=== PATIENT | female | born 1930 | race Caucasian/White ===

== ENCOUNTER 2016-08-24 11:29 | Inpatient (IN) | payer MEDICARE, MEDICAID ==
[~2016-08-24] VITALS: Ht 144.8 cm; Wt 81.4 kg
[~2016-08-24 11:29] MED LIST: /ADVA50050 INH; /AMLO25TA PO; /LEVE75TA PO; /NITR4TASL SL; /SYST15OP OD; /WARF25TA PO; ACET500C PO; ADV500INH INH; ALBU83IN INH; ALLO100T OR; APAP325T PO; ASPI81TA83 OR; AUGM875T27 PO; BACITAB3 PO; BACL10TA2 OR; BACL10TA2 PO; BONI150T PO; CALCIUM/VITAMIN D PO; CENTRUM SILVER PO; CENTTAB PO; COLA100C2 OR; COLA50CA3 PO; COUM1TAB OR; COUM1TAB17 PO; COUM2.5T11 PO; COUM2TAB10 PO; COUM7.5T PO; DILT240C3 OR; DOCU10CA PO; ENOX40SY SC; FINA15GE2 EX; FLAG500T PO; FURO40TA2 OR; FURO40TA2 PO; GABA-279 PO; GLIP-162 PO; GLIP5TAB2 OR; GLIP5TAB2 PO; GLUC5TAB3 OR; IBAN150T5 PO; KEPP1TAB2 PO; KEPPRA OR; KLOR1TAB73 PO; LIDO1DIS2 TD; LISI-538 PO; LISI5TAB PO; MACR100C3 PO; MECL25TA2 OR; MOME50SP; MUCI600T34 PO; MULTTAB4 PO; NASONEX; NEUR300C PO; NITR0.4D6 SL; NITR0.4S SL; NITROQUICK; NYAM10003 TOP; NYST100024 TOP; OMEP20CA3 PO; OMEP20TA PO; OMEP20TA7 OR; OXYB5SYP PO; OXYBPOW PO; PERC5TAB8 OR; POTA10CA PO; POTA20TA OR; PREG25CA OR; REGL10TA6 PO; SIMV40TA2 PO; SIMV80TA OR; SYSTSOL8 OU; TYLE500T78 PO; VASO20TA OR; VENTAER INH; VESI10TA PO; VITA200038 PO; VITA400C OR; VITA500019 PO; VITA500T OR; VITAMIN D 3 PO; VOLT1GEL24 TD; ZARO2.5T OR; ZESTRIL PO; ZOSTRIX TOP; [UNRECOGNIZED DRUG - CODE] PO; [UNRECOGNIZED DRUG - OTHER] PO; [UNRECOGNIZED DRUG - OTHER] SUBQ; diltiazem PO; potassium chloride PO
[2016-08-24 13:17] LABS: BASO # 0.1 K/mm3 (0.0-0.2); BASO % 1.7 % (0.0-1.0); EOS # 0.6 K/mm3 (0.0-0.50); EOS % 7.1 % (0.0-3.0); LARGE UNSTAINED CELL # 0.3 K/mm3 (0.0-0.4); LARGE UNSTAINED CELL % 3.6 % (0.0-4.0); LYMPH # 1.6 K/mm3 (1.5-4.5); LYMPH % 17.1 % (24.0-44.0); MEAN CORPUSCULAR HEMOGLOBIN 28.6 pg (27.0-33.0); MEAN CORPUSCULAR HGB CONC 33.1 g/dl (32.0-36.5); MEAN CORPUSCULAR VOLUME 86.3 fl (80.0-96.0); MONO # 0.9 K/mm3 (0.0-0.8); MONO % 11.3 % (0.0-5.0); NEUTROPHILS # 4.6 K/mm3 (1.8-7.7); NEUTROPHILS % 59.2 % (36.0-66.0); PLATELET COUNT, AUTOMATED 308 k/mm3 (150-450); RED CELL DISTRIBUTION WIDTH 13.3 % (11.5-14.5); WHITE BLOOD COUNT 7.7 K/mm3 (4.0-10.0)
[2016-08-24 13:41] LABS: ALBUMIN 2.9 GM/DL (3.2-5.2); ALBUMIN/GLOBULIN RATIO 1.07 (1.00-1.93); ALKALINE PHOSPHATASE 89 U/L (45-117); ALT/SGPT 18 U/L (12-78); ANION GAP 8 MEQ/L (8-16); AST/SGOT 17 U/L (15-37); BILIRUBIN,DIRECT < 0.1 MG/DL (0.0-0.2); BILIRUBIN,TOTAL 0.3 MG/DL (0.2-1.0); BLOOD UREA NITROGEN 21 MG/DL (7-18); CALCIUM LEVEL 9.1 MG/DL (8.8-10.2); CARBON DIOXIDE LEVEL 26 MEQ/L (21-32); CHLORIDE LEVEL 109 MEQ/L (98-107); CREATININE FOR GFR 0.76 MG/DL (0.55-1.02); GLOMERULAR FILTRATION RATE > 60.0 (>32); GLUCOSE, FASTING 121 MG/DL (83-110); POTASSIUM SERUM 4.3 MEQ/L (3.5-5.1); SODIUM LEVEL 143 MEQ/L (136-145); TOTAL PROTEIN 5.6 GM/DL (6.4-8.2)
[2016-08-24] MEDS ORDERED: AMOX500C PO ×2 (14:09→14:10)
[2016-08-24] MEDS ORDERED: EUCELOT2 TOP (14:12)
[2016-08-24] MEDS ORDERED: FAMOTIDINE/NS 20 MG/50 ML BAG (S0028) As Ordered ONE (14:13)
[2016-08-24] MEDS ORDERED: WARF-20 PO (14:13)
[2016-08-24] MEDS ORDERED: KEPP500T6 PO (14:13)
[2016-08-24] MEDS ORDERED: methylPREDNISolone INJ 125 MG/2 ML VIAL (J2930) As Ordered ONE (14:13)
[2016-08-24] MEDS ORDERED: WARF-58 PO (14:14)
[2016-08-24] MEDS ORDERED: FLUTISP (14:16)
[2016-08-24] MEDS ORDERED: SPIR25TA2 PO (14:16)
[2016-08-24] MEDS ORDERED: LISI-542 PO (14:16)
[2016-08-24] MEDS ORDERED: BACL10TA2 PO (14:19)
[2016-08-24] MEDS ORDERED: NYST100024 TOP (14:19)
[2016-08-24 14:24] LABS: INR 2.4
[2016-08-24] MEDS ORDERED: SYSTSOL8 OU (14:27)
[2016-08-24] MEDS ORDERED: DOCU100C PO (14:27)
[2016-08-24] MEDS ORDERED: VITMTA PO (14:27)
[2016-08-24] MEDS ORDERED: MUCI600T34 PO (14:27)
[2016-08-24] MEDS ORDERED: CETI10TA PO (14:27)
[2016-08-24] MEDS ORDERED: GLIP-162 PO (14:27)
--- NOTE | 2016-08-24 15:00 | REP ---
Left lower extremity Duplex Doppler venous ultrasound: Real time compression and duplex Doppler interrogation of the left lower extremity deep venous system is performed. The left common femoral, superficial femoral and popliteal veins are fully compressible with transducer pressure and demonstrate normal spontaneous and phasic flow, without evidence of deep venous thrombosis. Impression: No evidence of deep venous thrombosis of the left lower extremity femoral popliteal venous system. Signed by Trace Tripathi MD 08/24/2016 02:53 P
[2016-08-24] MEDS ORDERED: CEFTAROLINE FOSAMIL 600 MG VIAL (TEFLARO) As Ordered ONE (15:25)
[2016-08-24 15:50] LABS: ERYTHROCYTE SEDIMENTATION RATE 56 mm/hr (0-42)
[2016-08-24] MEDS ORDERED: ALBUTEROL SULFATE 2.5 MG/0.5 ML INH NEB SOLN INH PRN (16:30)
[2016-08-24] MEDS ORDERED: THERAPEUTIC BATH LOTION 240 ML BTL TOP PRN (16:30)
[2016-08-24] MEDS ORDERED: NYSTATIN 100,000 UNITS/GM TOPICAL PWD 15 GM TOP PRN ×2 (16:30→16:45)
[2016-08-24] MEDS ORDERED: DEXTROSE 50% 50 ML SYRINGE IV PRN (16:30)
[2016-08-24] MEDS ORDERED: ACETAMINOPHEN 500 MG TAB PO PRN (16:30)
[2016-08-24] MEDS ORDERED: CETIRIZINE (ZyrTEC) 10 MG TAB PO PRN (16:30)
[2016-08-24] MEDS ORDERED: ACETAMINOPHEN TAB 650MG DOSE (2X325MG) PO PRN (16:30)
[2016-08-24] MEDS ORDERED: ONDANSETRON 4MG/2ML VIAL (J2405) IV PRN (16:30)
[2016-08-24] MEDS ORDERED: GLUCOSE 4 GM CHEW TABLET PO PRN (16:30)
[2016-08-24] MEDS ORDERED: GLUCAGON FOR INJ 1 MG VIAL (J1610) SC PRN (16:30)
[2016-08-24] MEDS ORDERED: guaiFENesin ER 600 MG TAB PO PRN (16:30)
--- NOTE | 2016-08-24 16:31 | EDDOCDS ---
Nurse's Notes [facility] Name: Anjelica Gallego Age: 86 yrs Sex: Female : 1930 Arrival Date: 08/24/2016 Time: 11:29 Bed 12 Private MD: Fernandez Lozano D Diagnosis: Cellulitis of other sites-left legalong with drug reaction allergic reaection Presentation: 08/24 11:40 Presenting complaint: Patient states: Saw Dr Forte on 08-02 for urinary incontinence [facility] and placed on Uroxatral and Myrbetriq. After taking a few days broke out in rash on arms, legs, face and back. Started on Zyrtec for rash with no improvement. Rash remains despite not taking meds anymore and increasing per pt. On Amoxicillin now for preparation for teeth surgery. Onset: The symptoms/episode began/occurred 2 week(s) ago. This patient has not experienced a previous allergic reaction. Anaphylaxis evaluation, the patient reports or I have noted the following symptoms which indicate a significant risk of anaphylaxis: no signs or symptoms of anaphylaxis were noted. Adult Sepsis Screening: The patient does not have new or worsening altered mentation. Patient's respiratory rate is less than 22. Systolic blood pressure is greater than 100. Patient has a qSOFA score of 0- Negative Sepsis Screen. Suicide/Homicide risk assessment- the patient denies having any suicidal and/or homicidal ideations and does not present with any other emotional, behavioral or mental health complaints. Status: Patient is not a social services manager or dependent. Transition of care: patient was received from [facility]. 11:40 Acuity: KIRK Level 4 [facility] 11:40 Method Of Arrival: Ambulance [facility] Triage Assessment: 11:49 General: Appears in no apparent distress, Behavior is cooperative. Pain: Denies pain. [facility] The patient is triaged at the bedside. See Assessment in Nurses Notes section of ED record. Respiratory: Airway is patent Respiratory effort is even, unlabored, Breath sounds are clear bilaterally. Reports no respiratory complaints. Historical: - Allergies: codeine (Unknown); IODINEIODINE CONTAINING (Unknown); Latex (Unknown); SULFA (SULFONAMIDES) (Unknown); myretiq; Uroxatral; - Home Meds: 1. amoxicillin 500 mg Oral cap 1 cap every 8 hours 2. furosemide 40 mg Oral tab 1 tab once daily 3. Eucerin Topical crea as needed 4. Keppra 500 mg Oral tab 1 tab 2 times per day 5. Coumadin 4 mg Oral tab 1 tab Sun, Tue, Wed, Fri, Sat 6. Coumadin 3 mg Oral tab 1 tab Mon, Thur 7. spironolactone 25 mg Oral tab 1 tab once daily 8. lisinopril 5 mg Oral tab 1 tab nightly 9. Flonase 50 mcg/actuation Nasal spsn 2 sprays once daily 10. gabapentin 100 mg Oral cap 3 times per day 11. baclofen 10 mg Oral tab 0.5 tab twice a day 12. nitroglycerin 0.4 mg SL subl 1 tab every 5 minutes for prn chest pain 13. Nystop 100,000 unit/gram Topical powd 2 times per day 14. Colace 100 mg oral cap 2 caps nightly 15. glipizide 5 mg Oral tab 1 tab once daily 16. omeprazole 20 mg Oral cpDR 1 cap once daily for Gastroesophageal Reflux 17. Vitamin D Oral 2000 unit daily 18. Advair Diskus 500-50 mcg/dose Inhl dsdv 1 puff 2 times per day 19. Systane 0.4-0.3 % ophthalmic drop 1 drop four times a day 20. guaifenesin 600 mg Oral Ta12 twice a day prn congestion 21. acetaminophen 500 mg Oral tab 2 tabs every 6 hours prn pain for Pain 22. simvastatin 40 mg Oral tab 1 tab once daily 23. albuterol sulfate 2.5 mg /3 mL (0.083 %) Inhl nebu 3 mL every 6 hours prn sob/wheezing 24. Centrum Silver Women 8 mg iron-400 mcg-300 mcg oral tab daily - PMHx: Atrial Fibrillation; COPD; diastolic heart failure; essential primary hypertension; GERD; Heart failure; history of falls; hyperlipidemia; Low back pain; muscle weakness; MARCO; Sleep Apnea w/o CPAP; type 2 diabetic with polyneuropathy; Vitamin D deficiency; - PSHx: Cholecystectomy; Cataract Surgery- Bilateral; Hysterectomy; Carpal Tunnel Repair- Bilateral; Laminectomy. lumbar; Back Surgery; Knee Arthroplasty, Left; Knee Arthroplasty, Right; Cardiac catherization; - Social history: Smoking status: Patient states was never smoker of tobacco. No barriers to communication noted, The patient speaks fluent Latvian. - Family history: Not pertinent. - : The pt / caregiver states he / she is on anticoagulants: coumadin. Home medication list is obtained from the patient, the facility MAR. - Exposure Risk Screening:: None identified. Screenin:50 Screening information is obtained from the patient. Fall risk: At risk due to prior [facility] history of falls, The following interventions are performed due to a positive Fall Risk Screen: Fall Risk is added to Special Handling on the patient Summary Screen. A Fall Risk Bracelet was applied to the patient. Side Rails are placed in the up position. A Call Hines is given with instruction to call for help when getting out of bed. Fall Alert bracelet is placed on the patient. Assistance ADL's: Requires assistance with meal preparation, this assistance is provided by residence staff, housework, assistance is provided by residence staff, medication administration, assistance is provided by residence staff. Abuse/DV Screen: The patient / caregiver reports he/she is: not in a situation that causes fear, pain or injury. Nutritional screening: No deficits noted. Advance Directives: There is an active DNR order and the pt has a copy here at this time. home support is adequate. Assessment: 11:50 General: Appears in no apparent distress, Behavior is cooperative. Pain: Denies pain. mcp Neurological: No deficits noted. Respiratory: Airway is patent Respiratory effort is even, unlabored, Breath sounds are clear bilaterally. Derm: Skin is pink, warm & dry. Rash noted that is itchy, red, raised, on face, back, chest, right arm, left arm, right leg and left leg. 12:45 General: Appears Behavior is cooperative. Pain: Location: right leg and left leg Pain mcp currently is 5 out of 10 on a pain scale. Neurological: No deficits noted. Respiratory: Airway is patent Respiratory effort is even, unlabored. Derm: Skin is pink, warm & dry. Rash noted that is itchy, red, raised, on face, back, chest, right arm, left arm, right leg and left leg Swollen area noted on right leg, right foot, left leg and left foot. 13:45 General: Appears in no apparent distress, Behavior is cooperative. Pain: Denies pain. mcp Neurological: No deficits noted. Respiratory: Airway is patent Respiratory effort is even, unlabored. Derm: Skin is pink, warm & dry. 14:45 General: Appears in no apparent distress, Behavior is cooperative. Pain: Denies pain. mcp Neurological: No deficits noted. Respiratory: Airway is patent Respiratory effort is even, unlabored. Derm: Skin is pink, warm & dry. 15:59 General: SBAR faxed and tubed to [facility]. ead 16:22 General: pt assisted to bedside commode. partially incontinent, urine is clear. pt ead returned to bed, ceftaroline continues to infuse. . General: Appears in no apparent distress, comfortable. Neurological: No deficits noted. Respiratory: Airway is patent Respiratory effort is even, unlabored. Derm: Skin is pink, warm & dry. Vital Signs: 11:37 BP 133 / 63; Pulse 90; Resp 18; Temp 98.3(O); Pulse Ox 91% on R/A; Weight 81.65 kg (R); ct3 Height 4 ft. 6 in. (137.16 cm) (R); Pain 8/10; 15:01 Resp 18; Pulse Ox 95% ; ead 15:04 BP 134 / 63; Pulse 86; Resp 20; Temp 96.9(O); Pulse Ox 96% on R/A; Pain 0/10; mcp 15:35 BP 143 / 67 (auto/); Pulse 90; Resp 18; Temp 98.3(T); Pulse Ox 95% on R/A; Pain 0/10; ead 16:18 BP 158 / 70 (auto/); ead 16:22 Pulse 88; Resp 18; Temp 98.3; Pulse Ox 94% ; ead 11:37 Body Mass Index 43.40 (81.65 kg, 137.16 cm) ct3 Vitals: 11:37 Log In Time: August 24, 2016 at 11:35. ct3 ED Course: 11:30 Patient visited by Fiona Sam, Mechanical Process Engineer. lbd 11:30 Fernandez Lozano is Private Physician. lbd 11:30 Patient moved to Waiting lbd 11:31 Patient moved to 12 lbd 11:38 Patient visited by Coretta Perales PCA. ct3 11:43 Triage Initiated mcp 11:51 Patient visited by Berenice Nathan RN. mcp 11:51 The patient / caregiver is instructed regarding the plan of care and ED course. Patient mcp has correct armband on for positive identification. Placed in gown. Bed in low position. Call light in reach. Side rails up X2. 13:17 Renate Mcclelland MD is Attending Physician. ml 13:17 Patient visited by Renate Mcclelland MD. ml 14:02 Patient moved to Ultrasound hgl 14:06 Patient moved to 12 hgl 14:07 PTT Sent. hs1 14:07 PT/INR Sent. hs1 14:11 WOUND CULTURE AND GRAM ST Sent. mcp 14:11 BLOOD CULTURES Sent. mcp 14:30 Patient moved to Ultrasound br3 14:52 Patient moved to 12 br3 14:57 Patient visited by Berenice Nathan, RN. mcp 15:01 Jailene Roa,RN is Primary Nurse. ead 15:06 Patient visited by Berenice Nathan RN. mcp 15:08 US Lower Extremity R/O DVT Returned. EDMS 15:15 Omid Aguilera DO is Hospitalizing Provider. ml 15:37 No procedures done that require assistance. ead 15:38 [place] [place] was scanned into [employer] and attached to record. lg 16:25 Inserted saline lock: 22 gauge in right hand IV initiated prior to this nurse assuming ead care. Administered Medications: 14:20 Drug: Solu-MEDROL 125 mg [Solu-Medrol 500 mg intravenous solution (125 mg)] Route: IVP; mcp Site: right hand; 14:20 Drug: Famotidine 20 mg [famotidine 10 mg/mL intravenous solution] Route: IVPB; Infused mcp Over: 30 mins; Site: right hand; 15:36 Drug: Ceftaroline Fosamil 600 mg [ceftaroline fosamil 600 mg intravenous solution] ead Route: IV; Rate: bolus; Infused Over: 30 mins; Site: right hand; Order Results: Lab Order: CBC with Diff; SPEC'M 08/24/16 12:57 Test: WHITE BLOOD COUNT; Value: 7.7; Range: 4.0-10.0; Units: K/mm3; Status: F Test: RED BLOOD COUNT; Value: 4.00; Range: 4.00-5.40; Units: M/mm3; Status: F Test: HEMOGLOBIN; Value: 11.4; Range: 12.0-16.0; Abnormal: Below low normal; Units: g/dl; Status: F Test: HEMATOCRIT; Value: 34.5; Range: 36.0-47.0; Abnormal: Below low normal; Units: %; Status: F Test: MEAN CORPUSCULAR VOLUME; Value: 86.3; Range: 80.0-96.0; Units: fl; Status: F Test: MEAN CORPUSCULAR HEMOGLOBIN; Value: 28.6; Range: 27.0-33.0; Units: pg; Status: F Test: MEAN CORPUSCULAR HGB CONC; Value: 33.1; Range: 32.0-36.5; Units: g/dl; Status: F Test: RED CELL DISTRIBUTION WIDTH; Value: 13.3; Range: 11.5-14.5; Units: %; Status: F Test: PLATELET COUNT, AUTOMATED; Value: 308; Range: 150-450; Units: k/mm3; Status: F Test: NEUTROPHILS %; Value: 59.2; Range: 36.0-66.0; Units: %; Status: F Test: LYMPH %; Value: 17.1; Range: 24.0-44.0; Abnormal: Below low normal; Units: %; Status: F Test: MONO %; Value: 11.3; Range: 0.0-5.0; Abnormal: Above high normal; Units: %; Status: F Test: EOS %; Value: 7.1; Range: 0.0-3.0; Abnormal: Above high normal; Units: %; Status: F Test: BASO %; Value: 1.7; Range: 0.0-1.0; Abnormal: Above high normal; Units: %; Status: F Test: LARGE UNSTAINED CELL %; Value: 3.6; Range: 0.0-4.0; Units: %; Status: F Test: NEUTROPHILS #; Value: 4.6; Range: 1.8-7.7; Units: K/mm3; Status: F Test: LYMPH #; Value: 1.6; Range: 1.5-4.5; Units: K/mm3; Status: F Test: MONO #; Value: 0.9; Range: 0.0-0.8; Abnormal: Above high normal; Units: K/mm3; Status: F Test: EOS #; Value: 0.6; Range: 0.0-0.50; Abnormal: Above high normal; Units: K/mm3; Status: F Test: BASO #; Value: 0.1; Range: 0.0-0.2; Units: K/mm3; Status: F Test: LARGE UNSTAINED CELL #; Value: 0.3; Range: 0.0-0.4; Units: K/mm3; Status: F Lab Order: MED Profile; SPEC'M 08/24/16 12:57 Test: GLUCOSE, FASTING; Value: 121; Range: 83-110; Abnormal: Above high normal; Units: MG/DL; Status: F Test: BLOOD UREA NITROGEN; Value: 21; Range: 7-18; Abnormal: Above high normal; Units: MG/DL; Status: F Test: CREATININE FOR GFR; Value: 0.76; Range: 0.55-1.02; Units: MG/DL; Status: F Test: GLOMERULAR FILTRATION RATE; Value: > 60.0; Range: >32; Status: F Test: SODIUM LEVEL; Value: 143; Range: 136-145; Units: MEQ/L; Status: F Test: POTASSIUM SERUM; Value: 4.3; Range: 3.5-5.1; Units: MEQ/L; Status: F Test: CHLORIDE LEVEL; Value: 109; Range: 98-107; Abnormal: Above high normal; Units: MEQ/L; Status: F Test: CARBON DIOXIDE LEVEL; Value: 26; Range: 21-32; Units: MEQ/L; Status: F Test: ANION GAP; Value: 8; Range: 8-16; Units: MEQ/L; Status: F Test: CALCIUM LEVEL; Value: 9.1; Range: 8.8-10.2; Units: MG/DL; Status: F Test Note: ; Units are mL/min/1.73 m2 Chronic Kidney Disease Staging per NKF: Stage I & II GFR >=60 Normal to Mildly Decreased Stage III GFR 30-59 Moderately Decreased Stage IV GFR 15-29 Severely Decreased Stage V GFR <15 Very Little GFR Left ESRD GFR <15 on ADZING AND BORING MACHINE HELPER Lab Order: Liver Profile; SPEC'M 08/24/16 12:57 Test: AST/SGOT; Value: 17; Range: 15-37; Units: U/L; Status: F Test: ALT/SGPT; Value: 18; Range: 12-78; Units: U/L; Status: F Test: ALKALINE PHOSPHATASE; Value: 89; Range: 45-117; Units: U/L; Status: F Test: BILIRUBIN,TOTAL; Value: 0.3; Range: 0.2-1.0; Units: MG/DL; Status: F Test: BILIRUBIN,DIRECT; Value: < 0.1; Range: 0.0-0.2; Units: MG/DL; Status: F Test: TOTAL PROTEIN; Value: 5.6; Range: 6.4-8.2; Abnormal: Below low normal; Units: GM/DL; Status: F Test: ALBUMIN; Value: 2.9; Range: 3.2-5.2; Abnormal: Below low normal; Units: GM/DL; Status: F Test: ALBUMIN/GLOBULIN RATIO; Value: 1.07; Range: 1.00-1.93; Status: F Lab Order: PT/INR; [facility] 08/24/16 14:03 Test: PROTHROMBIN TIME; Value: 26.2; Range: 12.3-14.5; Abnormal: Above high normal; Units: SECONDS; Status: F Test: INR; Value: 2.40; Status: F Test Note: ; THERAPUTIC HUMAN INR VALUES INDICATIONS NORMAL RANGES PROPHYLAXIS/TREATMENT OF: VENOUS THROMBOSIS 2.0-3.0 PULMONARY EMBOLISM 2.0-3.0 PREVENTION OF SYSTEMIC EMBOLISM FROM: TISSUE HEART VALVES 2.0-3.0 ACUTE MYOCARDIAL INFARCTION 2.0-3.0 VALVULAR HEART DISEASE 2.0-3.0 ATRIAL FIBRILLATION 2.0-3.0 MECHANICAL VALVES(HIGH RISK) 2.5-3.5 RECURRENT MYOCARDIAL INFARCTION 2.5-3.5 Lab Order: PTT; [facility] 08/24/16 14:03 Test: PARTIAL THROMBOPLASTIN TIME; Value: 47.8; Range: 26.6-37.1; Abnormal: Above high normal; Units: SECONDS; Status: F Lab Order: ERYTHROCYTE SEDIMENTATION RATE; [facility] 12:57 Test: ERYTHROCYTE SEDIMENTATION RATE; Value: 56; Range: 0-42; Abnormal: Above high normal; Units: mm/hr; Status: F Lab Order: C REACTIVE PROTEIN QUANTITATIV; [facility] 08/24/16 12:57 Test: C REACTIVE PROTEIN QUANTITATIV; Value: 1.01; Range: 0.00-0.30; Abnormal: Above high normal; Units: MG/DL; Status: F Radiology Order: US Lower Extremity R/O DVT Test: US Lower Extremity R/O DVT REASON FOR EXAMINATION: swelling; Left lower extremity Duplex Doppler venous ultrasound:; ; Real time compression and duplex Doppler interrogation of the left lower; extremity deep venous system is performed. The left common femoral, superficial; femoral and popliteal veins are fully compressible with transducer pressure and; demonstrate normal spontaneous and phasic flow, without evidence of deep venous; thrombosis.; ; Impression:; ; No evidence of deep venous thrombosis of the left lower extremity femoral; popliteal venous system.; ; ; Signed by; Trace Tripathi MD 08/24/2016 02:53 P; Outcome: 15:16 Decision to Hospitalize by Provider. 16:24 Discharge Assessment: Patient awake and alert. obeys commands, Oriented to person, ead place and time. patient administered narcotics - no. The following High Risk Discharge criteria are identified: None. Admitted to Med/Surg accompanied by tech, via stretcher, with chart. Condition: stable. No special radiology studies were completed. Property :Personal belongings accompany Pt. 16:30 Patient left the ED. [facility] Signatures: Dispatcher [employer] EDWI Renate Mcclelland MD MD ml Daly, Linda, Mechanical Process Engineer Unit [facility] Mary Rosas RN RN Berenice Rico RN RN mcp Ganter, LoriLee, Saurabh Reg lg Claudia Sales br3 Isabel Velasco RN RN hs1 Coretta Perales, PREPARER SAMPLES AND REPAIRS PREPARER SAMPLES AND REPAIRS ct3 Ly, Freddy l Jailene Roa,JOSEPH RN lupillo Corrections: (The following items were deleted from the chart) 14:14 14:06 C REACTIVE PROTEIN QUANTITATIV+LAB sent. hs1 EDMS 14:14 14:07 ERYTHROCYTE SEDIMENTATION RATE+LAB sent. 1 EDMS 15:57 15:35 BP 143 / 67 Auto; ead ead MTDD
--- NOTE | 2016-08-24 16:31 | EDDOCDS ---
Physician Documentation [facility] Name: Anjelica Gallego Age: 86 yrs Sex: Female : 1930 Arrival Date: 08/24/2016 Time: 11:29 Bed 12 Private MD: Fernandez Lozano D Disposition: 08/24/16 15:16 Hospitalization ordered by Omid Aguilera for Inpatient Admission. Preliminary diagnosis is Cellulitis of other sites - left legalong with drug reaction allergic reaection . - Bed requested for 4 [place]. - Status is Inpatient Admission. [facility] - Condition is Stable. - Problem is new. - Symptoms are unchanged. Historical: - Allergies: codeine (Unknown); IODINEIODINE CONTAINING (Unknown); Latex (Unknown); SULFA (SULFONAMIDES) (Unknown); myretiq; Uroxatral; - Home Meds: 1. amoxicillin 500 mg Oral cap 1 cap every 8 hours 2. furosemide 40 mg Oral tab 1 tab once daily 3. Eucerin Topical crea as needed 4. Keppra 500 mg Oral tab 1 tab 2 times per day 5. Coumadin 4 mg Oral tab 1 tab Sun, Tue, Wed, Fri, Sat 6. Coumadin 3 mg Oral tab 1 tab Mon, Thur 7. spironolactone 25 mg Oral tab 1 tab once daily 8. lisinopril 5 mg Oral tab 1 tab nightly 9. Flonase 50 mcg/actuation Nasal spsn 2 sprays once daily 10. gabapentin 100 mg Oral cap 3 times per day 11. baclofen 10 mg Oral tab 0.5 tab twice a day 12. nitroglycerin 0.4 mg SL subl 1 tab every 5 minutes for prn chest pain 13. Nystop 100,000 unit/gram Topical powd 2 times per day 14. Colace 100 mg oral cap 2 caps nightly 15. glipizide 5 mg Oral tab 1 tab once daily 16. omeprazole 20 mg Oral cpDR 1 cap once daily for Gastroesophageal Reflux 17. Vitamin D Oral 2000 unit daily 18. Advair Diskus 500-50 mcg/dose Inhl dsdv 1 puff 2 times per day 19. Systane 0.4-0.3 % ophthalmic drop 1 drop four times a day 20. guaifenesin 600 mg Oral Ta12 twice a day prn congestion 21. acetaminophen 500 mg Oral tab 2 tabs every 6 hours prn pain for Pain 22. simvastatin 40 mg Oral tab 1 tab once daily 23. albuterol sulfate 2.5 mg /3 mL (0.083 %) Inhl nebu 3 mL every 6 hours prn sob/wheezing 24. Centrum Silver Women 8 mg iron-400 mcg-300 mcg oral tab daily - PMHx: Atrial Fibrillation; COPD; diastolic heart failure; essential primary hypertension; GERD; Heart failure; history of falls; hyperlipidemia; Low back pain; muscle weakness; MARCO; Sleep Apnea w/o CPAP; type 2 diabetic with polyneuropathy; Vitamin D deficiency; - PSHx: Cholecystectomy; Cataract Surgery- Bilateral; Hysterectomy; Carpal Tunnel Repair- Bilateral; Laminectomy. lumbar; Back Surgery; Knee Arthroplasty, Left; Knee Arthroplasty, Right; Cardiac catherization; - Social history: Smoking status: Patient states was never smoker of tobacco. No barriers to communication noted, The patient speaks fluent Danish. - Family history: Not pertinent. - : The pt / caregiver states he / she is on anticoagulants: coumadin. Home medication list is obtained from the patient, the facility MAR. - Exposure Risk Screening:: None identified. Vital Signs: 08/24 11:37 BP 133 / 63; Pulse 90; Resp 18; Temp 98.3(O); Pulse Ox 91% on R/A; Weight 81.65 kg / ct3 180.01 lbs (R); Height 4 ft. 6 in. (137.16 cm) (R); Pain 8/10; 15:01 Resp 18; Pulse Ox 95% ; ead 15:04 BP 134 / 63; Pulse 86; Resp 20; Temp 96.9(O); Pulse Ox 96% on R/A; Pain 0/10; mcp 15:35 BP 143 / 67 (auto/); Pulse 90; Resp 18; Temp 98.3(T); Pulse Ox 95% on R/A; Pain 0/10; ead 16:18 BP 158 / 70 (auto/); ead 16:22 Pulse 88; Resp 18; Temp 98.3; Pulse Ox 94% ; ead 11:37 Body Mass Index 43.40 (81.65 kg, 137.16 cm) ct3 MDM: 12:37 CBC with Diff Ordered. EDMS 12:38 MED Profile Ordered. EDMS 12:38 Liver Profile Ordered. EDMS 13:40 CBC with Diff Reviewed. ml 13:42 IV Saline Lock ordered. ml 13:42 -Blood Culture (Adults Only), peripheral from different site, or from device/port/PICC ml etc. if present ordered. 13:42 Solu-MEDROL 125 mg IVP once ordered. ml 13:42 Famotidine 20 mg IVPB once over 30 mins; dilute in 50mL of NS ordered. ml 13:42 -Blood Culture Ordered. EDMS 13:43 Chest, 1 View Ordered. EDMS 13:43 US Lower Extremity R/O DVT Ordered. EDMS 13:44 BED REQUEST+ADM ordered. EDMS 13:45 PT/INR Ordered. EDMS 13:45 PTT Ordered. EDMS 13:48 -Blood Culture (Adults Only), peripheral from different site, or from device/port/PICC lbd etc. if present complete. 14:08 WOUND CULTURE AND GRAM ST Ordered. EDMS 14:08 BLOOD CULTURES Ordered. EDMS 14:14 ERYTHROCYTE SEDIMENTATION RATE Ordered. EDMS 14:31 MED Profile Reviewed. ml 14:31 Liver Profile Reviewed. ml 14:31 PT/INR Reviewed. ml 14:31 PTT Reviewed. ml 14:31 C REACTIVE PROTEIN QUANTITATIV Reviewed. ml 15:02 Ceftaroline Fosamil 600 mg IV at bolus once over 30 mins; reconstitute with 20mL NS or ml SW, then dilulte in 50mL of NS, D5W or LR ordered. 15:11 Admission / Observation Status ordered. EDMS 15:38 Financial registration complete. lg 15:38 [facility] [place] Payment Agreement was scanned into [employer] and attached to record. lg 15:57 CBC with Diff Reviewed. ml 15:57 ERYTHROCYTE SEDIMENTATION RATE Reviewed. ml 15:57 US Lower Extremity R/O DVT Reviewed. ml 16:26 PHYSICAL THERAPY EVAL & TREAT ordered. EDMS Administered Medications: 14:20 Drug: Solu-MEDROL 125 mg [Solu-Medrol 500 mg intravenous solution (125 mg)] Route: IVP; mcp Site: right hand; 14:20 Drug: Famotidine 20 mg [famotidine 10 mg/mL intravenous solution] Route: IVPB; Infused mcp Over: 30 mins; Site: right hand; 15:36 Drug: Ceftaroline Fosamil 600 mg [ceftaroline fosamil 600 mg intravenous solution] ead Route: IV; Rate: bolus; Infused Over: 30 mins; Site: right hand; Signatures: Dispatcher [employer] EDMS Renate Mcclelland MD MD ml Daly, Linda, Chief Clinical Dietitian Unit lbd Mary Rosas RN RN kpj Peters, Mary RN RN Claudia Bryan, Reg Reg lg Jailene RoaRN Damari Valverde RN RN lmg The chart was reviewed and I authenticate all verbal orders and agree with the evaluation and treatment provided.Corrections: (The following items were deleted from the chart) 13:44 13:42 WOUND CULTURE+ADALID ordered. EDMS EDMS 14:14 13:42 ERYTHROCYTE SEDIMENTATION RATE+LAB ordered. EDMS EDMS 14:14 13:42 C REACTIVE PROTEIN QUANTITATIV+LAB ordered. EDMS EDMS Attachments: 15:38 [facility] Payment Agreement lg MTDD
[2016-08-24] MEDS ORDERED: ENTER DRUG NAME HERE (PATIENT'S OWN MED) OU SCH (17:00)
--- NOTE | 2016-08-24 17:19 | REP ---
CHEST, ONE VIEW: HISTORY: Cellulitis. COMPARISON: 03/24/2016 An increase in interstitial markings is present in the lungs consistent with chronic interstitial fibrosis. The cardiac silhouette is enlarged. The pulmonary vasculature is normal in appearance. IMPRESSION: 1. Chronic interstitial fibrosis. 2. Cardiomegaly. Signed by Jim Alexandre MD 08/24/2016 05:42 P
--- NOTE | 2016-08-24 17:20 | PHACANCOPD ---
PHARMACY VANCOMYCIN DOSING Pt Demographics Demographics Patient Age:86 , Weight: 81.65 , HEIGHT: 4'7", Gender: female Adjusted Body Weight Date: 08/24/16, Adjusted Body Weight: [60] Kg Vancomycin Vancomycin Target Ranges: 15-20 mcg/ml Vancomycin Load Y/N: Yes Load Dose Date Time Vancomycin Load Dose: 1GM Date: 08/24/15 Time: 20:00 Vancomycin Dose Date: 08/24/16. Current Vancomycin Dose: [1GM IV Q24H starting 08:00 08/25/16] Intermittent Dosing?: No Labs Labs Laboratory Tests 08/24/16 12:57 Red Blood Count 4.00, Mean Corpuscular Volume 86.3, Mean Corpuscular Hemoglobin 28.6, Mean Corpuscular Hemoglobin Concent 33.1, Red Cell Distribution Width 13.3 , Neutrophils (%) (Auto) 59.2, Lymphocytes (%) (Auto) 17.1 L, Monocytes (%) ( Auto) 11.3 H, Eosinophils (%) (Auto) 7.1 H, Basophils (%) (Auto) 1.7 H, Neutrophils # (Auto) 4.6, Lymphocytes # (Auto) 1.6, Monocytes # (Auto) 0.9 H, Eosinophils # (Auto) 0.6 H, Basophils # (Auto) 0.1 Micro Microbiology 08/24/16 Blood Culture, Received Pending 08/24/16 Blood Culture, Received Pending 08/24/16 Gram Stain, Received Pending 08/24/16 Wound Culture, Received Pending Creatinine Clearance Date:08/24/16. Creatinine Clearance: [<40ml/min]. Assessment and Plan Maintaining Current Dose?: Yes Reason for dose change: No Dose Change Pharmacist Note Pharmacist Note Date: 08/24/16. Pharm.D. note: 86YO FEMALE, 57" in HEIGHT, 81.65KG in WEIGHT, CRCL <40 ml/min. ADMITTED WITH CELLULITIS of LEFT LEG. MEROPENEM 500MG IV Q8H IS INITIATING @18:00. WE ARE ASKED TO DOSE HER VANCOMYCIN TO A GOAL = 15-20 mcg/ml. WE WILL GIVE HER VANCO 1GM IV @ 20:00 THIS EVENING FOLLOWED 12 HRS LATER BY VANCO 1GM IV Q24H starting @08:00 08/25/16. A VANCO TR WILL DE ORDERED WHEN SHE IS AT STEADY STATE. SORAIDA, Pharm.D. [facility] Aug 24, 2016 17:19
[2016-08-24] MEDS: HumaLOG INSULIN (NovoLOG) PER UNIT SC SCH ×2 (17:30→20:58)
[2016-08-24 18:00] VITALS: BP 150/78
[2016-08-24] MEDS: GABAPENTIN 100 MG CAP PO SCH ×2 (18:58→21:05)
[2016-08-24] MEDS: WARFARIN SOD 4 MG TAB PO SCH (18:58)
[2016-08-24] MEDS: FUROSEMIDE 40 MG TAB PO SCH (18:58)
[2016-08-24] MEDS: MEROPENEM INJ 500 MG in D5W MINI-BAG PLUS 100 ML IV SCH (18:58)
[2016-08-24] MEDS ORDERED: VANCOMYCIN HCL 1,000 MG, VIAL MATE ADAPTER 1 EACH in D5W 250 ML IV ONE (20:00)
[2016-08-24] MEDS: ADVAIR DISKUS 500/50 INH PWD INH SCH (20:02)
--- NOTE | 2016-08-24 20:52 | HPE ---
DATE OF ADMISSION: 08/24/2016 TIME PATIENT WAS SEEN: 1400 hours. PRIMARY CARE PROVIDER: Dr. Lozano and also Dr. Shearer CHIEF COMPLAINT: Swelling of lower extremity and also rash. HISTORY OF THE PRESENT ILLNESS: An 86-year-old female with a past medical history of hypertension, obstructive sleep apnea, dyslipidemia, peripheral neuropathy, cerebrovascular accident, hypertension, left bundle branch block, paroxysmal atrial fibrillation, diastolic heart failure with an ejection fraction of 75% in 2013, seizure disorder, neuropathy, melanoma status post excision, presented with worsening swelling and rash of the lower extremity. Per patient, she saw Dr. Forte on 08/02/2016 for urinary incontinence and the patient was placed on two medications, Uroxatral and also Myrbetriq. After a few days on those two medications, she started developing rash on the arms, legs, face and back. Those medications have been discontinued; however, the rash persisted. The upper arm rash has improved; however, the lower extremity rash worsened. Today, she has been seen by a nurse at [facility], and they recommended her to come to the emergency room for further evaluation. The patient currently denies any fever or chills. Denies any drainage in the lower extremities. Denies any pain in the lower extremity. The patient also denies any chest pain, trouble breathing, abdominal pain, nausea, vomiting, diarrhea, constipation or any problem with urination. ALLERGIES: The patient is allergic to CODEINE; she does not remember the side effect. She was allergic to IODINE. Per patient, it was a postsurgical reaction. Allergic to LATEX, gives her rosacea and also allergic to SULFA, gives her trouble breathing and swelling. HOME MEDICATIONS: - Tylenol 500 mg one tablet by mouth every 6 hours as needed - albuterol one inhalation every 6 hours as needed - amoxicillin 500 mg one tablet by mouth three times a day - Baclofen 5 mg one tablet by mouth twice a day - cetirizine 10 mg one tablet by mouth daily - vitamin D3 2000 units one tablet by mouth daily - Colace 200 mg one tablet by mouth nightly - Eucerin topically every 4 hours as needed - fluticasone two sprays in each naris daily - Lasix 40 mg one tablet by mouth daily - gabapentin 100 mg one tablet by mouth three times a day - glipizide 5 mg one tablet by mouth daily - Mucinex 600 mg one tablet by mouth twice a day - Keppra 500 mg one tablet by mouth twice a day - lisinopril 5 mg one tablet by mouth nightly - multivitamin one tablet by mouth daily - nitroglycerin 0.4 mg sublingual every 5 minutes as needed - Nystatin powder topically twice a day as needed - omeprazole 20 mg one tablet by mouth daily - Advair Diskus 500-50 mcg one puff inhalation twice a day - simvastatin 40 mg one tablet by mouth nightly - spironolactone 25 mg one tablet by mouth daily - Systane Balance Restorative eye drops in each eye four times a day - warfarin 4 mg one tablet by mouth five times per week on Tuesday, Tuesday, Tuesday, Tuesday and Tuesday and also warfarin 3 mg two times per week on Tuesday and . PAST MEDICAL HISTORY: As stated above: 1. Hypertension. 2. Obstructive sleep apnea, on continuous positive airway pressure (CPAP) at night. 3. Hypertension. 4. Peripheral neuropathy. 5. Osteoarthritis. 6. Cerebrovascular accident. 7. Seizure disorder. 8. Diastolic heart failure, ejection fraction 75% in 2013. 9. Melanoma status post excision. 10. Asthma. PAST SURGICAL HISTORY: 1. Cholecystectomy. 2. Cataract surgery bilaterally. 3. Hysterectomy. 4. Carpal tunnel release bilaterally. 5. Laminectomy. 6. Knee arthroplasty bilaterally with knee replacement. 7. Cardiac catheterization. SOCIAL HISTORY: The patient is a long-term resident of [facility]. Denies any smoking, drinking or recreational drug use. FAMILY HISTORY: Denies. REVIEW OF SYSTEMS: GENERAL: The patient denies any recent traveling or any sick contact. Denies any fever or chills. HEENT: Denies any changes with vision, smell, hearing or taste. Denies any sore throat or cough. CARDIOVASCULAR: Denies any chest pain, any trouble breathing. PULMONARY: Denies any trouble breathing. GASTROINTESTINAL: Denies any abdominal pain, nausea, vomiting, diarrhea or constipation. GENITOURINARY: Denies any problem with urination. MUSCULOSKELETAL: Admits to chronic pain. ENDOCRINE: Denies any heat or cold in tolerance. The patient, however, does have diabetes. HEMATOLOGY/ONCOLOGY: Denies any bruising or any bleeding anywhere. PSYCHIATRIC: Denies any anxiety/depression. NEUROLOGIC: Denies any weakness on any one side of the body or any change of sensations. PHYSICAL EXAMINATION: VITAL SIGNS: Blood pressure 134/63, pulse 86, respirations 20, temperature 96.9 with oxygen saturating at 96% on room air. Weight was 81 kg. Height was 137 cm. GENERAL: The patient is a morbidly obese female who was alert, awake, oriented times three, does not appear to be in distress, resting comfortably in bed with the head elevated at 30 degrees. HEENT: Normocephalic, atraumatic. Extraocular motor intact. Mucosa moist. NECK: Supple. No neck lymphadenopathy. CARDIOVASCULAR: Regular rate and rhythm. S1, S2. No murmurs, rubs or gallops. LUNGS: Clear to auscultation bilaterally. No wheezing, rales, or rhonchi. ABDOMEN: Positive bowel sounds, soft, nontender, nondistended. No peritoneal signs. No ecchymosis. EXTREMITIES: There was significant erythema in bilateral lower extremities around the ankle, which was slightly warmer to touch bilaterally. Also, on the left inner leg, the patient has a small ulcer which was nonpurulent and nondraining, about 3 cm along the length of the leg. Otherwise, does not look necrotic. SKIN: The patient does have a rash on upper arms, shoulder and also lower extremities. NEUROLOGICAL: Cranial nerves II-XII intact. No focal neurologic deficit. LABORATORY DATA: WBC 7.7, hemoglobin 11.4, hematocrit 34.5 with a platelet count of 308, MCV 86.3. Sodium 143, potassium 4.3, chloride 109, bicarbonate 26, BUN 21, creatinine 0.76 , GFR greater than 60, fasting glucose 121, CRP 1.01, total protein 5.6, albumin 2.9. Coagulation does show a PT of 26.2, INR 2.4 and PTT of 47.8. Accu-Chek glucose is 100. Blood culture times two is pending. Wound culture of the leg is pending. The patient does have a vascular ultrasound on the left lower extremity; it shows no deep vein thrombosis (DVT). The patient does have a portable chest x-ray in the emergency room, shows chronic interstitial fibrosis and cardiomegaly. ASSESSMENT AND PLAN: An 86-year-old female with a past medical history of obstructive sleep apnea, hypertension, paroxysmal atrial fibrillation - on warfarin, and other comorbidities, presented with: 1. Cellulitis of the lower extremities and also rash, possibly secondary to side effect from the medication initially, which got worsened causing worsening diastolic heart failure and fluid buildup and resulting in cellulitis. The patient does also have a small ulcer on the left leg. At this point, we will continue the patient on broad-spectrum antibiotic, meropenem 500 mg IV every 8 hours and also vancomycin 1 gram IV every 24 hours and will followup with a wound culture and also blood culture and continue to monitor the patient. The patient does have a slightly elevated C-reactive protein, which was 1.01. Will continue to monitor. 2. Diastolic heart failure. On home Lasix. Will continue Lasix at home and continue to monitor the patient. Will consider to increase the Lasix dose due to patient did say that she gained about 10 pounds over the past 3 weeks and continue to monitor the patient's intake and output, place the patient on a 2-gram sodium diet, carbohydrate consistent and also 2 liters of fluid restriction. 3. Hypertension. Continue home blood pressure medications including spironolactone 25 mg one tablet by mouth daily and lisinopril 5 mg one tablet by mouth nightly. 4. Paroxysmal atrial fibrillation, on warfarin at home. Continue warfarin. The patient's INR is 2.4 today. Will continue to trend daily INR. 5. Seizure disorder. Continue Keppra. Place the patient on seizure precautions. 6. The patient does have a history of cerebrovascular accident. Will continue to monitor. Currently no signs of stroke. No change of sensations. 7. Obstructive sleep apnea, on continuous positive airway pressure (CPAP) at night. Will continue the patient's home CPAP. 8. History of asthma. Continue home nebulizer and breathing treatment. 9. Chronic pain. Continue home pain medication. 10. Deep vein thrombosis (DVT) prophylaxis, on heparin 5000 units subcutaneously every 8 hours. DISPOSITION: The patient does have cellulitis. Will continue empiric antibiotic for now. Possibly discharge the patient in the next 1-3 days and switch the patient on oral antibiotic. The patient has been discussed with attending doctor, Dr. Aguilera. My preceptor for this patient encounter was Dr. Aguilera. The preceptor was physically present in the building during the encounter and was fully available. As needed, all aspects of the patient interview, examination, medical decision making process, and medical care plan development were reviewed and approved by the preceptor. The preceptor is aware and concurs with the plan as stated in the body of this note and will attest to such by his/her co-signature. Attending Note: I have independently examined this patient and all aspects of the exam and treatment decisions have been discussed with the resident. A member of the hospitalist staff will continue to follow this patient. ADDENDUM: The patient does have a history of drinking two to three beers per day. She denies any tremulousness. I did do a [facility] withdrawal assessment for alcohol scale which she scored 1.4 and did not appear to require any medication for withdrawal. Will go ahead and monitor her regardless. Her blood pressure appears to be stable. Heart rate is 88. I did go ahead and take the liberty of starting her on thiamine and folate in addition to her multivitamin, but will not plan on starting any Serax or Ativan unless she demonstrates signs or symptoms of withdrawal. Addendum dictated: Omid Aguilera DO 08/24/[id number] Addendum transcribed: deepthi 08/24/2016 2150 MTDD
[2016-08-24] MEDS: LISINOPRIL 5 MG TAB PO SCH (20:59)
[2016-08-24] MEDS: SIMVASTATIN 40 MG TAB PO SCH (21:05)
[2016-08-24] MEDS: DOCUSATE SODIUM 100 MG CAP PO SCH (21:05)
[2016-08-24] MEDS: levETIRAcetam 250MG TABLET (KEPPRA) PO SCH (21:05)
[2016-08-24] MEDS: BACLOFEN 10 MG TAB PO SCH (21:05)
[2016-08-24] MEDS: HEPARIN SOD (PORCINE) 5000 UNITS/ML VIAL SC SCH (21:06)
[2016-08-24 22:00] VITALS: BP 116/59
[2016-08-25] MEDS: MEROPENEM INJ 500 MG in D5W MINI-BAG PLUS 100 ML IV SCH ×3 (01:31→18:02)
[2016-08-25] MEDS: HEPARIN SOD (PORCINE) 5000 UNITS/ML VIAL SC SCH ×3 (05:59→21:45)
[2016-08-25 06:00] VITALS: BP 102/50
[2016-08-25 06:11] LABS: MEAN CORPUSCULAR HEMOGLOBIN 29.1 pg (27.0-33.0); MEAN CORPUSCULAR HGB CONC 33.1 g/dl (32.0-36.5); MEAN CORPUSCULAR VOLUME 87.8 fl (80.0-96.0); RED CELL DISTRIBUTION WIDTH 13.3 % (11.5-14.5); WHITE BLOOD COUNT 6.9 K/mm3 (4.0-10.0)
[2016-08-25 06:19] LABS: INR 2.27
[2016-08-25 06:33] LABS: ALBUMIN 2.6 GM/DL (3.2-5.2); CREATININE FOR GFR 1.09 MG/DL (0.55-1.02); GLOMERULAR FILTRATION RATE 50.8 (>32); POTASSIUM SERUM 4.3 MEQ/L (3.5-5.1)
[2016-08-25] MEDS: HumaLOG INSULIN (NovoLOG) PER UNIT SC SCH ×5 (07:30→21:00)
[2016-08-25] MEDS: ADVAIR DISKUS 500/50 INH PWD INH SCH ×2 (07:33→20:26)
[2016-08-25] MEDS: VANCOMYCIN HCL 1,000 MG, VIAL MATE ADAPTER 1 EACH in D5W 250 ML IV SCH (08:37)
[2016-08-25] MEDS: OMEPRAZOLE 20 MG CAP PO SCH (08:48)
[2016-08-25] MEDS: GABAPENTIN 100 MG CAP PO SCH ×3 (08:48→21:39)
[2016-08-25] MEDS: levETIRAcetam 250MG TABLET (KEPPRA) PO SCH ×2 (08:49→21:39)
[2016-08-25] MEDS: FOLIC ACID 1 MG TAB PO SCH (08:49)
[2016-08-25] MEDS: MULTIVITAMINS/MINERALS THERAP 1 TAB PO SCH (08:49)
[2016-08-25] MEDS: VITAMIN D 1,000 INTERNATIONAL UNITS TABLET PO SCH (08:49)
[2016-08-25] MEDS: FUROSEMIDE 40 MG TAB PO SCH ×2 (08:49→16:15)
[2016-08-25] MEDS: THIAMINE 100 MG TAB PO SCH (08:49)
[2016-08-25] MEDS: SPIRONOLACTONE 25 MG TAB PO SCH (08:50)
[2016-08-25] MEDS: BACLOFEN 10 MG TAB PO SCH ×2 (08:50→21:40)
[2016-08-25] MEDS: FLUTICASONE PROP 0.05% NASAL SPRAY 16 GM (FLONASE) SCH (10:38)
--- NOTE | 2016-08-25 12:43 | IPN ---
DATE OF SERVICE: 08/25/2016 Ms. Gallego is feeling better today. She still has some pain, which is worse in the left leg, and the right rash that she had had previously has improved. Temperature is 99, pulse 97, respiratory rate 19, blood pressure 102/50, 93% on room air. Intake and output (I and O) notable for a positive fluid balance of +5. One bowel movement today. She is awake, appropriately interactive, pleasantly conversant, reasonable historian. Mucous membranes are moist. Neck is supple. Breathing is symmetrical, rested. Heart is distant sounding. Abdomen soft, doughy, nontender. She has bilateral lower extremity erythema, warmth, and tenderness on the left. White blood cell count 6.9, hemoglobin 11.2, platelets of 351. INR 2.27. BUN 23, creatinine 1.09, C-reactive protein is 1.35 actually increased from 1.01. Blood cultures are pending. My assessment is as follows: This is an 86-year-old with: 1. A left lower extremity cellulitis, possible bilateral venous stasis. There is an ulcer on the left leg, which was swabbed. Continue with intravenous (IV) antibiotics for now and monitor clinically. 2. The patient has a history of congestive heart failure with diastolic dysfunction. It does not appear to be decompensated. 3. The patient has hypertension. 4. The patient has a history of paroxysmal atrial fibrillation. Coumadin is in the therapeutic range. 5. The patient has a history of seizure disorder. On Keppra. 6. The patient has obstructive sleep apnea. A continuous positive airway pressure (CPAP) has been brought from the shelter but, unfortunately, the mask has been left behind. Will need to obtain the mask today, so she can wear CPAP at night. 7. The patient has appropriate deep venous thrombosis (DVT) prophylaxis in the form of Coumadin.
[2016-08-25 14:00] VITALS: BP 118/56
[2016-08-25] MEDS: WARFARIN SOD 4 MG TAB PO SCH (16:15)
[2016-08-25] MEDS: SIMVASTATIN 40 MG TAB PO SCH (21:38)
[2016-08-25 21:39] VITALS: BP 129/60
[2016-08-25] MEDS: DOCUSATE SODIUM 100 MG CAP PO SCH (21:39)
[2016-08-25] MEDS: LISINOPRIL 5 MG TAB PO SCH (21:39)
[2016-08-25 22:00] VITALS: BP 129/60
[2016-08-26] MEDS: MEROPENEM INJ 500 MG in D5W MINI-BAG PLUS 100 ML IV SCH ×2 (01:42→10:27)
[2016-08-26] MEDS: HEPARIN SOD (PORCINE) 5000 UNITS/ML VIAL SC SCH (05:53)
[2016-08-26 06:00] VITALS: BP 122/57
[2016-08-26 07:04] LABS: MEAN CORPUSCULAR HEMOGLOBIN 28.6 pg (27.0-33.0); MEAN CORPUSCULAR VOLUME 86.7 fl (80.0-96.0); RED CELL DISTRIBUTION WIDTH 12.8 % (11.5-14.5); WHITE BLOOD COUNT 6.5 K/mm3 (4.0-10.0)
[2016-08-26 07:20] LABS: INR 2.42
[2016-08-26 07:24] LABS: ALBUMIN 2.7 GM/DL (3.2-5.2); ANION GAP 10 MEQ/L (8-16); BLOOD UREA NITROGEN 18 MG/DL (7-18); CALCIUM LEVEL 8.7 MG/DL (8.8-10.2); CARBON DIOXIDE LEVEL 29 MEQ/L (21-32); CHLORIDE LEVEL 105 MEQ/L (98-107); GLOMERULAR FILTRATION RATE > 60.0 (>32); GLUCOSE, FASTING 103 MG/DL (83-110); PHOSPHORUS LEVEL 2.6 MG/DL (2.5-4.9); POTASSIUM SERUM 3.7 MEQ/L (3.5-5.1); SODIUM LEVEL 144 MEQ/L (136-145)
[2016-08-26] MEDS: ADVAIR DISKUS 500/50 INH PWD INH SCH (07:59)
[2016-08-26] MEDS: VANCOMYCIN HCL 1,000 MG, VIAL MATE ADAPTER 1 EACH in D5W 250 ML IV SCH (08:15)
[2016-08-26] MEDS: HumaLOG INSULIN (NovoLOG) PER UNIT SC SCH ×2 (09:34→12:06)
[2016-08-26] MEDS: MULTIVITAMINS/MINERALS THERAP 1 TAB PO SCH (09:35)
[2016-08-26] MEDS: OMEPRAZOLE 20 MG CAP PO SCH (09:35)
[2016-08-26] MEDS: FOLIC ACID 1 MG TAB PO SCH (09:35)
[2016-08-26] MEDS: BACLOFEN 10 MG TAB PO SCH (09:35)
[2016-08-26] MEDS: VITAMIN D 1,000 INTERNATIONAL UNITS TABLET PO SCH (09:35)
[2016-08-26] MEDS: THIAMINE 100 MG TAB PO SCH (09:36)
[2016-08-26] MEDS: GABAPENTIN 100 MG CAP PO SCH (09:36)
[2016-08-26] MEDS: FUROSEMIDE 40 MG TAB PO SCH (09:36)
[2016-08-26] MEDS: levETIRAcetam 250MG TABLET (KEPPRA) PO SCH (09:37)
[2016-08-26] MEDS: SPIRONOLACTONE 25 MG TAB PO SCH (09:37)
[2016-08-26] MEDS: FLUTICASONE PROP 0.05% NASAL SPRAY 16 GM (FLONASE) SCH (09:38)
[2016-08-26] MEDS ORDERED: DOXY-278 PO (10:58)
[2016-08-26] MEDS ORDERED: LEVA500T PO (10:59)
[2016-08-26] MEDS ORDERED: CETI10TA PO (15:02)
[2016-08-26] MEDS ORDERED: WARFARIN SOD 3 MG TAB PO SCH (17:00)
--- NOTE | 2016-08-26 17:30 | EDDOCDS ---
Nurse's Notes [facility] Name: Anjelica Gallego Age: 86 yrs Sex: Female : 1930 Arrival Date: 08/24/2016 Time: 11:29 Bed 12 Private MD: Fernandez Lozano D Diagnosis: Cellulitis of other sites-left legalong with drug reaction allergic reaection Presentation: 08/24 11:40 Presenting complaint: Patient states: Saw Dr Forte on 08-02 for urinary incontinence [facility] and placed on Uroxatral and Myrbetriq. After taking a few days broke out in rash on arms, legs, face and back. Started on Zyrtec for rash with no improvement. Rash remains despite not taking meds anymore and increasing per pt. On Amoxicillin now for preparation for teeth surgery. Onset: The symptoms/episode began/occurred 2 week(s) ago. This patient has not experienced a previous allergic reaction. Anaphylaxis evaluation, the patient reports or I have noted the following symptoms which indicate a significant risk of anaphylaxis: no signs or symptoms of anaphylaxis were noted. Adult Sepsis Screening: The patient does not have new or worsening altered mentation. Patient's respiratory rate is less than 22. Systolic blood pressure is greater than 100. Patient has a qSOFA score of 0- Negative Sepsis Screen. Suicide/Homicide risk assessment- the patient denies having any suicidal and/or homicidal ideations and does not present with any other emotional, behavioral or mental health complaints. Status: Patient is not a sales service rep or dependent. Transition of care: patient was received from [facility]. 11:40 Acuity: KIRK Level 4 [facility] 11:40 Method Of Arrival: Ambulance [facility] Triage Assessment: 11:49 General: Appears in no apparent distress, Behavior is cooperative. Pain: Denies pain. [facility] The patient is triaged at the bedside. See Assessment in Nurses Notes section of ED record. Respiratory: Airway is patent Respiratory effort is even, unlabored, Breath sounds are clear bilaterally. Reports no respiratory complaints. Historical: - Allergies: codeine (Unknown); IODINEIODINE CONTAINING (Unknown); Latex (Unknown); SULFA (SULFONAMIDES) (Unknown); myretiq; Uroxatral; - Home Meds: 1. amoxicillin 500 mg Oral cap 1 cap every 8 hours 2. furosemide 40 mg Oral tab 1 tab once daily 3. Eucerin Topical crea as needed 4. Keppra 500 mg Oral tab 1 tab 2 times per day 5. Coumadin 4 mg Oral tab 1 tab Sun, Tue, Wed, Fri, Sat 6. Coumadin 3 mg Oral tab 1 tab Mon, Thur 7. spironolactone 25 mg Oral tab 1 tab once daily 8. lisinopril 5 mg Oral tab 1 tab nightly 9. Flonase 50 mcg/actuation Nasal spsn 2 sprays once daily 10. gabapentin 100 mg Oral cap 3 times per day 11. baclofen 10 mg Oral tab 0.5 tab twice a day 12. nitroglycerin 0.4 mg SL subl 1 tab every 5 minutes for prn chest pain 13. Nystop 100,000 unit/gram Topical powd 2 times per day 14. Colace 100 mg oral cap 2 caps nightly 15. glipizide 5 mg Oral tab 1 tab once daily 16. omeprazole 20 mg Oral cpDR 1 cap once daily for Gastroesophageal Reflux 17. Vitamin D Oral 2000 unit daily 18. Advair Diskus 500-50 mcg/dose Inhl dsdv 1 puff 2 times per day 19. Systane 0.4-0.3 % ophthalmic drop 1 drop four times a day 20. guaifenesin 600 mg Oral Ta12 twice a day prn congestion 21. acetaminophen 500 mg Oral tab 2 tabs every 6 hours prn pain for Pain 22. simvastatin 40 mg Oral tab 1 tab once daily 23. albuterol sulfate 2.5 mg /3 mL (0.083 %) Inhl nebu 3 mL every 6 hours prn sob/wheezing 24. Centrum Silver Women 8 mg iron-400 mcg-300 mcg oral tab daily - PMHx: Atrial Fibrillation; COPD; diastolic heart failure; essential primary hypertension; GERD; Heart failure; history of falls; hyperlipidemia; Low back pain; muscle weakness; MARCO; Sleep Apnea w/o CPAP; type 2 diabetic with polyneuropathy; Vitamin D deficiency; - PSHx: Cholecystectomy; Cataract Surgery- Bilateral; Hysterectomy; Carpal Tunnel Repair- Bilateral; Laminectomy. lumbar; Back Surgery; Knee Arthroplasty, Left; Knee Arthroplasty, Right; Cardiac catherization; - Social history: Smoking status: Patient states was never smoker of tobacco. No barriers to communication noted, The patient speaks fluent Thai. - Family history: Not pertinent. - : The pt / caregiver states he / she is on anticoagulants: coumadin. Home medication list is obtained from the patient, the facility MAR. - Exposure Risk Screening:: None identified. Screenin:50 Screening information is obtained from the patient. Fall risk: At risk due to prior [facility] history of falls, The following interventions are performed due to a positive Fall Risk Screen: Fall Risk is added to Special Handling on the patient Summary Screen. A Fall Risk Bracelet was applied to the patient. Side Rails are placed in the up position. A Call Hines is given with instruction to call for help when getting out of bed. Fall Alert bracelet is placed on the patient. Assistance ADL's: Requires assistance with meal preparation, this assistance is provided by residence staff, housework, assistance is provided by residence staff, medication administration, assistance is provided by residence staff. Abuse/DV Screen: The patient / caregiver reports he/she is: not in a situation that causes fear, pain or injury. Nutritional screening: No deficits noted. Advance Directives: There is an active DNR order and the pt has a copy here at this time. home support is adequate. Assessment: 11:50 General: Appears in no apparent distress, Behavior is cooperative. Pain: Denies pain. mcp Neurological: No deficits noted. Respiratory: Airway is patent Respiratory effort is even, unlabored, Breath sounds are clear bilaterally. Derm: Skin is pink, warm & dry. Rash noted that is itchy, red, raised, on face, back, chest, right arm, left arm, right leg and left leg. 12:45 General: Appears Behavior is cooperative. Pain: Location: right leg and left leg Pain mcp currently is 5 out of 10 on a pain scale. Neurological: No deficits noted. Respiratory: Airway is patent Respiratory effort is even, unlabored. Derm: Skin is pink, warm & dry. Rash noted that is itchy, red, raised, on face, back, chest, right arm, left arm, right leg and left leg Swollen area noted on right leg, right foot, left leg and left foot. 13:45 General: Appears in no apparent distress, Behavior is cooperative. Pain: Denies pain. mcp Neurological: No deficits noted. Respiratory: Airway is patent Respiratory effort is even, unlabored. Derm: Skin is pink, warm & dry. 14:45 General: Appears in no apparent distress, Behavior is cooperative. Pain: Denies pain. mcp Neurological: No deficits noted. Respiratory: Airway is patent Respiratory effort is even, unlabored. Derm: Skin is pink, warm & dry. 15:59 General: SBAR faxed and tubed to [facility]. ead 16:22 General: pt assisted to bedside commode. partially incontinent, urine is clear. pt ead returned to bed, ceftaroline continues to infuse. . General: Appears in no apparent distress, comfortable. Neurological: No deficits noted. Respiratory: Airway is patent Respiratory effort is even, unlabored. Derm: Skin is pink, warm & dry. Vital Signs: 11:37 BP 133 / 63; Pulse 90; Resp 18; Temp 98.3(O); Pulse Ox 91% on R/A; Weight 81.65 kg (R); ct3 Height 4 ft. 6 in. (137.16 cm) (R); Pain 8/10; 15:01 Resp 18; Pulse Ox 95% ; ead 15:04 BP 134 / 63; Pulse 86; Resp 20; Temp 96.9(O); Pulse Ox 96% on R/A; Pain 0/10; mcp 15:35 BP 143 / 67 (auto/); Pulse 90; Resp 18; Temp 98.3(T); Pulse Ox 95% on R/A; Pain 0/10; ead 16:18 BP 158 / 70 (auto/); ead 16:22 Pulse 88; Resp 18; Temp 98.3; Pulse Ox 94% ; ead 11:37 Body Mass Index 43.40 (81.65 kg, 137.16 cm) ct3 Vitals: 11:37 Log In Time: August 24, 2016 at 11:35. ct3 ED Course: 11:30 Patient visited by Fiona Sam, Ict Quality Assurance Engineer. lbd 11:30 Fernandez Lozano is Private Physician. lbd 11:30 Patient moved to Waiting lbd 11:31 Patient moved to 12 lbd 11:38 Patient visited by Coretta Perales PCA. ct3 11:43 Triage Initiated mcp 11:51 Patient visited by Berenice Nathan RN. mcp 11:51 The patient / caregiver is instructed regarding the plan of care and ED course. Patient mcp has correct armband on for positive identification. Placed in gown. Bed in low position. Call light in reach. Side rails up X2. 13:17 Renate Mcclelland MD is Attending Physician. ml 13:17 Patient visited by Renate Mcclelland MD. ml 14:02 Patient moved to Ultrasound hgl 14:06 Patient moved to 12 hgl 14:07 PTT Sent. hs1 14:07 PT/INR Sent. hs1 14:11 WOUND CULTURE AND GRAM ST Sent. mcp 14:11 BLOOD CULTURES Sent. mcp 14:30 Patient moved to Ultrasound br3 14:52 Patient moved to 12 br3 14:57 Patient visited by Berenice Nathan, RN. mcp 15:01 Jailene oRa,JOSEPH is Primary Nurse. ead 15:06 Patient visited by Berenice Nathan RN. mcp 15:08 US Lower Extremity R/O DVT Returned. EDMS 15:15 Omid Aguilera DO is Hospitalizing Provider. ml 15:37 No procedures done that require assistance. ead 15:38 [facility] [place] was scanned into [facility] and attached to record. lg 16:25 Inserted saline lock: 22 gauge in right hand IV initiated prior to this nurse assuming ead care. 08/25 10:17 T-Sheet-- Draft Copy was scanned into [facility] and attached to record. gb 10:17 PCR was scanned into [facility] and attached to record. gb 10:17 Radiology Report was scanned into [facility] and attached to record. gb Administered Medications: 08/24 14:20 Drug: Solu-MEDROL 125 mg [Solu-Medrol 500 mg intravenous solution (125 mg)] Route: IVP; mcp Site: right hand; 14:20 Drug: Famotidine 20 mg [famotidine 10 mg/mL intravenous solution] Route: IVPB; Infused mcp Over: 30 mins; Site: right hand; 15:36 Drug: Ceftaroline Fosamil 600 mg [ceftaroline fosamil 600 mg intravenous solution] ead Route: IV; Rate: bolus; Infused Over: 30 mins; Site: right hand; 16:33 Follow up: Response: No Adverse Reaction; IV Status: Completed infusion; IV Intake: 50mlead Intake: 16:33 IV: 50.00ml; Total: 50.00ml. ead Order Results: Lab Order: CBC with Diff; SPEC'M 08/24/16 12:57 Test: WHITE BLOOD COUNT; Value: 7.7; Range: 4.0-10.0; Units: K/mm3; Status: F Test: RED BLOOD COUNT; Value: 4.00; Range: 4.00-5.40; Units: M/mm3; Status: F Test: HEMOGLOBIN; Value: 11.4; Range: 12.0-16.0; Abnormal: Below low normal; Units: g/dl; Status: F Test: HEMATOCRIT; Value: 34.5; Range: 36.0-47.0; Abnormal: Below low normal; Units: %; Status: F Test: MEAN CORPUSCULAR VOLUME; Value: 86.3; Range: 80.0-96.0; Units: fl; Status: F Test: MEAN CORPUSCULAR HEMOGLOBIN; Value: 28.6; Range: 27.0-33.0; Units: pg; Status: F Test: MEAN CORPUSCULAR HGB CONC; Value: 33.1; Range: 32.0-36.5; Units: g/dl; Status: F Test: RED CELL DISTRIBUTION WIDTH; Value: 13.3; Range: 11.5-14.5; Units: %; Status: F Test: PLATELET COUNT, AUTOMATED; Value: 308; Range: 150-450; Units: k/mm3; Status: F Test: NEUTROPHILS %; Value: 59.2; Range: 36.0-66.0; Units: %; Status: F Test: LYMPH %; Value: 17.1; Range: 24.0-44.0; Abnormal: Below low normal; Units: %; Status: F Test: MONO %; Value: 11.3; Range: 0.0-5.0; Abnormal: Above high normal; Units: %; Status: F Test: EOS %; Value: 7.1; Range: 0.0-3.0; Abnormal: Above high normal; Units: %; Status: F Test: BASO %; Value: 1.7; Range: 0.0-1.0; Abnormal: Above high normal; Units: %; Status: F Test: LARGE UNSTAINED CELL %; Value: 3.6; Range: 0.0-4.0; Units: %; Status: F Test: NEUTROPHILS #; Value: 4.6; Range: 1.8-7.7; Units: K/mm3; Status: F Test: LYMPH #; Value: 1.6; Range: 1.5-4.5; Units: K/mm3; Status: F Test: MONO #; Value: 0.9; Range: 0.0-0.8; Abnormal: Above high normal; Units: K/mm3; Status: F Test: EOS #; Value: 0.6; Range: 0.0-0.50; Abnormal: Above high normal; Units: K/mm3; Status: F Test: BASO #; Value: 0.1; Range: 0.0-0.2; Units: K/mm3; Status: F Test: LARGE UNSTAINED CELL #; Value: 0.3; Range: 0.0-0.4; Units: K/mm3; Status: F Lab Order: MED Profile; SPEC'M 08/24/16 12:57 Test: GLUCOSE, FASTING; Value: 121; Range: 83-110; Abnormal: Above high normal; Units: MG/DL; Status: F Test: BLOOD UREA NITROGEN; Value: 21; Range: 7-18; Abnormal: Above high normal; Units: MG/DL; Status: F Test: CREATININE FOR GFR; Value: 0.76; Range: 0.55-1.02; Units: MG/DL; Status: F Test: GLOMERULAR FILTRATION RATE; Value: > 60.0; Range: >32; Status: F Test: SODIUM LEVEL; Value: 143; Range: 136-145; Units: MEQ/L; Status: F Test: POTASSIUM SERUM; Value: 4.3; Range: 3.5-5.1; Units: MEQ/L; Status: F Test: CHLORIDE LEVEL; Value: 109; Range: 98-107; Abnormal: Above high normal; Units: MEQ/L; Status: F Test: CARBON DIOXIDE LEVEL; Value: 26; Range: 21-32; Units: MEQ/L; Status: F Test: ANION GAP; Value: 8; Range: 8-16; Units: MEQ/L; Status: F Test: CALCIUM LEVEL; Value: 9.1; Range: 8.8-10.2; Units: MG/DL; Status: F Test Note: ; Units are mL/min/1.73 m2 Chronic Kidney Disease Staging per NKF: Stage I & II GFR >=60 Normal to Mildly Decreased Stage III GFR 30-59 Moderately Decreased Stage IV GFR 15-29 Severely Decreased Stage V GFR <15 Very Little GFR Left ESRD GFR <15 on VENDING MACHINE FILLER Lab Order: Liver Profile; [facility] 08/24/16 12:57 Test: AST/SGOT; Value: 17; Range: 15-37; Units: U/L; Status: F Test: ALT/SGPT; Value: 18; Range: 12-78; Units: U/L; Status: F Test: ALKALINE PHOSPHATASE; Value: 89; Range: 45-117; Units: U/L; Status: F Test: BILIRUBIN,TOTAL; Value: 0.3; Range: 0.2-1.0; Units: MG/DL; Status: F Test: BILIRUBIN,DIRECT; Value: < 0.1; Range: 0.0-0.2; Units: MG/DL; Status: F Test: TOTAL PROTEIN; Value: 5.6; Range: 6.4-8.2; Abnormal: Below low normal; Units: GM/DL; Status: F Test: ALBUMIN; Value: 2.9; Range: 3.2-5.2; Abnormal: Below low normal; Units: GM/DL; Status: F Test: ALBUMIN/GLOBULIN RATIO; Value: 1.07; Range: 1.00-1.93; Status: F Lab Order: PT/INR; [facility] 08/24/16 14:03 Test: PROTHROMBIN TIME; Value: 26.2; Range: 12.3-14.5; Abnormal: Above high normal; Units: SECONDS; Status: F Test: INR; Value: 2.40; Status: F Test Note: ; THERAPUTIC HUMAN INR VALUES INDICATIONS NORMAL RANGES PROPHYLAXIS/TREATMENT OF: VENOUS THROMBOSIS 2.0-3.0 PULMONARY EMBOLISM 2.0-3.0 PREVENTION OF SYSTEMIC EMBOLISM FROM: TISSUE HEART VALVES 2.0-3.0 ACUTE MYOCARDIAL INFARCTION 2.0-3.0 VALVULAR HEART DISEASE 2.0-3.0 ATRIAL FIBRILLATION 2.0-3.0 MECHANICAL VALVES(HIGH RISK) 2.5-3.5 RECURRENT MYOCARDIAL INFARCTION 2.5-3.5 Lab Order: PTT; [facility] 08/24/16 14:03 Test: PARTIAL THROMBOPLASTIN TIME; Value: 47.8; Range: 26.6-37.1; Abnormal: Above high normal; Units: SECONDS; Status: F Lab Order: ERYTHROCYTE SEDIMENTATION RATE; SPEC'M 08/24/16 12:57 Test: ERYTHROCYTE SEDIMENTATION RATE; Value: 56; Range: 0-42; Abnormal: Above high normal; Units: mm/hr; Status: F Lab Order: C REACTIVE PROTEIN QUANTITATIV; SPEC'M 08/24/16 12:57 Test: C REACTIVE PROTEIN QUANTITATIV; Value: 1.01; Range: 0.00-0.30; Abnormal: Above high normal; Units: MG/DL; Status: F Radiology Order: US Lower Extremity R/O DVT Test: US Lower Extremity R/O DVT REASON FOR EXAMINATION: swelling; Left lower extremity Duplex Doppler venous ultrasound:; ; Real time compression and duplex Doppler interrogation of the left lower; extremity deep venous system is performed. The left common femoral, superficial; femoral and popliteal veins are fully compressible with transducer pressure and; demonstrate normal spontaneous and phasic flow, without evidence of deep venous; thrombosis.; ; Impression:; ; No evidence of deep venous thrombosis of the left lower extremity femoral; popliteal venous system.; ; ; Signed by; Trace Tripathi MD 08/24/2016 02:53 P; Outcome: 15:16 Decision to Hospitalize by Provider. 16:24 Discharge Assessment: Patient awake and alert. obeys commands, Oriented to person, ead place and time. patient administered narcotics - no. The following High Risk Discharge criteria are identified: None. Admitted to Med/Surg accompanied by tech, via stretcher, with chart. Condition: stable. No special radiology studies were completed. Property :Personal belongings accompany Pt. 16:30 Patient left the ED. [facility] 16:30 Admission hand-off: Other: This nurse spoke with DUNCAN Boucher at [facility] assisted regarding ead pt's admission. . Signatures: Dispatcher [facility] EDMS Tunde-Renate Tripathi MD MD ml Daly, Linda, Ict Quality Assurance Engineer Unit lbd Mary Rosas RN RN Berenice Rico RN RN [facility] Esther Cifuentes, Reg Reg gb Ganter, Luis Albertoe, Reg Reg lg Claudia Sales br3 Isabel Velasco RN RN hs1 Coretta Perales, STREETSWEEPER OPERATOR STREETSWEEPER OPERATOR ct3 Ly, Freddy hgl Janina,Jailene,RN RN ead Corrections: (The following items were deleted from the chart) 14:14 14:06 C REACTIVE PROTEIN QUANTITATIV+LAB sent. hs1 EDMS 14:14 14:07 ERYTHROCYTE SEDIMENTATION RATE+LAB sent. hs1 EDMS 15:57 15:35 BP 143 / 67 Auto; ead ead Chart Complete MTDD
--- NOTE | 2016-08-26 17:30 | EDDOCDS ---
Physician Documentation [facility] Name: Anjelica Gallego Age: 86 yrs Sex: Female : 1930 Arrival Date: 08/24/2016 Time: 11:29 Bed 12 Private MD: Fernandez Lozano D Disposition: 08/24/16 15:16 Hospitalization ordered by Omid Aguilera for Inpatient Admission. Preliminary diagnosis is Cellulitis of other sites - left legalong with drug reaction allergic reaection . - Bed requested for 4 Calvin. - Status is Inpatient Admission. [facility] - Condition is Stable. - Problem is new. - Symptoms are unchanged. Historical: - Allergies: codeine (Unknown); IODINEIODINE CONTAINING (Unknown); Latex (Unknown); SULFA (SULFONAMIDES) (Unknown); myretiq; Uroxatral; - Home Meds: 1. amoxicillin 500 mg Oral cap 1 cap every 8 hours 2. furosemide 40 mg Oral tab 1 tab once daily 3. Eucerin Topical crea as needed 4. Keppra 500 mg Oral tab 1 tab 2 times per day 5. Coumadin 4 mg Oral tab 1 tab Sun, Tue, Wed, Fri, Sat 6. Coumadin 3 mg Oral tab 1 tab Mon, Thur 7. spironolactone 25 mg Oral tab 1 tab once daily 8. lisinopril 5 mg Oral tab 1 tab nightly 9. Flonase 50 mcg/actuation Nasal spsn 2 sprays once daily 10. gabapentin 100 mg Oral cap 3 times per day 11. baclofen 10 mg Oral tab 0.5 tab twice a day 12. nitroglycerin 0.4 mg SL subl 1 tab every 5 minutes for prn chest pain 13. Nystop 100,000 unit/gram Topical powd 2 times per day 14. Colace 100 mg oral cap 2 caps nightly 15. glipizide 5 mg Oral tab 1 tab once daily 16. omeprazole 20 mg Oral cpDR 1 cap once daily for Gastroesophageal Reflux 17. Vitamin D Oral 2000 unit daily 18. Advair Diskus 500-50 mcg/dose Inhl dsdv 1 puff 2 times per day 19. Systane 0.4-0.3 % ophthalmic drop 1 drop four times a day 20. guaifenesin 600 mg Oral Ta12 twice a day prn congestion 21. acetaminophen 500 mg Oral tab 2 tabs every 6 hours prn pain for Pain 22. simvastatin 40 mg Oral tab 1 tab once daily 23. albuterol sulfate 2.5 mg /3 mL (0.083 %) Inhl nebu 3 mL every 6 hours prn sob/wheezing 24. Centrum Silver Women 8 mg iron-400 mcg-300 mcg oral tab daily - PMHx: Atrial Fibrillation; COPD; diastolic heart failure; essential primary hypertension; GERD; Heart failure; history of falls; hyperlipidemia; Low back pain; muscle weakness; MARCO; Sleep Apnea w/o CPAP; type 2 diabetic with polyneuropathy; Vitamin D deficiency; - PSHx: Cholecystectomy; Cataract Surgery- Bilateral; Hysterectomy; Carpal Tunnel Repair- Bilateral; Laminectomy. lumbar; Back Surgery; Knee Arthroplasty, Left; Knee Arthroplasty, Right; Cardiac catherization; - Social history: Smoking status: Patient states was never smoker of tobacco. No barriers to communication noted, The patient speaks fluent Swedish. - Family history: Not pertinent. - : The pt / caregiver states he / she is on anticoagulants: coumadin. Home medication list is obtained from the patient, the facility MAR. - Exposure Risk Screening:: None identified. Vital Signs: 08/24 11:37 BP 133 / 63; Pulse 90; Resp 18; Temp 98.3(O); Pulse Ox 91% on R/A; Weight 81.65 kg / ct3 180.01 lbs (R); Height 4 ft. 6 in. (137.16 cm) (R); Pain 8/10; 15:01 Resp 18; Pulse Ox 95% ; ead 15:04 BP 134 / 63; Pulse 86; Resp 20; Temp 96.9(O); Pulse Ox 96% on R/A; Pain 0/10; mcp 15:35 BP 143 / 67 (auto/); Pulse 90; Resp 18; Temp 98.3(T); Pulse Ox 95% on R/A; Pain 0/10; ead 16:18 BP 158 / 70 (auto/); ead 16:22 Pulse 88; Resp 18; Temp 98.3; Pulse Ox 94% ; ead 11:37 Body Mass Index 43.40 (81.65 kg, 137.16 cm) ct3 MDM: 12:37 CBC with Diff Ordered. EDMS 12:38 MED Profile Ordered. EDMS 12:38 Liver Profile Ordered. EDMS 13:40 CBC with Diff Reviewed. ml 13:42 IV Saline Lock ordered. ml 13:42 -Blood Culture (Adults Only), peripheral from different site, or from device/port/PICC ml etc. if present ordered. 13:42 Solu-MEDROL 125 mg IVP once ordered. ml 13:42 Famotidine 20 mg IVPB once over 30 mins; dilute in 50mL of NS ordered. ml 13:42 -Blood Culture Ordered. EDMS 13:43 Chest, 1 View Ordered. EDMS 13:43 US Lower Extremity R/O DVT Ordered. EDMS 13:44 BED REQUEST+ADM ordered. EDMS 13:45 PT/INR Ordered. EDMS 13:45 PTT Ordered. EDMS 13:48 -Blood Culture (Adults Only), peripheral from different site, or from device/port/PICC lbd etc. if present complete. 14:08 WOUND CULTURE AND GRAM ST Ordered. EDMS 14:08 BLOOD CULTURES Ordered. EDMS 14:14 ERYTHROCYTE SEDIMENTATION RATE Ordered. EDMS 14:31 MED Profile Reviewed. ml 14:31 Liver Profile Reviewed. ml 14:31 PT/INR Reviewed. ml 14:31 PTT Reviewed. ml 14:31 C REACTIVE PROTEIN QUANTITATIV Reviewed. ml 15:02 Ceftaroline Fosamil 600 mg IV at bolus once over 30 mins; reconstitute with 20mL NS or ml SW, then dilulte in 50mL of NS, D5W or LR ordered. 15:11 Admission / Observation Status ordered. EDMS 15:38 Financial registration complete. lg 15:38 [facility] Payment Agreement was scanned into [employer] and attached to record. lg 15:57 CBC with Diff Reviewed. ml 15:57 ERYTHROCYTE SEDIMENTATION RATE Reviewed. ml 15:57 US Lower Extremity R/O DVT Reviewed. ml 16:26 PHYSICAL THERAPY EVAL & TREAT ordered. EDMS 08/25 10:17 T-Sheet-- Draft Copy was scanned into [employer] and attached to record. gb 10:17 PCR was scanned into [employer] and attached to record. gb 10:17 Radiology Report was scanned into [employer] and attached to record. gb Administered Medications: 08/24 14:20 Drug: Solu-MEDROL 125 mg [Solu-Medrol 500 mg intravenous solution (125 mg)] Route: IVP; mcp Site: right hand; 14:20 Drug: Famotidine 20 mg [famotidine 10 mg/mL intravenous solution] Route: IVPB; Infused mcp Over: 30 mins; Site: right hand; 15:36 Drug: Ceftaroline Fosamil 600 mg [ceftaroline fosamil 600 mg intravenous solution] ead Route: IV; Rate: bolus; Infused Over: 30 mins; Site: right hand; 16:33 Follow up: Response: No Adverse Reaction; IV Status: Completed infusion; IV Intake: 50mlead Signatures: Dispatcher [employer] EDMS Renate Mcclelland MD MD ml Fiona Sam, Ruffling Hemmer Automatic Unit lbd Mary Rosas RN RN Berenice Fang RN Esther Mason mcp, Reg Reg gb Claudia Steve, Reg Reg lg Jailene Roa RN RN ead Gosselin, Lisa, RN RN lmg The chart was reviewed and I authenticate all verbal orders and agree with the evaluation and treatment provided.Corrections: (The following items were deleted from the chart) 13:44 13:42 WOUND CULTURE+ADALID ordered. EDMS EDMS 14:14 13:42 ERYTHROCYTE SEDIMENTATION RATE+LAB ordered. EDMS EDMS 14:14 13:42 C REACTIVE PROTEIN QUANTITATIV+LAB ordered. EDMS EDMS Attachments: 15:38 [facility] Payment Agreement lg 08/25 10:17 T-Sheet-- Draft Copy gb Chart Complete MTDD
--- NOTE | 2016-08-26 17:30 | EDDOCDS ---
Physician Documentation [facility] Name: Anjelica Gallego Age: 86 yrs Sex: Female : 1930 Arrival Date: 08/24/2016 Time: 11:29 Bed 12 Private MD: Fernandez Lozano D Disposition: 08/24/16 15:16 Hospitalization ordered by Omid Aguilera for Inpatient Admission. Preliminary diagnosis is Cellulitis of other sites - left legalong with drug reaction allergic reaection . - Bed requested for 4 [place]. - Status is Inpatient Admission. [facility] - Condition is Stable. - Problem is new. - Symptoms are unchanged. Historical: - Allergies: codeine (Unknown); IODINEIODINE CONTAINING (Unknown); Latex (Unknown); SULFA (SULFONAMIDES) (Unknown); myretiq; Uroxatral; - Home Meds: 1. amoxicillin 500 mg Oral cap 1 cap every 8 hours 2. furosemide 40 mg Oral tab 1 tab once daily 3. Eucerin Topical crea as needed 4. Keppra 500 mg Oral tab 1 tab 2 times per day 5. Coumadin 4 mg Oral tab 1 tab Sun, Tue, Wed, Fri, Sat 6. Coumadin 3 mg Oral tab 1 tab Mon, Thur 7. spironolactone 25 mg Oral tab 1 tab once daily 8. lisinopril 5 mg Oral tab 1 tab nightly 9. Flonase 50 mcg/actuation Nasal spsn 2 sprays once daily 10. gabapentin 100 mg Oral cap 3 times per day 11. baclofen 10 mg Oral tab 0.5 tab twice a day 12. nitroglycerin 0.4 mg SL subl 1 tab every 5 minutes for prn chest pain 13. Nystop 100,000 unit/gram Topical powd 2 times per day 14. Colace 100 mg oral cap 2 caps nightly 15. glipizide 5 mg Oral tab 1 tab once daily 16. omeprazole 20 mg Oral cpDR 1 cap once daily for Gastroesophageal Reflux 17. Vitamin D Oral 2000 unit daily 18. Advair Diskus 500-50 mcg/dose Inhl dsdv 1 puff 2 times per day 19. Systane 0.4-0.3 % ophthalmic drop 1 drop four times a day 20. guaifenesin 600 mg Oral Ta12 twice a day prn congestion 21. acetaminophen 500 mg Oral tab 2 tabs every 6 hours prn pain for Pain 22. simvastatin 40 mg Oral tab 1 tab once daily 23. albuterol sulfate 2.5 mg /3 mL (0.083 %) Inhl nebu 3 mL every 6 hours prn sob/wheezing 24. Centrum Silver Women 8 mg iron-400 mcg-300 mcg oral tab daily - PMHx: Atrial Fibrillation; COPD; diastolic heart failure; essential primary hypertension; GERD; Heart failure; history of falls; hyperlipidemia; Low back pain; muscle weakness; MARCO; Sleep Apnea w/o CPAP; type 2 diabetic with polyneuropathy; Vitamin D deficiency; - PSHx: Cholecystectomy; Cataract Surgery- Bilateral; Hysterectomy; Carpal Tunnel Repair- Bilateral; Laminectomy. lumbar; Back Surgery; Knee Arthroplasty, Left; Knee Arthroplasty, Right; Cardiac catherization; - Social history: Smoking status: Patient states was never smoker of tobacco. No barriers to communication noted, The patient speaks fluent Tuval[place]. - Family history: Not pertinent. - : The pt / caregiver states he / she is on anticoagulants: coumadin. Home medication list is obtained from the patient, the facility MAR. - Exposure Risk Screening:: None identified. Vital Signs: 08/24 11:37 BP 133 / 63; Pulse 90; Resp 18; Temp 98.3(O); Pulse Ox 91% on R/A; Weight 81.65 kg / ct3 180.01 lbs (R); Height 4 ft. 6 in. (137.16 cm) (R); Pain 8/10; 15:01 Resp 18; Pulse Ox 95% ; ead 15:04 BP 134 / 63; Pulse 86; Resp 20; Temp 96.9(O); Pulse Ox 96% on R/A; Pain 0/10; mcp 15:35 BP 143 / 67 (auto/); Pulse 90; Resp 18; Temp 98.3(T); Pulse Ox 95% on R/A; Pain 0/10; ead 16:18 BP 158 / 70 (auto/); ead 16:22 Pulse 88; Resp 18; Temp 98.3; Pulse Ox 94% ; ead 11:37 Body Mass Index 43.40 (81.65 kg, 137.16 cm) ct3 MDM: 12:37 CBC with Diff Ordered. EDMS 12:38 MED Profile Ordered. EDMS 12:38 Liver Profile Ordered. EDMS 13:40 CBC with Diff Reviewed. ml 13:42 IV Saline Lock ordered. ml 13:42 -Blood Culture (Adults Only), peripheral from different site, or from device/port/PICC ml etc. if present ordered. 13:42 Solu-MEDROL 125 mg IVP once ordered. ml 13:42 Famotidine 20 mg IVPB once over 30 mins; dilute in 50mL of NS ordered. ml 13:42 -Blood Culture Ordered. EDMS 13:43 Chest, 1 View Ordered. EDMS 13:43 US Lower Extremity R/O DVT Ordered. EDMS 13:44 BED REQUEST+ADM ordered. EDMS 13:45 PT/INR Ordered. EDMS 13:45 PTT Ordered. EDMS 13:48 -Blood Culture (Adults Only), peripheral from different site, or from device/port/PICC lbd etc. if present complete. 14:[address] GRAM [address] Ordered. EDMS 14:08 BLOOD CULTURES Ordered. EDMS 14:14 ERYTHROCYTE SEDIMENTATION RATE Ordered. EDMS 14:31 MED Profile Reviewed. ml 14:31 Liver Profile Reviewed. ml 14:31 PT/INR Reviewed. ml 14:31 PTT Reviewed. ml 14:31 C REACTIVE PROTEIN QUANTITATIV Reviewed. ml 15:02 Ceftaroline Fosamil 600 mg IV at bolus once over 30 mins; reconstitute with 20mL NS or ml SW, then dilulte in 50mL of NS, D5W or LR ordered. 15:11 Admission / Observation Status ordered. EDMS 15:38 Financial registration complete. lg 15:38 [facility] Payment Agreement was scanned into [employer] and attached to record. lg 15:57 CBC with Diff Reviewed. ml 15:57 ERYTHROCYTE SEDIMENTATION RATE Reviewed. ml 15:57 US Lower Extremity R/O DVT Reviewed. ml 16:26 PHYSICAL THERAPY EVAL & TREAT ordered. EDMS 08/25 10:17 T-Sheet-- Draft Copy was scanned into [employer] and attached to record. gb 10:17 PCR was scanned into [employer] and attached to record. gb 10:17 Radiology Report was scanned into [employer] and attached to record. gb Administered Medications: 08/24 14:20 Drug: Solu-MEDROL 125 mg [Solu-Medrol 500 mg intravenous solution (125 mg)] Route: IVP; mcp Site: right hand; 14:20 Drug: Famotidine 20 mg [famotidine 10 mg/mL intravenous solution] Route: IVPB; Infused mcp Over: 30 mins; Site: right hand; 15:36 Drug: Ceftaroline Fosamil 600 mg [ceftaroline fosamil 600 mg intravenous solution] ead Route: IV; Rate: bolus; Infused Over: 30 mins; Site: right hand; 16:33 Follow up: Response: No Adverse Reaction; IV Status: Completed infusion; IV Intake: 50mlead Signatures: Dispatcher [employer] EDMS Renate Mcclelland MD MD ml Fiona Sam, Line [employer] Unit lbd Mary Rosas RN RN Berenice Fang RN Esther Mason mcp, Reg Reg gb Claudia Steve, Reg Reg lg Jailene Roa RN RN ead Gosselin, Lisa, RN RN lmg The chart was reviewed and I authenticate all verbal orders and agree with the evaluation and treatment provided.Corrections: (The following items were deleted from the chart) 13:44 13:42 WOUND CULTURE+ADALID ordered. EDMS EDMS 14:14 13:42 ERYTHROCYTE SEDIMENTATION RATE+LAB ordered. EDMS EDMS 14:14 13:42 C REACTIVE PROTEIN QUANTITATIV+LAB ordered. EDMS EDMS Attachments: 15:38 [facility] Payment Agreement lg 08/25 10:17 T-Sheet-- Draft Copy gb Chart Complete MTDD
--- NOTE | 2016-08-27 18:15 | DSES ---
DATE OF ADMISSION: 08/24/2016 DATE OF DISCHARGE: 08/26/2016 There were no specialists involved in her care. No complications during her stay. No procedures performed during her stay. DISCHARGE DIAGNOSES: 1. Lower extremity cellulitis. 2. Hypertension. 3. Peripheral neuropathy. 4. Dyslipidemia. 5. Obstructive sleep apnea. 6. Paroxysmal atrial fibrillation. 7. Congestive heart failure, diastolic dysfunction. Left ventricular ejection fraction 75%. 8. Seizure disorder. 9. History of melanoma. The patient presented with swelling of the lower extremities and rash. She had a crusting ulcer that has been weeping on her left lower extremity with warmth and redness. She also has evidence of what looks to be venous stasis bilaterally. Right lower extremity was never warm or tender. She had been treated outpatient with antibiotics without improvement. A swab done from the area of weeping grew Staphylococcus aureus, which was methicillin sensitive. The patient was started on broad spectrum antibiotics including meropenem and vancomycin prior to that culture result becoming available. She had marked improvement. She had slightly elevated C-reactive protein at the time of presentation. This can be followed as an outpatient to monitor her improvement. She was seen by physical therapy and was able to ambulate without difficulty and was thought to be able to be discharged back to her prior setting. On day of discharge, she is awake, alert. Breathing is symmetrical and rested. Heart is in a regular rate and rhythm. Abdomen is soft, doughy, nontender. She has no complaints. Temperature is 96.6, pulse 52, respiratory rate 20, blood pressure 122/57, 93% on room air. White cell count is 6.5, hemoglobin is 10.7, BUN 19, creatinine 0.8. C-reactive protein on the day prior to discharge was 1.35. DISCHARGE INSTRUCTIONS: Include the following: Followup with Dr. Lozano on 09/03/2016. Activity as tolerated. Low-fat diet. No added salt. Carbohydrate controlled. 1500 mL per 24 hours fluid restriction. Continue continuous positive airway pressure (CPAP) at night. The patient is prescribed: - doxycycline 100 mg by mouth twice daily - Levaquin 500 mg by mouth daily to complete five more days of that therapy - Tylenol 500 mg by mouth every 6 hours as needed - albuterol inhaled every 6 hours as needed - Baclofen 5 mg by mouth twice daily - cetirizine 10 mg by mouth daily as needed for itching - vitamin D3 supplement 2000 units by mouth daily - Colace 200 mg by mouth daily at bedtime - Eucerin as written - fluticasone spray - Lasix 40 mg by mouth daily - Neurontin 100 mg by mouth three times a day - glipizide 5 mg by mouth daily - guaifenesin 600 mg by mouth twice daily as needed for congestion - Keppra 500 mg by mouth twice daily - lisinopril 5 mg by mouth daily at bedtime - multivitamin tablet by mouth - Nitroglycerin as needed for chest pain - Nystatin powder as needed - omeprazole 20 mg by mouth daily - Advair 500/50 inhaled twice daily - simvastatin 40 mg by mouth daily at bedtime - spironolactone 25 mg by mouth daily - Systane one drop each eye four times daily - Coumadin continue home dosing PT/INR every other day until stable and off antibiotics. MTDD
== END 2016-08-26 12:48 | DRG 603 ==
LOC: M ED 11:29 → M ED INP 15:08 → M MSPAV 16:34
PROVIDERS: ADMIT Hospitalist; ATTEND Internal Medicine
DX: L03.116 Cellulitis of left lower limb (principal); I50.32 Chronic diastolic (congestive) heart failure; L97.929 Non-pressure chronic ulcer of unspecified part of left lower leg with unspecified severity; G47.33 Obstructive sleep apnea (adult) (pediatric); E78.5 Hyperlipidemia, unspecified; G62.9 Polyneuropathy, unspecified; I87.2 Venous insufficiency (chronic) (peripheral); I10 Essential (primary) hypertension; I48.0 Paroxysmal atrial fibrillation; I44.7 Left bundle-branch block, unspecified; G40.909 Epilepsy, unspecified, not intractable, without status epilepticus; J45.909 Unspecified asthma, uncomplicated; M19.90 Unspecified osteoarthritis, unspecified site; Z88.2 Allergy status to sulfonamides; Z91.040 Latex allergy status; Z88.6 Allergy status to analgesic agent; Z88.8 Allergy status to other drugs, medicaments and biological substances; Z79.01 Long term (current) use of anticoagulants; Z79.899 Other long term (current) drug therapy; Z86.73 Personal history of transient ischemic attack (TIA), and cerebral infarction without residual deficits; Z96.653 Presence of artificial knee joint, bilateral; Z85.820 Personal history of malignant melanoma of skin

== ENCOUNTER 2016-08-27 12:33 | Emergency (ER) | payer MEDICARE, MEDICAID ==
[~2016-08-27 12:33] MED LIST changes: +AMOX500C PO; +CETI10TA PO; +DOCU100C PO; +DOXY-278 PO; +EUCELOT2 TOP; +FLUTISP; +KEPP500T6 PO; +LEVA500T PO; +LISI-542 PO; +SPIR25TA2 PO; +SYSTSOL14 OU; -SYSTSOL8 OU; +VITMTA PO; +WARF-20 PO; +WARF-58 PO
[2016-08-27 15:00] LABS: BASO % 0.7 % (0.0-1.0); EOS # 0.6 K/mm3 (0.0-0.50); EOS % 8.5 % (0.0-3.0); LARGE UNSTAINED CELL # 0.3 K/mm3 (0.0-0.4); LARGE UNSTAINED CELL % 3.6 % (0.0-4.0); LYMPH # 1.7 K/mm3 (1.5-4.5); LYMPH % 25.3 % (24.0-44.0); MEAN CORPUSCULAR HEMOGLOBIN 29.2 pg (27.0-33.0); MEAN CORPUSCULAR VOLUME 85.8 fl (80.0-96.0); MONO # 0.8 K/mm3 (0.0-0.8); NEUTROPHILS # 3.4 K/mm3 (1.8-7.7); PLATELET COUNT, AUTOMATED 327 k/mm3 (150-450); RED CELL DISTRIBUTION WIDTH 12.7 % (11.5-14.5); WHITE BLOOD COUNT 6.8 K/mm3 (4.0-10.0)
[2016-08-27 15:23] LABS: ANION GAP 9 MEQ/L (8-16); BLOOD UREA NITROGEN 21 MG/DL (7-18); CALCIUM LEVEL 9.3 MG/DL (8.8-10.2); CARBON DIOXIDE LEVEL 27 MEQ/L (21-32); CHLORIDE LEVEL 108 MEQ/L (98-107); CREATININE FOR GFR 0.78 MG/DL (0.55-1.02); GLOMERULAR FILTRATION RATE > 60.0 (>32); GLUCOSE, FASTING 79 MG/DL (83-110); POTASSIUM SERUM 3.9 MEQ/L (3.5-5.1); SODIUM LEVEL 144 MEQ/L (136-145)
--- NOTE | 2016-08-27 18:24 | EDDOCDS ---
Physician Documentation [facility] Name: Anjelica Gallego Age: 86 yrs Sex: Female : 1930 Arrival Date: 08/27/2016 Time: 12:33 Bed 12 Private MD: Isidro Hawkins Disposition: 08/27 16:16 Critical Care: Critical care not applicable. pc Disposition: 08/27/16 17:31 Discharged to Home/Self Care. Impression: Venous insufficiency (chronic) (peripheral). - Condition is Stable. - Discharge Instructions: Venous Stasis or Chronic Venous Insufficiency. - Prescriptions for Bilateral DOUGLAS size XL, below knee: wear while awake only. - Medication Reconciliation, Local Pharmacy Hours form. - Follow up: [facility] ; When: As previously arranged; Reason: Continuance of care. - Problem is chronic. - Symptoms are unchanged. HPI: 13:59 This 86 yrs old Female presents to ER via Ambulance with complaints of Leg pc Swelling. 13:59 The history is obtained from the patient, [place] [facility] records. She was admitted for pc left leg stasis dermatitis/cellulitis this week and discharged home yesterday afternoon on oral ABX after 2-3 days of IV therapy. She sent ot her PCP today for INR check and was sent back for admission due to "failed out-patient therapy". She has not had any fevers or chills. Her left leg is sore. Historical: - Allergies: codeine (Unknown); Latex (Unknown); IODINEIODINE CONTAINING (Unknown); myretiq; SULFA (SULFONAMIDES) (Unknown); Uroxatral; - Home Meds: 1. acetaminophen 500 mg Oral tab 2 tabs every 6 hours prn pain for Pain 2. Advair Diskus 500-50 mcg/dose Inhl dsdv 1 puff 2 times per day 3. baclofen 10 mg Oral tab 0.5 tab twice a day 4. cetirizine 10 mg oral tab 1 tab as needed 5. Vitamin D Oral 2000 unit daily 6. Colace 100 mg oral cap 2 caps nightly 7. Eucerin Topical crea as needed 8. Flonase 50 mcg/actuation Nasal spsn 2 sprays once daily 9. furosemide 40 mg Oral tab 1 tab once daily 10. gabapentin 100 mg Oral cap 3 times per day 11. glipizide 5 mg Oral tab 1 tab once daily 12. guaifenesin 600 mg Oral Ta12 as needed prn congestion 13. Keppra 500 mg Oral tab 1 tab 2 times per day 14. lisinopril 5 mg Oral tab 1 tab nightly 15. Centrum Silver Women 8 mg iron-400 mcg-300 mcg oral tab daily 16. nitroglycerin 0.4 mg SL subl 1 tab every 5 minutes for prn chest pain 17. Nystop 100,000 unit/gram Topical powd 2 times per day 18. omeprazole 20 mg Oral cpDR 1 cap once daily for Gastroesophageal Reflux 19. albuterol sulfate 2.5 mg /3 mL (0.083 %) Inhl nebu 3 mL every 6 hours prn sob/wheezing 20. simvastatin 40 mg Oral tab 1 tab once daily 21. spironolactone 25 mg Oral tab 1 tab once daily 22. Systane 0.4-0.3 % ophthalmic drop 1 drop four times a day 23. Coumadin 4 mg Oral tab 1 tab Sun, Tue, Wed, Fri, Sat 24. Coumadin 3 mg Oral tab 1 tab Tue, Th 25. doxycycline hyclate 100 mg Oral cap 1 cap every 12 hours 26. Levaquin 500 mg Oral tab 1 tab once daily - PMHx: Atrial Fibrillation; COPD; diastolic heart failure; essential primary hypertension; GERD; Heart failure; history of falls; hyperlipidemia; Low back pain; muscle weakness; MARCO; Sleep Apnea w/o CPAP; type 2 diabetic with polyneuropathy; Vitamin D deficiency; - PSHx: Cholecystectomy; Cataract Surgery- Bilateral; Hysterectomy; Carpal Tunnel Repair- Bilateral; Laminectomy. lumbar; Back Surgery; Knee Arthroplasty, Left; Knee Arthroplasty, Right; Cardiac catherization; - The history from nurses notes was reviewed: and I agree with what is documented. - Social history: Smoking status: Patient states was never smoker of tobacco. No barriers to communication noted, The patient speaks fluent Arabic, Speaks appropriately for age. - : The pt / caregiver states he / she is not on anticoagulants. Home medication list is obtained from the facility OCT. - Exposure Risk Screening:: None identified. - Immunization history:: All immunizations up-to-date. - Family history: Not pertinent. - Social history:: the patient is a non-smoker, the patient does not drink alcohol. ROS: 13:59 All systems are negative except as listed. pc Exam: 13:59 General Appearance: no acute distress, alert. pc 13:59 Extremities: Both LEs have evidence of chronic stasis dermatitis, left worse than right. Both are warm to the touch. There is 1_+ pitting edema on both. There is a healing ulcer on the lower inside aspect of the LLE with minimal clear drainage. The culture of this ulcer grew Staph Aureus yesterday and is on appropriate ABX per the antibiogram. Vital Signs: 12:46 BP 118 / 53; Pulse 78; Resp 18; Temp 97.8(O); Pulse Ox 96% on R/A; Weight 81.65 kg / rn1 180.01 lbs (R); Height 4 ft. 7 in. (139.70 cm) (R); Pain 8/10; 15:12 Pulse Ox 92% ; pml 15:12 BP 119 / 58 (auto/); pml 15:41 Pulse Ox 94% ; pml 15:42 BP 118 / 55 (auto/); pml 16:11 Pulse Ox 91% ; pml 16:12 BP 117 / 56 (auto/); pml 16:42 BP 122 / 58 (auto/); pml 16:42 Pulse Ox 92% ; pml 12:46 Body Mass Index 41.84 (81.65 kg, 139.70 cm) rn1 MDM: 13:56 Financial registration complete. pm4 13:56 CBC with Diff Ordered. EDMS 13:56 MED Profile Ordered. EDMS 13:56 C Reactive Protein Ordered. EDMS 13:59 Differential Diagnosis: chronic stasis dermatitis on appropriate therapy x 1 dose as an pc out-patient and not failed O/P therapy. Plan: d/w Hospitalist re: kyra. Physician consultation: Dr. Omid Aguilera DO regarding patient's condition, and he requests the labs as ordered . 14:31 [facility] Payment Agreement was scanned into [employer] and attached to record. pm4 15:20 CBC with Diff Reviewed. pc 15:48 MED Profile Reviewed. pc 15:48 C Reactive Protein Reviewed. pc 16:16 Misc. Nursing Order ordered. pc 16:16 Data reviewed: old medical records, vital signs, nurses notes, lab test results. Test pc interpretation: LAB - all labs as ordered have been reviewed, interpreted and considered in the overall management of the clinical presentation;. The patient has been re-examined and re-evaluated. The clinical presentation did not require any ED treatment or interventions. Physician consultation: Dr. Yifan Wang MD regarding patient's condition, and he has evaluated the patient and has ordered DOUGLAS stockings and for her be discharged back to [facility]. Disposition: The historical points, examination findings, and any diagnostic results supporting the provided diagnosis, were discussed with the patient or legal guardian. The need for outpatient follow up with the provider listed on their discharge instructions was discussed. They were encouraged to return to [facility], or the nearest ED, if symptoms worsen/persist, or for any other questions/concerns. Signatures: Dispatcher [employer] EDMS Sachin Castro MD MD pc Sherrill, Hannah, RN RN hs1 Suniat Monzon RN RN [facility] Damon Samayoa, Reg Reg pm4 The chart was reviewed and I authenticate all verbal orders and agree with the evaluation and treatment provided.Attachments: 14:31 [facility] Agreement pm4 MTDD
--- NOTE | 2016-08-27 18:24 | EDDOCDS ---
Nurse's Notes [facility] Name: Anjelica Gallego Age: 86 yrs Sex: Female : 1930 Arrival Date: 08/27/2016 Time: 12:33 Bed 12 Private MD: Isidro Hawkins Diagnosis: Venous insufficiency (chronic) (peripheral) Presentation: 08/27 12:44 Presenting complaint: EMS states: Send from Dr's office for weeping legs. Pt states hs1 discharged yesterday from [facility] with outpatient treatment cellulitis. EMS states patient is also concerned about arms however patient states has been there since admission and has gotten better and that MD was knowledgeable of redness. Adult Sepsis Screening: The patient does not have new or worsening altered mentation. Patient's respiratory rate is less than 22. Systolic blood pressure is greater than 100. Patient has a qSOFA score of 0- Negative Sepsis Screen. Suicide/Homicide risk assessment- the patient denies having any suicidal and/or homicidal ideations and does not present with any other emotional, behavioral or mental health complaints. Status: Patient is not a vocational services specialist or dependent. Transition of care: patient was not received from another setting of care. 12:44 Acuity: KIRK Level 4 hs1 12:44 Method Of Arrival: Ambulance hs1 Triage Assessment: 12:54 General: Appears in no apparent distress, comfortable, Behavior is appropriate for age, hs1 cooperative. Pain: Location: all over pain Pain currently is 8 out of 10 on a pain scale. Respiratory: No deficits noted. Derm: Skin is red, left lower leg has area of cracks and one small dime size of weeping. Does not appear to be weeping at this time. Historical: - Allergies: codeine (Unknown); Latex (Unknown); IODINEIODINE CONTAINING (Unknown); myretiq; SULFA (SULFONAMIDES) (Unknown); Uroxatral; - Home Meds: 1. acetaminophen 500 mg Oral tab 2 tabs every 6 hours prn pain for Pain 2. Advair Diskus 500-50 mcg/dose Inhl dsdv 1 puff 2 times per day 3. baclofen 10 mg Oral tab 0.5 tab twice a day 4. cetirizine 10 mg oral tab 1 tab as needed 5. Vitamin D Oral 2000 unit daily 6. Colace 100 mg oral cap 2 caps nightly 7. Eucerin Topical crea as needed 8. Flonase 50 mcg/actuation Nasal spsn 2 sprays once daily 9. furosemide 40 mg Oral tab 1 tab once daily 10. gabapentin 100 mg Oral cap 3 times per day 11. glipizide 5 mg Oral tab 1 tab once daily 12. guaifenesin 600 mg Oral Ta12 as needed prn congestion 13. Keppra 500 mg Oral tab 1 tab 2 times per day 14. lisinopril 5 mg Oral tab 1 tab nightly 15. Centrum Silver Women 8 mg iron-400 mcg-300 mcg oral tab daily 16. nitroglycerin 0.4 mg SL subl 1 tab every 5 minutes for prn chest pain 17. Nystop 100,000 unit/gram Topical powd 2 times per day 18. omeprazole 20 mg Oral cpDR 1 cap once daily for Gastroesophageal Reflux 19. albuterol sulfate 2.5 mg /3 mL (0.083 %) Inhl nebu 3 mL every 6 hours prn sob/wheezing 20. simvastatin 40 mg Oral tab 1 tab once daily 21. spironolactone 25 mg Oral tab 1 tab once daily 22. Systane 0.4-0.3 % ophthalmic drop 1 drop four times a day 23. Coumadin 4 mg Oral tab 1 tab Sun, Tue, Wed, Fri, Sat 24. Coumadin 3 mg Oral tab 1 tab Tue, Th 25. doxycycline hyclate 100 mg Oral cap 1 cap every 12 hours 26. Levaquin 500 mg Oral tab 1 tab once daily - PMHx: Atrial Fibrillation; COPD; diastolic heart failure; essential primary hypertension; GERD; Heart failure; history of falls; hyperlipidemia; Low back pain; muscle weakness; MARCO; Sleep Apnea w/o CPAP; type 2 diabetic with polyneuropathy; Vitamin D deficiency; - PSHx: Cholecystectomy; Cataract Surgery- Bilateral; Hysterectomy; Carpal Tunnel Repair- Bilateral; Laminectomy. lumbar; Back Surgery; Knee Arthroplasty, Left; Knee Arthroplasty, Right; Cardiac catherization; - The history from nurses notes was reviewed: and I agree with what is documented. - Social history: Smoking status: Patient states was never smoker of tobacco. No barriers to communication noted, The patient speaks fluent Iraqi, Speaks appropriately for age. - : The pt / caregiver states he / she is not on anticoagulants. Home medication list is obtained from the facility OCT. - Exposure Risk Screening:: None identified. - Immunization history:: All immunizations up-to-date. - Family history: Not pertinent. - Social history:: the patient is a non-smoker, the patient does not drink alcohol. Screenin:22 Screening information is obtained from the patient. Fall risk: At risk due to gait pml disturbance. Assistance ADL's: requires no assistance with activities of daily living. Abuse/DV Screen: The patient / caregiver reports he/she is: not in a situation that causes fear, pain or injury. Nutritional screening: No deficits noted. Advance Directives: Currently, there is no health care proxy. home support is adequate. Assessment: 01:35 General: Appears in no apparent distress, comfortable, Behavior is appropriate for age, hs1 cooperative. Pain: Denies pain. Cardiovascular: No deficits noted. Respiratory: No deficits noted. Derm: bilateral leg swelling and noted venous stasis. Pt states area of concern was left leg, mild ulceration noted with dime size weeping area, not noted to be oozing at present. No needs noted. Call hitnon left within reach. 14:40 Reassessment: Patient appears in no apparent distress at this time. Pt awaiting further hs1 plan of care. Patient has no needs at present. . 15:07 General: Appears in no apparent distress, comfortable, Behavior is appropriate for age, pml cooperative. Pain: Denies pain. Neurological: Level of Consciousness is awake, alert, Oriented to person, place, time. Cardiovascular: Capillary refill < 3 seconds. Respiratory: Airway is patent Respiratory effort is even, unlabored. Derm: Skin is pink, warm & dry. 15:52 General: resting on stretcher, denies complaints. of pain. reports feeling hungry. pml snacks offered as per MD Castro,.. 17:00 General: Appears in no apparent distress, comfortable, Behavior is appropriate for age, pml cooperative. Pain: Denies pain. Neurological: Level of Consciousness is awake, alert, Oriented to person, place, time. Cardiovascular: Capillary refill < 3 seconds. Derm: Skin is pink, warm & dry. 17:22 General: compression stockings applied, pt reports she does not like how they feel and pml does not like nylon fabric, states they make her legs hot. reiterated multiple times importance for compliance of prescribed treatment. . 18:22 General: Appears in no apparent distress, comfortable, Behavior is appropriate for age, pml cooperative. Pain: Denies pain. Neurological: Level of Consciousness is awake, alert, Oriented to person, place, time. Cardiovascular: Capillary refill < 3 seconds. Respiratory: Airway is patent Respiratory effort is even, unlabored. GI: Abdomen is non- distended. Derm: Skin is pink, warm & dry. redness and ulceration to lower leg Swollen area noted on right leg and left leg. Vital Signs: 12:46 BP 118 / 53; Pulse 78; Resp 18; Temp 97.8(O); Pulse Ox 96% on R/A; Weight 81.65 kg (R); rn1 Height 4 ft. 7 in. (139.70 cm) (R); Pain 8/10; 15:12 Pulse Ox 92% ; pml 15:12 BP 119 / 58 (auto/); pml 15:41 Pulse Ox 94% ; pml 15:42 BP 118 / 55 (auto/); pml 16:11 Pulse Ox 91% ; pml 16:12 BP 117 / 56 (auto/); pml 16:42 BP 122 / 58 (auto/); pml 16:42 Pulse Ox 92% ; pml 12:46 Body Mass Index 41.84 (81.65 kg, 139.70 cm) rn1 Vitals: 18:24 Log In time N/A- police car arrival. [facility] ED Course: 12:35 Patient visited by Fiona Sam, Field Engineer. lbd 12:35 Isidro Hawkins DO is Private Physician. lbd 12:35 Patient moved to Waiting lbd 12:36 Patient moved to 12 lbd 12:47 Triage Initiated hs1 13:21 Sachin Castro MD is Attending Physician. pc 13:26 Patient visited by Isabel Velasco RN. hs1 13:29 Patient visited by Sachin Castro MD. pc 14:29 Patient visited by Isabel Velasco RN. hs1 14:31 [facility] Payment Agreement was scanned into [employer] and attached to record. pm4 15:08 Patient visited by Sunita Monzon,JOSEPH. pml 15:52 Patient visited by Sunita Monzon,JOSEPH. pml 17:01 Patient visited by Sunita Monzon RN. pml 17:23 Patient visited by Sunita Monzon RN. pml 17:31 [facility] is Referral Physician. pc 18:22 The patient / caregiver is instructed regarding the plan of care and ED course. Patient pml has correct armband on for positive identification. Placed in gown. Bed in low position. Call light in reach. Side rails up X2. 18:22 No IV's were initiated during this patient's visit. No procedures done that require pml assistance. Order Results: Lab Order: CBC with Diff; SPEC'M 08/27/16 14:43 Test: WHITE BLOOD COUNT; Value: 6.8; Range: 4.0-10.0; Units: K/mm3; Status: F Test: RED BLOOD COUNT; Value: 3.89; Range: 4.00-5.40; Abnormal: Below low normal; Units: M/mm3; Status: F Test: HEMOGLOBIN; Value: 11.3; Range: 12.0-16.0; Abnormal: Below low normal; Units: g/dl; Status: F Test: HEMATOCRIT; Value: 33.4; Range: 36.0-47.0; Abnormal: Below low normal; Units: %; Status: F Test: MEAN CORPUSCULAR VOLUME; Value: 85.8; Range: 80.0-96.0; Units: fl; Status: F Test: MEAN CORPUSCULAR HEMOGLOBIN; Value: 29.2; Range: 27.0-33.0; Units: pg; Status: F Test: MEAN CORPUSCULAR HGB CONC; Value: 34.0; Range: 32.0-36.5; Units: g/dl; Status: F Test: RED CELL DISTRIBUTION WIDTH; Value: 12.7; Range: 11.5-14.5; Units: %; Status: F Test: PLATELET COUNT, AUTOMATED; Value: 327; Range: 150-450; Units: k/mm3; Status: F Test: NEUTROPHILS %; Value: 50.0; Range: 36.0-66.0; Units: %; Status: F Test: LYMPH %; Value: 25.3; Range: 24.0-44.0; Units: %; Status: F Test: MONO %; Value: 12.0; Range: 0.0-5.0; Abnormal: Above high normal; Units: %; Status: F Test: EOS %; Value: 8.5; Range: 0.0-3.0; Abnormal: Above high normal; Units: %; Status: F Test: BASO %; Value: 0.7; Range: 0.0-1.0; Units: %; Status: F Test: LARGE UNSTAINED CELL %; Value: 3.6; Range: 0.0-4.0; Units: %; Status: F Test: NEUTROPHILS #; Value: 3.4; Range: 1.8-7.7; Units: K/mm3; Status: F Test: LYMPH #; Value: 1.7; Range: 1.5-4.5; Units: K/mm3; Status: F Test: MONO #; Value: 0.8; Range: 0.0-0.8; Units: K/mm3; Status: F Test: EOS #; Value: 0.6; Range: 0.0-0.50; Abnormal: Above high normal; Units: K/mm3; Status: F Test: BASO #; Value: 0.0; Range: 0.0-0.2; Units: K/mm3; Status: F Test: LARGE UNSTAINED CELL #; Value: 0.3; Range: 0.0-0.4; Units: K/mm3; Status: F Lab Order: [facility]; [facility] 08/27/16 14:43 Test: GLUCOSE, FASTING; Value: 79; Range: 83-110; Abnormal: Below low normal; Units: MG/DL; Status: F Test: BLOOD UREA NITROGEN; Value: 21; Range: 7-18; Abnormal: Above high normal; Units: MG/DL; Status: F Test: CREATININE FOR GFR; Value: 0.78; Range: 0.55-1.02; Units: MG/DL; Status: F Test: GLOMERULAR FILTRATION RATE; Value: > 60.0; Range: >32; Status: F Test: SODIUM LEVEL; Value: 144; Range: 136-145; Units: MEQ/L; Status: F Test: POTASSIUM SERUM; Value: 3.9; Range: 3.5-5.1; Units: MEQ/L; Status: F Test: CHLORIDE LEVEL; Value: 108; Range: 98-107; Abnormal: Above high normal; Units: MEQ/L; Status: F Test: CARBON DIOXIDE LEVEL; Value: 27; Range: 21-32; Units: MEQ/L; Status: F Test: ANION GAP; Value: 9; Range: 8-16; Units: MEQ/L; Status: F Test: CALCIUM LEVEL; Value: 9.3; Range: 8.8-10.2; Units: MG/DL; Status: F Test Note: ; Units are mL/min/1.73 m2 Chronic Kidney Disease Staging per NKF: Stage I & II GFR >=60 Normal to Mildly Decreased Stage III GFR 30-59 Moderately Decreased Stage IV GFR 15-29 Severely Decreased Stage V GFR <15 Very Little GFR Left ESRD GFR <15 on FILLING WINDER Lab Order: C Reactive Protein; SPEC'M 08/27/16 14:43 Test: C REACTIVE PROTEIN QUANTITATIV; Value: 0.65; Range: 0.00-0.30; Abnormal: Above high normal; Units: MG/DL; Status: F Outcome: 17:31 Discharge ordered by Provider. pc 18:22 Discharge Assessment: Patient awake, alert and oriented x 3. No cognitive and/or pml functional deficits noted. Patient verbalized understanding of disposition instructions. patient administered narcotics - no. The following High Risk Discharge criteria are identified: None. Discharged to fdc. Report called to [facility] electric repair supervisor. Condition: stable. Discharge instructions given to patient, Instructed on discharge instructions, follow up and referral plans. wound care, Demonstrated understanding of instructions, Pt was receptive of discharge instructions/ teaching. No special radiology studies were completed. Property sent home with patient. 18:24 Patient left the ED. pml Signatures: Sachin Castro MD MD pc Daly, Linda, Field Engineer Unit lbd Isabel Velasco RN RN hs1 Sunita Monzon RN RN Juarez Orta rn1 Damon Samayoa, Reg Reg pm4 MTDD
--- NOTE | 2016-08-31 09:39 | EDDOCDS ---
Physician Documentation [facility] Name: Anjelica Gallego Age: 86 yrs Sex: Female : 1930 Arrival Date: 08/27/2016 Time: 12:33 Bed 12 Private MD: Isidro Hawkins Disposition: 08/27 16:16 Critical Care: Critical care not applicable. pc Disposition: 08/27/16 17:31 Discharged to Home/Self Care. Impression: Venous insufficiency (chronic) (peripheral). - Condition is Stable. - Discharge Instructions: Venous Stasis or Chronic Venous Insufficiency. - Prescriptions for Bilateral DOUGALS size XL, below knee: wear while awake only. - Medication Reconciliation, Local Pharmacy Hours form. - [facility] up: [facility] ; When: As previously arranged; Reason: Continuance of care. - Problem is chronic. - Symptoms are unchanged. HPI: 13:59 This 86 yrs old Female presents to ER via Ambulance with complaints of Leg pc Swelling. 13:59 The history is obtained from the patient, long-term records. She was admitted for pc left leg stasis dermatitis/cellulitis this week and discharged home yesterday afternoon on oral ABX after 2-3 days of IV therapy. She sent ot her PCP today for INR check and was sent back for admission due to "failed out-patient therapy". She has not had any fevers or chills. Her left leg is sore. Historical: - Allergies: codeine (Unknown); Latex (Unknown); IODINEIODINE CONTAINING (Unknown); myretiq; SULFA (SULFONAMIDES) (Unknown); Uroxatral; - Home Meds: 1. acetaminophen 500 mg Oral tab 2 tabs every 6 hours prn pain for Pain 2. Advair Diskus 500-50 mcg/dose Inhl dsdv 1 puff 2 times per day 3. baclofen 10 mg Oral tab 0.5 tab twice a day 4. cetirizine 10 mg oral tab 1 tab as needed 5. Vitamin D Oral 2000 unit daily 6. Colace 100 mg oral cap 2 caps nightly 7. Eucerin Topical crea as needed 8. Flonase 50 mcg/actuation Nasal spsn 2 sprays once daily 9. furosemide 40 mg Oral tab 1 tab once daily 10. gabapentin 100 mg Oral cap 3 times per day 11. glipizide 5 mg Oral tab 1 tab once daily 12. guaifenesin 600 mg Oral Ta12 as needed prn congestion 13. Keppra 500 mg Oral tab 1 tab 2 times per day 14. lisinopril 5 mg Oral tab 1 tab nightly 15. Centrum Silver Women 8 mg iron-400 mcg-300 mcg oral tab daily 16. nitroglycerin 0.4 mg SL subl 1 tab every 5 minutes for prn chest pain 17. Nystop 100,000 unit/gram Topical powd 2 times per day 18. omeprazole 20 mg Oral cpDR 1 cap once daily for Gastroesophageal Reflux 19. albuterol sulfate 2.5 mg /3 mL (0.083 %) Inhl nebu 3 mL every 6 hours prn sob/wheezing 20. simvastatin 40 mg Oral tab 1 tab once daily 21. spironolactone 25 mg Oral tab 1 tab once daily 22. Systane 0.4-0.3 % ophthalmic drop 1 drop four times a day 23. Coumadin 4 mg Oral tab 1 tab Sun, Tue, Wed, Fri, Sat 24. Coumadin 3 mg Oral tab 1 tab Tue, Th 25. doxycycline hyclate 100 mg Oral cap 1 cap every 12 hours 26. Levaquin 500 mg Oral tab 1 tab once daily - PMHx: Atrial Fibrillation; COPD; diastolic heart failure; essential primary hypertension; GERD; Heart failure; history of falls; hyperlipidemia; Low back pain; muscle weakness; MARCO; Sleep Apnea w/o CPAP; type 2 diabetic with polyneuropathy; Vitamin D deficiency; - PSHx: Cholecystectomy; Cataract Surgery- Bilateral; Hysterectomy; Carpal Tunnel Repair- Bilateral; Laminectomy. lumbar; Back Surgery; Knee Arthroplasty, Left; Knee Arthroplasty, Right; Cardiac catherization; - The history from nurses notes was reviewed: and I agree with what is documented. - Social history: Smoking status: Patient states was never smoker of tobacco. No barriers to communication noted, The patient speaks fluent Nepalese, Speaks appropriately for age. - : The pt / caregiver states he / she is not on anticoagulants. Home medication list is obtained from the facility OCT. - Exposure Risk Screening:: None identified. - Immunization history:: All immunizations up-to-date. - Family history: Not pertinent. - Social history:: the patient is a non-smoker, the patient does not drink alcohol. ROS: 13:59 All systems are negative except as listed. pc Exam: 13:59 General Appearance: no acute distress, alert. pc 13:59 Extremities: Both LEs have evidence of chronic stasis dermatitis, left worse than right. Both are warm to the touch. There is 1_+ pitting edema on both. There is a healing ulcer on the lower inside aspect of the LLE with minimal clear drainage. The culture of this ulcer grew Staph Aureus yesterday and is on appropriate ABX per the antibiogram. Vital Signs: 12:46 BP 118 / 53; Pulse 78; Resp 18; Temp 97.8(O); Pulse Ox 96% on R/A; Weight 81.65 kg / rn1 180.01 lbs (R); Height 4 ft. 7 in. (139.70 cm) (R); Pain 8/10; 15:12 Pulse Ox 92% ; pml 15:12 BP 119 / 58 (auto/); pml 15:41 Pulse Ox 94% ; pml 15:42 BP 118 / 55 (auto/); pml 16:11 Pulse Ox 91% ; pml 16:12 BP 117 / 56 (auto/); pml 16:42 BP 122 / 58 (auto/); pml 16:42 Pulse Ox 92% ; pml 18:25 BP 137 / 73; Pulse 80; Resp 18; Temp 99.3(TE); Pulse Ox 93% on R/A; Pain 0/10; rn1 12:46 Body Mass Index 41.84 (81.65 kg, 139.70 cm) rn1 MDM: 13:56 Financial registration complete. pm4 13:56 CBC with Diff Ordered. EDMS 13:56 MED Profile Ordered. EDMS 13:56 C Reactive Protein Ordered. EDMS 13:59 Differential Diagnosis: chronic stasis dermatitis on appropriate therapy x 1 dose as an pc out-patient and not failed O/P therapy. Plan: d/w Hospitalist re: kyra. Physician consultation: Dr. Omid Aguilera DO regarding patient's condition, and he requests the labs as ordered . 14:31 [facility] Payment Agreement was scanned into [employer] and attached to record. pm4 15:20 CBC with Diff Reviewed. pc 15:48 MED Profile Reviewed. pc 15:48 C Reactive Protein Reviewed. pc 16:16 Misc. Nursing Order ordered. pc 16:16 Data reviewed: old medical records, vital signs, nurses notes, lab test results. Test pc interpretation: LAB - all labs as ordered have been reviewed, interpreted and considered in the overall management of the clinical presentation;. The patient has been re-examined and re-evaluated. The clinical presentation did not require any ED treatment or interventions. Physician consultation: Dr. Yifan Wang MD regarding patient's condition, and he has evaluated the patient and has ordered DOUGLAS stockings and for her be discharged back to [facility]. Disposition: The historical points, examination findings, and any diagnostic results supporting the provided diagnosis, were discussed with the patient or legal guardian. The need for outpatient follow up with the provider listed on their discharge instructions was discussed. They were encouraged to return to [facility], or the nearest ED, if symptoms worsen/persist, or for any other questions/concerns. Signatures: Dispatcher [employer] EDMS Sachin Castro MD MD pc Sherrill, Hannah, RN RN hs1 Sunita Monzon RN RN [facility] Damon Samayoa, Reg Reg pm4 The chart was reviewed and I authenticate all verbal orders and agree with the evaluation and treatment provided.Attachments: 14:31 [facility] Payment Agreement pm4 Chart Complete MTDD
--- NOTE | 2016-08-31 09:39 | EDDOCDS ---
Physician Documentation [facility] Name: Anjelica Gallego Age: 86 yrs Sex: Female : 1930 Arrival Date: 08/27/2016 Time: 12:33 Bed 12 Private MD: Isidro Hawkins Disposition: 08/27 16:16 Critical Care: Critical care not applicable. pc Disposition: 08/27/16 17:31 Discharged to Home/Self Care. Impression: Venous insufficiency (chronic) (peripheral). - Condition is Stable. - Discharge Instructions: Venous Stasis or Chronic Venous Insufficiency. - Prescriptions for Bilateral DOUGLAS size XL, below knee: wear while awake only. - Medication Reconciliation, Local Pharmacy Hours form. - [facility] up: [facility] ; When: As previously arranged; Reason: Continuance of care. - Problem is chronic. - Symptoms are unchanged. HPI: 13:59 This 86 yrs old Female presents to ER via Ambulance with complaints of Leg pc Swelling. 13:59 The history is obtained from the patient, senior care records. She was admitted for pc left leg stasis dermatitis/cellulitis this week and discharged home yesterday afternoon on oral ABX after 2-3 days of IV therapy. She sent ot her PCP today for INR check and was sent back for admission due to "failed out-patient therapy". She has not had any fevers or chills. Her left leg is sore. Historical: - Allergies: codeine (Unknown); Latex (Unknown); IODINEIODINE CONTAINING (Unknown); myretiq; SULFA (SULFONAMIDES) (Unknown); Uroxatral; - Home Meds: 1. acetaminophen 500 mg Oral tab 2 tabs every 6 hours prn pain for Pain 2. Advair Diskus 500-50 mcg/dose Inhl dsdv 1 puff 2 times per day 3. baclofen 10 mg Oral tab 0.5 tab twice a day 4. cetirizine 10 mg oral tab 1 tab as needed 5. Vitamin D Oral 2000 unit daily 6. Colace 100 mg oral cap 2 caps nightly 7. Eucerin Topical crea as needed 8. Flonase 50 mcg/actuation Nasal spsn 2 sprays once daily 9. furosemide 40 mg Oral tab 1 tab once daily 10. gabapentin 100 mg Oral cap 3 times per day 11. glipizide 5 mg Oral tab 1 tab once daily 12. guaifenesin 600 mg Oral Ta12 as needed prn congestion 13. Keppra 500 mg Oral tab 1 tab 2 times per day 14. lisinopril 5 mg Oral tab 1 tab nightly 15. Centrum Silver Women 8 mg iron-400 mcg-300 mcg oral tab daily 16. nitroglycerin 0.4 mg SL subl 1 tab every 5 minutes for prn chest pain 17. Nystop 100,000 unit/gram Topical powd 2 times per day 18. omeprazole 20 mg Oral cpDR 1 cap once daily for Gastroesophageal Reflux 19. albuterol sulfate 2.5 mg /3 mL (0.083 %) Inhl nebu 3 mL every 6 hours prn sob/wheezing 20. simvastatin 40 mg Oral tab 1 tab once daily 21. spironolactone 25 mg Oral tab 1 tab once daily 22. Systane 0.4-0.3 % ophthalmic drop 1 drop four times a day 23. Coumadin 4 mg Oral tab 1 tab Sun, Tue, Wed, Fri, Sat 24. Coumadin 3 mg Oral tab 1 tab Tue, Th 25. doxycycline hyclate 100 mg Oral cap 1 cap every 12 hours 26. Levaquin 500 mg Oral tab 1 tab once daily - PMHx: Atrial Fibrillation; COPD; diastolic heart failure; essential primary hypertension; GERD; Heart failure; history of falls; hyperlipidemia; Low back pain; muscle weakness; MARCO; Sleep Apnea w/o CPAP; type 2 diabetic with polyneuropathy; Vitamin D deficiency; - PSHx: Cholecystectomy; Cataract Surgery- Bilateral; Hysterectomy; Carpal Tunnel Repair- Bilateral; Laminectomy. lumbar; Back Surgery; Knee Arthroplasty, Left; Knee Arthroplasty, Right; Cardiac catherization; - The history from nurses notes was reviewed: and I agree with what is documented. - Social history: Smoking status: Patient states was never smoker of tobacco. No barriers to communication noted, The patient speaks fluent Mauritian, Speaks appropriately for age. - : The pt / caregiver states he / she is not on anticoagulants. Home medication list is obtained from the facility OCT. - Exposure Risk Screening:: None identified. - Immunization history:: All immunizations up-to-date. - Family history: Not pertinent. - Social history:: the patient is a non-smoker, the patient does not drink alcohol. ROS: 13:59 All systems are negative except as listed. pc Exam: 13:59 General Appearance: no acute distress, alert. pc 13:59 Extremities: Both LEs have evidence of chronic stasis dermatitis, left worse than right. Both are warm to the touch. There is 1_+ pitting edema on both. There is a healing ulcer on the lower inside aspect of the LLE with minimal clear drainage. The culture of this ulcer grew Staph Aureus yesterday and is on appropriate ABX per the antibiogram. Vital Signs: 12:46 BP 118 / 53; Pulse 78; Resp 18; Temp 97.8(O); Pulse Ox 96% on R/A; Weight 81.65 kg / rn1 180.01 lbs (R); Height 4 ft. 7 in. (139.70 cm) (R); Pain 8/10; 15:12 Pulse Ox 92% ; pml 15:12 BP 119 / 58 (auto/); pml 15:41 Pulse Ox 94% ; pml 15:42 BP 118 / 55 (auto/); pml 16:11 Pulse Ox 91% ; pml 16:12 BP 117 / 56 (auto/); pml 16:42 BP 122 / 58 (auto/); pml 16:42 Pulse Ox 92% ; pml 18:25 BP 137 / 73; Pulse 80; Resp 18; Temp 99.3(TE); Pulse Ox 93% on R/A; Pain 0/10; rn1 12:46 Body Mass Index 41.84 (81.65 kg, 139.70 cm) rn1 MDM: 13:56 Financial registration complete. pm4 13:56 CBC with Diff Ordered. EDMS 13:56 MED Profile Ordered. EDMS 13:56 C Reactive Protein Ordered. EDMS 13:59 Differential Diagnosis: chronic stasis dermatitis on appropriate therapy x 1 dose as an pc out-patient and not failed O/P therapy. Plan: d/w Hospitalist re: kyra. Physician consultation: Dr. Omid Aguilera DO regarding patient's condition, and he requests the labs as ordered . 14:31 [facility] Payment Agreement was scanned into [employer] and attached to record. pm4 15:20 CBC with Diff Reviewed. pc 15:48 MED Profile Reviewed. pc 15:48 C Reactive Protein Reviewed. pc 16:16 Misc. Nursing Order ordered. pc 16:16 Data reviewed: old medical records, vital signs, nurses notes, lab test results. Test pc interpretation: LAB - all labs as ordered have been reviewed, interpreted and considered in the overall management of the clinical presentation;. The patient has been re-examined and re-evaluated. The clinical presentation did not require any ED treatment or interventions. Physician consultation: Dr. Yifan Wang MD regarding patient's condition, and he has evaluated the patient and has ordered DOUGLAS stockings and for her be discharged back to [facility]. Disposition: The historical points, examination findings, and any diagnostic results supporting the provided diagnosis, were discussed with the patient or legal guardian. The need for outpatient follow up with the provider listed on their discharge instructions was discussed. They were encouraged to return to [facility], or the nearest ED, if symptoms worsen/persist, or for any other questions/concerns. Signatures: Dispatcher [employer] EDMS Sachin Castro MD MD pc Sherrill, Hannah, RN RN hs1 Sunita Monzon RN RN [facility] Damon Samayoa, Reg Reg pm4 The chart was reviewed and I authenticate all verbal orders and agree with the evaluation and treatment provided.Attachments: 14:31 [facility] Payment Agreement pm4 Chart Complete MTDD
--- NOTE | 2016-08-31 09:39 | EDDOCDS ---
Nurse's Notes [facility] Name: Anjelica Gallego Age: 86 yrs Sex: Female : 1930 Arrival Date: 08/27/2016 Time: 12:33 Bed 12 Private MD: Isidro Hawkins Diagnosis: Venous insufficiency (chronic) (peripheral) Presentation: 08/27 12:44 Presenting complaint: EMS states: Send from Dr's office for weeping legs. Pt states hs1 discharged yesterday from [facility] with outpatient treatment cellulitis. EMS states patient is also concerned about arms however patient states has been there since admission and has gotten better and that MD was knowledgeable of redness. Adult Sepsis Screening: The patient does not have new or worsening altered mentation. Patient's respiratory rate is less than 22. Systolic blood pressure is greater than 100. Patient has a qSOFA score of 0- Negative Sepsis Screen. Suicide/Homicide risk assessment- the patient denies having any suicidal and/or homicidal ideations and does not present with any other emotional, behavioral or mental health complaints. 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 Transition of care: patient was not received from another setting of care. 12:44 Acuity: KIRK Level 4 hs1 12:44 Method Of Arrival: Ambulance hs1 Triage Assessment: 12:54 General: Appears in no apparent distress, comfortable, Behavior is appropriate for age, hs1 cooperative. Pain: Location: all over pain Pain currently is 8 out of 10 on a pain scale. Respiratory: No deficits noted. Derm: Skin is red, left lower leg has area of cracks and one small dime size of weeping. Does not appear to be weeping at this time. Historical: - Allergies: codeine (Unknown); Latex (Unknown); IODINEIODINE CONTAINING (Unknown); myretiq; SULFA (SULFONAMIDES) (Unknown); Uroxatral; - Home Meds: 1. acetaminophen 500 mg Oral tab 2 tabs every 6 hours prn pain for Pain 2. Advair Diskus 500-50 mcg/dose Inhl dsdv 1 puff 2 times per day 3. baclofen 10 mg Oral tab 0.5 tab twice a day 4. cetirizine 10 mg oral tab 1 tab as needed 5. Vitamin D Oral 2000 unit daily 6. Colace 100 mg oral cap 2 caps nightly 7. Eucerin Topical crea as needed 8. Flonase 50 mcg/actuation Nasal spsn 2 sprays once daily 9. furosemide 40 mg Oral tab 1 tab once daily 10. gabapentin 100 mg Oral cap 3 times per day 11. glipizide 5 mg Oral tab 1 tab once daily 12. guaifenesin 600 mg Oral Ta12 as needed prn congestion 13. Keppra 500 mg Oral tab 1 tab 2 times per day 14. lisinopril 5 mg Oral tab 1 tab nightly 15. Centrum Silver Women 8 mg iron-400 mcg-300 mcg oral tab daily 16. nitroglycerin 0.4 mg SL subl 1 tab every 5 minutes for prn chest pain 17. Nystop 100,000 unit/gram Topical powd 2 times per day 18. omeprazole 20 mg Oral cpDR 1 cap once daily for Gastroesophageal Reflux 19. albuterol sulfate 2.5 mg /3 mL (0.083 %) Inhl nebu 3 mL every 6 hours prn sob/wheezing 20. simvastatin 40 mg Oral tab 1 tab once daily 21. spironolactone 25 mg Oral tab 1 tab once daily 22. Systane 0.4-0.3 % ophthalmic drop 1 drop four times a day 23. Coumadin 4 mg Oral tab 1 tab Sun, Tue, Wed, Fri, Sat 24. Coumadin 3 mg Oral tab 1 tab Tue, Th 25. doxycycline hyclate 100 mg Oral cap 1 cap every 12 hours 26. Levaquin 500 mg Oral tab 1 tab once daily - PMHx: Atrial Fibrillation; COPD; diastolic heart failure; essential primary hypertension; GERD; Heart failure; history of falls; hyperlipidemia; Low back pain; muscle weakness; MARCO; Sleep Apnea w/o CPAP; type 2 diabetic with polyneuropathy; Vitamin D deficiency; - PSHx: Cholecystectomy; Cataract Surgery- Bilateral; Hysterectomy; Carpal Tunnel Repair- Bilateral; Laminectomy. lumbar; Back Surgery; Knee Arthroplasty, Left; Knee Arthroplasty, Right; Cardiac catherization; - The history from nurses notes was reviewed: and I agree with what is documented. - Social history: Smoking status: Patient states was never smoker of tobacco. No barriers to communication noted, The patient speaks fluent Gambian, Speaks appropriately for age. - : The pt / caregiver states he / she is not on anticoagulants. Home medication list is obtained from the facility OCT. - Exposure Risk Screening:: None identified. - Immunization history:: All immunizations up-to-date. - Family history: Not pertinent. - Social history:: the patient is a non-smoker, the patient does not drink alcohol. Screenin:22 Screening information is obtained from the patient. Fall risk: At risk due to gait pml disturbance. Assistance ADL's: requires no assistance with activities of daily living. Abuse/DV Screen: The patient / caregiver reports he/she is: not in a situation that causes fear, pain or injury. Nutritional screening: No deficits noted. Advance Directives: Currently, there is no health care proxy. home support is adequate. Assessment: 01:35 General: Appears in no apparent distress, comfortable, Behavior is appropriate for age, hs1 cooperative. Pain: Denies pain. Cardiovascular: No deficits noted. Respiratory: No deficits noted. Derm: bilateral leg swelling and noted venous stasis. Pt states area of concern was left leg, mild ulceration noted with dime size weeping area, not noted to be oozing at present. No needs noted. Call hinton left within reach. 14:40 Reassessment: Patient appears in no apparent distress at this time. Pt awaiting further hs1 plan of care. Patient has no needs at present. . 15:07 General: Appears in no apparent distress, comfortable, Behavior is appropriate for age, pml cooperative. Pain: Denies pain. Neurological: Level of Consciousness is awake, alert, Oriented to person, place, time. Cardiovascular: Capillary refill < 3 seconds. Respiratory: Airway is patent Respiratory effort is even, unlabored. Derm: Skin is pink, warm & dry. 15:52 General: resting on stretcher, denies complaints. of pain. reports feeling hungry. pml snacks offered as per MD Castro,.. 17:00 General: Appears in no apparent distress, comfortable, Behavior is appropriate for age, pml cooperative. Pain: Denies pain. Neurological: Level of Consciousness is awake, alert, Oriented to person, place, time. Cardiovascular: Capillary refill < 3 seconds. Derm: Skin is pink, warm & dry. 17:22 General: compression stockings applied, pt reports she does not like how they feel and pml does not like nylon fabric, states they make her legs hot. reiterated multiple times importance for compliance of prescribed treatment. . 18:22 General: Appears in no apparent distress, comfortable, Behavior is appropriate for age, pml cooperative. Pain: Denies pain. Neurological: Level of Consciousness is awake, alert, Oriented to person, place, time. Cardiovascular: Capillary refill < 3 seconds. Respiratory: Airway is patent Respiratory effort is even, unlabored. GI: Abdomen is non- distended. Derm: Skin is pink, warm & dry. redness and ulceration to lower leg Swollen area noted on right leg and left leg. Vital Signs: 12:46 BP 118 / 53; Pulse 78; Resp 18; Temp 97.8(O); Pulse Ox 96% on R/A; Weight 81.65 kg (R); rn1 Height 4 ft. 7 in. (139.70 cm) (R); Pain 8/10; 15:12 Pulse Ox 92% ; pml 15:12 BP 119 / 58 (auto/); pml 15:41 Pulse Ox 94% ; pml 15:42 BP 118 / 55 (auto/); pml 16:11 Pulse Ox 91% ; pml 16:12 BP 117 / 56 (auto/); pml 16:42 BP 122 / 58 (auto/); pml 16:42 Pulse Ox 92% ; pml 18:25 BP 137 / 73; Pulse 80; Resp 18; Temp 99.3(TE); Pulse Ox 93% on R/A; Pain 0/10; rn1 12:46 Body Mass Index 41.84 (81.65 kg, 139.70 cm) rn1 Vitals: 18:24 Log In time N/A- police car arrival. [facility] ED Course: 12:35 Patient visited by Fiona Sam, Drum Loader And Unloader. lbd 12:35 Isidro Hawkins DO is Private Physician. lbd 12:35 Patient moved to Waiting lbd 12:36 Patient moved to 12 lbd 12:47 Triage Initiated hs1 13:21 Sachin Castro MD is Attending Physician. pc 13:26 Patient visited by Isabel Velasco RN. hs1 13:29 Patient visited by Sachin Castro MD. pc 14:29 Patient visited by Isabel Velasco RN. hs1 14:31 [facility] Payment Agreement was scanned into [employer] and attached to record. pm4 15:08 Patient visited by Sunita Monzon RN. pml 15:52 Patient visited by Sunita Monzon,RN. pml 17:01 Patient visited by Sunita Monzon,RN. pml 17:23 Patient visited by Sunita Monzon,OJSEPH. pml 17:31 [facility] is Referral Physician. pc 18:22 The patient / caregiver is instructed regarding the plan of care and ED course. Patient pml has correct armband on for positive identification. Placed in gown. Bed in low position. Call light in reach. Side rails up X2. 18:22 No IV's were initiated during this patient's visit. No procedures done that require pml assistance. Order Results: Lab Order: CBC with Diff; SPEC'M 08/27/16 14:43 Test: WHITE BLOOD COUNT; Value: 6.8; Range: 4.0-10.0; Units: K/mm3; Status: F Test: RED BLOOD COUNT; Value: 3.89; Range: 4.00-5.40; Abnormal: Below low normal; Units: M/mm3; Status: F Test: HEMOGLOBIN; Value: 11.3; Range: 12.0-16.0; Abnormal: Below low normal; Units: g/dl; Status: F Test: HEMATOCRIT; Value: 33.4; Range: 36.0-47.0; Abnormal: Below low normal; Units: %; Status: F Test: MEAN CORPUSCULAR VOLUME; Value: 85.8; Range: 80.0-96.0; Units: fl; Status: F Test: MEAN CORPUSCULAR HEMOGLOBIN; Value: 29.2; Range: 27.0-33.0; Units: pg; Status: F Test: MEAN CORPUSCULAR HGB CONC; Value: 34.0; Range: 32.0-36.5; Units: g/dl; Status: F Test: RED CELL DISTRIBUTION WIDTH; Value: 12.7; Range: 11.5-14.5; Units: %; Status: F Test: PLATELET COUNT, AUTOMATED; Value: 327; Range: 150-450; Units: k/mm3; Status: F Test: NEUTROPHILS %; Value: 50.0; Range: 36.0-66.0; Units: %; Status: F Test: LYMPH %; Value: 25.3; Range: 24.0-44.0; Units: %; Status: F Test: MONO %; Value: 12.0; Range: 0.0-5.0; Abnormal: Above high normal; Units: %; Status: F Test: EOS %; Value: 8.5; Range: 0.0-3.0; Abnormal: Above high normal; Units: %; Status: F Test: BASO %; Value: 0.7; Range: 0.0-1.0; Units: %; Status: F Test: LARGE UNSTAINED CELL %; Value: 3.6; Range: 0.0-4.0; Units: %; Status: F Test: NEUTROPHILS #; Value: 3.4; Range: 1.8-7.7; Units: K/mm3; Status: F Test: LYMPH #; Value: 1.7; Range: 1.5-4.5; Units: K/mm3; Status: F Test: MONO #; Value: 0.8; Range: 0.0-0.8; Units: K/mm3; Status: F Test: EOS #; Value: 0.6; Range: 0.0-0.50; Abnormal: Above high normal; Units: K/mm3; Status: F Test: BASO #; Value: 0.0; Range: 0.0-0.2; Units: K/mm3; Status: F Test: LARGE UNSTAINED CELL #; Value: 0.3; Range: 0.0-0.4; Units: K/mm3; Status: F Lab Order: [facility]; [facility] 08/27/16 14:43 Test: GLUCOSE, FASTING; Value: 79; Range: 83-110; Abnormal: Below low normal; Units: MG/DL; Status: F Test: BLOOD UREA NITROGEN; Value: 21; Range: 7-18; Abnormal: Above high normal; Units: MG/DL; Status: F Test: CREATININE FOR GFR; Value: 0.78; Range: 0.55-1.02; Units: MG/DL; Status: F Test: GLOMERULAR FILTRATION RATE; Value: > 60.0; Range: >32; Status: F Test: SODIUM LEVEL; Value: 144; Range: 136-145; Units: MEQ/L; Status: F Test: POTASSIUM SERUM; Value: 3.9; Range: 3.5-5.1; Units: MEQ/L; Status: F Test: CHLORIDE LEVEL; Value: 108; Range: 98-107; Abnormal: Above high normal; Units: MEQ/L; Status: F Test: CARBON DIOXIDE LEVEL; Value: 27; Range: 21-32; Units: MEQ/L; Status: F Test: ANION GAP; Value: 9; Range: 8-16; Units: MEQ/L; Status: F Test: CALCIUM LEVEL; Value: 9.3; Range: 8.8-10.2; Units: MG/DL; Status: F Test Note: ; Units are mL/min/1.73 m2 Chronic Kidney Disease Staging per NKF: Stage I & II GFR >=60 Normal to Mildly Decreased Stage III GFR 30-59 Moderately Decreased Stage IV GFR 15-29 Severely Decreased Stage V GFR <15 Very Little GFR Left ESRD GFR <15 on [facility]AM Lab Order: C Reactive Protein; SPEC'M 08/27/16 14:43 Test: C REACTIVE PROTEIN QUANTITATIV; Value: 0.65; Range: 0.00-0.30; Abnormal: Above high normal; Units: MG/DL; Status: F Outcome: 17:31 Discharge ordered by Provider. pc 18:22 Discharge Assessment: Patient awake, alert and oriented x 3. No cognitive and/or pml functional deficits noted. Patient verbalized understanding of disposition instructions. patient administered narcotics - no. The following High Risk Discharge criteria are identified: None. Discharged to halfway. Report called to [facility] knitting supervisor. Condition: stable. Discharge instructions given to patient, Instructed on discharge instructions, follow up and referral plans. wound care, Demonstrated understanding of instructions, Pt was receptive of discharge instructions/ teaching. No special radiology studies were completed. Property sent home with patient. 18:24 Patient left the ED. pml Signatures: Sachin Castro MD MD pc Fiona Sam, Drum Loader And Unloader Unit lbd Isabel Velasco RN RN hs1 Sunita Monzon RN RN pml Juarez Mcneill rn1 Damon Samayoa, Reg Reg pm4 Chart Complete MTDD
== END 2016-08-27 18:24 | disposition home or self-care (01) ==
LOC: M ED 12:33
DX: I87.2 Venous insufficiency (chronic) (peripheral) (principal); I48.91 Unspecified atrial fibrillation; J44.9 Chronic obstructive pulmonary disease, unspecified; I10 Essential (primary) hypertension; K21.9 Gastro-esophageal reflux disease without esophagitis; E78.5 Hyperlipidemia, unspecified; M54.5 Low back pain; I50.30 Unspecified diastolic (congestive) heart failure; M62.81 Muscle weakness (generalized); G47.33 Obstructive sleep apnea (adult) (pediatric); E55.9 Vitamin D deficiency, unspecified; E11.42 Type 2 diabetes mellitus with diabetic polyneuropathy; Z91.81 History of falling; Z95.5 Presence of coronary angioplasty implant and graft; Z96.653 Presence of artificial knee joint, bilateral; Z79.899 Other long term (current) drug therapy; Z79.01 Long term (current) use of anticoagulants; Z88.5 Allergy status to narcotic agent; Z91.040 Latex allergy status; Z88.8 Allergy status to other drugs, medicaments and biological substances; Z88.2 Allergy status to sulfonamides
CPT/HCPCS: 80048; 85025; 85610; 86140; 99281; G0463

== ENCOUNTER → 2016-08-30 | Outpatient (REF) | payer MEDICARE, MEDICAID ==
[~2016-08-30] MED LIST changes: -SYSTSOL14 OU; +SYSTSOL8 OU
== END ==
LOC: M SFHCPLAZ 10:18
PROVIDERS: ATTEND Internal Medicine Pulmonary Disease
DX: Z79.01 Long term (current) use of anticoagulants (principal); Z53.8 Procedure and treatment not carried out for other reasons

== ENCOUNTER → 2016-09-08 | Outpatient (REF) | payer MEDICARE, MEDICAID ==
[~2016-09-08] MED LIST changes: +SYSTSOL14 OU; -SYSTSOL8 OU
== END ==
PROVIDERS: ATTEND Physician Assistant Medical
DX: R56.9 Unspecified convulsions (principal)

== ENCOUNTER → 2016-09-24 | Outpatient (REF) | payer MEDICARE, MEDICAID | LOC: M SFHCPLAZ 13:21 | PROVIDERS: ATTEND Family Medicine | DX: E11.42 Type 2 diabetes mellitus with diabetic polyneuropathy (principal); Z79.01 Long term (current) use of anticoagulants | CPT/HCPCS: 82043; 83036; 85610; G0463 ==

== ENCOUNTER → 2016-10-05 | Outpatient (REF) | payer MEDICARE, MEDICAID ==
[2016-10-05 11:02] LABS: INR 2.4
== END | disposition home or self-care (01) ==
PROVIDERS: ATTEND Family Medicine
DX: Z51.81 Encounter for therapeutic drug level monitoring (principal); Z79.01 Long term (current) use of anticoagulants

== ENCOUNTER → 2016-11-30 | Outpatient (REF) | payer MEDICARE, MEDICAID ==
[2016-11-30 11:34] LABS: INR 2.76
== END ==
PROVIDERS: ATTEND Family Medicine
DX: Z51.81 Encounter for therapeutic drug level monitoring (principal)

== ENCOUNTER → 2016-12-07 | Outpatient (REF) | payer MEDICARE, MEDICAID | PROVIDERS: ATTEND Physician Assistant Medical | DX: E11.9 Type 2 diabetes mellitus without complications (principal); I10 Essential (primary) hypertension ==

== ENCOUNTER 2016-12-13 14:02 | Inpatient (IN) | payer MEDICARE, MEDICAID ==
[~2016-12-13] VITALS: Ht 137.2 cm; Wt 78.9 kg
[2016-12-13] MEDS ORDERED: ACETAMINOPHEN TAB 650MG DOSE (2X325MG) PO PRN (14:30)
[2016-12-13 15:05] VITALS: BP 129/62
[2016-12-13] MEDS: ENOXAPARIN 30 MG/0.3 ML SYR (J1650) SC SCH (17:18)
[2016-12-13] MEDS ORDERED: DIPHCR TOP (17:34)
[2016-12-13] MEDS ORDERED: TRIA25CR TOP (17:34)
[2016-12-13] MEDS ORDERED: ALL10TAB27 PO (17:36)
[2016-12-13] MEDS ORDERED: OMEP20CA3 PO (17:42)
[2016-12-13] MEDS ORDERED: GUAI1TAB PO (17:44)
[2016-12-13 18:05] LABS: BASO % 0.9 % (0.0-1.0); EOS # 0.5 K/mm3 (0.0-0.50); LARGE UNSTAINED CELL # 0.2 K/mm3 (0.0-0.4); LARGE UNSTAINED CELL % 2.9 % (0.0-4.0); LYMPH % 31.4 % (24.0-44.0); MEAN CORPUSCULAR HEMOGLOBIN 27.7 pg (27.0-33.0); MEAN CORPUSCULAR HGB CONC 32.3 g/dl (32.0-36.5); MEAN CORPUSCULAR VOLUME 85.7 fl (80.0-96.0); MONO # 0.7 K/mm3 (0.0-0.8); MONO % 11.8 % (0.0-5.0); NEUTROPHILS # 2.6 K/mm3 (1.8-7.7); PLATELET COUNT, AUTOMATED 353 k/mm3 (150-450); RED CELL DISTRIBUTION WIDTH 12.3 % (11.5-14.5); WHITE BLOOD COUNT 5.8 K/mm3 (4.0-10.0)
[2016-12-13 18:19] LABS: INR 3.02
[2016-12-13] MEDS ORDERED: CETIRIZINE (ZyrTEC) 10 MG TAB PO PRN (19:00)
[2016-12-13] MEDS ORDERED: NYSTATIN 100,000 UNITS/GM TOPICAL PWD 15 GM TOP PRN (19:00)
[2016-12-13] MEDS ORDERED: THERAPEUTIC BATH LOTION 240 ML BTL TOP PRN (19:00)
[2016-12-13] MEDS ORDERED: GLUCAGON FOR INJ 1 MG VIAL (J1610) SC PRN (19:00)
[2016-12-13] MEDS ORDERED: DEXTROSE 50% 50 ML SYRINGE IV PRN (19:00)
[2016-12-13] MEDS ORDERED: GLUCOSE 4 GM CHEW TABLET PO PRN (19:00)
[2016-12-13 19:26] LABS: ALBUMIN 2.8 GM/DL (3.2-5.2); ALBUMIN/GLOBULIN RATIO 0.76 (1.00-1.93); ALKALINE PHOSPHATASE 94 U/L (45-117); ALT/SGPT 16 U/L (12-78); ANION GAP 8 MEQ/L (8-16); AST/SGOT 17 U/L (15-37); BILIRUBIN,TOTAL 0.3 MG/DL (0.2-1.0); BLOOD UREA NITROGEN 18 MG/DL (7-18); CALCIUM LEVEL 8.7 MG/DL (8.8-10.2); CARBON DIOXIDE LEVEL 25 MEQ/L (21-32); CHLORIDE LEVEL 106 MEQ/L (98-107); CREATININE FOR GFR 0.73 MG/DL (0.55-1.02); GLOMERULAR FILTRATION RATE > 60.0 (>32); GLUCOSE, FASTING 87 MG/DL (83-110); POTASSIUM SERUM 4.2 MEQ/L (3.5-5.1); SODIUM LEVEL 139 MEQ/L (136-145); TOTAL PROTEIN 6.5 GM/DL (6.4-8.2)
[2016-12-13 19:56] LABS: ERYTHROCYTE SEDIMENTATION RATE 61 mm/hr (0-42)
[2016-12-13] MEDS ORDERED: VANCOMYCIN HCL 1,000 MG, VIAL MATE ADAPTER 1 EACH in D5W 250 ML IV ONE (20:00)
[2016-12-13] MEDS ORDERED: VANCOMYCIN HCL 500 MG in D5W MINI-BAG PLUS 100 ML IV ONE (21:00)
[2016-12-13] MEDS ORDERED: HumaLOG INSULIN (NovoLOG) PER UNIT SC SCH (21:00)
[2016-12-13] MEDS: ADVAIR DISKUS 500/50 INH PWD INH SCH (21:00)
[2016-12-13] MEDS: TRIAMCINOLONE ACETONIDE 0.025 % 80 GM CREAM TOP SCH (21:00)
--- NOTE | 2016-12-13 21:02 | HPE ---
DATE OF ADMISSION: 12/13/2016 PRIMARY CARE PROVIDER: Damon Shearer DO REASON FOR ADMISSION: Cellulitis. HISTORY OF PRESENT ILLNESS: The patient is an 86-year-old female with past medical history significant for type 2 diabetes, asthma, dyslipidemia, obstructive sleep apnea, hypertension, presented to the emergency room from Dr. Shearer's office after she presented again for cellulitis in her lower extremity. The patient has been treated with a long course of antibiotics. She had undergone treatment for 3 days of Keflex and then 7 days of doxycycline. Initially was improving and then she was seen again on 12/10/2016, and her infection was resolving. Today she presented to the office for worsening lower extremity edema. She stated that the erythema has gone all the way to her knees from around her ankle. The patient was sent to the hospital for direct admission for IV antibiotics. Upon my exam the patient stated that she has been having worse lower extremity edema and erythema bilaterally. She states that she normally has swelling only around her ankles and she has been pretty compliant with her fluid pill. She is normally on Lasix 40 mg daily. The patient was admitted under hospitalist service. REVIEW OF SYSTEMS: 12-point review of systems was obtained all which was negative except for those mentioned above. PAST MEDICAL HISTORY: Significant for type 2 diabetes, dyslipidemia, asthma, obstructive sleep apnea (MARCO), pulmonary hypertension, diverticulosis, peripheral neuropathy, osteoarthritis, chronic back pain with spinal stenosis, cerebellar and frontal lobe strokes, hypertension, paroxysmal atrial fibrillation, osteoporosis, chronic diastolic heart failure, cerebral artery occlusion, seizure disorder, neuropathy, melanoma excision of the right cheek. PAST SURGICAL HISTORY: Significant for hysterectomy, carpal tunnel bilaterally, gallbladder, bilateral knee replacement, cardiac catheterization in 1997 which was normal, laminectomy, polyps removal, bilateral cataract surgery, and left knee revision as well as oral surgery. FAMILY HISTORY: Noncontributory. SOCIAL HISTORY: The patient is a nonsmoker, does not drink. Lives in [facility]. ALLERGIES: The patient has multiple allergies including CODEINE, IODINE, LATEX, SULFA, REGLAN, UROXATRAL. Home medications list reviewed. PHYSICAL FINDINGS: On admission: Temperature 97.8, pulse 79, respiratory rate 18, blood pressure is 129/62, pulse oximetry 97% on room air. HEENT: Pupils equal, round, reactive to light and accommodation. Neck is supple. No jugular venous distention (JVD). Lungs: Clear to auscultation bilaterally. Abdomen: Soft, nontender, nondistended. Extremities: Bilateral lower extremity edema and erythema, worse on the left side. LABORATORY FINDINGS: WBC 5.8, hemoglobin 11.6, hematocrit 35.8, platelet count 353. Sedimentation rate 61, sodium 139, potassium 4.2, chloride 106, BUN 18, creatinine 0.73, fasting glucose 87, C-reactive protein 0.80, INR 3. ASSESSMENT/PLAN: 1. Lower extremity edema and erythema. Appears to be likely secondary to venous stasis ulceration due to lower extremity edema. The patient has at least 2+ edema bilaterally. Will start the patient on IV Lasix. Continue intake and output and daily weights. We will continue to trend sedimentation rate and C-reactive protein (CRP) which are only mildly elevated. The patient has no leukocytosis. No fevers. However, given the nature of her infection and given her history we will continue to treat with vancomycin for now. 2. Obstructive sleep apnea. We will order C-PAP to be used here. 3. Diabetes. Continue sliding scale and consistent carbohydrate diet, mechanical soft. 4. History of hypertension. Continue the patient's home medications. 5. History of hyperlipidemia. Continue Zocor. 6. History of seizure disorder. We will resume the patient's home medications. 7. History of diastolic congestive heart failure. Continue IV Lasix. The patient appears to be volume overloaded at this time. We will monitor intake and output and daily weights. 8. Deep venous thrombosis (DVT) prophylaxis. The patient is normally on Coumadin for paroxysmal atrial fibrillation. We will hold since INR is 3. We will continue to monitor.
[2016-12-13] MEDS: levETIRAcetam 250MG TABLET (KEPPRA) PO SCH (21:08)
[2016-12-13] MEDS: GABAPENTIN 100 MG CAP PO SCH (21:09)
[2016-12-13] MEDS: BACLOFEN 10 MG TAB PO SCH (21:09)
[2016-12-13] MEDS: ACETAMINOPHEN 500 MG TAB PO PRN (21:09)
[2016-12-13] MEDS: LISINOPRIL 5 MG TAB PO SCH (21:09)
[2016-12-13] MEDS: SIMVASTATIN 40 MG TAB PO SCH (21:10)
[2016-12-13] MEDS: DOCUSATE SODIUM 100 MG CAP PO SCH (21:10)
[2016-12-13 22:00] VITALS: BP 119/57
--- NOTE | 2016-12-13 23:13 | PHACANCOPD ---
PHARMACY VANCOMYCIN DOSING Pt Demographics Demographics Patient Age:86 , Weight:85.400 , Gender: female Adjusted Body Weight Events Past 24 Hours Events Past 24 Hours: NO: Change in CrCl, Dialysis, Diuretic Therapy, Elevation in WBC, Fever, Other, Pending Diagnostics, Pending Procedures Vancomycin Vancomycin Target Ranges: 15-20 mcg/ml Vancomycin Load Y/N: Yes Load Dose Date Time Vancomycin Load Dose: 1.5GM Date: 12/13/16 Time: 21:00 Vancomycin Dose Date: 12/14/16. Current Vancomycin Dose: [1GM IV Q24H (9am)] Intermittent Dosing?: No Labs Labs Laboratory Tests 12/13/16 17:52 Calcium Level 8.7 L, Aspartate Amino Transf (AST/SGOT) 17, Alanine Aminotransferase (ALT/SGPT) 16, Alkaline Phosphatase 94, Total Bilirubin 0.3, Total Protein 6.5, Albumin 2.8 L, Red Blood Count 4.18, Mean Corpuscular Volume 85.7, Mean Corpuscular Hemoglobin 27.7, Mean Corpuscular Hemoglobin Concent 32.3 , Red Cell Distribution Width 12.3, Neutrophils (%) (Auto) 45.0, Lymphocytes (% ) (Auto) 31.4, Monocytes (%) (Auto) 11.8 H, Eosinophils (%) (Auto) 8.0 H, Basophils (%) (Auto) 0.9, Neutrophils # (Auto) 2.6, Lymphocytes # (Auto) 2.0, Monocytes # (Auto) 0.7, Eosinophils # (Auto) 0.5, Basophils # (Auto) 0.0 Creatinine Clearance Date:12/13/16. Creatinine Clearance: [>50ml/min]. Assessment and Plan Maintaining Current Dose?: Yes Reason for dose change: Other Pharmacist Note Pharmacist Note Date: 12/13/16. Pharm note: VANCO 1.5GM LD AT APPROX 21:00 FOLLOWED BY 1GM VANCO IV Q24H STARTING AT 9AM 12/14/16. TROUGH TO FOLLOW WHEN AT [facility] Dec 13, 2016 23:13
[2016-12-14 06:00] VITALS: BP 107/54
[2016-12-14 06:32] LABS: MEAN CORPUSCULAR HEMOGLOBIN 28.9 pg (27.0-33.0); MEAN CORPUSCULAR HGB CONC 33.5 g/dl (32.0-36.5); MEAN CORPUSCULAR VOLUME 86.2 fl (80.0-96.0); RED CELL DISTRIBUTION WIDTH 12.5 % (11.5-14.5); WHITE BLOOD COUNT 6.4 K/mm3 (4.0-10.0)
[2016-12-14 06:35] LABS: INR 2.89
[2016-12-14 06:52] LABS: ALBUMIN 2.4 GM/DL (3.2-5.2); ALBUMIN/GLOBULIN RATIO 0.73 (1.00-1.93); ALKALINE PHOSPHATASE 83 U/L (45-117); ALT/SGPT 13 U/L (12-78); ANION GAP 7 MEQ/L (8-16); AST/SGOT 14 U/L (15-37); BILIRUBIN,TOTAL 0.4 MG/DL (0.2-1.0); BLOOD UREA NITROGEN 16 MG/DL (7-18); CALCIUM LEVEL 8.6 MG/DL (8.8-10.2); CARBON DIOXIDE LEVEL 26 MEQ/L (21-32); CHLORIDE LEVEL 108 MEQ/L (98-107); CREATININE FOR GFR 0.73 MG/DL (0.55-1.02); GLOMERULAR FILTRATION RATE > 60.0 (>32); GLUCOSE, FASTING 102 MG/DL (83-110); POTASSIUM SERUM 4.1 MEQ/L (3.5-5.1); SODIUM LEVEL 141 MEQ/L (136-145); TOTAL PROTEIN 5.7 GM/DL (6.4-8.2)
[2016-12-14] MEDS ORDERED: HumaLOG INSULIN (NovoLOG) PER UNIT SC SCH (07:30)
[2016-12-14] MEDS: ADVAIR DISKUS 500/50 INH PWD INH SCH ×2 (08:40→21:00)
[2016-12-14] MEDS: FUROSEMIDE 40 MG/4 ML VIAL (J1940) IV SCH ×2 (09:00→17:07)
[2016-12-14] MEDS: TRIAMCINOLONE ACETONIDE 0.025 % 80 GM CREAM TOP SCH ×2 (09:00→20:53)
[2016-12-14] MEDS: GABAPENTIN 100 MG CAP PO SCH ×3 (09:14→20:52)
[2016-12-14] MEDS: levETIRAcetam 250MG TABLET (KEPPRA) PO SCH ×2 (09:15→20:52)
[2016-12-14] MEDS: SPIRONOLACTONE 25 MG TAB PO SCH (09:16)
[2016-12-14] MEDS: BACLOFEN 10 MG TAB PO SCH ×2 (09:16→20:51)
[2016-12-14] MEDS: OMEPRAZOLE 20 MG CAP PO SCH (09:16)
[2016-12-14] MEDS: ENOXAPARIN 30 MG/0.3 ML SYR (J1650) SC SCH (09:17)
--- NOTE | 2016-12-14 09:21 | REP ---
Bilateral lower extremity deep vein duplex ultrasound: The deep veins demonstrate normal compression, normal Doppler color flow and normal Doppler waveforms with respiration and augmentation from the popliteal veins to the common femoral veins bilaterally . The studies type the difficult because of bilateral lower extremity soft tissue swelling and patient body habitus. Impression: There is no deep vein thrombus on the right on the left. Signed by Trace Page MD 12/14/2016 09:13 A
[2016-12-14] MEDS: glipiZIDE XL 5 MG TABCR PO SCH (13:38)
[2016-12-14 14:00] VITALS: BP 145/65
[2016-12-14] MEDS: VANCOMYCIN HCL 1,000 MG, VIAL MATE ADAPTER 1 EACH in D5W 250 ML IV SCH (17:07)
[2016-12-14] MEDS ORDERED: SODIUM CHLORIDE 0.9% INJ 10 ML SYR IV PRN (17:30)
--- NOTE | 2016-12-14 17:30 | REP ---
Procedure: PICC line insertion with Kenan-Jamaal The procedure was performed under the direct supervision of Dr. Tripathi. The risks and benefits of the procedure were explained to the patient and informed consent was obtained. The right basilic vein was localized using ultrasound guidance. The skin was prepped and draped in a sterile fashion. 2% lidocaine was used as a local anesthetic. Using ultrasound guidance the basilic vein was cannulated and a 0.018 guidewire was inserted and advanced to the SVC using fluoroscopic guidance. The needle was removed and a 4.5 Montserratian dilator and peel-away sheath was inserted over the guide wire. A 4.5 [place]erratian single lumen catheter was cut to length of 41 cm. The dilator was removed and the catheter was inserted over the guide wire with the tip ending in the SVC. The peel-away sheath was removed and the catheter was flushed with heparinized saline as per Hospital protocol. The catheter was affixed to the skin and a sterile dressing was applied. The the patient tolerated the procedure well and there were no immediate complications. 0.2 minutes of fluoro time was utilized for this procedure. Reviewed by JACK Torres 12/14/2016 04:59 PSigned by Trace Tripathi MD 12/14/2016 05:19 P
[2016-12-14] MEDS: SODIUM CHLORIDE 0.9% INJ 10 ML SYR IV SCH (18:45)
--- NOTE | 2016-12-14 20:08 | IPNPDOC ---
Subjective Date Seen The patient was seen on 12/14/16. Subjective Chief Complaint/HPI The patient is a 86-year-old female admitted with a reason for visit of Left Lower Leg Cellulitis. Skin: Reports: Breakdown, Rash Musculoskeletal: Reports: Leg Pain Objective Physical Examination General Exam: Positive: Alert, No Acute Distress Eye Exam: Positive: Conjunctiva & lids normal, EOMI, PERRLA, Negative: Sclera icteric Chest Exam: Positive: Clear to auscultation, Normal air movement Heart Exam: Positive: Normal S1, Normal S2, Rate Normal, Regular Rhythm, Negative: Murmurs, Rubs Abdomen Exam: Positive: Normal bowel sounds, Soft, Negative: Hepatospenomegaly, Tenderness Extremity Exam: Positive: Edema, Normal pulses, Swelling, Tenderness, Negative: Clubbing, Cyanosis Skin Exam: Positive: Breakdown, Lesion, Other skin issue Assessment /Plan Problems (1) Cellulitis Status: Acute Problem Text: continue antibiotics crp and sed rate blood cx (2) Venous stasis dermatitis Status: Acute Response to Treatment: Worse (3) Diabetes Status: Chronic (4) Diastolic CHF Status: Chronic (5) Hypertension Status: Chronic VS, I&O, 24H, [facility] Vital Signs/I&O Vital Signs Date Time Temp Pulse Resp B/P Pulse Ox O2 Delivery O2 Flow Rate FiO2 12/14/16 14:00 97.9 87 19 145/65 93 Room Air I&O- Last 24 Hours up to 6 AM 12/14/16 05:59 Intake Total 710 ml Output Total 2300 ml Balance -1590 ml Laboratory Data 24H LABS Laboratory Tests 2 12/13/16 23:46: Bedside Glucose (Misc Panel) 133H 12/14/16 06:19: Blood Urea Nitrogen 16, Creatinine 0.73, Sodium Level 141, Potassium Level 4.1, Chloride Level 108H, Carbon Dioxide Level 26, Calcium Level 8.6L, Aspartate Amino Transf (AST/SGOT) 14L, Alanine Aminotransferase (ALT/SGPT) 13, Alkaline Phosphatase 83, Total Bilirubin 0.4, Total Protein 5.7L, Albumin 2.4L, Albumin/ Globulin Ratio 0.73L, Anion Gap 7L, C-Reactive Protein, Quantitative 0.75H, Erythrocyte Sedimentation Rate 63H, Glomerular Filtration Rate > 60.0, Magnesium Level 2.0, Prothromb Time International Ratio 2.89, Prothrombin Time 30.3H 12/14/16 11:59: Bedside Glucose (Misc Panel) 104 12/14/16 16:49: Bedside Glucose (Misc Panel) 130H CBC/BMP Laboratory Tests 12/14/16 06:19 Calcium Level 8.6 L, Aspartate Amino Transf (AST/SGOT) 14 L, Alanine Aminotransferase (ALT/SGPT) 13, Alkaline Phosphatase 83, Total Bilirubin 0.4, Total Protein 5.7 L, Albumin 2.4 L, Red Blood Count 3.77 L, Mean Corpuscular Volume 86.2, Mean Corpuscular Hemoglobin 28.9, Mean Corpuscular Hemoglobin Concent 33.5, Red Cell Distribution Width 12.5 Microbiology Microbiology 12/14/16 Blood Culture, Received Pending WALKER KENNEDY DO Dec 14, 2016 20:08
[2016-12-14] MEDS: ACETAMINOPHEN 500 MG TAB PO PRN (20:51)
[2016-12-14] MEDS: LISINOPRIL 5 MG TAB PO SCH (20:51)
[2016-12-14] MEDS: SIMVASTATIN 40 MG TAB PO SCH (20:52)
[2016-12-14] MEDS: DOCUSATE SODIUM 100 MG CAP PO SCH (20:52)
[2016-12-14 22:00] VITALS: BP 115/56
[2016-12-15] MEDS: SODIUM CHLORIDE 0.9% INJ 10 ML SYR IV SCH ×2 (05:26→17:15)
[2016-12-15 05:39] LABS: MEAN CORPUSCULAR HEMOGLOBIN 28.6 pg (27.0-33.0); MEAN CORPUSCULAR HGB CONC 32.7 g/dl (32.0-36.5); MEAN CORPUSCULAR VOLUME 87.6 fl (80.0-96.0); RED CELL DISTRIBUTION WIDTH 12.4 % (11.5-14.5); WHITE BLOOD COUNT 5.7 K/mm3 (4.0-10.0)
[2016-12-15 05:46] LABS: INR 2.4
[2016-12-15 05:53] LABS: ALBUMIN 2.5 GM/DL (3.2-5.2); ALBUMIN/GLOBULIN RATIO 0.78 (1.00-1.93); ALKALINE PHOSPHATASE 78 U/L (45-117); ALT/SGPT 13 U/L (12-78); ANION GAP 7 MEQ/L (8-16); AST/SGOT 13 U/L (15-37); BILIRUBIN,TOTAL 0.4 MG/DL (0.2-1.0); BLOOD UREA NITROGEN 15 MG/DL (7-18); CALCIUM LEVEL 8.6 MG/DL (8.8-10.2); CARBON DIOXIDE LEVEL 28 MEQ/L (21-32); CHLORIDE LEVEL 106 MEQ/L (98-107); CREATININE FOR GFR 0.74 MG/DL (0.55-1.02); GLOMERULAR FILTRATION RATE > 60.0 (>32); GLUCOSE, FASTING 89 MG/DL (83-110); MAGNESIUM LEVEL 1.9 MG/DL (1.8-2.4); POTASSIUM SERUM 3.8 MEQ/L (3.5-5.1); SODIUM LEVEL 141 MEQ/L (136-145); TOTAL PROTEIN 5.7 GM/DL (6.4-8.2)
[2016-12-15 06:00] VITALS: BP 138/63
[2016-12-15] MEDS: ADVAIR DISKUS 500/50 INH PWD INH SCH ×2 (08:31→18:40)
[2016-12-15] MEDS: TRIAMCINOLONE ACETONIDE 0.025 % 80 GM CREAM TOP SCH ×2 (09:00→20:57)
[2016-12-15] MEDS: OMEPRAZOLE 20 MG CAP PO SCH (09:13)
[2016-12-15] MEDS: SPIRONOLACTONE 25 MG TAB PO SCH (09:13)
[2016-12-15] MEDS: GABAPENTIN 100 MG CAP PO SCH ×3 (09:13→20:56)
[2016-12-15] MEDS: levETIRAcetam 250MG TABLET (KEPPRA) PO SCH ×2 (09:13→20:56)
[2016-12-15] MEDS: glipiZIDE XL 5 MG TABCR PO SCH (09:13)
[2016-12-15] MEDS: ENOXAPARIN 30 MG/0.3 ML SYR (J1650) SC SCH (09:14)
[2016-12-15] MEDS: BACLOFEN 10 MG TAB PO SCH ×2 (09:14→20:56)
[2016-12-15] MEDS: VANCOMYCIN HCL 1,000 MG, VIAL MATE ADAPTER 1 EACH in D5W 250 ML IV SCH (09:14)
[2016-12-15] MEDS: FUROSEMIDE 40 MG/4 ML VIAL (J1940) IV SCH ×2 (09:14→17:15)
--- NOTE | 2016-12-15 11:03 | IPNPDOC ---
Subjective Date Seen The patient was seen on 12/15/16. Subjective Chief Complaint/HPI The patient is a 86-year-old female admitted with a reason for visit of Left Lower Leg Cellulitis. Events since last encounter pt seen and examined, still complaining of leg pain, had temperature of 102 last night, denies any chest pain or shortness of breath, Constitutional: Reports: Chills, Fever Pulmonary: Denies: Dyspnea, Cough Cardiovascular: Denies: Chest Pain, Palpitations, Orthopnea, Paroxysmal Noc. Dyspnea, Lt Headedness Objective Physical Examination General Exam: Positive: Alert, No Acute Distress Eye Exam: Positive: PERRLA, Conjunctiva & lids normal, EOMI, Negative: Sclera icteric Chest Exam: Positive: Clear to auscultation, Normal air movement Heart Exam: Positive: Rate Normal, Regular Rhythm, Normal S1, Normal S2, Negative: Murmurs, Rubs Abdomen Exam: Positive: Normal bowel sounds, Soft, Negative: Tenderness, Hepatospenomegaly Extremity Exam: Positive: Edema, Normal pulses, Tenderness, Swelling, Negative: Clubbing, Cyanosis Skin Exam: Positive: Breakdown, Lesion, Other skin issue Assessment /Plan Problems (1) Cellulitis Status: Acute Problem Text: pt had fevers yesterday, will order 2 sets of blood cultures continue antibiotics, vanco day #3 (2) Venous stasis dermatitis Status: Acute Response to Treatment: Worse Problem Text: * pt has b/l lower extremity edema * continue IV lasix, continue I/O and daily weight * she had -1500cc since yesterday (3) Diabetes Status: Chronic Problem Text: * continue glipizide * blood sugar control (4) Diastolic CHF Status: Chronic Problem Text: * continue IV lasix and spirolactone * daily weights and i/o (5) Hypertension Status: Chronic (6) AF (paroxysmal atrial fibrillation) Status: Chronic Problem Text: * rate controlled, * continue coumadin * continue daily INR (7) MARCO (obstructive sleep apnea) Status: Chronic (8) Diabetic neuropathy Status: Chronic (9) Hyperlipidemia Status: Chronic Plan/VTE VTE Prophylaxis Ordered?: Yes VS, I&O, 24H, Fishbone Vital Signs/I&O Vital Signs Date Time Temp Pulse Resp B/P (MAP) Pulse Ox O2 Delivery O2 Flow Rate FiO2 12/15/16 06:00 99.0 70 18 138/63 (88) 97 Room Air I&O- Last 24 Hours up to 6 AM 12/15/16 05:59 Intake Total 930 ml Output Total 2150 ml Balance -1220 ml Laboratory Data 24H LABS Laboratory Tests 2 12/14/16 11:59: Bedside Glucose (Misc Panel) 104 12/14/16 16:49: Bedside Glucose (Misc Panel) 130H 12/14/16 20:47: Bedside Glucose (Misc Panel) 121H 12/15/16 05:18: Erythrocyte Sedimentation Rate 59H, Prothrombin Time 26.2H, Prothromb Time International Ratio 2.40, Anion Gap 7L, Glomerular Filtration Rate > 60.0, Blood Urea Nitrogen 15, Creatinine 0.74, Sodium Level 141, Potassium Level 3.8, Chloride Level 106, Carbon Dioxide Level 28, Calcium Level 8.6L, Aspartate Amino Transf (AST/SGOT) 13L, Alanine Aminotransferase (ALT/SGPT) 13, Alkaline Phosphatase 78, Total Bilirubin 0.4, Total Protein 5.7L, Albumin 2.5L, Magnesium Level 1.9, C-Reactive Protein, Quantitative 1.95H, Albumin/Globulin Ratio 0.78L CBC/BMP Laboratory Tests 12/15/16 05:18 Red Blood Count 3.78 L, Mean Corpuscular Volume 87.6, Mean Corpuscular Hemoglobin 28.6, Mean Corpuscular Hemoglobin Concent 32.7, Red Cell Distribution Width 12.4, Calcium Level 8.6 L, Aspartate Amino Transf (AST/SGOT) 13 L, Alanine Aminotransferase (ALT/SGPT) 13, Alkaline Phosphatase 78, Total Bilirubin 0.4, Total Protein 5.7 L, Albumin 2.5 L Microbiology Microbiology 12/14/16 Blood Culture, Received Pending WALKER KENNEDY DO Dec 15, 2016 11:03
[2016-12-15 14:00] VITALS: BP 107/51
[2016-12-15] MEDS: WARFARIN SOD 3 MG TAB PO SCH (17:14)
[2016-12-15] MEDS: DOCUSATE SODIUM 100 MG CAP PO SCH (20:56)
[2016-12-15] MEDS: LISINOPRIL 5 MG TAB PO SCH (20:57)
[2016-12-15] MEDS: SIMVASTATIN 40 MG TAB PO SCH (20:57)
[2016-12-15 22:00] VITALS: BP 135/60
[2016-12-16] MEDS: ACETAMINOPHEN 500 MG TAB PO PRN ×2 (04:01→22:12)
[2016-12-16] MEDS: SODIUM CHLORIDE 0.9% INJ 10 ML SYR IV SCH ×2 (05:12→17:04)
[2016-12-16 05:27] LABS: MEAN CORPUSCULAR HEMOGLOBIN 28.6 pg (27.0-33.0); MEAN CORPUSCULAR HGB CONC 33.2 g/dl (32.0-36.5); RED CELL DISTRIBUTION WIDTH 12.4 % (11.5-14.5); WHITE BLOOD COUNT 5.4 K/mm3 (4.0-10.0)
[2016-12-16 05:36] LABS: INR 2.02
[2016-12-16 06:00] VITALS: BP 118/56
[2016-12-16 06:02] LABS: ALBUMIN 2.4 GM/DL (3.2-5.2); ALBUMIN/GLOBULIN RATIO 0.89 (1.00-1.93); ALKALINE PHOSPHATASE 77 U/L (45-117); ALT/SGPT 20 U/L (12-78); ANION GAP 7 MEQ/L (8-16); AST/SGOT 19 U/L (15-37); BILIRUBIN,TOTAL 0.4 MG/DL (0.2-1.0); BLOOD UREA NITROGEN 19 MG/DL (7-18); CALCIUM LEVEL 8.4 MG/DL (8.8-10.2); CARBON DIOXIDE LEVEL 29 MEQ/L (21-32); CHLORIDE LEVEL 106 MEQ/L (98-107); CREATININE FOR GFR 0.77 MG/DL (0.55-1.02); GLOMERULAR FILTRATION RATE > 60.0 (>32); GLUCOSE, FASTING 99 MG/DL (83-110); MAGNESIUM LEVEL 1.9 MG/DL (1.8-2.4); SODIUM LEVEL 142 MEQ/L (136-145); TOTAL PROTEIN 5.1 GM/DL (6.4-8.2)
[2016-12-16] MEDS: ADVAIR DISKUS 500/50 INH PWD INH SCH ×2 (07:47→20:02)
[2016-12-16] MEDS: SPIRONOLACTONE 25 MG TAB PO SCH (09:41)
[2016-12-16] MEDS: levETIRAcetam 250MG TABLET (KEPPRA) PO SCH ×2 (09:41→20:33)
[2016-12-16] MEDS: GABAPENTIN 100 MG CAP PO SCH ×3 (09:41→20:33)
[2016-12-16] MEDS: FUROSEMIDE 40 MG/4 ML VIAL (J1940) IV SCH ×2 (09:41→17:04)
[2016-12-16] MEDS: BACLOFEN 10 MG TAB PO SCH ×2 (09:42→20:33)
[2016-12-16] MEDS: VANCOMYCIN HCL 1,000 MG, VIAL MATE ADAPTER 1 EACH in D5W 250 ML IV SCH (09:42)
[2016-12-16] MEDS: OMEPRAZOLE 20 MG CAP PO SCH (09:42)
[2016-12-16] MEDS: glipiZIDE XL 5 MG TABCR PO SCH (09:42)
[2016-12-16] MEDS: TRIAMCINOLONE ACETONIDE 0.025 % 80 GM CREAM TOP SCH ×2 (09:42→20:33)
--- NOTE | 2016-12-16 11:45 | IPNPDOC ---
Subjective Date Seen The patient was seen on 12/16/16. Subjective Chief Complaint/HPI The patient is a 86-year-old female admitted with a reason for visit of Left Lower Leg Cellulitis. Events since last encounter pt seen and examined, still complaining of lower extremity swelling, but has improved. Constitutional: Denies: Chills, Fever, Night Sweats Skin: Reports: Rash, Lesions Objective Physical Examination General Exam: Positive: Alert, No Acute Distress Eye Exam: Positive: PERRLA, Conjunctiva & lids normal, EOMI, Negative: Sclera icteric Chest Exam: Positive: Clear to auscultation, Normal air movement Heart Exam: Positive: Rate Normal, Regular Rhythm, Normal S1, Normal S2, Murmurs, Negative: Rubs Abdomen Exam: Positive: Normal bowel sounds, Soft, Negative: Tenderness, Hepatospenomegaly Extremity Exam: Positive: Edema, Normal pulses, Tenderness, Swelling, Negative: Clubbing, Cyanosis Skin Exam: Positive: Breakdown, Lesion, Other skin issue Assessment /Plan Problems (1) Cellulitis Status: Acute Problem Text: blood cultures negative no fevers overnight (2) Venous stasis dermatitis Status: Acute Response to Treatment: Improving Problem Text: * pt has b/l lower extremity edema improving * continue IV lasix, continue I/O and daily weight (3) Diabetes Status: Chronic Problem Text: * continue glipizide * blood sugar control (4) Diastolic CHF Status: Chronic Problem Text: * continue IV lasix and spirolactone * daily weights and i/o (5) Hypertension Status: Chronic (6) AF (paroxysmal atrial fibrillation) Status: Chronic Problem Text: * rate controlled, * continue coumadin * continue daily INR (7) MARCO (obstructive sleep apnea) Status: Chronic (8) Diabetic neuropathy Status: Chronic (9) Hyperlipidemia Status: Chronic Plan/VTE VTE Prophylaxis Ordered?: Yes VS, I&O, 24H, Fishbone Vital Signs/I&O Vital Signs Date Time Temp Pulse Resp B/P (MAP) Pulse Ox O2 Delivery O2 Flow Rate FiO2 12/16/16 06:00 98.9 72 19 118/56 (76) 94 Room Air I&O- Last 24 Hours up to 6 AM 12/16/16 06:00 Intake Total 920 ml Output Total 3375 ml Balance -2455 ml Laboratory Data 24H LABS Laboratory Tests 2 12/15/16 11:51: Bedside Glucose (Misc Panel) 89 12/15/16 16:37: Bedside Glucose (Misc Panel) 129H 12/15/16 20:19: Bedside Glucose (Misc Panel) 135H 12/16/16 05:16: Erythrocyte Sedimentation Rate 63H, Prothrombin Time 22.9H, Prothromb Time International Ratio 2.02, Anion Gap 7L, Glomerular Filtration Rate > 60.0, Blood Urea Nitrogen 19H, Creatinine 0.77, Sodium Level 142, Potassium Level 4.0 , Chloride Level 106, Carbon Dioxide Level 29, Calcium Level 8.4L, Aspartate Amino Transf (AST/SGOT) 19, Alanine Aminotransferase (ALT/SGPT) 20, Alkaline Phosphatase 77, Total Bilirubin 0.4, Total Protein 5.1L, Albumin 2.4L, Magnesium Level 1.9, C-Reactive Protein, Quantitative 1.39H, Albumin/Globulin Ratio 0.89L CBC/BMP Laboratory Tests 12/16/16 05:16 Red Blood Count 3.67 L, Mean Corpuscular Volume 86.0, Mean Corpuscular Hemoglobin 28.6, Mean Corpuscular Hemoglobin Concent 33.2, Red Cell Distribution Width 12.4, Calcium Level 8.4 L, Aspartate Amino Transf (AST/SGOT) 19, Alanine Aminotransferase (ALT/SGPT) 20, Alkaline Phosphatase 77, Total Bilirubin 0.4, Total Protein 5.1 L, Albumin 2.4 L Microbiology Microbiology 12/15/16 Blood Culture - Preliminary, Resulted No growth after 24 hours . All specim... 12/15/16 Blood Culture - Preliminary, Resulted No growth after 24 hours . All specim... 12/14/16 Blood Culture - Preliminary, Resulted No Growth after 48 hours. All Specime... WALKER KENNEDY DO Dec 16, 2016 11:45
[2016-12-16 14:00] VITALS: BP 124/58
[2016-12-16] MEDS: WARFARIN SOD 3 MG TAB PO SCH (17:04)
[2016-12-16] MEDS: SIMVASTATIN 40 MG TAB PO SCH (20:33)
[2016-12-16] MEDS: DOCUSATE SODIUM 100 MG CAP PO SCH (20:33)
[2016-12-16 22:00] VITALS: BP 126/52
[2016-12-16] MEDS: LISINOPRIL 5 MG TAB PO SCH (22:02)
[2016-12-17] MEDS: ACETAMINOPHEN 500 MG TAB PO PRN ×2 (04:18→22:04)
[2016-12-17] MEDS: SODIUM CHLORIDE 0.9% INJ 10 ML SYR IV SCH ×2 (05:14→16:54)
[2016-12-17 05:35] LABS: MEAN CORPUSCULAR HEMOGLOBIN 30.6 pg (27.0-33.0); MEAN CORPUSCULAR HGB CONC 35.1 g/dl (32.0-36.5); MEAN CORPUSCULAR VOLUME 87.4 fl (80.0-96.0); RED CELL DISTRIBUTION WIDTH 12.5 % (11.5-14.5); WHITE BLOOD COUNT 5.5 K/mm3 (4.0-10.0)
[2016-12-17 05:45] LABS: INR 1.78
[2016-12-17 06:00] VITALS: BP 108/59
[2016-12-17] MEDS: EUCERIN 120GM CREAM TOP PRN ×2 (06:18→20:30)
[2016-12-17 06:47] LABS: ALBUMIN 2.5 GM/DL (3.2-5.2); ALBUMIN/GLOBULIN RATIO 0.86 (1.00-1.93); ALKALINE PHOSPHATASE 77 U/L (45-117); ALT/SGPT 18 U/L (12-78); ANION GAP 6 MEQ/L (8-16); AST/SGOT 26 U/L (15-37); BILIRUBIN,TOTAL 0.3 MG/DL (0.2-1.0); BLOOD UREA NITROGEN 18 MG/DL (7-18); CALCIUM LEVEL 8.6 MG/DL (8.8-10.2); CARBON DIOXIDE LEVEL 30 MEQ/L (21-32); CHLORIDE LEVEL 105 MEQ/L (98-107); CREATININE FOR GFR 0.86 MG/DL (0.55-1.02); GLOMERULAR FILTRATION RATE > 60.0 (>32); GLUCOSE, FASTING 91 MG/DL (83-110); MAGNESIUM LEVEL 1.8 MG/DL (1.8-2.4); SODIUM LEVEL 141 MEQ/L (136-145); TOTAL PROTEIN 5.4 GM/DL (6.4-8.2)
[2016-12-17] MEDS: FUROSEMIDE 40 MG/4 ML VIAL (J1940) IV SCH ×2 (08:10→16:53)
[2016-12-17] MEDS: BACLOFEN 10 MG TAB PO SCH ×2 (08:10→20:28)
[2016-12-17] MEDS: GABAPENTIN 100 MG CAP PO SCH ×3 (08:10→20:29)
[2016-12-17] MEDS: glipiZIDE XL 5 MG TABCR PO SCH (08:10)
[2016-12-17] MEDS: TRIAMCINOLONE ACETONIDE 0.025 % 80 GM CREAM TOP SCH ×2 (08:10→20:29)
[2016-12-17] MEDS: OMEPRAZOLE 20 MG CAP PO SCH (08:10)
[2016-12-17] MEDS: levETIRAcetam 250MG TABLET (KEPPRA) PO SCH ×2 (08:11→20:29)
[2016-12-17] MEDS: SPIRONOLACTONE 25 MG TAB PO SCH (08:11)
[2016-12-17] MEDS: ADVAIR DISKUS 500/50 INH PWD INH SCH ×2 (08:44→19:43)
[2016-12-17] MEDS: VANCOMYCIN HCL 1,000 MG, VIAL MATE ADAPTER 1 EACH in D5W 250 ML IV SCH (09:32)
[2016-12-17 14:00] VITALS: BP 123/79
--- NOTE | 2016-12-17 14:29 | IPNPDOC ---
Subjective Date Seen The patient was seen on 12/17/16. Subjective Chief Complaint/HPI The patient is a 86-year-old female admitted with a reason for visit of Left Lower Leg Cellulitis. Constitutional: Denies: Chills, Fever, Night Sweats Pulmonary: Denies: Dyspnea, Cough Cardiovascular: Denies: Chest Pain, Palpitations, Orthopnea, Paroxysmal Noc. Dyspnea, Lt Headedness Objective Physical Examination General Exam: Positive: Alert, No Acute Distress Eye Exam: Positive: PERRLA, Conjunctiva & lids normal, EOMI, Negative: Sclera icteric Chest Exam: Positive: Clear to auscultation, Normal air movement Heart Exam: Positive: Rate Normal, Regular Rhythm, Normal S1, Normal S2, Murmurs, Negative: Rubs Abdomen Exam: Positive: Normal bowel sounds, Soft, Negative: Tenderness, Hepatospenomegaly Extremity Exam: Positive: Edema, Normal pulses, Tenderness, Swelling, Negative: Clubbing, Cyanosis Skin Exam: Positive: Breakdown, Lesion, Other skin issue Assessment /Plan Problems (1) Cellulitis Status: Acute Problem Text: blood cultures negative no fevers overnight pt is still on vanco crp trending down will consult infectious disease (2) Venous stasis dermatitis Status: Acute Response to Treatment: Improving Problem Text: * pt has b/l lower extremity edema improving * continue IV lasix, continue I/O and daily weight * continue to have good urine output * will continue IV lasix for one more day then switch back to oral (3) Diabetes Status: Chronic Problem Text: * continue glipizide * blood sugar control (4) Diastolic CHF Status: Chronic Problem Text: * continue IV lasix and spirolactone * daily weights and i/o (5) Hypertension Status: Chronic (6) AF (paroxysmal atrial fibrillation) Status: Chronic Problem Text: * rate controlled, * continue coumadin * continue daily INR * will increase to 4mg daily (7) MARCO (obstructive sleep apnea) Status: Chronic (8) Diabetic neuropathy Status: Chronic (9) Hyperlipidemia Status: Chronic Plan/VTE VTE Prophylaxis Ordered?: Yes VS, I&O, 24H, Fishbone Vital Signs/I&O Vital Signs Date Time Temp Pulse Resp B/P (MAP) Pulse Ox O2 Delivery O2 Flow Rate FiO2 12/17/16 09:00 BIPAP/CPAP 12/17/16 06:00 98.1 65 17 108/59 (44) 94 I&O- Last 24 Hours up to 6 AM 12/17/16 06:00 Intake Total 870 ml Output Total 1250 ml Balance -380 ml Laboratory Data 24H LABS Laboratory Tests 2 12/16/16 16:40: Bedside Glucose (Misc Panel) 141H 12/17/16 05:20: Erythrocyte Sedimentation Rate 58H, Prothrombin Time 20.8H, Prothromb Time International Ratio 1.78, Anion Gap 6L, Glomerular Filtration Rate > 60.0, Blood Urea Nitrogen 18, Creatinine 0.86, Sodium Level 141, Potassium Level 4.0, Chloride Level 105, Carbon Dioxide Level 30, Calcium Level 8.6L, Aspartate Amino Transf (AST/SGOT) 26, Alanine Aminotransferase (ALT/SGPT) 18, Alkaline Phosphatase 77, Total Bilirubin 0.3, Total Protein 5.4L, Albumin 2.5L, Magnesium Level 1.8, C-Reactive Protein, Quantitative 0.75H, Albumin/Globulin Ratio 0.86L 12/17/16 08:16: Vancomycin Level Trough 19.1 12/17/16 12:29: Bedside Glucose (Misc Panel) 98 CBC/BMP Laboratory Tests 12/17/16 05:20 Red Blood Count 3.52 L, Mean Corpuscular Volume 87.4, Mean Corpuscular Hemoglobin 30.6, Mean Corpuscular Hemoglobin Concent 35.1, Red Cell Distribution Width 12.5, Calcium Level 8.6 L, Aspartate Amino Transf (AST/SGOT) 26, Alanine Aminotransferase (ALT/SGPT) 18, Alkaline Phosphatase 77, Total Bilirubin 0.3, Total Protein 5.4 L, Albumin 2.5 L Microbiology Microbiology 12/15/16 Blood Culture - Preliminary, Resulted No Growth after 48 hours. All Specime... 12/15/16 Blood Culture - Preliminary, Resulted No Growth after 48 hours. All Specime... 12/14/16 Blood Culture - Preliminary, Resulted No Growth after 72 hours. All specime... WALKER KENNEDY DO Dec 17, 2016 14:29
--- NOTE | 2016-12-17 15:39 | CR ---
DATE OF CONSULTATION: 12/17/2016 REASON FOR CONSULTATION: Asked to consult by Dr. Gudino for evaluation of bilateral lower extremity cellulitis in a patient with bilateral total knee replacement. HISTORY OF PRESENT ILLNESS: Mrs. Gallego is a pleasant 86-year-old female who is a resident of [facility] and follows up at the [facility]. The patient was initially seen by her primary care provider on 12/03 complaining of left lower extremity pain with redness and cellulitis. She had an open lesion on the medial aspect of her left leg. She was started on Keflex on 12/03 for three days. She was seen in followup on 12/06, stating that the cellulitis was not better and then she was switched doxycycline. The patient took that for about seven days and was seen in followup a week later on 12/13. There were concerns of worsening cellulitis and therefore the patient was admitted to the hospital through a direct admission on 12/13. She stated the erythema started at her lower ankles on the left side and then extended all the way to her knees. She was concerned because she has bilateral total knee replacement. Previous to this episode, the patient did not have pain in her legs and she knows when she has pain it means they are infected. She states that her other episode was in August when she was admitted to the hospital for 48 hours. She had a culture positive for methicillin-sensitive Staphylococcus aureus (MSSA) of the left leg. The patient states that no DOUGLAS stockings can fit her. They tried to find her some in [place] when she was there with her son who is in the , but they could not find the right size as she is too short. She takes usually Lasix 40 mg daily. PAST MEDICAL HISTORY: 1. Significant for type 2 diabetes. 2. Dyslipidemia. 3. Asthma. 4. Obstructive sleep apnea. 5. Pulmonary hypertension. 6. Diverticulosis. 7. Peripheral neuropathy. 8. Osteoarthritis. 9. Chronic back pain and spinal stenosis. 10. Cerebellar and frontal lobes strokes. 11. Hypertension. 12. Paroxysmal atrial fibrillation. 13. Osteoporotic compression fractures. She has lost 5 inches with age. 14. Chronic diastolic heart failure. 15. Seizure disorder. 16. Melanoma of the right cheek. PAST SURGICAL HISTORY: 1. Hysterectomy. 2. Carpal tunnel bilaterally. 3. Cholecystectomy. 4. Bilateral total knee replacement. 5. Cardiac catheterization 1997 which was normal. 6. Laminectomy. 7. Polypectomy. 8. Bilateral cataract surgery. 9. Left knee replacement revision. SOCIAL HISTORY Nonsmoker, does not drink. She lives at the [facility] and loves it over there. Her son is in the . ALLERGIES: AMOXICILLIN, CODEINE, IODINE, LATEX, SULFA DRUGS, REGLAN. MEDICATIONS: - Eucerin to both legs twice a day - Coumadin 3 mg by mouth daily - furosemide 40 mg intravenous (IV) twice a day - Prevacid 20 mg by mouth daily - aldactone 25 mg by mouth daily - Vancomycin 1 gram IV every 24 hours - Glipizide 5 mg by mouth daily - baclofen 5 mg by mouth twice a day - Colace 200 mg by mouth at bedtime - gabapentin 100 mg by mouth three times a day - Keppra 500 mg by mouth twice a day - lisinopril 5 mg by mouth at bedtime - Advair 500/50 one puff twice a day - Zocor 40 mg by mouth at bedtime - Kenalog to arms and legs twice a day - Tylenol as needed - cetirizine 10 mg daily - Maureen lotion LABORATORY DATA White count has been normal since admission, currently 5.5, hemoglobin 10.8, hematocrit 30.7, platelets 255. ESR 58 down from 63. Sodium 141, potassium 4, chloride 105, bicarb 30, BUN 18, creatinine 0.86, glucose 91, calcium 8.6, magnesium 1.8. Liver profile normal. CRP 0.75 down from 1.95, albumin 2.5. MICROBIOLOGY: Blood cultures three sets were done and were negative. IMAGING STUDIES: Vascular ultrasound showed no evidence of deep venous thrombosis (DVT) on the right or the left. On 12/14, peripherally inserted central catheter (PICC) line was placed. PHYSICAL EXAMINATION: VITAL SIGNS: Temperature is 98.1, pulse 65, respirations 17, blood pressure 108/59, O2 saturation 94% on room air. She had a temperature of 102.1 on 12/14, but it has resolved since then. HEART: Normal S1, S2 with a systolic ejection murmur 3/6 best heard at the left upper sternal border. LUNGS: Clear. Diminished at the bases but no wheezes, rales or rhonchi. ABDOMEN: Morbidly obese, soft, nontender. BACK: Mild lumbosacral tenderness. No costovertebral angle tenderness. EXTREMITIES: Trace edema bilaterally, significant tenderness bilaterally. Left leg has more erythema than the right leg but they are both significantly tender to her. She has small ulceration on the right medial calf measuring about 2 cm, and a smaller one on the lateral aspect of the calf measuring 1 cm. There is mild serous discharge at this point. Both knee replacements normal range of motion, nontender. IMPRESSION: This is an 86-year-old female who has a history of bilateral total knee replacement who presented with a 10-day history of bilateral lower extremity cellulitis, left more than right, associated with elevated sedimentation rate, C-reactive protein (CRP), fever. She had failed outpatient therapy with Keflex and doxycycline. The patient has been on IV vancomycin for the past five days with improvement in her symptoms. She states that she is 50% better. The patient clinically has cellulitis as she normally does not have pain in her legs on her usual days. PLAN: (sound skip) until Tuesday which would make it a total of seven days. On discharge if she needs any further antibiotic, she may need linezolid but hopefully that would resolve before the patient needs to be discharged to the [facility]. If we continue antibiotic, will need to get prior authorization for linezolid on Tuesday.
--- NOTE | 2016-12-17 15:46 | PHACANCOPD ---
PHARMACY VANCOMYCIN DOSING Pt Demographics Demographics Patient Age:86 , Weight:79.100 , Gender: female Adjusted Body Weight Events Past 24 Hours Events Past 24 Hours: NO: Dialysis, Diuretic Therapy, Change in CrCl, Fever, Elevation in WBC, Pending Diagnostics, Pending Procedures, Other Vancomycin Vancomycin Target Ranges: 15-20 mcg/ml Vancomycin Load Y/N: Yes Load Dose Date Time Vancomycin Load Dose: 1.5GM Date: 12/13/16 Time: 21:00 Vancomycin Dose Date: 12/14/16. Current Vancomycin Dose: [1GM IV Q24H (9am)] Intermittent Dosing?: No Labs Labs Item Value Date Time White Blood Count 5.4 K/mm3 12/16/16 0516 White Blood Count 5.5 K/mm3 12/17/16 0520 Creatinine 0.86 MG/DL 12/17/16 0520 Vancomycin Level Trough 19.1 UG/ML 12/17/16 0816 Vital Signs Label Value Date Time Patient Temperature 97.8 degrees F 12/17/16 1400 Temperature Source Temporal 12/17/16 1400 Micro Microbiology 12/15/16 Blood Culture - Preliminary, Resulted No Growth after 48 hours. All Specime... 12/15/16 Blood Culture - Preliminary, Resulted No Growth after 48 hours. All Specime... 12/14/16 Blood Culture - Preliminary, Resulted No Growth after 72 hours. All specime... Creatinine Clearance Date:12/13/16. Creatinine Clearance: [>50ml/min]. Assessment and Plan Maintaining Current Dose?: Yes Reason for dose change: Other Pharmacist Note Pharmacist Note 12/17: Patient's trough came back at 19.1 today. We will continue her at Vancomycin 1gm q24h but will hold her dose for an additional 4 hours. Her SCr has increased slightly since admission. She is currently afebrile and her WBC is within normal limits. we will continue to monitor and make adjustments as necessary. Date: 12/13/16. Pharm note: VANCO 1.5GM LD AT APPROX 21:00 FOLLOWED BY 1GM VANCO IV Q24H STARTING AT 9AM 12/14/16. TROUGH TO FOLLOW WHEN AT [facility] Dec 17, 2016 15:46
[2016-12-17] MEDS: WARFARIN SOD 4 MG TAB PO SCH (16:53)
[2016-12-17 20:20] VITALS: BP 112/58
[2016-12-17] MEDS: SIMVASTATIN 40 MG TAB PO SCH (20:29)
[2016-12-17] MEDS: DOCUSATE SODIUM 100 MG CAP PO SCH (20:29)
[2016-12-17 21:00] VITALS: BP 130/60
[2016-12-17] MEDS: LISINOPRIL 5 MG TAB PO SCH (21:45)
[2016-12-18 05:25] VITALS: BP 134/58
[2016-12-18] MEDS: SODIUM CHLORIDE 0.9% INJ 10 ML SYR IV SCH ×2 (05:32→18:35)
[2016-12-18 05:46] LABS: MEAN CORPUSCULAR HEMOGLOBIN 29.6 pg (27.0-33.0); MEAN CORPUSCULAR HGB CONC 34.1 g/dl (32.0-36.5); MEAN CORPUSCULAR VOLUME 86.9 fl (80.0-96.0); RED CELL DISTRIBUTION WIDTH 12.5 % (11.5-14.5); WHITE BLOOD COUNT 5.8 K/mm3 (4.0-10.0)
[2016-12-18 06:01] LABS: INR 1.96
[2016-12-18 06:18] LABS: ALBUMIN 2.5 GM/DL (3.2-5.2); ALBUMIN/GLOBULIN RATIO 0.83 (1.00-1.93); ALKALINE PHOSPHATASE 75 U/L (45-117); ALT/SGPT 21 U/L (12-78); ANION GAP 6 MEQ/L (8-16); AST/SGOT 23 U/L (15-37); BILIRUBIN,TOTAL 0.3 MG/DL (0.2-1.0); BLOOD UREA NITROGEN 21 MG/DL (7-18); CALCIUM LEVEL 8.4 MG/DL (8.8-10.2); CARBON DIOXIDE LEVEL 31 MEQ/L (21-32); CHLORIDE LEVEL 105 MEQ/L (98-107); CREATININE FOR GFR 0.81 MG/DL (0.55-1.02); GLOMERULAR FILTRATION RATE > 60.0 (>32); GLUCOSE, FASTING 93 MG/DL (83-110); SODIUM LEVEL 142 MEQ/L (136-145); TOTAL PROTEIN 5.5 GM/DL (6.4-8.2)
[2016-12-18] MEDS: levETIRAcetam 250MG TABLET (KEPPRA) PO SCH ×2 (08:37→20:55)
[2016-12-18] MEDS: OMEPRAZOLE 20 MG CAP PO SCH (08:37)
[2016-12-18] MEDS: FUROSEMIDE 40 MG/4 ML VIAL (J1940) IV SCH (08:37)
[2016-12-18] MEDS: TRIAMCINOLONE ACETONIDE 0.025 % 80 GM CREAM TOP SCH ×2 (08:37→21:00)
[2016-12-18] MEDS: SPIRONOLACTONE 25 MG TAB PO SCH (08:37)
[2016-12-18] MEDS: glipiZIDE XL 5 MG TABCR PO SCH (08:38)
[2016-12-18] MEDS: GABAPENTIN 100 MG CAP PO SCH ×3 (08:38→20:55)
[2016-12-18] MEDS: BACLOFEN 10 MG TAB PO SCH ×2 (08:38→20:55)
[2016-12-18] MEDS: ADVAIR DISKUS 500/50 INH PWD INH SCH ×2 (09:00→21:00)
[2016-12-18] MEDS: VANCOMYCIN HCL 1,000 MG, VIAL MATE ADAPTER 1 EACH in D5W 250 ML IV SCH (12:55)
--- NOTE | 2016-12-18 13:17 | IPNPDOC ---
Subjective Date Seen The patient was seen on 12/18/16. Subjective Chief Complaint/HPI The patient is a 86-year-old female admitted with a reason for visit of Left Lower Leg Cellulitis. Events since last encounter pt seen and examined doing well, leg swelling improving and leg redness better Objective Physical Examination General Exam: Positive: Alert, No Acute Distress Eye Exam: Positive: PERRLA, Conjunctiva & lids normal, EOMI, Negative: Sclera icteric Chest Exam: Positive: Clear to auscultation, Normal air movement Heart Exam: Positive: Rate Normal, Regular Rhythm, Normal S1, Normal S2, Murmurs, Negative: Rubs Abdomen Exam: Positive: Normal bowel sounds, Soft, Negative: Tenderness, Hepatospenomegaly Extremity Exam: Positive: Edema, Normal pulses, Tenderness, Swelling, Negative: Clubbing, Cyanosis Skin Exam: Positive: Breakdown, Lesion, Other skin issue Assessment /Plan Problems (1) Cellulitis Status: Acute Response to Treatment: Improving Problem Text: blood cultures negative no fevers overnight pt is still on vanco will continue till tuesday for a seven day course (2) Venous stasis dermatitis Status: Acute Response to Treatment: Improving Problem Text: * pt has b/l lower extremity edema improving * continue lasix, continue I/O and daily weight * continue to have good urine output (3) Diabetes Status: Chronic Problem Text: * continue glipizide * blood sugar control (4) Diastolic CHF Status: Chronic Problem Text: * continue lasix and spirolactone * daily weights and i/o (5) Hypertension Status: Chronic (6) AF (paroxysmal atrial fibrillation) Status: Chronic Problem Text: * rate controlled, * continue coumadin * continue daily INR * 4mg daily (7) MARCO (obstructive sleep apnea) Status: Chronic (8) Diabetic neuropathy Status: Chronic (9) Hyperlipidemia Status: Chronic Plan/VTE VTE Prophylaxis Ordered?: Yes VS, I&O, 24H, Fishbone Vital Signs/I&O Vital Signs Date Time Temp Pulse Resp B/P (MAP) Pulse Ox O2 Delivery O2 Flow Rate FiO2 12/18/16 07:15 BIPAP/CPAP 12/18/16 05:25 98.7 71 18 134/58 (83) 95 I&O- Last 24 Hours up to 6 AM 12/18/16 06:00 Intake Total 1440 ml Output Total 2250 ml Balance -810 ml Laboratory Data 24H LABS Laboratory Tests 2 12/17/16 16:36: Bedside Glucose (Misc Panel) 103 12/17/16 21:01: Bedside Glucose (Misc Panel) 188H 12/18/16 05:30: Prothrombin Time 22.4H, Prothromb Time International Ratio 1.96, Anion Gap 6L, Glomerular Filtration Rate > 60.0, Blood Urea Nitrogen 21H, Creatinine 0.81, Sodium Level 142, Potassium Level 4.0, Chloride Level 105, Carbon Dioxide Level 31, Calcium Level 8.4L, Aspartate Amino Transf (AST/SGOT) 23, Alanine Aminotransferase (ALT/SGPT) 21, Alkaline Phosphatase 75, Total Bilirubin 0.3, Total Protein 5.5L, Albumin 2.5L, Magnesium Level 2.0, Albumin/Globulin Ratio 0.83L CBC/BMP Laboratory Tests 12/18/16 05:30 Red Blood Count 3.60 L, Mean Corpuscular Volume 86.9, Mean Corpuscular Hemoglobin 29.6, Mean Corpuscular Hemoglobin Concent 34.1, Red Cell Distribution Width 12.5, Calcium Level 8.4 L, Aspartate Amino Transf (AST/SGOT) 23, Alanine Aminotransferase (ALT/SGPT) 21, Alkaline Phosphatase 75, Total Bilirubin 0.3, Total Protein 5.5 L, Albumin 2.5 L Microbiology Microbiology 12/15/16 Blood Culture - Preliminary, Resulted No Growth after 72 hours. All specime... 12/15/16 Blood Culture - Preliminary, Resulted No Growth after 72 hours. All specime... 12/14/16 Blood Culture - Preliminary, Resulted No Growth after 72 hours. All specime... WALKER KENNEDY DO Dec 18, 2016 13:17
[2016-12-18] MEDS: WARFARIN SOD 4 MG TAB PO SCH (16:38)
[2016-12-18] MEDS: FUROSEMIDE 40 MG TAB PO SCH (16:38)
[2016-12-18 20:35] VITALS: BP 122/59
[2016-12-18] MEDS: DOCUSATE SODIUM 100 MG CAP PO SCH (20:55)
[2016-12-18] MEDS: SIMVASTATIN 40 MG TAB PO SCH (20:55)
[2016-12-18 20:56] VITALS: BP 127/82
[2016-12-18] MEDS: LISINOPRIL 5 MG TAB PO SCH (20:56)
[2016-12-18] MEDS: EUCERIN 120GM CREAM TOP PRN (20:57)
[2016-12-19 05:30] VITALS: BP 144/95
[2016-12-19] MEDS: SODIUM CHLORIDE 0.9% INJ 10 ML SYR IV SCH ×2 (06:00→18:04)
--- NOTE | 2016-12-19 06:30 | REPUSA ---
CLINICAL HISTORY: Trauma. TECHNIQUE: Multiple axial CT images were obtained through the brain without IV contrast material. COMMENTS: There is normal configuration of sella turcica. There are no intra or extra-axial collections. There is no mass effect or midline shift. There is no evidence of hematoma formation. No hydrocephalus is p resent. The ventricles are symmetrical. No abnormal calcifications are present. There is diffuse age-appropriate cerebellar and cerebral atrophy with proportionally dilated ventricl es and cortical sulci. There are bilateral periventricular and subcortical white matter hypolucencies compatible with mild c hronic microvascular disease. Otherwise, no significant focal abnormalities are seen either in the posterior fossa or supratentoria l compartment. IMPRESSION: 1. Age-appropriate cerebellar and cerebral atrophy. 2. Mild chronic microvascular disease. 3. No evidence of acute intracranial pathology. Thank you for your kind referral of this patient.
--- NOTE | 2016-12-19 06:40 | REPUSA ---
CLINICAL HISTORY: Trauma. TECHNIQUE: Multiple axial CT images were obtained through chest with IV contrast material. MPR tang l and sagittal sequences were obtained. COMMENTS: There is no evidence of pleural or parenchymal mass. There are no pleural effusions. There is no evid ence of hilar or mediastinal lymphadenopathy. Moderate cardiomegaly. Heavily calcified mitral valve. The visualized portions of the liver are of uniform attenuation without mass or defect. There is no i ntra or extrahepatic biliary ductal dilatation. The spleen is unremarkable. The visualized pancreas i s of normal contour and attenuation characteristics. There is no evidence of adrenal mass. The visual ized portions of the kidneys present no abnormalities. The bony structures are free of lytic or blastic lesions. Multilevel degenerative changes are seen in volving the thoracic spine. Scattered calcifications are seen involving the aorta and visualized nikole r branches compatible with atherosclerosis. Healed fracture of the left fourth rib. Right subclavian central catheter is in good position with its tip in the superior vena cava. Mild hepatomegaly. Prior cholecystectomy. Small sliding-type hernia. IMPRESSION: Bilateral basilar atelectatic pulmonary changes. Bilateral peribronchial interstitial thickening suggestive of bronchitis. Chronic deformities of the ribs secondary to healed fractures. No acute fracture. Thank you for your kind referral of this patient.
[2016-12-19 06:41] LABS: MEAN CORPUSCULAR HEMOGLOBIN 29.1 pg (27.0-33.0); MEAN CORPUSCULAR HGB CONC 32.8 g/dl (32.0-36.5); MEAN CORPUSCULAR VOLUME 88.5 fl (80.0-96.0); RED CELL DISTRIBUTION WIDTH 12.6 % (11.5-14.5)
[2016-12-19 06:57] LABS: INR 1.9
[2016-12-19 07:03] LABS: ALBUMIN 2.7 GM/DL (3.2-5.2); ALKALINE PHOSPHATASE 78 U/L (45-117); ALT/SGPT 21 U/L (12-78); ANION GAP 7 MEQ/L (8-16); AST/SGOT 21 U/L (15-37); BILIRUBIN,TOTAL 0.4 MG/DL (0.2-1.0); BLOOD UREA NITROGEN 25 MG/DL (7-18); CALCIUM LEVEL 8.5 MG/DL (8.8-10.2); CARBON DIOXIDE LEVEL 29 MEQ/L (21-32); CHLORIDE LEVEL 106 MEQ/L (98-107); CREATININE FOR GFR 0.73 MG/DL (0.55-1.02); GLOMERULAR FILTRATION RATE > 60.0 (>32); GLUCOSE, FASTING 118 MG/DL (83-110); POTASSIUM SERUM 3.8 MEQ/L (3.5-5.1); SODIUM LEVEL 142 MEQ/L (136-145); TOTAL PROTEIN 5.7 GM/DL (6.4-8.2)
--- NOTE | 2016-12-19 07:34 | IPN ---
DATE: 12/19/2016 I was called to the bedside this evening as she suffered a witnessed fall. She was on the toilet. She fell forward and struck her head and landed on her right side. Currently, she is complaining of right sided hinduism pain. There is an abrasion at her right temporal region and she is complaining of thoracic area back and rib pain. She says that she did not lose consciousness, just lost her balance. The episode of course was witnessed. Heart rate and blood pressure were reported to me, but are not yet in the computer, so not available for this dictation. They were within normal range. Breathing is symmetrical and rested. Heart is in a regular rate and rhythm. She has tenderness around the area of T10, but more pronounced tenderness lateral to that associated with the posterior ribs. She is awake, alert and oriented times three and quite disappointed that she has fallen as she believes it will delay her discharge. ASSESSMENT: This is an 86-year-old with a mechanical fall with injury to head and thoracic area including more likely the right sided ribs and perhaps the thoracic spine. She is on Coumadin. PLAN: 1. Image of her head with CT scan. 2. Image of her chest with CT scan of the chest without contrast in order to rule out rib fracture and take a quick look at the thoracic spine. Of note, there is no tenderness at her C-spine. She has full range of motion of her neck.
[2016-12-19] MEDS: FUROSEMIDE 40 MG TAB PO SCH ×2 (08:47→16:15)
[2016-12-19] MEDS: GABAPENTIN 100 MG CAP PO SCH ×3 (08:47→21:23)
[2016-12-19] MEDS: SPIRONOLACTONE 25 MG TAB PO SCH (08:47)
[2016-12-19] MEDS: levETIRAcetam 250MG TABLET (KEPPRA) PO SCH ×2 (08:47→21:22)
[2016-12-19] MEDS: OMEPRAZOLE 20 MG CAP PO SCH (08:48)
[2016-12-19] MEDS: glipiZIDE XL 5 MG TABCR PO SCH (08:48)
[2016-12-19] MEDS: BACLOFEN 10 MG TAB PO SCH ×2 (08:48→21:23)
[2016-12-19] MEDS: ADVAIR DISKUS 500/50 INH PWD INH SCH ×2 (08:49→19:56)
[2016-12-19] MEDS: TRIAMCINOLONE ACETONIDE 0.025 % 80 GM CREAM TOP SCH ×2 (08:49→21:00)
--- NOTE | 2016-12-19 12:46 | IPNPDOC ---
Subjective Date Seen The patient was seen on 12/19/16. Subjective Chief Complaint/HPI The patient is a 86-year-old female admitted with a reason for visit of Left Lower Leg Cellulitis. Events since last encounter pt seen and examined, was sitting in her chair, she had a fall last night in the bathroom, pt states she was standing next to toilet and came to turn around that's when she lost her balance and fell, she has a bruise at the back of her neck, she denies any loss of consciousness, denies any dizziness no chest pain or palpitations Objective Physical Examination General Exam: Positive: Alert, No Acute Distress Eye Exam: Positive: PERRLA, Conjunctiva & lids normal, EOMI, Negative: Sclera icteric Chest Exam: Positive: Clear to auscultation, Normal air movement Heart Exam: Positive: Rate Normal, Regular Rhythm, Normal S1, Normal S2, Murmurs, Negative: Rubs Abdomen Exam: Positive: Normal bowel sounds, Soft, Negative: Tenderness, Hepatospenomegaly Extremity Exam: Positive: Edema, Normal pulses, Tenderness, Swelling, Negative: Clubbing, Cyanosis Skin Exam: Positive: Breakdown, Lesion, Other skin issue Assessment /Plan Problems (1) Fall Onset Date: 02/14/2014 Status: Acute Problem Text: * s/p ground level unwitnessed fall on 12/18 * CT head was negative for any acute finding * CT chest showed no acute fractures * pt denies any pain at this time * she states she only lost her balance no loss of consciousness (2) Cellulitis Status: Acute Response to Treatment: Improving Problem Text: blood cultures negative no fevers overnight pt is still on vanco will continue till tuesday for a seven day course (3) Venous stasis dermatitis Status: Acute Response to Treatment: Improving Problem Text: * pt has b/l lower extremity edema improving * continue lasix, continue I/O and daily weight * continue to have good urine output (4) Diabetes Status: Chronic Problem Text: * continue glipizide * blood sugar control (5) Diastolic CHF Status: Chronic Problem Text: * continue lasix and spirolactone * daily weights and i/o (6) Hypertension Status: Chronic (7) AF (paroxysmal atrial fibrillation) Status: Chronic Problem Text: * rate controlled, * continue coumadin * continue daily INR * 4mg daily (8) MARCO (obstructive sleep apnea) Status: Chronic (9) Diabetic neuropathy Status: Chronic (10) Hyperlipidemia Status: Chronic Plan/VTE VTE Prophylaxis Ordered?: Yes VS, I&O, 24H, Fishbone Vital Signs/I&O Vital Signs Date Time Temp Pulse Resp B/P (MAP) Pulse Ox O2 Delivery O2 Flow Rate FiO2 12/19/16 05:30 97.1 71 19 144/95 (111) 94 Room Air I&O- Last 24 Hours up to 6 AM 12/19/16 05:59 Intake Total 910 ml Output Total 1200 ml Balance -290 ml Laboratory Data 24H LABS Laboratory Tests 2 12/19/16 06:26: Prothrombin Time 21.9H, Prothromb Time International Ratio 1.90, Anion Gap 7L, Glomerular Filtration Rate > 60.0, Blood Urea Nitrogen 25H, Creatinine 0.73, Sodium Level 142, Potassium Level 3.8, Chloride Level 106, Carbon Dioxide Level 29, Calcium Level 8.5L, Aspartate Amino Transf (AST/SGOT) 21, Alanine Aminotransferase (ALT/SGPT) 21, Alkaline Phosphatase 78, Total Bilirubin 0.4, Total Protein 5.7L, Albumin 2.7L, Magnesium Level 2.0, Albumin/Globulin Ratio 0.90L CBC/BMP Laboratory Tests 12/19/16 06:26 Red Blood Count 3.85 L, Mean Corpuscular Volume 88.5, Mean Corpuscular Hemoglobin 29.1, Mean Corpuscular Hemoglobin Concent 32.8, Red Cell Distribution Width 12.6, Calcium Level 8.5 L, Aspartate Amino Transf (AST/SGOT) 21, Alanine Aminotransferase (ALT/SGPT) 21, Alkaline Phosphatase 78, Total Bilirubin 0.4, Total Protein 5.7 L, Albumin 2.7 L Microbiology Microbiology 12/15/16 Blood Culture - Preliminary, Resulted No Growth after 72 hours. All specime... 12/15/16 Blood Culture - Preliminary, Resulted No Growth after 72 hours. All specime... 12/14/16 Blood Culture - Final, Complete NO GROWTH AFTER 5 DAYS WALKER KENNEDY DO Dec 19, 2016 12:45
[2016-12-19] MEDS: VANCOMYCIN HCL 1,000 MG, VIAL MATE ADAPTER 1 EACH in D5W 250 ML IV SCH (13:11)
[2016-12-19 14:00] VITALS: BP 115/58
[2016-12-19] MEDS: WARFARIN SOD 4 MG TAB PO SCH (16:15)
[2016-12-19] MEDS: LISINOPRIL 5 MG TAB PO SCH (21:22)
[2016-12-19] MEDS: DOCUSATE SODIUM 100 MG CAP PO SCH (21:22)
[2016-12-19] MEDS: EUCERIN 120GM CREAM TOP PRN (21:23)
[2016-12-19] MEDS: SIMVASTATIN 40 MG TAB PO SCH (21:23)
[2016-12-19] MEDS: ACETAMINOPHEN 500 MG TAB PO PRN (21:26)
[2016-12-19 22:00] VITALS: BP 131/59
[2016-12-20] MEDS: SODIUM CHLORIDE 0.9% INJ 10 ML SYR IV SCH (05:28)
[2016-12-20 05:34] LABS: MEAN CORPUSCULAR HEMOGLOBIN 29.4 pg (27.0-33.0); MEAN CORPUSCULAR HGB CONC 33.9 g/dl (32.0-36.5); MEAN CORPUSCULAR VOLUME 86.7 fl (80.0-96.0); RED CELL DISTRIBUTION WIDTH 12.6 % (11.5-14.5); WHITE BLOOD COUNT 6.2 K/mm3 (4.0-10.0)
[2016-12-20 05:42] LABS: INR 2.29
[2016-12-20 06:00] VITALS: BP 109/55
[2016-12-20 06:00] LABS: ALBUMIN 2.5 GM/DL (3.2-5.2); ALBUMIN/GLOBULIN RATIO 0.89 (1.00-1.93); ALKALINE PHOSPHATASE 72 U/L (45-117); ALT/SGPT 20 U/L (12-78); ANION GAP 6 MEQ/L (8-16); AST/SGOT 22 U/L (15-37); BILIRUBIN,TOTAL 0.4 MG/DL (0.2-1.0); BLOOD UREA NITROGEN 24 MG/DL (7-18); CALCIUM LEVEL 8.6 MG/DL (8.8-10.2); CARBON DIOXIDE LEVEL 29 MEQ/L (21-32); CHLORIDE LEVEL 106 MEQ/L (98-107); CREATININE FOR GFR 0.86 MG/DL (0.55-1.02); GLOMERULAR FILTRATION RATE > 60.0 (>32); GLUCOSE, FASTING 97 MG/DL (83-110); POTASSIUM SERUM 3.8 MEQ/L (3.5-5.1); SODIUM LEVEL 141 MEQ/L (136-145); TOTAL PROTEIN 5.3 GM/DL (6.4-8.2)
[2016-12-20] MEDS: ADVAIR DISKUS 500/50 INH PWD INH SCH (08:16)
[2016-12-20] MEDS ORDERED: LASI40TA PO (09:10)
[2016-12-20] MEDS: TRIAMCINOLONE ACETONIDE 0.025 % 80 GM CREAM TOP SCH (09:20)
[2016-12-20] MEDS: SPIRONOLACTONE 25 MG TAB PO SCH (09:21)
[2016-12-20] MEDS: FUROSEMIDE 40 MG TAB PO SCH (09:21)
[2016-12-20] MEDS: GABAPENTIN 100 MG CAP PO SCH (09:21)
[2016-12-20] MEDS: BACLOFEN 10 MG TAB PO SCH (09:21)
[2016-12-20] MEDS: OMEPRAZOLE 20 MG CAP PO SCH (09:22)
[2016-12-20] MEDS: glipiZIDE XL 5 MG TABCR PO SCH (09:22)
[2016-12-20] MEDS: levETIRAcetam 250MG TABLET (KEPPRA) PO SCH (09:22)
--- NOTE | 2016-12-23 06:20 | DSES ---
DATE OF ADMISSION: 12/13/2016 DATE OF DISCHARGE: 12/20/2016 PRIMARY CARE PROVIDER: Damon Shearer at the resident clinic. REASON FOR ADMISSION: Bilateral lower extremity cellulitis. FINAL DIAGNOSES: 1. Bilateral lower extremity cellulitis. 2. Chronic venous stasis ulceration. 3. Type 2 diabetes. 4. Asthma. 5. Obstructive sleep apnea. 6. Hypertension. 7. Dyslipidemia. 8. Paroxysmal atrial fibrillation. 9. Congestive diastolic heart failure acute exacerbation. 10. History of cerebellar and frontal lobe strokes. 11. Seizure disorder. 12. Cerebral artery occlusion. 13. Neuropathy. 14. History of melanoma. 15. Pulmonary hypertension. HISTORY OF PRESENT ILLNESS: The patient is an 86-year-old female with past medical history significant for diastolic congestive heart failure and chronic lower extremity venous stasis who presented to the emergency room from Dr. Shearer's office. She was recently treated for cellulitis. She completed a 10-day course of antibiotics, Keflex and doxycycline. She was seen in the office on Tuesday, on December 10, and her legs appeared to be better. She followed up today again in the office and it appeared that her legs had started to worsen again and she was instructed to go to the hospital. HOSPITAL COURSE: The patient was started on IV vancomycin as well as IV Lasix due to lower extremity edema. Accurate ins and outs and daily weights were monitored while the patient was in the hospital. The patient continued on IV Lasix during the course of the hospitalization. She was in the hospital for 7 days and completed a full dose of IV vancomycin. During the hospitalization, Dr. Kam was also consulted and she saw the patient in consultation. She recommended completing a course of IV antibiotics. She had one fever initially on admission which had resolved. Her CRP and sedimentation rate continued to fluctuate, never really resolving completely. The patient was diuresing very well with IV Lasix anywhere from 700 to 2 liters a day of net negative with a total weight loss of about 5 kg during the week of hospitalization. Once the patient reached close to her dry weight she was switched to oral Lasix, but her dose was increased from her regular home dose. Once the patient completed a course of antibiotics, she was returned back to [place]. DISCHARGE CONDITION: Stable. DISCHARGE INSTRUCTIONS: She is to follow up with her primary care provider in 1 week. Diet is diabetic low sodium diet. Activities as tolerated. DISCHARGE MEDICATIONS (included): - Lasix 40 mg by mouth twice a day - Tylenol Extra Strength 500 mg every 6 hours as needed for pain - albuterol sulfate one dose inhaled every 6 hours as needed for shortness of breath - baclofen 5 mg by mouth twice a day - cetirizine 10 mg by mouth daily as needed itching - vitamin D3 2000 units by mouth daily - diphenhydramine cream topically four times a day as needed itching - docusate sodium 200 mg by mouth at bedtime - Eucerin cream as needed dry skin every 4 hours as needed - gabapentin 100 mg by mouth three times a day - glipizide 5 mg by mouth daily - guaifenesin 600 mg by mouth every 12 hours as needed for congestion - Keppra 500 mg by mouth twice a day - lisinopril 5 mg by mouth at bedtime - multivitamin 1 tablet daily - nitroglycerin 0.4 mg sublingually every 5 minutes times 3 doses as needed shortness of breath - omeprazole 20 mg daily - Advair Diskus 1 puff inhaled twice a day - simvastatin 40 mg at bedtime - spironolactone 25 mg by mouth daily - Coumadin alternating doses 4 mg and 3 mg
== END 2016-12-20 12:35 | DRG 603 ==
LOC: M MSPAV 14:41
PROVIDERS: ADMIT Internal Medicine; ATTEND Internal Medicine
PROC: 05HB33Z Insertion of Infusion Device into Right Basilic Vein, Percutaneous Approach (ICD-10-PCS; principal; 2016-12-14)
DX: L03.116 Cellulitis of left lower limb (principal); I50.32 Chronic diastolic (congestive) heart failure; L97.229 Non-pressure chronic ulcer of left calf with unspecified severity; Z68.41 Body mass index [BMI] 40.0-44.9, adult; L03.115 Cellulitis of right lower limb; E11.42 Type 2 diabetes mellitus with diabetic polyneuropathy; J45.909 Unspecified asthma, uncomplicated; E78.5 Hyperlipidemia, unspecified; G47.33 Obstructive sleep apnea (adult) (pediatric); I10 Essential (primary) hypertension; Z66 Do not resuscitate; I27.2 Other secondary pulmonary hypertension; M19.90 Unspecified osteoarthritis, unspecified site; I48.0 Paroxysmal atrial fibrillation; I87.2 Venous insufficiency (chronic) (peripheral); M81.0 Age-related osteoporosis without current pathological fracture; G40.909 Epilepsy, unspecified, not intractable, without status epilepticus; Z85.820 Personal history of malignant melanoma of skin; Z96.653 Presence of artificial knee joint, bilateral; Z88.2 Allergy status to sulfonamides; Z88.5 Allergy status to narcotic agent; Z91.040 Latex allergy status; Z88.8 Allergy status to other drugs, medicaments and biological substances; Z86.73 Personal history of transient ischemic attack (TIA), and cerebral infarction without residual deficits; Z79.01 Long term (current) use of anticoagulants; E66.01 Morbid (severe) obesity due to excess calories; S10.93XA Contusion of unspecified part of neck, initial encounter; W18.00XA Striking against unspecified object with subsequent fall, initial encounter; Y92.231 Patient bathroom in hospital as the place of occurrence of the external cause

== ENCOUNTER → 2016-12-28 | Outpatient (REF) | payer MEDICARE, MEDICAID ==
[~2016-12-28] MED LIST changes: +ALL10TAB27 PO; +DIPHCR TOP; +GUAI1TAB PO; +LASI40TA PO; +TRIA25CR TOP
[2016-12-28 12:32] LABS: INR 2.9
== END ==
PROVIDERS: ATTEND Family Medicine
DX: Z79.01 Long term (current) use of anticoagulants (principal); I48.0 Paroxysmal atrial fibrillation

== ENCOUNTER → 2017-01-03 | Outpatient (REF) | payer MEDICARE, MEDICAID ==
[~2017-01-03] MED LIST changes: +ALBU17IN INH; -APAP325T PO; +APAP325T4 PO; +AUGM875T28 PO; +BACITAB PO; -BACITAB3 PO; -COUM2.5T11 PO; +COUM2.5T17 PO; -COUM2TAB10 PO; +COUM2TAB22 PO; -DOCU100C PO; +DOCU100C16 PO; +FINA15GE EX; -FINA15GE2 EX; +GABA-283 PO; +KEPP1TAB PO; -KEPP500T6 PO; +LEVA1TAB2 PO; -LEVA500T PO; -MACR100C3 PO; +MACR100C43 PO; -MUCI600T34 PO; +MUCI600T37 PO; -NYST100024 TOP; +NYST10PW TOP; +NYST1POW9 TOP; +SENN1TAB2 PO; +TORS20TA2 PO; -VESI10TA PO; +VESI10TA2 PO; +VOLT1GEL15 TD; -VOLT1GEL24 TD
[2017-01-03 12:21] LABS: BASO % 0.8 % (0.0-1.0); EOS # 0.5 K/mm3 (0.0-0.50); EOS % 8.5 % (0.0-3.0); LARGE UNSTAINED CELL # 0.2 K/mm3 (0.0-0.4); LARGE UNSTAINED CELL % 3.3 % (0.0-4.0); LYMPH # 1.4 K/mm3 (1.5-4.5); LYMPH % 23.9 % (24.0-44.0); MEAN CORPUSCULAR HEMOGLOBIN 28.8 pg (27.0-33.0); MEAN CORPUSCULAR HGB CONC 31.8 g/dl (32.0-36.5); MEAN CORPUSCULAR VOLUME 90.5 fl (80.0-96.0); MONO # 0.5 K/mm3 (0.0-0.8); MONO % 8.6 % (0.0-5.0); NEUTROPHILS # 3.3 K/mm3 (1.8-7.7); NEUTROPHILS % 54.9 % (36.0-66.0); PLATELET COUNT, AUTOMATED 326 k/mm3 (150-450); RED CELL DISTRIBUTION WIDTH 12.6 % (11.5-14.5)
[2017-01-03 12:33] LABS: CALCIUM LEVEL 9.5 MG/DL (8.8-10.2); CREATININE FOR GFR 0.98 MG/DL (0.55-1.02); GLOMERULAR FILTRATION RATE 57.4 (>32); POTASSIUM SERUM 3.8 MEQ/L (3.5-5.1)
== END ==
LOC: M SFHCPLAZ 09:24
PROVIDERS: ATTEND Family Medicine
DX: L03.115 Cellulitis of right lower limb (principal); I11.0 Hypertensive heart disease with heart failure
CPT/HCPCS: 36415; 80048; 85025; 86140; G0463

== ENCOUNTER → 2017-01-11 | Outpatient (REF) | payer MEDICARE, MEDICAID ==
[~2017-01-11] MED LIST changes: -ALBU17IN INH; +APAP325T PO; -APAP325T4 PO; -AUGM875T28 PO; -BACITAB PO; +BACITAB3 PO; +COUM2.5T11 PO; -COUM2.5T17 PO; +COUM2TAB10 PO; -COUM2TAB22 PO; +DOCU100C PO; -DOCU100C16 PO; -FINA15GE EX; +FINA15GE2 EX; -GABA-283 PO; -KEPP1TAB PO; +KEPP500T6 PO; -LEVA1TAB2 PO; +LEVA500T PO; +MACR100C3 PO; -MACR100C43 PO; +MUCI600T34 PO; -MUCI600T37 PO; +NYST100024 TOP; -NYST10PW TOP; -NYST1POW9 TOP; -SENN1TAB2 PO; -TORS20TA2 PO; +VESI10TA PO; -VESI10TA2 PO; -VOLT1GEL15 TD; +VOLT1GEL24 TD
[2017-01-11 10:03] LABS: INR 2.89
== END ==
PROVIDERS: ATTEND Family Medicine
DX: I48.91 Unspecified atrial fibrillation (principal)

== ENCOUNTER → 2017-01-14 | Outpatient (REF) | payer MEDICARE, MEDICAID ==
[2017-01-14 13:12] LABS: INR 3.07
[2017-01-14 13:32] LABS: CALCIUM LEVEL 9.3 MG/DL (8.8-10.2); CREATININE FOR GFR 1.04 MG/DL (0.55-1.02); GLOMERULAR FILTRATION RATE 53.6 (>32); POTASSIUM SERUM 4.2 MEQ/L (3.5-5.1)
== END ==
LOC: M SFHCPLAZ 11:39
DX: I10 Essential (primary) hypertension (principal); Z51.81 Encounter for therapeutic drug level monitoring; Z79.1 Long term (current) use of non-steroidal anti-inflammatories (NSAID)

== ENCOUNTER → 2017-03-16 | Outpatient (REF) | payer MEDICARE, MEDICAID ==
[~2017-03-16] MED LIST changes: +ALBU17IN INH; -APAP325T PO; +APAP325T4 PO; +AUGM875T28 PO; +BACITAB PO; -BACITAB3 PO; -COUM2.5T11 PO; +COUM2.5T17 PO; -COUM2TAB10 PO; +COUM2TAB22 PO; -DOCU100C PO; +DOCU100C16 PO; +FINA15GE EX; -FINA15GE2 EX; +GABA-283 PO; +KEPP1TAB PO; -KEPP500T6 PO; +LEVA1TAB2 PO; -LEVA500T PO; -MACR100C3 PO; +MACR100C43 PO; -MUCI600T34 PO; +MUCI600T37 PO; -NYST100024 TOP; +NYST10PW TOP; +NYST1POW9 TOP; +SENN1TAB2 PO; +TORS20TA2 PO; -VESI10TA PO; +VESI10TA2 PO; +VOLT1GEL15 TD; -VOLT1GEL24 TD
[2017-03-16 10:29] LABS: INR 2.68
== END ==
PROVIDERS: ATTEND Family Medicine
DX: Z51.81 Encounter for therapeutic drug level monitoring (principal); Z79.01 Long term (current) use of anticoagulants; I48.0 Paroxysmal atrial fibrillation

== ENCOUNTER → 2017-03-30 | Outpatient (CLI) | payer MEDICARE, MEDICAID ==
--- NOTE | 2017-03-31 07:37 | REP ---
Thoracic spine three views: There is grade 1 compression deformity of the approximate T8 vertebral body, not present on the chest CT dated 12/19/2016. There is diffuse demineralization. There is degenerative disc disease throughout the thoracic spine. There is scoliosis convex right, unchanged. Impression: Apparent grade 1 compression deformity of the T vertebral body on the lateral view, possibly artifact from the scoliosis. Multilevel degenerative disc disease. Scoliosis. Signed by Trace Page MD 03/31/2017 07:27 A
== END ==
LOC: M RAD 18:26
PROVIDERS: ATTEND Family Medicine
DX: R10.9 Unspecified abdominal pain (principal); M41.24 Other idiopathic scoliosis, thoracic region
CPT/HCPCS: 72072; 85610; G0463

== ENCOUNTER → 2017-03-31 | Outpatient (CLI) | payer MEDICARE, MEDICAID ==
--- NOTE | 2017-03-31 17:11 | REP ---
LUMBAR SPINE, FIVE VIEWS: HISTORY: Flank pain. COMPARISON: 03/02/2014 There is no acute fracture. The intervertebral discs are decreased in height. Vacuum phenomenon is present at the L3-4 through L5-S1 levels. These findings are consistent with disc degeneration . There is narrowing of the L4-5 and L5-S1 facet joints. There are 5 mm of grade 1 spondylolisthesis of L4 on L5. There is scoliosis convex to the right. The bony structure is osteopenic. IMPRESSION: Degenerative change as described above. Signed by Jim Alexandre MD 03/31/2017 05:13 P
--- NOTE | 2017-03-31 17:16 | REP ---
UNILATERAL RIGHT RIBS, FIVE VIEWS: HISTORY: Right flank pain. There is no acute fracture or bone lesion. A minimal increase in interstitial markings is present in the right lung consistent with chronic interstitial fibrosis. IMPRESSION: There is no acute fracture or bone lesion. Signed by Jim Alexandre MD 04/01/2017 08:26 A
== END ==
LOC: M RAD 12:57
PROVIDERS: ATTEND Family Medicine
DX: E10.9 Type 1 diabetes mellitus without complications (principal); M54.6 Pain in thoracic spine

== ENCOUNTER → 2017-04-06 | Outpatient (REF) | payer MEDICARE, MEDICAID ==
[2017-04-06 12:08] LABS: ALBUMIN 3.3 GM/DL (3.2-5.2); ALBUMIN/GLOBULIN RATIO 0.92 (1.00-1.93); BILIRUBIN,DIRECT 0.1 MG/DL (0.0-0.2); BILIRUBIN,TOTAL 0.4 MG/DL (0.2-1.0); CALCIUM LEVEL 9.6 MG/DL (8.8-10.2); CREATININE FOR GFR 1.04 MG/DL (0.55-1.02); GLOMERULAR FILTRATION RATE 53.6 (>32); PHOSPHORUS LEVEL 3.2 MG/DL (2.5-4.9); POTASSIUM SERUM 4.6 MEQ/L (3.5-5.1); TOTAL PROTEIN 6.9 GM/DL (6.4-8.2)
== END ==
PROVIDERS: ATTEND Nurse Practitioner Family
DX: E78.2 Mixed hyperlipidemia (principal); I11.0 Hypertensive heart disease with heart failure

== ENCOUNTER 2017-05-15 17:19 | Inpatient (IN) | payer OTHER, MEDICAID ==
[~2017-05-15] VITALS: Ht 139.7 cm; Wt 80.9 kg
[~2017-05-15 17:19] MED LIST changes: -ALBU17IN INH; -GABA-283 PO; -NYST10PW TOP; -SENN1TAB2 PO; -TORS20TA2 PO
[2017-05-15] MEDS ORDERED: GABA-283 PO (17:54)
[2017-05-15] MEDS ORDERED: TORS20TA2 PO (17:54)
--- NOTE | 2017-05-15 18:40 | REPUSA ---
CLINICAL HISTORY: Pain. COMMENTS: Real time sonography with duplex doppler of the right lower extremity was performed with attention to the major deep venous structures. Evaluation reveals the right common femoral, superficial femoral and popliteal veins to be completely compressible without intraluminal thrombus. There is normal spontaneous phasic flow and augmentation . The greater saphenous/common femoral vein junction is patent. IMPRESSION: No evidence of DVT in right lower extremity. Thank you for your kind referral of this patient.
[2017-05-15 19:00] LABS: BASO % 0.7 % (0.0-1.0); EOS # 0.4 K/mm3 (0.0-0.50); EOS % 7.5 % (0.0-3.0); LARGE UNSTAINED CELL # 0.2 K/mm3 (0.0-0.4); LARGE UNSTAINED CELL % 3.9 % (0.0-4.0); LYMPH # 1.8 K/mm3 (1.5-4.5); LYMPH % 31.1 % (24.0-44.0); MEAN CORPUSCULAR HEMOGLOBIN 29.3 pg (27.0-33.0); MEAN CORPUSCULAR HGB CONC 34.9 g/dl (32.0-36.5); MEAN CORPUSCULAR VOLUME 83.9 fl (80.0-96.0); MONO # 0.6 K/mm3 (0.0-0.8); MONO % 10.4 % (0.0-5.0); NEUTROPHILS # 2.7 K/mm3 (1.8-7.7); NEUTROPHILS % 46.4 % (36.0-66.0); PLATELET COUNT, AUTOMATED 357 k/mm3 (150-450); RED CELL DISTRIBUTION WIDTH 13.2 % (11.5-14.5); WHITE BLOOD COUNT 5.9 K/mm3 (4.0-10.0)
[2017-05-15 19:14] LABS: INR 2.3
[2017-05-15 19:40] LABS: ALBUMIN 3.3 GM/DL (3.2-5.2); BILIRUBIN,TOTAL 0.3 MG/DL (0.2-1.0); CALCIUM LEVEL 9.2 MG/DL (8.8-10.2); CREATININE FOR GFR 1.02 MG/DL (0.55-1.02); GLOMERULAR FILTRATION RATE 54.7 (>32); MAGNESIUM LEVEL 2.4 MG/DL (1.8-2.4); POTASSIUM SERUM 4.3 MEQ/L (3.5-5.1); TOTAL PROTEIN 6.6 GM/DL (6.4-8.2)
[2017-05-15 19:46] LABS: ERYTHROCYTE SEDIMENTATION RATE 60 mm/hr (0-42)
--- NOTE | 2017-05-15 21:10 | REPUSA ---
MRI of the lumbar spine without contrast Clinical statement: Pain. Technique: Multiecho multiplanar MRI images of the lumbar spine were obtained without administration of contrast. Comparison: 01/24/2014. Findings: The lumbar vertebral bodies are in satisfactory position. There is a 1 cm anterior spondylo listhesis of L4 upon L5, which is stable. Posterior laminectomy changes are noted at L4 and L5 and ar e stable. No fractures or dislocations are demonstrated. There is severe sclerosis and chronic change s at L4/L5. Normal heterogeneous bone marrow signal is otherwise noted. No osseous tumors are seen. T he intervertebral disc heights are well maintained and demonstrate normal signal. The filum terminale and conus medullaris appear unremarkable. The spinal cord demonstrates normal signal and contour. Th e surrounding soft tissues are within normal limits. The L1/L2 disc level is unremarkable. There is minimal disc bulging at L2/L3. There is also a inciden vianey note of a minimal amount of disc bulging at T10/T11 and T11/T12. At L3/L4, there is a large disc osteophyte complex and disc bulge. There is severe central canal sten osis measuring 6 mm in AP diameter. There is severe bilateral neural foraminal narrowing. At L4/L5, there is a extremely large disc osteophyte complex and disc bulge. This causes severe centr al canal stenosis measuring 7 mm in AP diameter. There is severe bilateral neural foraminal narrowing as well. At L5/S1, there is a moderate disc osteophyte complex and disc bulge. There is no evidence of central canal stenosis. There is moderately severe bilateral neural foraminal narrowing noted. Impression: 1. Severe degenerative disc disease with disc osteophyte complexes and disc bulges at L3/L4 and L4/L5 . This causes severe central canal stenosis and bilateral neural foraminal narrowing. These findings have worsened since the prior study. 2. At L5/S1, moderate disc osteophyte complex and disc bulge, causing moderately severe bilateral alek ral foraminal narrowing. There is no evidence of central canal stenosis. These findings are grossly s table. 3. Minimal disc bulging also noted at T10/T11, T11/T12, and L2/L3. 4. Grade 2 anterior spondylolisthesis of L4 upon L5, grossly stable since the prior study. 5. Stable laminectomy changes.
[2017-05-15] MEDS ORDERED: HYDROmorphone HCL 1 MG/ML SYRINGE (J1170) IV PRN (21:30)
[2017-05-15] MEDS ORDERED: GABA-279 PO (22:07)
[2017-05-15] MEDS ORDERED: ALBU17IN INH (22:07)
[2017-05-15] MEDS ORDERED: ONDANSETRON 4MG/2ML VIAL (J2405) IV PRN (22:45)
[2017-05-15] MEDS ORDERED: KETOROLAC 30 MG/ML VIAL (J1885) IV PRN (23:30)
[2017-05-15] MEDS ORDERED: oxyCODONE 5MG TAB PO ONE (23:30)
[2017-05-15] MEDS ORDERED: KETOROLAC 30 MG/ML VIAL (J1885) IV ONE (23:45)
[2017-05-16] MEDS ORDERED: DEXTROSE 50% 50 ML SYRINGE IV PRN
[2017-05-16] MEDS ORDERED: GLUCOSE 4 GM CHEW TABLET PO PRN
[2017-05-16] MEDS ORDERED: GLUCAGON FOR INJ 1 MG VIAL (J1610) SC PRN
[2017-05-16 01:15] VITALS: BP 125/76
[2017-05-16] MEDS: levETIRAcetam 250MG TABLET (KEPPRA) PO SCH ×3 (01:56→20:26)
[2017-05-16] MEDS: LISINOPRIL 5 MG TAB PO SCH ×2 (01:56→20:25)
[2017-05-16] MEDS: SIMVASTATIN 40 MG TAB PO SCH ×2 (01:56→20:25)
[2017-05-16] MEDS: SENOKOT S TAB PO SCH ×4 (01:57→20:35)
[2017-05-16] MEDS: GABAPENTIN 100 MG CAP PO SCH ×4 (01:57→20:24)
[2017-05-16] MEDS: BACLOFEN 5MG PER 1/2 TABLET PO SCH ×3 (02:00→20:25)
[2017-05-16 06:00] VITALS: BP 108/56
[2017-05-16] MEDS: OMEPRAZOLE 20 MG CAP PO SCH (06:04)
[2017-05-16] MEDS: TORSEMIDE 20 MG TAB PO SCH ×2 (06:04→12:28)
[2017-05-16 06:49] LABS: EOS # 0.4 K/mm3 (0.0-0.50); EOS % 7.4 % (0.0-3.0); LARGE UNSTAINED CELL # 0.2 K/mm3 (0.0-0.4); LARGE UNSTAINED CELL % 3.4 % (0.0-4.0); LYMPH # 1.7 K/mm3 (1.5-4.5); LYMPH % 35.5 % (24.0-44.0); MEAN CORPUSCULAR HEMOGLOBIN 28.8 pg (27.0-33.0); MEAN CORPUSCULAR HGB CONC 34.2 g/dl (32.0-36.5); MEAN CORPUSCULAR VOLUME 84.1 fl (80.0-96.0); MONO # 0.5 K/mm3 (0.0-0.8); MONO % 10.9 % (0.0-5.0); NEUTROPHILS % 41.9 % (36.0-66.0); PLATELET COUNT, AUTOMATED 343 k/mm3 (150-450); RED CELL DISTRIBUTION WIDTH 13.2 % (11.5-14.5); WHITE BLOOD COUNT 4.8 K/mm3 (4.0-10.0)
[2017-05-16 07:06] LABS: INR 2.41
[2017-05-16 07:18] LABS: CALCIUM LEVEL 9.2 MG/DL (8.8-10.2); CREATININE FOR GFR 1.1 MG/DL (0.55-1.02); GLOMERULAR FILTRATION RATE 50.1 (>32); POTASSIUM SERUM 3.9 MEQ/L (3.5-5.1)
[2017-05-16] MEDS ORDERED: HumaLOG INSULIN (NovoLOG) PER UNIT SC SCH ×2 (07:30→21:00)
[2017-05-16] MEDS: ALBUTEROL SULFATE 2.5 MG/0.5 ML INH NEB SOLN NEB SCH ×2 (08:00)
[2017-05-16] MEDS ORDERED: SPIRONOLACTONE 25 MG TAB PO SCH (09:00)
[2017-05-16] MEDS: NYSTATIN 100,000 UNITS/GM TOPICAL PWD 15 GM TOP SCH ×2 (09:00→20:26)
[2017-05-16] MEDS: glipiZIDE XL 5 MG TABCR PO SCH (09:07)
[2017-05-16] MEDS ORDERED: ALBUTEROL SULFATE 2.5 MG/0.5 ML INH NEB SOLN NEB PRN (12:35)
--- NOTE | 2017-05-16 13:08 | IPN ---
DATE: 05/16/2017 Ms. Gallego is complaining of pain. She is quite uncomfortable. She is not even lying in bed. She has pain in her right leg. Yesterday she had pain in her left leg. I did offer her the opportunity to see a surgeon about her back pain. She said she would never consent to any surgical procedure in regards to her back. When I asked specifically whether she would have a surgery her answer was "absolutely no way." Temperature 98.7, pulse 74, respiratory rate 18, blood pressure 108/56, 95% on room air. Intake and output notable for a positive fluid balance of +40. She is awake, appropriately interactive, pleasantly conversant and a good historian. Her breathing is symmetrical. I-to-E ratio is 1:3. Heart is distant sounding. Normal S1 and S2. Abdomen is soft, doughy, nontender. She is able to move both lower extremities. White cell count 4.8, hemoglobin 10.7 and platelets of 343. BUN 32, creatinine 1.1, fingerstick 128. My assessment is as follows: This is an 87-year-old resident of assisted living. Please note that my dictation is somewhat limited as last night's history and physical has yet to be transcribed, but my plan will be as follows: 1. Patient has pain from advancing spinal stenosis. Patient has elected a nonsurgical course and will pursue pain management and physical therapy. May not be able to return to assisted living. May require subacute rehabilitation. 2. Patient has atrial fibrillation. Rate is currently controlled. 3. Patient has diabetes. Fingersticks are controlled. 4. Patient has hypertension. 5. Patient has pulmonary hypertension. 6. Patient has chronic venous stasis.
[2017-05-16 14:00] VITALS: BP 120/57
--- NOTE | 2017-05-16 14:02 | HPE ---
DATE OF ADMISSION: 05/15/2017 PRIMARY CARE PROVIDER: [facility] CHIEF COMPLAINT: Extreme pain and soreness of the right lower extremity and inability to bear weight and walk, increased over the past 4-5 days. PAST MEDICAL HISTORY: Chronic low back pain with spinal canal stenosis in the lumbosacral region. Chronic bilateral venous stasis. Obesity. Obstructive sleep apnea (MARCO) in CPAP. Diabetes. Hypertension. Paroxysmal atrial fibrillation. Seizure disorder. Asthma. Peripheral neuropathy. Diverticulosis. Osteoarthritis. Cerebellar and frontal lobe strokes. Osteoporotic compression factors. Chronic diastolic congestive heart failure. Melanoma of right cheek. Mild aortic stenosis. HISTORY OF PRESENT ILLNESS: This is an 87-year-old female from assisted living who was sent from assisted living because of increasing right hip pain radiating down right leg towards right foot worsening over the past week and it has been really worse since yesterday limiting ability to ambulate and inability to bear weight. Patient has known history of osteoporotic vertebral compression fractures, chronic low back pain and spinal canal stenosis as well as peripheral neuropathy, osteoarthritis of both knees with history of bilateral knee replacement. She always does have some pain in her back and the left leg but it has been really bothering her over the past weekend. Since yesterday, she has not been able to ambulate at all so was sent to the ER for evaluation. In the ED, patient had lab work done which showed a hemoglobin of 11.3, erythrocyte sedimentation rate of 60. All her other laboratory within normal limits. She had vascular ultrasound of both the lower extremities which are negative for deep venous thrombosis (DVT). She had a lumbar spine MRI done which showed severe degenerative disc disease with disc osteophyte complexes and disc bulges at L3-L4 and L4-L5 causing severe canal stenosis and bilateral neural foraminal narrowing. These findings have worsened since the prior study. There is also grade 2 anterior spondylolisthesis of L4 upon L5 which is stable. There is L5-S1 moderate osteophyte complex and disc bulge causing moderately severe bilateral neural foraminal narrowing. There is no evidence of central canal stenosis at this level. There is also some disc bulging noted at the lower thoracic vertebra. At present, the patient is being admitted to the hospitalist service for pain control and evaluation by physical therapy. PAST SURGICAL HISTORY: Hysterectomy. Carpal tunnel surgery bilaterally. Cholecystectomy. Bilateral total knee replacement. Cardiac catheterization in 1997 which was normal. Laminectomy. Polypectomy. Bilateral cataract surgery. Left knee replacement revision. SOCIAL HISTORY: Patient does not smoke, does not drink or abuse any recreational drugs. Patient lives at [facility]. ALLERGIES: AMOXICILLIN, CODEINE, IODINE, LATEX, SULFA DRUGS and REGLAN. HOME MEDICATIONS: - Tylenol 500 mg every 6 hours as needed - albuterol sulfate nebulizer every 6 hours as needed - albuterol sulfate MDI two puffs inhalation every 4 hours as needed - baclofen 5 mg by mouth twice daily - cetirizine 10 mg by mouth daily as needed itching - cholecalciferol 2000 units by mouth daily - diphenhydramine one dose topically twice daily as needed itching - docusate sodium 200 mg at bedtime - Eucerin one dose topically every 4 hours as needed dry skin - gabapentin 100 mg in the morning, 100 mg in the noontime and 200 mg at bedtime - glipizide XL 5 mg by mouth daily - guaifenesin ER 600 mg by mouth every 12 hours as needed - Keppra 500 mg by mouth twice daily - lisinopril 5 mg at bedtime - multivitamins one tablet by mouth daily - nitroglycerine 0.4 mg sublingual every 5 minutes as needed chest pain - Nystatin powder topically twice daily as needed - omeprazole 20 mg daily every morning - simvastatin 40 mg by mouth at bedtime - spironolactone 25 mg by mouth daily - Systane one drop both eyes four times daily - torsemide 40 mg by mouth twice daily - triamcinolone ointment one dose topically twice daily to arms, back and chest areas - Coumadin 4 mg on Tuesday, Tuesday, Tuesday and 3 mg on Tuesday, , Tuesday and Tuesday REVIEW OF SYSTEMS: Patient denies any chest pain, denies any shortness of breath, denies any abdominal pain, nausea, vomiting or diarrhea. Denies any cough or phlegm. Both her legs are chronically red. Patient complains of severe soreness of the right leg extending from the hip to the toes but it is maximum on the posterior aspect of the right leg. On the calf of the right leg, there is a small area of healed excoriation. PHYSICAL EXAMINATION: Vital signs: Temperature 97.8, pulse 86, respiratory rate 18, blood pressure 141/64, pulse oximetry 95% on room air. General: Patient awake, alert, oriented times three lying down in bed in mild discomfort. HEENT: Normocephalic, atraumatic. Moist mucous membranes. Anicteric eyes. Chest: Bilateral wheezing present. No crackles heard. Cardiovascular: S1, S2, regular. No rub, murmur or gallop. Abdomen: Obese, soft, nontender, bowel sounds present. Extremities: There is bilateral lower extremity chronic venous stasis changes with thickening of the skin and wrinkling. On the right calf, there is an area of healed possible small ulceration. LABORATORY DATA: WBC 5.9, hemoglobin 11.3, platelets 357. Erythrocyte sedimentation rate 60. Sodium 139, potassium 4.3, chloride 103, bicarbonate 29, BUN 29, creatinine 1. Liver function tests are normal. CRP 0.47. Lumbar spine MRI as mentioned above. ASSESSMENT AND PLAN: This is an 87-year-old female admitted for intractable right lower extremity pain and inability to ambulate. PLAN: For intractable right lower extremity pain and difficulty in ambulation, patient's lumbosacral spine shows patient has severe spinal canal stenosis in the lumbar region. Patient also has a history of bilateral peripheral neuropathy and osteoarthritis and osteoporotic vertebral compression fractures. All of these things and most probably the progressive spinal canal stenosis with neural foraminal stenosis is causing the severe pain. Will control pain with Tylenol and ketorolac at present. Will add oxycodone as required. Will also request evaluation by physical therapy and occupational therapy to evaluate her mobility and her inability to do her activities of daily living. Chronic diastolic congestive heart failure. Will continue the patient on torsemide, spironolactone, lisinopril 5 mg. Paroxysmal atrial fibrillation. Will continue the patient on Coumadin. Patient's INR is therapeutic. Rate is controlled at this point without any medications. Seizure disorder. Will continue with Keppra. Diabetes and diabetic neuropathy. Will continue with glipizide and will add sliding scale insulin as required. Peripheral neuropathy. Spinal canal stenosis. Chronic pain. Will continue with baclofen, gabapentin. Will add Tylenol and ketorolac and oxycodone as required. Hyperlipidemia. Will continue with simvastatin. Obesity and obstructive sleep apnea. Will use own CPAP. Patient does not have her CPAP now with her so we will place the patient on MARCO protocol until her CPAP machine is available. Deep venous thrombosis (DVT) prophylaxis. Patient is on Coumadin and has therapeutic INR. Gastrointestinal (GI) prophylaxis. Patient is on omeprazole. Will continue. Mild to moderate aortic stenosis. Seems to be stable at this point. Asthma. Will continue with albuterol inhalation and nebulizer solution. Moderate to severe pulmonary hypertension, appears stable at this point.
[2017-05-16] MEDS: WARFARIN SOD 4 MG TAB PO SCH (18:00)
[2017-05-16 20:25] VITALS: BP 109/58
[2017-05-17 00:02] VITALS: BP 110/60
[2017-05-17] MEDS: OMEPRAZOLE 20 MG CAP PO SCH (05:43)
[2017-05-17] MEDS: TORSEMIDE 20 MG TAB PO SCH (05:43)
[2017-05-17 06:47] LABS: BASO % 0.7 % (0.0-1.0); EOS # 0.5 10^3/uL (0.0-0.50); EOS % 8.4 % (0.0-3.0); IMMATURE GRANULOCYTE % 0.2 % (0-0); LYMPH # 1.7 10^3/uL (1.5-4.5); LYMPH % 27.3 % (24.0-44.0); MEAN CORPUSCULAR HEMOGLOBIN 27.3 pg (27.0-33.0); MEAN CORPUSCULAR HGB CONC 32.3 g/dl (32.0-36.5); MEAN CORPUSCULAR VOLUME 84.6 fl (80.0-96.0); MONO # 0.9 10^3/uL (0.0-0.8); MONO % 14.9 % (0.0-5.0); NEUTROPHILS # 2.9 10^3/uL (1.8-7.7); NEUTROPHILS % 48.5 % (36.0-66.0); PLATELET COUNT, AUTOMATED 323 10^3/uL (150-450); RED CELL DISTRIBUTION WIDTH 14.1 % (11.5-14.5)
[2017-05-17 07:01] VITALS: BP 124/56
[2017-05-17 07:04] LABS: INR 2.14
[2017-05-17 07:15] LABS: CALCIUM LEVEL 8.9 MG/DL (8.8-10.2); CREATININE FOR GFR 1.21 MG/DL (0.55-1.02); GLOMERULAR FILTRATION RATE 44.9 (>32); POTASSIUM SERUM 4.6 MEQ/L (3.5-5.1)
[2017-05-17] MEDS: SENOKOT S TAB PO SCH ×2 (09:00→19:59)
[2017-05-17] MEDS: levETIRAcetam 250MG TABLET (KEPPRA) PO SCH ×2 (09:35→19:58)
[2017-05-17] MEDS: GABAPENTIN 100 MG CAP PO SCH ×3 (09:35→19:59)
[2017-05-17] MEDS: BACLOFEN 5MG PER 1/2 TABLET PO SCH ×2 (09:35→19:59)
[2017-05-17] MEDS: NYSTATIN 100,000 UNITS/GM TOPICAL PWD 15 GM TOP SCH ×2 (09:36→19:59)
[2017-05-17] MEDS: glipiZIDE XL 5 MG TABCR PO SCH (09:36)
[2017-05-17] MEDS: ACETAMINOPHEN 500 MG TAB PO PRN ×2 (09:37→21:39)
[2017-05-17 14:00] VITALS: BP 91/56
--- NOTE | 2017-05-17 17:07 | IPN ---
DATE: 05/17/2017 Ms. Gallego has no complaints of chest pain. No shortness of breath. She still has pain in her low back and right leg in particular. Temperature is 98.9, pulse 76, respiratory rate 15, blood pressure 124/56, 96% on two liters. Intake and output are notable for a positive fluid balance of 240. She is awake, appropriately interactive. When I come into the room to see her, she has slid down in bed. She is unable to assist me in lifting her and so the nurse and I slide her upward in bed in an attempt to make her more comfortable. Breathing is symmetrical. I:E ratio is 1:3. Lungs are grossly clear. She is speaking in complete sentences. No accessory muscle use. Heart is in a regular rhythm, normal S1, S2. Abdomen is soft, somewhat distended. Active bowel sounds. Nontender. LABORATORY DATA: White cell count 6, hemoglobin 10.3. BUN 38, creatinine 1.2 trending upward, INR 2.14. ASSESSMENT: 1. This is an 87-year-old with advancing spinal stenosis and worsening pain. The patient has declined orthopedic referral or surgery. We will continue with physical therapy, occupational therapy, and pain management. Pain seems better controlled than yesterday. 2. The patient has chronic diastolic congestive heart failure. In the setting of developing acute renal failure, we will hold her Torsemide, spironolactone, and lisinopril. We will monitor her blood pressure and consider restarting. These medications will need to be adjusted based most likely on her oral intake. 3. The patient has paroxysmal atrial fibrillation. Rate is controlled. International normalized ratio (INR) is therapeutic. She seems regular on my examination. 4. The patient has diabetes and diabetic neuropathy. 5. The patient has hyperlipidemia. 6. The patient has obesity and obstructive sleep apnea. I was able to get the continuous positive airway pressure (CPAP) to work today at bedside, so hopefully it will be used this evening. 7. The patient has mild to moderate aortic stenosis. 8. The patient has moderate to severe pulmonary hypertension.
[2017-05-17] MEDS: WARFARIN SOD 3 MG TAB PO SCH (18:26)
[2017-05-17] MEDS: SIMVASTATIN 40 MG TAB PO SCH (19:58)
[2017-05-17 22:00] VITALS: BP 118/52
[2017-05-18 06:00] VITALS: BP 124/52
[2017-05-18] MEDS: OMEPRAZOLE 20 MG CAP PO SCH (06:11)
[2017-05-18 06:52] LABS: CALCIUM LEVEL 9.1 MG/DL (8.8-10.2); CREATININE FOR GFR 1.07 MG/DL (0.55-1.02); GLOMERULAR FILTRATION RATE 51.8 (>32); POTASSIUM SERUM 4.2 MEQ/L (3.5-5.1)
[2017-05-18 08:01] LABS: INR 2.12
[2017-05-18] MEDS: SENOKOT S TAB PO SCH ×2 (08:38→20:22)
[2017-05-18] MEDS: GABAPENTIN 100 MG CAP PO SCH ×3 (08:38→20:22)
[2017-05-18] MEDS: levETIRAcetam 250MG TABLET (KEPPRA) PO SCH ×2 (08:39→20:23)
[2017-05-18] MEDS: NYSTATIN 100,000 UNITS/GM TOPICAL PWD 15 GM TOP SCH ×2 (08:39→20:23)
[2017-05-18] MEDS: BACLOFEN 5MG PER 1/2 TABLET PO SCH ×2 (08:39→20:23)
[2017-05-18] MEDS: glipiZIDE XL 5 MG TABCR PO SCH (08:39)
[2017-05-18 14:00] VITALS: BP 133/63
[2017-05-18] MEDS: WARFARIN SOD 4 MG TAB PO SCH (17:55)
[2017-05-18] MEDS: ACETAMINOPHEN 500 MG TAB PO PRN (20:22)
[2017-05-18] MEDS: SIMVASTATIN 40 MG TAB PO SCH (20:23)
[2017-05-18 22:00] VITALS: BP 142/70
[2017-05-19 06:00] VITALS: BP 142/61
[2017-05-19] MEDS: OMEPRAZOLE 20 MG CAP PO SCH (06:40)
[2017-05-19] MEDS ORDERED: FUROSEMIDE 40 MG/4 ML VIAL (J1940) IV ONE (08:30)
[2017-05-19] MEDS: GABAPENTIN 100 MG CAP PO SCH ×3 (08:36→20:01)
[2017-05-19] MEDS: BACLOFEN 5MG PER 1/2 TABLET PO SCH ×2 (08:36→20:01)
[2017-05-19] MEDS: NYSTATIN 100,000 UNITS/GM TOPICAL PWD 15 GM TOP SCH ×2 (08:37→20:02)
[2017-05-19] MEDS: glipiZIDE XL 5 MG TABCR PO SCH (08:37)
[2017-05-19] MEDS: levETIRAcetam 250MG TABLET (KEPPRA) PO SCH ×2 (08:37→20:00)
[2017-05-19] MEDS: SENOKOT S TAB PO SCH ×3 (08:37→20:01)
[2017-05-19 09:36] LABS: BASO # 0.1 10^3/uL (0.0-0.2); BASO % 0.9 % (0.0-1.0); EOS # 0.5 10^3/uL (0.0-0.50); EOS % 9.3 % (0.0-3.0); IMMATURE GRANULOCYTE % 0.2 % (0-0); LYMPH # 1.8 10^3/uL (1.5-4.5); LYMPH % 32.7 % (24.0-44.0); MEAN CORPUSCULAR HEMOGLOBIN 27.7 pg (27.0-33.0); MEAN CORPUSCULAR HGB CONC 32.6 g/dl (32.0-36.5); MONO # 0.7 10^3/uL (0.0-0.8); MONO % 13.1 % (0.0-5.0); NEUTROPHILS # 2.4 10^3/uL (1.8-7.7); NEUTROPHILS % 43.8 % (36.0-66.0); PLATELET COUNT, AUTOMATED 312 10^3/uL (150-450); RED CELL DISTRIBUTION WIDTH 14.1 % (11.5-14.5); WHITE BLOOD COUNT 5.5 10^3/uL (4.0-10.0)
[2017-05-19 09:45] LABS: INR 2.18
[2017-05-19 10:04] LABS: ANION GAP 6 MEQ/L (8-16); BLOOD UREA NITROGEN 23 MG/DL (7-18); CARBON DIOXIDE LEVEL 26 MEQ/L (21-32); CHLORIDE LEVEL 107 MEQ/L (98-107); CREATININE FOR GFR 0.89 MG/DL (0.55-1.02); GLOMERULAR FILTRATION RATE > 60.0 (>32); GLUCOSE, FASTING 142 MG/DL (83-110); POTASSIUM SERUM 4.4 MEQ/L (3.5-5.1); SODIUM LEVEL 139 MEQ/L (136-145)
[2017-05-19] MEDS: SPIRONOLACTONE 25 MG TAB PO SCH (11:05)
--- NOTE | 2017-05-19 11:33 | IPN ---
DATE: 05/19/2017 Ms. Gallego is feeling well today and would like to go back to assisted living. She has no interest in going to acute rehabilitation. She has noticed that her legs have gotten somewhat bigger. Temperature is 97.7. Pulse 71. Respiratory rate 18. Blood pressure 142/61. 96% in room air. Ins and outs notable for a negative fluid balance of -1180 yesterday, 2 bowel movements noted. Weight is 76.9 kg. She is awake and appropriately interactive, pleasantly conversant. Breathing is symmetrical and rested. Heart is distant sounding. Regular S1, S2. Radial pulses 2+. Capillary refill is less than 2 seconds. Abdomen is soft, doughy, nontender. White cell count 5.5, hemoglobin 13.5, and platelets of 312. BUN 23, creatinine 0.89. Legs with 1 to 2+ edema. INR is 2.18. ASSESSMENT: This is an 87-year-old with advancing spinal stenosis and worsening pain. PLAN: 1. Orthopedic. The patient is improving with physical therapy and pain management. She has increasing levels of activity and it seems likely that she will be able to go back to assisted living. 2. The patient has chronic diastolic dysfunction. We have held her diuretics and at this point it looks as though she is still having some fluid overload. It is not affecting her respiratory status, but will give her IV Lasix today and then continue spironolactone today and restart torsemide tonight. 3. The patient has paroxysmal atrial fibrillation. She is rate controlled. INR is therapeutic. 4. The patient has diabetes and diabetic neuropathy. 5. The patient has hyperlipidemia. 6. The patient has obesity and obstructive sleep apnea. 7. The patient has mild to moderate aortic stenosis. 8. The patient has moderate to severe pulmonary hypertension.
[2017-05-19 14:00] VITALS: BP 119/60
[2017-05-19] MEDS: WARFARIN SOD 3 MG TAB PO SCH (17:58)
[2017-05-19] MEDS: TORSEMIDE 20 MG TAB PO SCH (17:59)
[2017-05-19] MEDS: SIMVASTATIN 40 MG TAB PO SCH (20:01)
[2017-05-19 22:00] VITALS: BP 147/74
[2017-05-19] MEDS: ACETAMINOPHEN 500 MG TAB PO PRN (22:33)
[2017-05-20] MEDS: OMEPRAZOLE 20 MG CAP PO SCH (05:44)
[2017-05-20 06:00] VITALS: BP 133/61
[2017-05-20 07:35] LABS: ANION GAP 7 MEQ/L (8-16); BLOOD UREA NITROGEN 27 MG/DL (7-18); CALCIUM LEVEL 9.7 MG/DL (8.8-10.2); CARBON DIOXIDE LEVEL 26 MEQ/L (21-32); CHLORIDE LEVEL 107 MEQ/L (98-107); CREATININE FOR GFR 0.93 MG/DL (0.55-1.02); GLOMERULAR FILTRATION RATE > 60.0 (>32); GLUCOSE, FASTING 100 MG/DL (83-110); POTASSIUM SERUM 4.2 MEQ/L (3.5-5.1); SODIUM LEVEL 140 MEQ/L (136-145)
[2017-05-20 07:45] LABS: BASO # 0.1 10^3/uL (0.0-0.2); BASO % 1.1 % (0.0-1.0); EOS # 0.5 10^3/uL (0.0-0.50); EOS % 9.1 % (0.0-3.0); IMMATURE GRANULOCYTE % 0.2 % (0-0); LYMPH # 1.8 10^3/uL (1.5-4.5); LYMPH % 33.2 % (24.0-44.0); MEAN CORPUSCULAR HEMOGLOBIN 27.6 pg (27.0-33.0); MEAN CORPUSCULAR HGB CONC 32.7 g/dl (32.0-36.5); MEAN CORPUSCULAR VOLUME 84.2 fl (80.0-96.0); MONO # 0.8 10^3/uL (0.0-0.8); NEUTROPHILS # 2.3 10^3/uL (1.8-7.7); NEUTROPHILS % 41.4 % (36.0-66.0); PLATELET COUNT, AUTOMATED 357 10^3/uL (150-450); WHITE BLOOD COUNT 5.5 10^3/uL (4.0-10.0)
[2017-05-20 08:01] LABS: INR 2.29
[2017-05-20] MEDS ORDERED: NYST10PW TOP (08:18)
[2017-05-20] MEDS ORDERED: SENN1TAB2 PO (08:18)
[2017-05-20] MEDS: SENOKOT S TAB PO SCH ×2 (08:29→08:33)
[2017-05-20] MEDS: BACLOFEN 5MG PER 1/2 TABLET PO SCH (08:30)
[2017-05-20] MEDS: TORSEMIDE 20 MG TAB PO SCH (08:30)
[2017-05-20] MEDS: glipiZIDE XL 5 MG TABCR PO SCH (08:30)
[2017-05-20] MEDS: levETIRAcetam 250MG TABLET (KEPPRA) PO SCH (08:30)
[2017-05-20] MEDS: SPIRONOLACTONE 25 MG TAB PO SCH (08:30)
[2017-05-20] MEDS: GABAPENTIN 100 MG CAP PO SCH (08:30)
[2017-05-20] MEDS: NYSTATIN 100,000 UNITS/GM TOPICAL PWD 15 GM TOP SCH (08:31)
--- NOTE | 2017-05-20 17:17 | DSES ---
DATE OF ADMISSION: 05/15/2017 DATE OF DISCHARGE: 05/20/2017 No specialists involved in her care. No complications during her stay. No procedures performed during her stay. DISCHARGE DIAGNOSES: 1. Intractable right lower extremity pain. 2. Difficulty in ambulation. 3. Severe spinal canal stenosis. 4. History of osteoporotic vertebral compression fractures. 5. Chronic diastolic heart failure. 6. Paroxysmal atrial fibrillation. 7. Seizure disorder. 8. Diabetes. 9. Diabetic neuropathy. 10. Peripheral neuropathy. 11. Hyperlipidemia. 12. Obesity. 13. Obstructive sleep apnea. 14. Mild to moderate aortic stenosis. 15. Asthma. The following is a summary of her hospitalization: This is an 87-year-old who was sent from assisted living because of increasing right hip pain. She was found to have worsening spinal stenosis. She was admitted to the hospitalist service, declined strongly any idea of surgical intervention, did not see an orthopedic surgeon during her stay, underwent physical therapy and pain management, and improved markedly. At the time of presentation, she was noted to have some decline in her baseline level of renal function. Diuretics were held which were restarted prior to discharge and in fact during her stay she did get some IV Lasix prior to the end of her stay. On the day of discharge, she is feeling well, she has no complaints of pain, chest pain, or shortness of breath, is tolerating a diet. Temperature is 96.9, pulse 73, respiratory rate 18, blood pressure 133/61, 96% on room air. She is awake, appropriately interactive, pleasantly conversant, sitting at the bedside eating breakfast. Breathing is symmetrical, diminished. Heart is distant sounding, normal S1, S2. Abdomen soft, doughy, nontender. White cell count 5.5, hemoglobin 12.4, and platelets 357. BUN 22, creatinine 0.93. DISCHARGE INSTRUCTIONS: Include the following: Followup with the resident clinic within 1 week. Continue previous diet and activity. - she was given a prescription for nystatin topically twice a day - Senokot-S two tablets by mouth twice a day - Tylenol 500 mg by mouth every 6 hours as needed for pain - albuterol as needed - baclofen 5 mg by mouth twice a day - cetirizine 10 mg by mouth daily as needed - vitamin D supplement 2000 units - Colace 100 mg, 200 mg daily - Eucerin as needed - Neurontin 100 mg at 0900 hours and 1300 hours, 200 mg at bedtime - glipizide XL 5 mg by mouth daily - guaifenesin 600 mg every 12 hours as needed - Keppra 500 mg by mouth twice a day - lisinopril daily - nitroglycerin as needed - omeprazole 20 mg by mouth every morning - simvastatin 40 mg by mouth daily at bedtime - spironolactone 25 mg by mouth daily - Systane 0.6% both eyes four times a day - torsemide 40 mg by mouth twice a day - triamcinolone cream - Coumadin, continuing previous dosing
== END 2017-05-20 11:30 | DRG 552 ==
LOC: M ED 17:19 → M ED INP 22:41 → M MS5PR 05-16 01:10
PROVIDERS: ADMIT Internal Medicine Nephrology; ATTEND Internal Medicine
DX: M48.07 Spinal stenosis, lumbosacral region (principal); Z68.41 Body mass index [BMI] 40.0-44.9, adult; I50.32 Chronic diastolic (congestive) heart failure; E66.9 Obesity, unspecified; E11.40 Type 2 diabetes mellitus with diabetic neuropathy, unspecified; I11.0 Hypertensive heart disease with heart failure; G47.33 Obstructive sleep apnea (adult) (pediatric); I48.0 Paroxysmal atrial fibrillation; G40.909 Epilepsy, unspecified, not intractable, without status epilepticus; J45.909 Unspecified asthma, uncomplicated; Z86.73 Personal history of transient ischemic attack (TIA), and cerebral infarction without residual deficits; Z90.710 Acquired absence of both cervix and uterus; Z90.49 Acquired absence of other specified parts of digestive tract; Z96.653 Presence of artificial knee joint, bilateral; Z88.5 Allergy status to narcotic agent; Z91.040 Latex allergy status; Z88.2 Allergy status to sulfonamides; Z88.1 Allergy status to other antibiotic agents; Z88.8 Allergy status to other drugs, medicaments and biological substances; Z79.84 Long term (current) use of oral hypoglycemic drugs; Z79.52 Long term (current) use of systemic steroids; Z79.899 Other long term (current) drug therapy; Z99.89 Dependence on other enabling machines and devices

== ENCOUNTER → 2017-05-17 | Outpatient (REF) | payer OTHER, MEDICAID ==
[~2017-05-17] MED LIST changes: +ALBU17IN INH; +GABA-283 PO; +NYST10PW TOP; +SENN1TAB2 PO; +TORS20TA2 PO
--- NOTE | 2017-05-18 18:03 | IPN ---
DATE: 05/18/2017 Ms. Gallego is not complaining of pain this morning. She is quite annoyed at the number of attempts it took to get her blood. She has been eating and drinking. She did not accurately explain why she did not work with physical therapy yesterday. VITAL SIGNS: Temperature 97.9, pulse 66, respiratory rate 18, blood pressure 124/52, 94% on room air. Ins Outs notable for a positive fluid balance of 640. Two bowel movements noted. Awake and appropriately interactive . Reasonable historian. Mucous membranes moist. Neck supple. Breathing symmetrical. I:E ratio is 1:3. Heart is distant sounding, normal S1, S2. LABORATORY DATA: White cell count 6, hemoglobin 10.3, INR 2.12, BUN 38, creatinine 1.07. MY ASSESSMENT IS FOLLOWS: This is an 87-year-old with advancing spinal stenosis and pain. PLAN: 1. Orthopedic. Patient has declined referral to orthopedic surgeon, does not want surgery, at this point is not wiling to work with physical therapy, is not particularly complaining of pain, I do not believe pain is a current issue. 2. Patient has chronic diastolic congestive heart failure, which appears to be compensated. Today we can likely restart her diuretics. 3. Patient has paroxysmal atrial fibrillation. Rate is controlled. INR is therapeutic. 4. Patient has diabetes, diabetic neuropathy. 5. Patient has hyperlipidemia. 6. Patient has obesity and obstructive sleep apnea. 7. Patient has mild to moderate aortic stenosis. 8. Patient has moderate to severe pulmonary hypertension.
== END ==
PROVIDERS: ATTEND Family Medicine
DX: E11.9 Type 2 diabetes mellitus without complications (principal); Z53.9 Procedure and treatment not carried out, unspecified reason

== ENCOUNTER → 2017-06-14 | Outpatient (REF) | payer OTHER, MEDICAID ==
[2017-06-14 10:18] LABS: CALCIUM LEVEL 9.4 MG/DL (8.8-10.2); CREATININE FOR GFR 1.04 MG/DL (0.55-1.02); GLOMERULAR FILTRATION RATE 53.5 (>32); POTASSIUM SERUM 4.4 MEQ/L (3.5-5.1)
== END ==
PROVIDERS: ATTEND Family Medicine
DX: E11.9 Type 2 diabetes mellitus without complications (principal)

== ENCOUNTER → 2017-06-14 | Outpatient (REF) | payer OTHER, MEDICAID | PROVIDERS: ATTEND Physician Assistant Medical | DX: R56.9 Unspecified convulsions (principal) ==

== ENCOUNTER → 2017-08-23 | Outpatient (REF) | payer MEDICARE, MEDICAID ==
[2017-08-23 14:04] LABS: URIC ACID 9.8 MG/DL (2.6-6.0)
[2017-08-23 14:04] LABS: C REACTIVE PROTEIN QUANTITATIV 0.66 MG/DL (0.00-0.30)
[2017-08-23 15:05] LABS: BASO % 0.6 % (0.0-1.0); EOS # 0.3 10^3/uL (0.0-0.50); EOS % 3.7 % (0.0-3.0); HEMATOCRIT 34.3 % (36.0-47.0); HEMOGLOBIN 11.1 g/dl (12.0-16.0); IMMATURE GRANULOCYTE % 0.1 % (0-0); LYMPH # 1.9 10^3/uL (1.5-4.5); LYMPH % 25.6 % (24.0-44.0); MEAN CORPUSCULAR HEMOGLOBIN 27.8 pg (27.0-33.0); MEAN CORPUSCULAR HGB CONC 32.4 g/dl (32.0-36.5); MONO % 13.5 % (0.0-5.0); NEUTROPHILS # 4.1 10^3/uL (1.8-7.7); NEUTROPHILS % 56.5 % (36.0-66.0); PLATELET COUNT, AUTOMATED 344 10^3/uL (150-450); RED BLOOD COUNT 3.99 10^6/uL (4.00-5.40); RED CELL DISTRIBUTION WIDTH 13.9 % (11.5-14.5); WHITE BLOOD COUNT 7.2 10^3/uL (4.0-10.0)
[2017-08-23 16:32] LABS: ERYTHROCYTE SEDIMENTATION RATE 69 mm/hr (0-42)
== END ==
LOC: M SFHCPLAZ 11:20
DX: M25.522 Pain in left elbow (principal); Z51.81 Encounter for therapeutic drug level monitoring; Z79.01 Long term (current) use of anticoagulants
CPT/HCPCS: 84550

== ENCOUNTER → 2017-09-02 | Outpatient (REF) | payer MEDICARE, MEDICAID ==
[2017-09-02 13:40] LABS: BASO % 0.5 % (0.0-1.0); EOS # 0.3 10^3/uL (0.0-0.50); EOS % 3.5 % (0.0-3.0); HEMATOCRIT 36.5 % (36.0-47.0); HEMOGLOBIN 11.8 g/dl (12.0-16.0); IMMATURE GRANULOCYTE % 0.4 % (0-0); LYMPH # 2.5 10^3/uL (1.5-4.5); LYMPH % 30.4 % (24.0-44.0); MEAN CORPUSCULAR HEMOGLOBIN 27.8 pg (27.0-33.0); MEAN CORPUSCULAR HGB CONC 32.3 g/dl (32.0-36.5); MEAN CORPUSCULAR VOLUME 86.1 fl (80.0-96.0); MONO # 1.1 10^3/uL (0.0-0.8); MONO % 13.9 % (0.0-5.0); NEUTROPHILS # 4.2 10^3/uL (1.8-7.7); NEUTROPHILS % 51.3 % (36.0-66.0); PLATELET COUNT, AUTOMATED 328 10^3/uL (150-450); RED BLOOD COUNT 4.24 10^6/uL (4.00-5.40); RED CELL DISTRIBUTION WIDTH 14.2 % (11.5-14.5); WHITE BLOOD COUNT 8.2 10^3/uL (4.0-10.0)
[2017-09-02 14:21] LABS: ANION GAP 9 MEQ/L (8-16); BLOOD UREA NITROGEN 47 MG/DL (7-18); CALCIUM LEVEL 9.2 MG/DL (8.8-10.2); CARBON DIOXIDE LEVEL 28 MEQ/L (21-32); CHLORIDE LEVEL 99 MEQ/L (98-107); CREATININE FOR GFR 1.16 MG/DL (0.55-1.02); GLOMERULAR FILTRATION RATE 47.2 (>32); GLUCOSE, FASTING 157 MG/DL (83-110); POTASSIUM SERUM 4.4 MEQ/L (3.5-5.1); SODIUM LEVEL 136 MEQ/L (136-145)
== END ==
LOC: M SFHCPLAZ 10:59
DX: M25.522 Pain in left elbow (principal); Z51.81 Encounter for therapeutic drug level monitoring; Z79.01 Long term (current) use of anticoagulants
CPT/HCPCS: 80048

== ENCOUNTER 2017-09-24 08:20 | Inpatient (IN) | payer MEDICARE, MEDICAID ==
[2017-09-24] MEDS: NS 1,000 ML IV (08:45)
[2017-09-24 08:47] LABS: BASO % 0.6 % (0.0-1.0); EOS # 0.3 10^3/uL (0.0-0.50); HEMATOCRIT 33.1 % (36.0-47.0); IMMATURE GRANULOCYTE % 0.3 % (0-0); LYMPH # 1.4 10^3/uL (1.5-4.5); MEAN CORPUSCULAR HEMOGLOBIN 27.9 pg (27.0-33.0); MEAN CORPUSCULAR HGB CONC 33.2 g/dl (32.0-36.5); MONO # 0.8 10^3/uL (0.0-0.8); MONO % 12.9 % (0.0-5.0); NEUTROPHILS # 3.7 10^3/uL (1.8-7.7); NEUTROPHILS % 59.2 % (36.0-66.0); PLATELET COUNT, AUTOMATED 316 10^3/uL (150-450); RED BLOOD COUNT 3.94 10^6/uL (4.00-5.40); RED CELL DISTRIBUTION WIDTH 13.7 % (11.5-14.5); WHITE BLOOD COUNT 6.2 10^3/uL (4.0-10.0)
[2017-09-24] MEDS: VANCOMYCIN HCL 1,000 MG, VIAL MATE ADAPTER 1 EACH in D5W 250 ML IV (09:00)
[2017-09-24 09:05] LABS: ALBUMIN 2.9 GM/DL (3.2-5.2); ALBUMIN/GLOBULIN RATIO 0.76 (1.00-1.93); ALKALINE PHOSPHATASE 78 U/L (45-117); ALT/SGPT 18 U/L (12-78); ANION GAP 8 MEQ/L (8-16); AST/SGOT 15 U/L (7-37); BILIRUBIN,DIRECT < 0.1 MG/DL (0.0-0.2); BILIRUBIN,TOTAL 0.3 MG/DL (0.2-1.0); BLOOD UREA NITROGEN 35 MG/DL (7-18); CALCIUM LEVEL 9.1 MG/DL (8.8-10.2); CARBON DIOXIDE LEVEL 27 MEQ/L (21-32); CHLORIDE LEVEL 101 MEQ/L (98-107); CREATININE FOR GFR 0.99 MG/DL (0.55-1.30); GLOMERULAR FILTRATION RATE 56.6 (>32); GLUCOSE, FASTING 152 MG/DL (70-100); POTASSIUM SERUM 4.2 MEQ/L (3.5-5.1); SODIUM LEVEL 136 MEQ/L (136-145); TOTAL PROTEIN 6.7 GM/DL (6.4-8.2)
[2017-09-24 09:22] LABS: CPK CREATINE PHOSPHOKINASE 89 U/L (26-192); TROPONIN I < 0.02 NG/ML (< 0.10)
[2017-09-24 09:23] LABS: CK-MB VALUE MASS 2.2 NG/ML (0.0-3.6); MB/CK RELATIVE INDEX 2.47 (< OR =4)
[2017-09-24 10:01] LABS: C REACTIVE PROTEIN QUANTITATIV 2.82 MG/DL (0.00-0.30); NT-PRO BNP 539 PG/ML (<450)
[2017-09-24 10:04] LABS: APPEARANCE, URINE CLEAR (CLEAR); BACTERIA, URINE AUTO NEGATIVE (NEGATIVE); BILIRUBIN, URINE AUTO NEGATIVE (NEGATIVE); BLOOD, URINE BLOOD NEGATIVE (NEGATIVE); COLOR, URINE STRAW (YELLOW); GLUCOSE, URINE (UA) AUTO NEGATIVE (NEGATIVE); KETONE, URINE AUTO NEGATIVE (NEGATIVE); LEUKOCYTE ESTERASE, URINE AUTO 1+ (NEGATIVE); MUCUS, URINE SMALL (NEGATIVE); NITRITE, URINE AUTO NEGATIVE (NEGATIVE); PROTEIN, URINE AUTO NEGATIVE (NEGATIVE); RBC, URINE AUTO 1 /HPF (0-3); SPECIFIC GRAVITY URINE AUTO 1.004 (1.002-1.035); SQUAMOUS EPITHELIAL CELL UR AU 2 /HPF (0-6); UROBILINOGEN, URINE AUTO 0.2 mg/dL (0.0-2.0); WBC, URINE AUTO 5 /HPF (0-3)
[2017-09-24] MEDS ORDERED: GLUCAGON FOR INJ 1 MG VIAL (J1610) SC (10:15)
[2017-09-24] MEDS ORDERED: ACETAMINOPHEN TAB 650MG DOSE (2X325MG) PO (10:15)
[2017-09-24] MEDS ORDERED: DEXTROSE 50% 50 ML SYRINGE IV (10:15)
[2017-09-24] MEDS ORDERED: GLUCOSE 4 GM CHEW TABLET PO (10:15)
[2017-09-24] MEDS ORDERED: EUCERIN 120GM CREAM TOP (10:30)
[2017-09-24] MEDS ORDERED: NYSTATIN 100,000 UNITS/GM TOPICAL PWD 15 GM TOP (10:30)
[2017-09-24] MEDS ORDERED: diphenhydrAMINE CREAM 30GM TOP (10:30)
[2017-09-24] MEDS ORDERED: CETIRIZINE (ZyrTEC) 10 MG TAB PO (10:30)
[2017-09-24] MEDS ORDERED: NITROGLYCERIN 0.4 MG SUBL TABLET SL (10:30)
[2017-09-24] MEDS ORDERED: guaiFENesin ER 600 MG TAB PO (10:30)
[2017-09-24 10:38] LABS: CK-MB VALUE MASS 2.5 NG/ML (0.0-3.6); CPK CREATINE PHOSPHOKINASE 87 U/L (26-192); MB/CK RELATIVE INDEX 2.87 (< OR =4)
[2017-09-24] MEDS: READI-CAT 2 PO ×2 (10:45→11:45)
[2017-09-24] MEDS ORDERED: IPRATROPIUM 0.5MG/ALBUTEROL 2.5MG INH SOL UD 3ML (DUONEB)(J7620) NEB (10:45)
[2017-09-24] MEDS ORDERED: ONDANSETRON 4MG/2ML VIAL (J2405) IV (10:45)
[2017-09-24 11:00] LABS: INR 2.14; PROTHROMBIN TIME 24.7 SECONDS (12.4-14.5)
[2017-09-24 11:02] LABS: PARTIAL THROMBOPLASTIN TIME 71.8 SECONDS (26.8-37.9)
[2017-09-24] MEDS: HumaLOG INSULIN (NovoLOG) PER UNIT SC ×3 (12:00→20:49)
[2017-09-24] MEDS: GABAPENTIN 100 MG CAP PO ×2 (14:37→20:47)
[2017-09-24] MEDS: levETIRAcetam 250MG TABLET (KEPPRA) PO ×2 (14:37→20:48)
[2017-09-24] MEDS: FUROSEMIDE 40 MG/4 ML VIAL (J1940) IV ×3 (14:38→20:47)
[2017-09-24] MEDS: SPIRONOLACTONE 25 MG TAB PO (14:45)
[2017-09-24 16:37] LABS: CK-MB VALUE MASS 2.2 NG/ML (0.0-3.6); CPK CREATINE PHOSPHOKINASE 84 U/L (26-192); MB/CK RELATIVE INDEX 2.61 (< OR =4)
[2017-09-24] MEDS ORDERED: FUROSEMIDE 40 MG/4 ML VIAL (J1940) IV (17:00)
[2017-09-24 17:32] LABS: BEDSIDE GLUCOSE 145 MG/DL (83-110)
[2017-09-24] MEDS: CEFTAROLINE FOSAMIL 400 MG in D5W MINI-BAG PLUS 50 ML IV (18:02)
[2017-09-24] MEDS: WARFARIN SOD 3 MG TAB PO (18:02)
[2017-09-24] MEDS: BACLOFEN 5MG PER 1/2 TABLET PO (20:47)
[2017-09-24] MEDS: SIMVASTATIN 40 MG TAB PO (20:48)
[2017-09-24] MEDS: DOCUSATE SODIUM 100 MG CAP PO (20:48)
[2017-09-24] MEDS: LISINOPRIL 5 MG TAB PO (20:48)
[2017-09-24] MEDS: COLCHICINE 0.6 MG TAB PO (20:48)
[2017-09-24] MEDS: LATANOPROST 0.005% OPHTH SOLN 2.5 ML OU (20:49)
[2017-09-24] MEDS: BACITRACIN OINT 30GM TOP (20:49)
[2017-09-25] MEDS: FUROSEMIDE 40 MG/4 ML VIAL (J1940) IV ×3 (04:00→19:22)
[2017-09-25 05:19] LABS: BASO % 0.7 % (0.0-1.0); EOS # 0.3 10^3/uL (0.0-0.50); EOS % 5.7 % (0.0-3.0); HEMATOCRIT 30.6 % (36.0-47.0); HEMOGLOBIN 10.1 g/dl (12.0-16.0); IMMATURE GRANULOCYTE % 0.4 % (0-0); LYMPH # 1.2 10^3/uL (1.5-4.5); LYMPH % 21.7 % (24.0-44.0); MEAN CORPUSCULAR HEMOGLOBIN 27.5 pg (27.0-33.0); MEAN CORPUSCULAR VOLUME 83.4 fl (80.0-96.0); MONO # 0.8 10^3/uL (0.0-0.8); MONO % 14.2 % (0.0-5.0); NEUTROPHILS # 3.1 10^3/uL (1.8-7.7); NEUTROPHILS % 57.3 % (36.0-66.0); PLATELET COUNT, AUTOMATED 316 10^3/uL (150-450); RED BLOOD COUNT 3.67 10^6/uL (4.00-5.40); RED CELL DISTRIBUTION WIDTH 14.1 % (11.5-14.5); WHITE BLOOD COUNT 5.4 10^3/uL (4.0-10.0)
[2017-09-25] MEDS: CEFTAROLINE FOSAMIL 400 MG in D5W MINI-BAG PLUS 50 ML IV (05:22)
[2017-09-25 05:41] LABS: INR 2.54; PROTHROMBIN TIME 28.4 SECONDS (12.4-14.5)
[2017-09-25 05:43] LABS: PARTIAL THROMBOPLASTIN TIME 70.6 SECONDS (26.8-37.9)
[2017-09-25 05:57] LABS: ALBUMIN 2.5 GM/DL (3.2-5.2); ALBUMIN/GLOBULIN RATIO 0.71 (1.00-1.93); ALKALINE PHOSPHATASE 73 U/L (45-117); ALT/SGPT 18 U/L (12-78); ANION GAP 6 MEQ/L (8-16); AST/SGOT 12 U/L (7-37); BILIRUBIN,TOTAL 0.3 MG/DL (0.2-1.0); BLOOD UREA NITROGEN 25 MG/DL (7-18); CALCIUM LEVEL 8.6 MG/DL (8.8-10.2); CARBON DIOXIDE LEVEL 28 MEQ/L (21-32); CHLORIDE LEVEL 105 MEQ/L (98-107); CREATININE FOR GFR 1.02 MG/DL (0.55-1.30); GLOMERULAR FILTRATION RATE 54.7 (>32); GLUCOSE, FASTING 133 MG/DL (70-100); POTASSIUM SERUM 4.1 MEQ/L (3.5-5.1); SODIUM LEVEL 139 MEQ/L (136-145)
[2017-09-25] MEDS: HumaLOG INSULIN (NovoLOG) PER UNIT SC ×4 (07:23→18:34)
[2017-09-25] MEDS: MULTIVITAMINS/MINERALS THERAP 1 TAB PO (08:47)
[2017-09-25] MEDS: levETIRAcetam 250MG TABLET (KEPPRA) PO ×2 (08:47→18:31)
[2017-09-25] MEDS: VITAMIN D 1,000 INTERNATIONAL UNITS TABLET PO (08:47)
[2017-09-25] MEDS: ALLOPURINOL 300 MG TAB PO (08:47)
[2017-09-25] MEDS: COLCHICINE 0.6 MG TAB PO ×2 (08:47→18:32)
[2017-09-25] MEDS: GABAPENTIN 100 MG CAP PO ×3 (08:48→18:32)
[2017-09-25] MEDS: BACLOFEN 5MG PER 1/2 TABLET PO ×2 (08:48→18:31)
[2017-09-25] MEDS: OMEPRAZOLE 20 MG CAP PO (08:48)
[2017-09-25] MEDS: BACITRACIN OINT 30GM TOP ×2 (08:49→18:34)
[2017-09-25] MEDS: SPIRONOLACTONE 25 MG TAB PO (08:49)
[2017-09-25] MEDS: SIMVASTATIN 40 MG TAB PO (18:32)
[2017-09-25] MEDS: DOCUSATE SODIUM 100 MG CAP PO (18:32)
[2017-09-25] MEDS: LISINOPRIL 5 MG TAB PO (18:33)
[2017-09-25] MEDS: WARFARIN SOD 3 MG TAB PO (18:33)
[2017-09-25] MEDS: LATANOPROST 0.005% OPHTH SOLN 2.5 ML OU (18:34)
[2017-09-25] MEDS: DOXYCYCLINE HYCLATE 100 MG TAB PO (19:21)
[2017-09-25] MEDS: CEFDINIR 300 MG CAP (OMNICEF) PO (19:21)
[2017-09-26] MEDS: FUROSEMIDE 40 MG/4 ML VIAL (J1940) IV ×2 (04:15→11:14)
[2017-09-26 05:31] LABS: BASO % 0.4 % (0.0-1.0); EOS # 0.4 10^3/uL (0.0-0.50); EOS % 7.6 % (0.0-3.0); HEMATOCRIT 31.9 % (36.0-47.0); HEMOGLOBIN 10.5 g/dl (12.0-16.0); IMMATURE GRANULOCYTE % 0.2 % (0-0); LYMPH # 1.3 10^3/uL (1.5-4.5); LYMPH % 24.9 % (24.0-44.0); MEAN CORPUSCULAR HEMOGLOBIN 27.5 pg (27.0-33.0); MEAN CORPUSCULAR HGB CONC 32.9 g/dl (32.0-36.5); MEAN CORPUSCULAR VOLUME 83.5 fl (80.0-96.0); MONO # 0.7 10^3/uL (0.0-0.8); MONO % 13.8 % (0.0-5.0); NEUTROPHILS # 2.7 10^3/uL (1.8-7.7); NEUTROPHILS % 53.1 % (36.0-66.0); PLATELET COUNT, AUTOMATED 312 10^3/uL (150-450); RED BLOOD COUNT 3.82 10^6/uL (4.00-5.40); RED CELL DISTRIBUTION WIDTH 14.1 % (11.5-14.5); WHITE BLOOD COUNT 5.1 10^3/uL (4.0-10.0)
[2017-09-26 05:41] LABS: INR 2.39
[2017-09-26 05:42] LABS: PARTIAL THROMBOPLASTIN TIME 65.2 SECONDS (26.8-37.9)
[2017-09-26 05:59] LABS: ALBUMIN 2.5 GM/DL (3.2-5.2); ALBUMIN/GLOBULIN RATIO 0.71 (1.00-1.93); ALKALINE PHOSPHATASE 72 U/L (45-117); ALT/SGPT 18 U/L (12-78); ANION GAP 5 MEQ/L (8-16); AST/SGOT 19 U/L (7-37); BILIRUBIN,TOTAL 0.3 MG/DL (0.2-1.0); BLOOD UREA NITROGEN 22 MG/DL (7-18); C REACTIVE PROTEIN QUANTITATIV 2.08 MG/DL (0.00-0.30); CALCIUM LEVEL 8.6 MG/DL (8.8-10.2); CARBON DIOXIDE LEVEL 28 MEQ/L (21-32); CHLORIDE LEVEL 104 MEQ/L (98-107); CREATININE FOR GFR 1.08 MG/DL (0.55-1.30); GLOMERULAR FILTRATION RATE 51.2 (>32); GLUCOSE, FASTING 136 MG/DL (70-100); POTASSIUM SERUM 4.1 MEQ/L (3.5-5.1); SODIUM LEVEL 137 MEQ/L (136-145)
[2017-09-26] MEDS: HumaLOG INSULIN (NovoLOG) PER UNIT SC ×2 (07:30→11:14)
[2017-09-26] MEDS: BACLOFEN 5MG PER 1/2 TABLET PO (08:18)
[2017-09-26] MEDS: COLCHICINE 0.6 MG TAB PO (08:18)
[2017-09-26] MEDS: SPIRONOLACTONE 25 MG TAB PO (08:18)
[2017-09-26] MEDS: levETIRAcetam 250MG TABLET (KEPPRA) PO (08:18)
[2017-09-26] MEDS: CEFDINIR 300 MG CAP (OMNICEF) PO (08:18)
[2017-09-26] MEDS: GABAPENTIN 100 MG CAP PO ×2 (08:18→13:07)
[2017-09-26] MEDS: MULTIVITAMINS/MINERALS THERAP 1 TAB PO (08:19)
[2017-09-26] MEDS: VITAMIN D 1,000 INTERNATIONAL UNITS TABLET PO (08:19)
[2017-09-26] MEDS: ALLOPURINOL 300 MG TAB PO (08:19)
[2017-09-26] MEDS: OMEPRAZOLE 20 MG CAP PO (08:19)
[2017-09-26] MEDS: BACITRACIN OINT 30GM TOP (08:19)
[2017-09-26] MEDS: DOXYCYCLINE HYCLATE 100 MG TAB PO (08:19)
[2017-09-26] MEDS ORDERED: WARFARIN SOD 4 MG TAB PO (17:00)
== END 2017-09-26 13:53 | DRG 299 ==
LOC: M ED 08:20 → M ED INP 10:02 → M PCU 13:55
DX: I87.2 Venous insufficiency (chronic) (peripheral) (principal); I50.33 Acute on chronic diastolic (congestive) heart failure; I48.0 Paroxysmal atrial fibrillation; I11.0 Hypertensive heart disease with heart failure; E11.42 Type 2 diabetes mellitus with diabetic polyneuropathy; E66.01 Morbid (severe) obesity due to excess calories; M10.9 Gout, unspecified; G47.33 Obstructive sleep apnea (adult) (pediatric); M48.061 Spinal stenosis, lumbar region without neurogenic claudication; G40.909 Epilepsy, unspecified, not intractable, without status epilepticus; I35.0 Nonrheumatic aortic (valve) stenosis; I44.7 Left bundle-branch block, unspecified; J45.909 Unspecified asthma, uncomplicated; Z88.0 Allergy status to penicillin; Z88.2 Allergy status to sulfonamides; Z91.040 Latex allergy status; Z88.8 Allergy status to other drugs, medicaments and biological substances; Z88.5 Allergy status to narcotic agent; Z79.84 Long term (current) use of oral hypoglycemic drugs; Z79.899 Other long term (current) drug therapy; Z86.73 Personal history of transient ischemic attack (TIA), and cerebral infarction without residual deficits; Z96.653 Presence of artificial knee joint, bilateral; K59.00 Constipation, unspecified; Z68.38 Body mass index [BMI] 38.0-38.9, adult; Z85.820 Personal history of malignant melanoma of skin; Z79.01 Long term (current) use of anticoagulants

== ENCOUNTER 2017-10-18 22:02 | Inpatient (IN) | payer MEDICARE, MEDICAID ==
[2017-10-18] MEDS: HumaLOG INSULIN (NovoLOG) PER UNIT SC (21:00)
[2017-10-18 22:56] LABS: BASO # 0.1 10^3/uL (0.0-0.2); BASO % 0.6 % (0.0-1.0); EOS # 0.5 10^3/uL (0.0-0.50); EOS % 4.8 % (0.0-3.0); HEMOGLOBIN 12.2 g/dl (12.0-16.0); IMMATURE GRANULOCYTE % 0.3 % (0-3.0); LYMPH # 2.1 10^3/uL (1.5-4.5); MEAN CORPUSCULAR HEMOGLOBIN 28.2 pg (27.0-33.0); MEAN CORPUSCULAR VOLUME 85.6 fl (80.0-96.0); MONO # 1.1 10^3/uL (0.0-0.8); MONO % 10.1 % (0.0-5.0); NEUTROPHILS # 7.3 10^3/uL (1.8-7.7); NEUTROPHILS % 65.2 % (36.0-66.0); PLATELET COUNT, AUTOMATED 284 10^3/uL (150-450); RED BLOOD COUNT 4.32 10^6/uL (4.00-5.40); RED CELL DISTRIBUTION WIDTH 15.3 % (11.5-14.5); WHITE BLOOD COUNT 11.1 10^3/uL (4.0-10.0)
[2017-10-18 23:00] LABS: PROTHROMBIN TIME 17.5 SECONDS (12.4-14.5)
[2017-10-18 23:11] LABS: ANION GAP 8 MEQ/L (8-16); BLOOD UREA NITROGEN 26 MG/DL (7-18); CALCIUM LEVEL 9.2 MG/DL (8.8-10.2); CARBON DIOXIDE LEVEL 28 MEQ/L (21-32); CHLORIDE LEVEL 99 MEQ/L (98-107); CPK CREATINE PHOSPHOKINASE 106 U/L (26-192); CREATININE FOR GFR 1.29 MG/DL (0.55-1.30); GLOMERULAR FILTRATION RATE 41.7 (>32); GLUCOSE, FASTING 135 MG/DL (70-100); MAGNESIUM LEVEL 2.1 MG/DL (1.8-2.4); POTASSIUM SERUM 4.2 MEQ/L (3.5-5.1); SODIUM LEVEL 135 MEQ/L (136-145); TROPONIN I < 0.02 NG/ML (< 0.10)
[2017-10-18 23:17] LABS: CK-MB VALUE MASS 1.7 NG/ML (0.0-3.6)
[2017-10-18 23:34] LABS: VENOUS BASE EXCESS 3.9 (-2.0-2.0); VENOUS PARTIAL PRESSURE CO2 45.5 mmHg (38.0-50.0); VENOUS PARTIAL PRESSURE O2 55.5 mmHg (30.0-50.0); VENOUS PH 7.422 UNITS (7.330-7.430); VENOUS STANDARD HCO3 27.8 MEQ/L; VENOUS TOTAL CO2 30.4 MEQ/L (24.0-28.0)
[2017-10-19 00:03] LABS: LACTIC ACID SEPSIS PROTOCOL 1.2 MMOL/L (0.4-2.0)
[2017-10-19] MEDS ORDERED: DEXTROSE 50% 50 ML SYRINGE IV (01:00)
[2017-10-19] MEDS ORDERED: GLUCOSE 4 GM CHEW TABLET PO (01:00)
[2017-10-19] MEDS ORDERED: GLUCAGON FOR INJ 1 MG VIAL (J1610) SC (01:00)
[2017-10-19 01:07] LABS: FREE T4 0.89 NG/DL (0.76-1.46)
[2017-10-19 01:16] LABS: BEDSIDE GLUCOSE 138 MG/DL (83-110)
[2017-10-19] MEDS ORDERED: guaiFENesin ER 600 MG TAB PO (02:00)
[2017-10-19] MEDS ORDERED: THERAPEUTIC BATH LOTION 240 ML BTL TOP (02:00)
[2017-10-19] MEDS ORDERED: diphenhydrAMINE CREAM 30GM TOP (02:00)
[2017-10-19] MEDS ORDERED: ALBUTEROL 90 MCG/ACT 8GM HFA INHALER INH (02:00)
[2017-10-19] MEDS: WARFARIN SOD 5 MG TAB PO ×2 (02:44→17:00)
[2017-10-19] MEDS: COLCHICINE 0.6 MG TAB PO ×3 (02:44→21:57)
[2017-10-19] MEDS: BACLOFEN 10 MG TAB PO ×3 (02:44→21:57)
[2017-10-19] MEDS: levETIRAcetam 250MG TABLET (KEPPRA) PO ×3 (02:44→21:57)
[2017-10-19] MEDS: NYSTATIN 100,000 UNITS/GM TOPICAL PWD 15 GM TOP ×2 (02:45→03:00)
[2017-10-19] MEDS: SODIUM CHLORIDE 0.9% 1000 ML IV (02:46)
[2017-10-19] MEDS ORDERED: SLF 3 ML SYR IV (05:00)
[2017-10-19] MEDS: OMEPRAZOLE 20 MG CAP PO (05:29)
[2017-10-19] MEDS: SLF 3 ML SYR IV ×3 (05:30→21:58)
[2017-10-19] MEDS: ACETAMINOPHEN 500 MG TAB PO ×2 (05:30→21:56)
[2017-10-19 05:48] LABS: HEMATOCRIT 32.4 % (36.0-47.0); HEMOGLOBIN 10.7 g/dl (12.0-16.0); MEAN CORPUSCULAR HEMOGLOBIN 27.8 pg (27.0-33.0); MEAN CORPUSCULAR VOLUME 84.2 fl (80.0-96.0); PLATELET COUNT, AUTOMATED 245 10^3/uL (150-450); RED BLOOD COUNT 3.85 10^6/uL (4.00-5.40); RED CELL DISTRIBUTION WIDTH 15.1 % (11.5-14.5); WHITE BLOOD COUNT 7.9 10^3/uL (4.0-10.0)
[2017-10-19 06:20] LABS: ALBUMIN 2.8 GM/DL (3.2-5.2); ALBUMIN/GLOBULIN RATIO 0.88 (1.00-1.93); ALKALINE PHOSPHATASE 93 U/L (45-117); ALT/SGPT 29 U/L (12-78); ANION GAP 8 MEQ/L (8-16); AST/SGOT 26 U/L (7-37); BILIRUBIN,DIRECT < 0.1 MG/DL (0.0-0.2); BILIRUBIN,TOTAL 0.3 MG/DL (0.2-1.0); BLOOD UREA NITROGEN 24 MG/DL (7-18); CALCIUM LEVEL 8.5 MG/DL (8.8-10.2); CARBON DIOXIDE LEVEL 28 MEQ/L (21-32); CHLORIDE LEVEL 100 MEQ/L (98-107); CREATININE FOR GFR 1.07 MG/DL (0.55-1.30); GLOMERULAR FILTRATION RATE 51.8 (>32); GLUCOSE, FASTING 101 MG/DL (70-100); POTASSIUM SERUM 3.9 MEQ/L (3.5-5.1); SODIUM LEVEL 136 MEQ/L (136-145)
[2017-10-19 07:47] LABS: INR 1.79; PROTHROMBIN TIME 21.3 SECONDS (12.4-14.5)
[2017-10-19] MEDS: NS 1,000 ML IV ×2 (09:10→09:12)
[2017-10-19] MEDS: HumaLOG INSULIN (NovoLOG) PER UNIT SC ×4 (09:10→21:00)
[2017-10-19] MEDS: GABAPENTIN 100 MG CAP PO ×3 (09:12→21:56)
[2017-10-19] MEDS: ALLOPURINOL 300 MG TAB PO (09:12)
[2017-10-19] MEDS: MULTIVITAMINS/MINERALS THERAP 1 TAB PO (09:13)
[2017-10-19] MEDS: CETIRIZINE (ZyrTEC) 10 MG TAB PO (09:13)
[2017-10-19] MEDS: VITAMIN D 1,000 INTERNATIONAL UNITS TABLET PO (09:13)
[2017-10-19 12:04] LABS: BEDSIDE GLUCOSE 138 MG/DL (83-110)
[2017-10-19] MEDS: CLOTRIMAZOLE 1% TOPICAL CREAM 30GM TOP ×2 (16:42→21:00)
[2017-10-19 17:20] LABS: BEDSIDE GLUCOSE 117 MG/DL (83-110)
[2017-10-19] MEDS: LATANOPROST 0.005% OPHTH SOLN 2.5 ML OU (21:00)
[2017-10-19] MEDS: SIMVASTATIN 40 MG TAB PO (21:57)
[2017-10-19] MEDS: DOCUSATE SODIUM 100 MG CAP PO (21:57)
[2017-10-19 22:11] LABS: BEDSIDE GLUCOSE 142 MG/DL (83-110)
[2017-10-20 05:59] LABS: HEMATOCRIT 32.2 % (36.0-47.0); HEMOGLOBIN 10.5 g/dl (12.0-16.0); MEAN CORPUSCULAR HEMOGLOBIN 27.8 pg (27.0-33.0); MEAN CORPUSCULAR HGB CONC 32.6 g/dl (32.0-36.5); MEAN CORPUSCULAR VOLUME 85.2 fl (80.0-96.0); PLATELET COUNT, AUTOMATED 265 10^3/uL (150-450); RED BLOOD COUNT 3.78 10^6/uL (4.00-5.40); RED CELL DISTRIBUTION WIDTH 15.3 % (11.5-14.5); WHITE BLOOD COUNT 5.5 10^3/uL (4.0-10.0)
[2017-10-20 06:11] LABS: INR 1.94; PROTHROMBIN TIME 22.8 SECONDS (12.4-14.5)
[2017-10-20 06:19] LABS: ANION GAP 4 MEQ/L (8-16); BLOOD UREA NITROGEN 18 MG/DL (7-18); CALCIUM LEVEL 8.7 MG/DL (8.8-10.2); CARBON DIOXIDE LEVEL 30 MEQ/L (21-32); CHLORIDE LEVEL 108 MEQ/L (98-107); CREATININE FOR GFR 0.93 MG/DL (0.55-1.30); GLOMERULAR FILTRATION RATE > 60.0 (>32); GLUCOSE, FASTING 121 MG/DL (70-100); POTASSIUM SERUM 4.2 MEQ/L (3.5-5.1); SODIUM LEVEL 142 MEQ/L (136-145)
[2017-10-20 06:22] LABS: LACTIC ACID SEPSIS PROTOCOL 0.8 MMOL/L (0.4-2.0)
[2017-10-20] MEDS: HumaLOG INSULIN (NovoLOG) PER UNIT SC ×4 (07:30→20:41)
[2017-10-20] MEDS: OMEPRAZOLE 20 MG CAP PO (08:30)
[2017-10-20] MEDS: VITAMIN D 1,000 INTERNATIONAL UNITS TABLET PO (08:36)
[2017-10-20] MEDS: MULTIVITAMINS/MINERALS THERAP 1 TAB PO (08:37)
[2017-10-20] MEDS: COLCHICINE 0.6 MG TAB PO ×2 (08:37→20:41)
[2017-10-20] MEDS: CETIRIZINE (ZyrTEC) 10 MG TAB PO (08:37)
[2017-10-20] MEDS: levETIRAcetam 250MG TABLET (KEPPRA) PO ×2 (08:38→20:40)
[2017-10-20] MEDS: ALLOPURINOL 300 MG TAB PO (08:39)
[2017-10-20] MEDS: GABAPENTIN 100 MG CAP PO ×3 (08:40→20:41)
[2017-10-20] MEDS: BACLOFEN 10 MG TAB PO ×2 (08:41→20:41)
[2017-10-20] MEDS: CLOTRIMAZOLE 1% TOPICAL CREAM 30GM TOP ×2 (08:42→20:42)
[2017-10-20] MEDS: SLF 3 ML SYR IV ×3 (09:14→20:43)
[2017-10-20 11:55] LABS: BEDSIDE GLUCOSE 117 MG/DL (83-110)
[2017-10-20 17:15] LABS: BEDSIDE GLUCOSE 133 MG/DL (83-110)
[2017-10-20] MEDS: WARFARIN SOD 5 MG TAB PO (18:11)
[2017-10-20 20:36] LABS: BEDSIDE GLUCOSE 159 MG/DL (83-110)
[2017-10-20] MEDS: SIMVASTATIN 40 MG TAB PO (20:40)
[2017-10-20] MEDS: DOCUSATE SODIUM 100 MG CAP PO (20:41)
[2017-10-20] MEDS: LATANOPROST 0.005% OPHTH SOLN 2.5 ML OU (20:43)
[2017-10-20] MEDS: ACETAMINOPHEN 500 MG TAB PO (21:24)
[2017-10-21 05:04] LABS: HEMATOCRIT 31.4 % (36.0-47.0); HEMOGLOBIN 10.1 g/dl (12.0-16.0); MEAN CORPUSCULAR HEMOGLOBIN 27.7 pg (27.0-33.0); MEAN CORPUSCULAR HGB CONC 32.2 g/dl (32.0-36.5); MEAN CORPUSCULAR VOLUME 86.3 fl (80.0-96.0); PLATELET COUNT, AUTOMATED 242 10^3/uL (150-450); RED BLOOD COUNT 3.64 10^6/uL (4.00-5.40); RED CELL DISTRIBUTION WIDTH 15.2 % (11.5-14.5); WHITE BLOOD COUNT 5.9 10^3/uL (4.0-10.0)
[2017-10-21 05:18] LABS: PROTHROMBIN TIME 26.2 SECONDS (12.4-14.5)
[2017-10-21 05:38] LABS: ANION GAP 6 MEQ/L (8-16); BLOOD UREA NITROGEN 16 MG/DL (7-18); CALCIUM LEVEL 8.8 MG/DL (8.8-10.2); CARBON DIOXIDE LEVEL 26 MEQ/L (21-32); CHLORIDE LEVEL 110 MEQ/L (98-107); CREATININE FOR GFR 0.85 MG/DL (0.55-1.30); GLOMERULAR FILTRATION RATE > 60.0 (>32); GLUCOSE, FASTING 114 MG/DL (70-100); POTASSIUM SERUM 4.2 MEQ/L (3.5-5.1); SODIUM LEVEL 142 MEQ/L (136-145)
[2017-10-21] MEDS: OMEPRAZOLE 20 MG CAP PO (06:22)
[2017-10-21] MEDS: SLF 3 ML SYR IV ×2 (06:22→13:07)
[2017-10-21] MEDS: HumaLOG INSULIN (NovoLOG) PER UNIT SC ×2 (07:30→12:00)
[2017-10-21] MEDS: CLOTRIMAZOLE 1% TOPICAL CREAM 30GM TOP (09:00)
[2017-10-21] MEDS: MULTIVITAMINS/MINERALS THERAP 1 TAB PO (09:51)
[2017-10-21] MEDS: levETIRAcetam 250MG TABLET (KEPPRA) PO (09:51)
[2017-10-21] MEDS: VITAMIN D 1,000 INTERNATIONAL UNITS TABLET PO (09:52)
[2017-10-21] MEDS: CETIRIZINE (ZyrTEC) 10 MG TAB PO (09:52)
[2017-10-21] MEDS: GABAPENTIN 100 MG CAP PO ×2 (09:52→13:05)
[2017-10-21] MEDS: COLCHICINE 0.6 MG TAB PO (09:52)
[2017-10-21] MEDS: ALLOPURINOL 300 MG TAB PO (09:53)
[2017-10-21] MEDS: BACLOFEN 10 MG TAB PO (09:53)
[2017-10-21 12:22] LABS: BEDSIDE GLUCOSE 99 MG/DL (83-110)
== END 2017-10-21 15:53 | DRG 312 ==
LOC: M ED 22:02 → M ED INP 10-19 00:46 → M PCU 10-19 04:52
DX: I95.1 Orthostatic hypotension (principal); I50.32 Chronic diastolic (congestive) heart failure; E86.0 Dehydration; I48.0 Paroxysmal atrial fibrillation; I11.0 Hypertensive heart disease with heart failure; E11.42 Type 2 diabetes mellitus with diabetic polyneuropathy; G47.33 Obstructive sleep apnea (adult) (pediatric); E66.9 Obesity, unspecified; I87.2 Venous insufficiency (chronic) (peripheral); G40.909 Epilepsy, unspecified, not intractable, without status epilepticus; J45.909 Unspecified asthma, uncomplicated; M48.07 Spinal stenosis, lumbosacral region; M19.90 Unspecified osteoarthritis, unspecified site; Z86.73 Personal history of transient ischemic attack (TIA), and cerebral infarction without residual deficits; I35.0 Nonrheumatic aortic (valve) stenosis; Z85.820 Personal history of malignant melanoma of skin; M10.9 Gout, unspecified; Z96.653 Presence of artificial knee joint, bilateral; E02 Subclinical iodine-deficiency hypothyroidism; Z79.899 Other long term (current) drug therapy; Z88.2 Allergy status to sulfonamides; Z88.0 Allergy status to penicillin; Z91.040 Latex allergy status; Z88.5 Allergy status to narcotic agent; Z88.8 Allergy status to other drugs, medicaments and biological substances; S53.401A Unspecified sprain of right elbow, initial encounter; W22.09XA Striking against other stationary object, initial encounter; Y92.199 Unspecified place in other specified residential institution as the place of occurrence of the external cause

== ENCOUNTER → 2017-11-01 | Outpatient (CLI) | payer MEDICARE, MEDICAID | LOC: M RAD 09:49 | DX: I65.23 Occlusion and stenosis of bilateral carotid arteries (principal); Z53.8 Procedure and treatment not carried out for other reasons ==

== ENCOUNTER → 2017-11-10 | Outpatient (CLI) | payer MEDICARE, MEDICAID | LOC: M RAD 10:12 | DX: I65.23 Occlusion and stenosis of bilateral carotid arteries (principal) | CPT/HCPCS: 70547 ==

== ENCOUNTER → 2017-11-15 | Outpatient (REF) | payer MEDICARE, MEDICAID | LOC: M SFHCPLAZ 16:35 | DX: I48.0 Paroxysmal atrial fibrillation (principal) ==

== ENCOUNTER → 2017-11-29 | Outpatient (REF) | payer MEDICARE, MEDICAID ==
[2017-11-29 14:54] LABS: ANION GAP 9 MEQ/L (8-16); BLOOD UREA NITROGEN 42 MG/DL (7-18); CALCIUM LEVEL 9.2 MG/DL (8.8-10.2); CARBON DIOXIDE LEVEL 24 MEQ/L (21-32); CHLORIDE LEVEL 104 MEQ/L (98-107); CREATININE FOR GFR 1.19 MG/DL (0.55-1.30); GLOMERULAR FILTRATION RATE 45.8 (>32); GLUCOSE, FASTING 109 MG/DL (70-100); POTASSIUM SERUM 5.1 MEQ/L (3.5-5.1); SODIUM LEVEL 137 MEQ/L (136-145)
== END ==
LOC: M SFHCPLAZ 10:59
DX: I50.32 Chronic diastolic (congestive) heart failure (principal)
CPT/HCPCS: 80048

== ENCOUNTER → 2017-12-06 | Outpatient (REF) | payer MEDICARE, MEDICAID ==
[2017-12-06 09:37] LABS: INR 2.28
== END ==
DX: Z79.01 Long term (current) use of anticoagulants (principal); Z51.81 Encounter for therapeutic drug level monitoring
CPT/HCPCS: 85610

== ENCOUNTER → 2017-12-23 | Outpatient (REF) | payer MEDICARE, MEDICAID | LOC: M SFHCPLAZ 16:44 | DX: I50.32 Chronic diastolic (congestive) heart failure (principal); Z53.8 Procedure and treatment not carried out for other reasons ==

== ENCOUNTER → 2018-03-28 | Outpatient (REF) | payer MEDICARE, MEDICAID ==
[2018-03-30 14:17] LABS: LEVETIRACETAM (KEPPRA) 42.2 ug/mL (10.0-40.0)
== END ==
DX: R56.9 Unspecified convulsions (principal); Z51.81 Encounter for therapeutic drug level monitoring
CPT/HCPCS: 36415

== ENCOUNTER → 2018-04-04 | Outpatient (REF) | payer MEDICARE, MEDICAID ==
[2018-04-04 09:36] LABS: INR 2.15; PROTHROMBIN TIME 24.4 SECONDS (12.1-14.4)
== END ==
DX: Z51.81 Encounter for therapeutic drug level monitoring (principal); Z79.01 Long term (current) use of anticoagulants
CPT/HCPCS: 85610

== ENCOUNTER 2018-04-06 06:28 | Inpatient (IN) | payer MEDICARE, MEDICAID ==
[2018-04-06] MEDS: LIDOCAINE W/EPINEPHRINE 1% 20ML VIAL SC (07:53)
[2018-04-06] MEDS: NORCO, ANEXSIA 5/325MG TABLET (HYDROcodone/ACETAMINOPHEN) PO (07:53)
[2018-04-06] MEDS: SENOKOT S TAB PO ×2 (09:00→20:39)
[2018-04-06] MEDS: BACLOFEN 5MG PER 1/2 TABLET PO ×2 (09:00→20:37)
[2018-04-06] MEDS ORDERED: ONDANSETRON 4MG/2ML VIAL (J2405) IV (10:15)
[2018-04-06] MEDS: KETOROLAC 30 MG/ML VIAL (J1885) IV (10:15)
[2018-04-06] MEDS ORDERED: BISACODYL 5 MG TAB PO (10:15)
[2018-04-06 10:59] LABS: BASO % 0.4 % (0.0-1.0); EOS # 0.3 10^3/uL (0.0-0.50); HEMATOCRIT 37.4 % (36.0-47.0); HEMOGLOBIN 12.2 g/dl (12.0-15.5); IMMATURE GRANULOCYTE % 0.4 % (0-3.0); LYMPH # 1.9 10^3/uL (1.5-4.5); LYMPH % 22.4 % (24.0-44.0); MEAN CORPUSCULAR HEMOGLOBIN 29.3 pg (27.0-33.0); MEAN CORPUSCULAR HGB CONC 32.6 g/dl (32.0-36.5); MEAN CORPUSCULAR VOLUME 89.7 fl (80.0-96.0); MONO # 0.9 10^3/uL (0.0-0.8); MONO % 10.3 % (0.0-5.0); NEUTROPHILS # 5.2 10^3/uL (1.8-7.7); NEUTROPHILS % 62.5 % (36.0-66.0); PLATELET COUNT, AUTOMATED 288 10^3/uL (150-450); RED BLOOD COUNT 4.17 10^6/uL (4.00-5.40); RED CELL DISTRIBUTION WIDTH 14.7 % (11.5-14.5); WHITE BLOOD COUNT 8.3 10^3/uL (4.0-10.0)
[2018-04-06 11:21] LABS: ANION GAP 8 MEQ/L (8-16); BLOOD UREA NITROGEN 53 MG/DL (7-18); CALCIUM LEVEL 9.1 MG/DL (8.8-10.2); CARBON DIOXIDE LEVEL 26 MEQ/L (21-32); CHLORIDE LEVEL 104 MEQ/L (98-107); CREATININE FOR GFR 1.46 MG/DL (0.55-1.30); GLOMERULAR FILTRATION RATE 36.2 (>32); GLUCOSE, FASTING 144 MG/DL (70-100); POTASSIUM SERUM 4.2 MEQ/L (3.5-5.1); SODIUM LEVEL 138 MEQ/L (136-145)
[2018-04-06] MEDS ORDERED: PILL CRUSHER/CUTTER 1 EACH XX (12:15)
[2018-04-06] MEDS: glipiZIDE XL 5 MG TABCR PO (13:12)
[2018-04-06] MEDS: CETIRIZINE (ZyrTEC) 10 MG TAB PO (13:12)
[2018-04-06] MEDS: ALLOPURINOL 300 MG TAB PO (13:13)
[2018-04-06] MEDS: levETIRAcetam 250MG TABLET (KEPPRA) PO ×2 (13:14→20:38)
[2018-04-06] MEDS ORDERED: ALBUTEROL SULFATE 2.5 MG/0.5 ML INH NEB SOLN NEB (15:00)
[2018-04-06] MEDS ORDERED: ONDANSETRON 4 MG ORAL DISINTEGRATING TAB (Q0162 PER 1MG) PO (15:00)
[2018-04-06] MEDS: WARFARIN SOD 3 MG TAB PO (17:08)
[2018-04-06] MEDS: SIMVASTATIN 40 MG TAB PO (20:38)
[2018-04-06] MEDS: GABAPENTIN 100 MG CAP PO (20:38)
[2018-04-06] MEDS: LATANOPROST 0.005% OPHTH SOLN 2.5 ML OU (20:39)
[2018-04-06] MEDS: PERCOCET 5MG/325MG TAB PO (20:40)
[2018-04-06] MEDS ORDERED: KETOROLAC 30 MG/ML VIAL (J1885) IV (23:00)
[2018-04-07] MEDS: ACETAMINOPHEN 500 MG TAB PO ×2 (05:20→21:37)
[2018-04-07 07:08] LABS: BASO % 0.6 % (0.0-1.0); EOS # 0.4 10^3/uL (0.0-0.50); EOS % 6.1 % (0.0-3.0); HEMATOCRIT 33.5 % (36.0-47.0); IMMATURE GRANULOCYTE % 0.5 % (0-3.0); LYMPH # 1.5 10^3/uL (1.5-4.5); LYMPH % 24.1 % (24.0-44.0); MEAN CORPUSCULAR HEMOGLOBIN 29.3 pg (27.0-33.0); MEAN CORPUSCULAR HGB CONC 32.8 g/dl (32.0-36.5); MEAN CORPUSCULAR VOLUME 89.3 fl (80.0-96.0); MONO # 0.9 10^3/uL (0.0-0.8); MONO % 13.9 % (0.0-5.0); NEUTROPHILS # 3.5 10^3/uL (1.8-7.7); NEUTROPHILS % 54.8 % (36.0-66.0); PLATELET COUNT, AUTOMATED 251 10^3/uL (150-450); RED BLOOD COUNT 3.75 10^6/uL (4.00-5.40); RED CELL DISTRIBUTION WIDTH 14.8 % (11.5-14.5); WHITE BLOOD COUNT 6.4 10^3/uL (4.0-10.0)
[2018-04-07 07:21] LABS: INR 2.07; PROTHROMBIN TIME 23.7 SECONDS (12.1-14.4)
[2018-04-07 07:22] LABS: PARTIAL THROMBOPLASTIN TIME 48.2 SECONDS (25.4-37.6)
[2018-04-07 07:27] LABS: ANION GAP 7 MEQ/L (8-16); BLOOD UREA NITROGEN 42 MG/DL (7-18); CALCIUM LEVEL 8.8 MG/DL (8.8-10.2); CARBON DIOXIDE LEVEL 26 MEQ/L (21-32); CHLORIDE LEVEL 109 MEQ/L (98-107); CREATININE FOR GFR 1.13 MG/DL (0.55-1.30); GLOMERULAR FILTRATION RATE 48.6 (>32); GLUCOSE, FASTING 133 MG/DL (70-100); POTASSIUM SERUM 4.6 MEQ/L (3.5-5.1); SODIUM LEVEL 142 MEQ/L (136-145)
[2018-04-07] MEDS: CETIRIZINE (ZyrTEC) 10 MG TAB PO (08:56)
[2018-04-07] MEDS: BACLOFEN 5MG PER 1/2 TABLET PO ×2 (08:56→21:34)
[2018-04-07] MEDS: ALLOPURINOL 300 MG TAB PO (08:57)
[2018-04-07] MEDS: glipiZIDE XL 5 MG TABCR PO (08:57)
[2018-04-07] MEDS: OMEPRAZOLE 20 MG CAP PO (08:58)
[2018-04-07] MEDS: SENOKOT S TAB PO ×2 (08:58→21:35)
[2018-04-07] MEDS: levETIRAcetam 250MG TABLET (KEPPRA) PO ×2 (08:59→21:35)
[2018-04-07] MEDS: WARFARIN SOD 3 MG TAB PO (16:57)
[2018-04-07] MEDS: SIMVASTATIN 40 MG TAB PO (21:35)
[2018-04-07] MEDS: LATANOPROST 0.005% OPHTH SOLN 2.5 ML OU (21:35)
[2018-04-07] MEDS: GABAPENTIN 100 MG CAP PO (21:35)
[2018-04-08] MEDS: PERCOCET 5MG/325MG TAB PO ×2 (05:41→20:37)
[2018-04-08 08:47] LABS: BASO % 0.6 % (0.0-1.0); EOS # 0.5 10^3/uL (0.0-0.50); HEMATOCRIT 35.7 % (36.0-47.0); HEMOGLOBIN 11.9 g/dl (12.0-15.5); IMMATURE GRANULOCYTE % 0.3 % (0-3.0); LYMPH % 29.9 % (24.0-44.0); MEAN CORPUSCULAR HEMOGLOBIN 29.2 pg (27.0-33.0); MEAN CORPUSCULAR HGB CONC 33.3 g/dl (32.0-36.5); MEAN CORPUSCULAR VOLUME 87.5 fl (80.0-96.0); MONO % 14.7 % (0.0-5.0); NEUTROPHILS # 3.2 10^3/uL (1.8-7.7); NEUTROPHILS % 47.5 % (36.0-66.0); PLATELET COUNT, AUTOMATED 263 10^3/uL (150-450); RED BLOOD COUNT 4.08 10^6/uL (4.00-5.40); RED CELL DISTRIBUTION WIDTH 14.8 % (11.5-14.5); WHITE BLOOD COUNT 6.8 10^3/uL (4.0-10.0)
[2018-04-08 09:05] LABS: ANION GAP 10 MEQ/L (8-16); BLOOD UREA NITROGEN 35 MG/DL (7-18); CALCIUM LEVEL 9.2 MG/DL (8.8-10.2); CARBON DIOXIDE LEVEL 21 MEQ/L (21-32); CHLORIDE LEVEL 110 MEQ/L (98-107); CREATININE FOR GFR 0.94 MG/DL (0.55-1.30); GLOMERULAR FILTRATION RATE > 60.0 (>32); GLUCOSE, FASTING 106 MG/DL (70-100); SODIUM LEVEL 141 MEQ/L (136-145)
[2018-04-08] MEDS: SENOKOT S TAB PO ×2 (09:09→20:35)
[2018-04-08] MEDS: BACLOFEN 5MG PER 1/2 TABLET PO ×2 (09:10→20:35)
[2018-04-08] MEDS: CETIRIZINE (ZyrTEC) 10 MG TAB PO (09:10)
[2018-04-08] MEDS: glipiZIDE XL 5 MG TABCR PO (09:10)
[2018-04-08] MEDS: levETIRAcetam 250MG TABLET (KEPPRA) PO ×2 (09:10→20:35)
[2018-04-08] MEDS: ALLOPURINOL 300 MG TAB PO (09:10)
[2018-04-08] MEDS: OMEPRAZOLE 20 MG CAP PO (09:10)
[2018-04-08] MEDS: VITAMIN D 1,000 INTERNATIONAL UNITS TABLET PO (10:27)
[2018-04-08] MEDS: SPIRONOLACTONE 25 MG TAB PO (10:28)
[2018-04-08] MEDS: MULTIVITAMINS/MINERALS THERAP 1 TAB PO (10:28)
[2018-04-08] MEDS: TORSEMIDE 20 MG TAB PO ×2 (10:28→16:13)
[2018-04-08 11:50] LABS: BEDSIDE GLUCOSE 114 MG/DL (83-110)
[2018-04-08] MEDS: FIBER-CON 625 MG TAB PO ×2 (13:12→20:35)
[2018-04-08] MEDS: WARFARIN SOD 3 MG TAB PO (16:13)
[2018-04-08 17:00] LABS: BEDSIDE GLUCOSE 196 MG/DL (83-110)
[2018-04-08 19:47] LABS: BEDSIDE GLUCOSE 186 MG/DL (83-110)
[2018-04-08] MEDS: LATANOPROST 0.005% OPHTH SOLN 2.5 ML OU (20:34)
[2018-04-08] MEDS: GABAPENTIN 100 MG CAP PO (20:35)
[2018-04-08] MEDS: SIMVASTATIN 40 MG TAB PO (20:35)
[2018-04-09 06:31] LABS: ANION GAP 8 MEQ/L (8-16); BLOOD UREA NITROGEN 43 MG/DL (7-18); CARBON DIOXIDE LEVEL 25 MEQ/L (21-32); CHLORIDE LEVEL 106 MEQ/L (98-107); CREATININE FOR GFR 1.22 MG/DL (0.55-1.30); GLOMERULAR FILTRATION RATE 44.5 (>32); GLUCOSE, FASTING 120 MG/DL (70-100); SODIUM LEVEL 139 MEQ/L (136-145)
[2018-04-09 06:33] LABS: POTASSIUM SERUM 5.5 MEQ/L (3.5-5.1)
[2018-04-09 07:01] LABS: BASO # 0.1 10^3/uL (0.0-0.2); BASO % 0.7 % (0.0-1.0); EOS # 0.4 10^3/uL (0.0-0.50); EOS % 6.1 % (0.0-3.0); HEMATOCRIT 35.8 % (36.0-47.0); IMMATURE GRANULOCYTE % 0.3 % (0-3.0); LYMPH # 1.9 10^3/uL (1.5-4.5); MEAN CORPUSCULAR HEMOGLOBIN 29.2 pg (27.0-33.0); MEAN CORPUSCULAR HGB CONC 33.5 g/dl (32.0-36.5); MEAN CORPUSCULAR VOLUME 87.1 fl (80.0-96.0); MONO % 13.4 % (0.0-5.0); NEUTROPHILS # 3.7 10^3/uL (1.8-7.7); NEUTROPHILS % 52.5 % (36.0-66.0); PLATELET COUNT, AUTOMATED 261 10^3/uL (150-450); RED BLOOD COUNT 4.11 10^6/uL (4.00-5.40); RED CELL DISTRIBUTION WIDTH 14.8 % (11.5-14.5); WHITE BLOOD COUNT 7.1 10^3/uL (4.0-10.0)
[2018-04-09] MEDS: ACETAMINOPHEN 500 MG TAB PO (08:41)
[2018-04-09] MEDS: levETIRAcetam 250MG TABLET (KEPPRA) PO ×2 (08:42→21:08)
[2018-04-09] MEDS: CETIRIZINE (ZyrTEC) 10 MG TAB PO (08:42)
[2018-04-09] MEDS: SPIRONOLACTONE 25 MG TAB PO (08:42)
[2018-04-09] MEDS: VITAMIN D 1,000 INTERNATIONAL UNITS TABLET PO (08:42)
[2018-04-09] MEDS: glipiZIDE XL 5 MG TABCR PO (08:42)
[2018-04-09] MEDS: MULTIVITAMINS/MINERALS THERAP 1 TAB PO (08:43)
[2018-04-09] MEDS: BACLOFEN 5MG PER 1/2 TABLET PO ×2 (08:43→21:07)
[2018-04-09] MEDS: OMEPRAZOLE 20 MG CAP PO (08:43)
[2018-04-09] MEDS: ALLOPURINOL 300 MG TAB PO (08:43)
[2018-04-09] MEDS: FIBER-CON 625 MG TAB PO ×2 (08:43→21:07)
[2018-04-09] MEDS: SENOKOT S TAB PO ×2 (08:44→21:08)
[2018-04-09] MEDS: TORSEMIDE 20 MG TAB PO ×2 (08:44→16:25)
[2018-04-09 12:09] LABS: BEDSIDE GLUCOSE 98 MG/DL (83-110)
[2018-04-09] MEDS: WARFARIN SOD 3 MG TAB PO (16:25)
[2018-04-09] MEDS: LATANOPROST 0.005% OPHTH SOLN 2.5 ML OU (21:07)
[2018-04-09] MEDS: SIMVASTATIN 40 MG TAB PO (21:08)
[2018-04-09] MEDS: GABAPENTIN 100 MG CAP PO (21:08)
[2018-04-09] MEDS: PERCOCET 5MG/325MG TAB PO (21:09)
[2018-04-10 07:22] LABS: BASO # 0.1 10^3/uL (0.0-0.2); BASO % 0.7 % (0.0-1.0); EOS # 0.5 10^3/uL (0.0-0.50); EOS % 6.9 % (0.0-3.0); HEMATOCRIT 36.5 % (36.0-47.0); HEMOGLOBIN 12.2 g/dl (12.0-15.5); IMMATURE GRANULOCYTE % 0.1 % (0-3.0); LYMPH # 2.1 10^3/uL (1.5-4.5); LYMPH % 29.6 % (24.0-44.0); MEAN CORPUSCULAR HEMOGLOBIN 29.4 pg (27.0-33.0); MEAN CORPUSCULAR HGB CONC 33.4 g/dl (32.0-36.5); MONO % 14.3 % (0.0-5.0); NEUTROPHILS # 3.5 10^3/uL (1.8-7.7); NEUTROPHILS % 48.4 % (36.0-66.0); PLATELET COUNT, AUTOMATED 273 10^3/uL (150-450); RED BLOOD COUNT 4.15 10^6/uL (4.00-5.40); RED CELL DISTRIBUTION WIDTH 14.8 % (11.5-14.5); WHITE BLOOD COUNT 7.1 10^3/uL (4.0-10.0)
[2018-04-10 07:41] LABS: ANION GAP 9 MEQ/L (8-16); BLOOD UREA NITROGEN 54 MG/DL (7-18); CALCIUM LEVEL 9.3 MG/DL (8.8-10.2); CARBON DIOXIDE LEVEL 24 MEQ/L (21-32); CHLORIDE LEVEL 105 MEQ/L (98-107); CREATININE FOR GFR 1.46 MG/DL (0.55-1.30); GLOMERULAR FILTRATION RATE 36.2 (>32); GLUCOSE, FASTING 124 MG/DL (70-100); POTASSIUM SERUM 4.4 MEQ/L (3.5-5.1); SODIUM LEVEL 138 MEQ/L (136-145)
[2018-04-10] MEDS: CETIRIZINE (ZyrTEC) 10 MG TAB PO (09:51)
[2018-04-10] MEDS: TORSEMIDE 20 MG TAB PO (09:52)
[2018-04-10] MEDS: OMEPRAZOLE 20 MG CAP PO (09:52)
[2018-04-10] MEDS: MULTIVITAMINS/MINERALS THERAP 1 TAB PO (09:52)
[2018-04-10] MEDS: VITAMIN D 1,000 INTERNATIONAL UNITS TABLET PO (09:52)
[2018-04-10] MEDS: SPIRONOLACTONE 25 MG TAB PO (09:53)
[2018-04-10] MEDS: ALLOPURINOL 300 MG TAB PO (09:53)
[2018-04-10] MEDS: glipiZIDE XL 5 MG TABCR PO (09:53)
[2018-04-10] MEDS: levETIRAcetam 250MG TABLET (KEPPRA) PO (09:54)
[2018-04-10] MEDS: SENOKOT S TAB PO (09:54)
[2018-04-10] MEDS: BACLOFEN 5MG PER 1/2 TABLET PO (09:54)
[2018-04-10] MEDS: FIBER-CON 625 MG TAB PO (09:54)
== END 2018-04-10 10:35 | DRG 184 ==
LOC: M ED 06:28 → M ED INP 10:09 → M MS5PR 11:25
PROC: 0HQLXZZ Repair Left Lower Leg Skin, External Approach (ICD-10-PCS; principal; 2018-04-07)
DX: S22.42XA Multiple fractures of ribs, left side, initial encounter for closed fracture (principal); I50.32 Chronic diastolic (congestive) heart failure; N17.9 Acute kidney failure, unspecified; W22.8XXA Striking against or struck by other objects, initial encounter; Y92.092 Bedroom in other non-institutional residence as the place of occurrence of the external cause; S81.812A Laceration without foreign body, left lower leg, initial encounter; I48.0 Paroxysmal atrial fibrillation; I11.0 Hypertensive heart disease with heart failure; E11.42 Type 2 diabetes mellitus with diabetic polyneuropathy; E66.9 Obesity, unspecified; G47.33 Obstructive sleep apnea (adult) (pediatric); I87.2 Venous insufficiency (chronic) (peripheral); M48.061 Spinal stenosis, lumbar region without neurogenic claudication; K57.90 Diverticulosis of intestine, part unspecified, without perforation or abscess without bleeding; M19.90 Unspecified osteoarthritis, unspecified site; I35.0 Nonrheumatic aortic (valve) stenosis; G40.909 Epilepsy, unspecified, not intractable, without status epilepticus; M10.9 Gout, unspecified; M54.41 Lumbago with sciatica, right side; I27.20 Pulmonary hypertension, unspecified; I34.2 Nonrheumatic mitral (valve) stenosis; Z85.820 Personal history of malignant melanoma of skin; Z96.653 Presence of artificial knee joint, bilateral; Z98.41 Cataract extraction status, right eye; Z98.42 Cataract extraction status, left eye; Z90.49 Acquired absence of other specified parts of digestive tract; Z90.710 Acquired absence of both cervix and uterus; Z88.0 Allergy status to penicillin; Z88.5 Allergy status to narcotic agent; Z88.2 Allergy status to sulfonamides; Z91.040 Latex allergy status; Z88.8 Allergy status to other drugs, medicaments and biological substances; Z79.84 Long term (current) use of oral hypoglycemic drugs; Z79.01 Long term (current) use of anticoagulants; Z79.899 Other long term (current) drug therapy; Z86.73 Personal history of transient ischemic attack (TIA), and cerebral infarction without residual deficits; Z68.38 Body mass index [BMI] 38.0-38.9, adult

== ENCOUNTER 2018-04-14 19:12 | Emergency (ER) | payer MEDICARE, MEDICAID ==
[2018-04-14 21:32] LABS: INR 2.56; PROTHROMBIN TIME 28.1 SECONDS (12.1-14.4)
[2018-04-14 21:42] LABS: ALBUMIN 3.4 GM/DL (3.2-5.2); ALBUMIN/GLOBULIN RATIO 0.97 (1.00-1.93); ALKALINE PHOSPHATASE 102 U/L (45-117); ALT/SGPT 24 U/L (12-78); ANION GAP 9 MEQ/L (8-16); AST/SGOT 38 U/L (7-37); BILIRUBIN,TOTAL 0.4 MG/DL (0.2-1.0); BLOOD UREA NITROGEN 70 MG/DL (7-18); C REACTIVE PROTEIN QUANTITATIV 0.85 MG/DL (0.00-0.30); CALCIUM LEVEL 9.4 MG/DL (8.8-10.2); CARBON DIOXIDE LEVEL 24 MEQ/L (21-32); CHLORIDE LEVEL 99 MEQ/L (98-107); CREATININE FOR GFR 1.56 MG/DL (0.55-1.30); GLOMERULAR FILTRATION RATE 33.5 (>32); GLUCOSE, FASTING 114 MG/DL (70-100); HEMATOCRIT 32.7 % (36.0-47.0); HEMOGLOBIN 11.2 g/dl (12.0-15.5); MAGNESIUM LEVEL 2.7 MG/DL (1.8-2.4); MEAN CORPUSCULAR HEMOGLOBIN 29.2 pg (27.0-33.0); MEAN CORPUSCULAR HGB CONC 34.3 g/dl (32.0-36.5); MEAN CORPUSCULAR VOLUME 85.4 fl (80.0-96.0); PLATELET COUNT, AUTOMATED 261 10^3/uL (150-450); RED BLOOD COUNT 3.83 10^6/uL (4.00-5.40); RED CELL DISTRIBUTION WIDTH 14.3 % (11.5-14.5); SODIUM LEVEL 132 MEQ/L (136-145); TOTAL PROTEIN 6.9 GM/DL (6.4-8.2); WHITE BLOOD COUNT 7.5 10^3/uL (4.0-10.0)
[2018-04-14 21:43] LABS: POTASSIUM SERUM 5.5 MEQ/L (3.5-5.1)
[2018-04-14] MEDS: CLINDAMYCIN 150 MG CAP PO (22:00)
[2018-04-14 22:01] LABS: ERYTHROCYTE SEDIMENTATION RATE 63 mm/hr (0-42)
== END 2018-04-14 22:57 | disposition home or self-care (01) ==
LOC: M ED 19:12
DX: L03.116 Cellulitis of left lower limb (principal); I48.91 Unspecified atrial fibrillation; I25.10 Atherosclerotic heart disease of native coronary artery without angina pectoris; I50.9 Heart failure, unspecified; I10 Essential (primary) hypertension; E11.9 Type 2 diabetes mellitus without complications; G47.33 Obstructive sleep apnea (adult) (pediatric)
CPT/HCPCS: 76882

== ENCOUNTER → 2018-04-17 | Outpatient (REF) | payer MEDICARE, MEDICAID ==
[2018-04-17 19:21] LABS: ANION GAP 9 MEQ/L (8-16); BLOOD UREA NITROGEN 39 MG/DL (7-18); CALCIUM LEVEL 9.6 MG/DL (8.8-10.2); CARBON DIOXIDE LEVEL 26 MEQ/L (21-32); CHLORIDE LEVEL 104 MEQ/L (98-107); CREATININE FOR GFR 1.18 MG/DL (0.55-1.30); GLOMERULAR FILTRATION RATE 46.2 (>32); GLUCOSE, FASTING 98 MG/DL (70-100); POTASSIUM SERUM 5.1 MEQ/L (3.5-5.1); SODIUM LEVEL 139 MEQ/L (136-145)
== END ==
LOC: M SFHCPLAZ 15:50
DX: N17.9 Acute kidney failure, unspecified (principal)
CPT/HCPCS: 80048

== ENCOUNTER → 2018-04-25 | Outpatient (REF) | payer MEDICARE, MEDICAID ==
[2018-04-25 11:24] LABS: ANION GAP 8 MEQ/L (8-16); BLOOD UREA NITROGEN 18 MG/DL (7-18); CALCIUM LEVEL 9.7 MG/DL (8.8-10.2); CARBON DIOXIDE LEVEL 24 MEQ/L (21-32); CHLORIDE LEVEL 109 MEQ/L (98-107); CREATININE FOR GFR 0.88 MG/DL (0.55-1.30); GLOMERULAR FILTRATION RATE > 60.0 (>32); GLUCOSE, FASTING 107 MG/DL (70-100); POTASSIUM SERUM 4.4 MEQ/L (3.5-5.1); SODIUM LEVEL 141 MEQ/L (136-145)
== END ==
DX: N17.9 Acute kidney failure, unspecified (principal)
CPT/HCPCS: 80048

== ENCOUNTER → 2018-05-12 | Outpatient (CLI) | payer MEDICARE, MEDICAID ==
[2018-05-12 13:55] LABS: INR 1.64; PROTHROMBIN TIME 19.7 SECONDS (12.1-14.4)
== END ==
LOC: M SMT 11:42
DX: Z79.01 Long term (current) use of anticoagulants (principal)
CPT/HCPCS: 85610

== ENCOUNTER → 2018-05-31 | Outpatient (REF) | payer MEDICARE, MEDICAID ==
[2018-05-31 13:55] LABS: ANION GAP 8 MEQ/L (8-16); BLOOD UREA NITROGEN 25 MG/DL (7-18); CALCIUM LEVEL 9.4 MG/DL (8.8-10.2); CARBON DIOXIDE LEVEL 30 MEQ/L (21-32); CHLORIDE LEVEL 103 MEQ/L (98-107); CREATININE FOR GFR 1.09 MG/DL (0.55-1.30); GLOMERULAR FILTRATION RATE 50.5 (>32); GLUCOSE, FASTING 74 MG/DL (70-100); POTASSIUM SERUM 4.1 MEQ/L (3.5-5.1); SODIUM LEVEL 141 MEQ/L (136-145)
== END ==
LOC: M SFHCPLAZ 11:07
DX: I50.32 Chronic diastolic (congestive) heart failure (principal)
CPT/HCPCS: 80048

== ENCOUNTER → 2018-06-07 | Outpatient (REF) | payer MEDICARE, MEDICAID ==
[2018-06-07 09:42] LABS: INR 2.96; PROTHROMBIN TIME 31.5 SECONDS (12.1-14.4)
[2018-06-07 10:00] LABS: ANION GAP 11 MEQ/L (8-16); BLOOD UREA NITROGEN 25 MG/DL (7-18); CALCIUM LEVEL 9.6 MG/DL (8.8-10.2); CARBON DIOXIDE LEVEL 26 MEQ/L (21-32); CHLORIDE LEVEL 105 MEQ/L (98-107); CREATININE FOR GFR 1.12 MG/DL (0.55-1.30); GLUCOSE, FASTING 131 MG/DL (70-100); POTASSIUM SERUM 4.4 MEQ/L (3.5-5.1); SODIUM LEVEL 142 MEQ/L (136-145)
== END ==
DX: I48.91 Unspecified atrial fibrillation (principal); Z79.899 Other long term (current) drug therapy
CPT/HCPCS: 80048

== ENCOUNTER → 2018-06-16 | Outpatient (REF) | payer MEDICARE, MEDICAID | LOC: M SFHCPLAZ 11:46 | DX: Z53.8 Procedure and treatment not carried out for other reasons (principal) ==

== ENCOUNTER → 2018-06-21 | Outpatient (REF) | payer MEDICARE, MEDICAID ==
[2018-06-21 10:26] LABS: INR 2.59; PROTHROMBIN TIME 28.3 SECONDS (12.1-14.4)
== END ==
DX: Z51.81 Encounter for therapeutic drug level monitoring (principal); Z79.899 Other long term (current) drug therapy
CPT/HCPCS: 85610

== ENCOUNTER → 2018-06-28 | Outpatient (REF) | payer MEDICARE, MEDICAID ==
[2018-07-02 08:46] LABS: LEVETIRACETAM (KEPPRA) 35.9 ug/mL (10.0-40.0)
== END ==
DX: R56.9 Unspecified convulsions (principal)
CPT/HCPCS: 80180

== ENCOUNTER → 2018-07-18 | Outpatient (REF) | payer MEDICARE, MEDICAID ==
[2018-07-18 09:51] LABS: INR 2.63; PROTHROMBIN TIME 28.7 SECONDS (12.1-14.4)
== END ==
DX: Z79.01 Long term (current) use of anticoagulants (principal)
CPT/HCPCS: 85610

== ENCOUNTER 2018-07-24 20:33 | Emergency (ER) | payer MEDICARE, MEDICAID ==
[2018-07-24] MEDS: ACETAMINOPHEN TAB 650MG DOSE (2X325MG) PO (22:30)
[2018-07-24 23:18] LABS: BASO # 0.1 10^3/uL (0.0-0.2); BASO % 0.8 % (0.0-1.0); EOS # 0.4 10^3/uL (0.0-0.50); EOS % 5.5 % (0.0-3.0); HEMATOCRIT 35.5 % (36.0-47.0); HEMOGLOBIN 11.6 g/dl (12.0-15.5); IMMATURE GRANULOCYTE % 0.3 % (0-3.0); LYMPH # 2.3 10^3/uL (1.5-4.5); LYMPH % 31.3 % (24.0-44.0); MEAN CORPUSCULAR HEMOGLOBIN 29.1 pg (27.0-33.0); MEAN CORPUSCULAR HGB CONC 32.7 g/dl (32.0-36.5); MEAN CORPUSCULAR VOLUME 89.2 fl (80.0-96.0); MONO # 1.1 10^3/uL (0.0-0.8); MONO % 15.6 % (0.0-5.0); NEUTROPHILS # 3.4 10^3/uL (1.8-7.7); NEUTROPHILS % 46.5 % (36.0-66.0); PLATELET COUNT, AUTOMATED 277 10^3/uL (150-450); RED BLOOD COUNT 3.98 10^6/uL (4.00-5.40); RED CELL DISTRIBUTION WIDTH 13.5 % (11.5-14.5); WHITE BLOOD COUNT 7.3 10^3/uL (4.0-10.0)
[2018-07-24 23:31] LABS: INR 2.36; PROTHROMBIN TIME 26.3 SECONDS (12.1-14.4)
[2018-07-24 23:32] LABS: PARTIAL THROMBOPLASTIN TIME 33.2 SECONDS (25.4-37.6)
[2018-07-24 23:38] LABS: ANION GAP 7 MEQ/L (8-16); BLOOD UREA NITROGEN 30 MG/DL (7-18); CALCIUM LEVEL 9.3 MG/DL (8.8-10.2); CARBON DIOXIDE LEVEL 28 MEQ/L (21-32); CHLORIDE LEVEL 106 MEQ/L (98-107); CREATININE FOR GFR 1.16 MG/DL (0.55-1.30); GLUCOSE, FASTING 109 MG/DL (70-100); POTASSIUM SERUM 4.5 MEQ/L (3.5-5.1); SODIUM LEVEL 141 MEQ/L (136-145)
== END 2018-07-25 01:57 | disposition home or self-care (01) ==
LOC: M ED 07-25 01:57
DX: S50.312A Abrasion of left elbow, initial encounter (principal); S80.00XA Contusion of unspecified knee, initial encounter; W18.39XA Other fall on same level, initial encounter; Y92.121 Bathroom in nursing home as the place of occurrence of the external cause; E11.9 Type 2 diabetes mellitus without complications; I11.0 Hypertensive heart disease with heart failure; I50.9 Heart failure, unspecified; J45.909 Unspecified asthma, uncomplicated; I48.91 Unspecified atrial fibrillation; G62.9 Polyneuropathy, unspecified; G40.909 Epilepsy, unspecified, not intractable, without status epilepticus; I27.20 Pulmonary hypertension, unspecified; G47.33 Obstructive sleep apnea (adult) (pediatric); E78.5 Hyperlipidemia, unspecified; Z79.899 Other long term (current) drug therapy; Z79.01 Long term (current) use of anticoagulants; Z88.0 Allergy status to penicillin; Z88.2 Allergy status to sulfonamides; Z88.5 Allergy status to narcotic agent; Z91.040 Latex allergy status
CPT/HCPCS: 73080

== ENCOUNTER 2018-08-27 17:19 | Emergency (ER) | payer MEDICARE, MEDICAID ==
[~2018-08-27 17:19] MED LIST changes: -ALL10TAB27 PO; +ALL10TAB28 PO; +BENG1CRE TOP; +BISAC5TA PO; +CEFD300CAP PO; +CLEO300C2 PO; +CLOT1CRE EXT; +COLC1TAB13 PO; +CYCL5TAB PO; -DOXY-278 PO; +DOXY-350 PO; +DOXY100T PO; +FIBE625T PO; +GABA-1171 PO; -GABA-279 PO; -GABA-283 PO; +GABA-845 PO; -IBAN150T5 PO; +IBAN150T6 PO; +KLOR10TA76 PO; -LASI40TA PO; +LASI40TA9 PO; +LATA5OPD OU; +METRCRM TOP; +NITR0.4S14 SL; +PERC5TAB12 PO; +PERCOCET PO; -POTA10CA PO; +SENN8.6T7 PO; +SPIR-10 PO; -SPIR25TA2 PO; +TORS10TA3 PO; +TRIA0.5O EXT; +TRIA0.5O TOP; +XALA0.007 OU; +ZYLO300T6 PO
[2018-08-27] MEDS ORDERED: VITMTA PO (17:52)
[2018-08-27 18:43] LABS: BASO % 0.1 % (0.0-1.0); HEMATOCRIT 36.9 % (36.0-47.0); HEMOGLOBIN 12.4 g/dl (12.0-15.5); LYMPH # 1.7 10^3/uL (1.5-4.5); LYMPH % 8.6 % (24.0-44.0); MEAN CORPUSCULAR HEMOGLOBIN 29.4 pg (27.0-33.0); MEAN CORPUSCULAR HGB CONC 33.6 g/dl (32.0-36.5); MEAN CORPUSCULAR VOLUME 87.4 fl (80.0-96.0); MONO % 11.5 % (0.0-5.0); NEUTROPHILS # 15.9 10^3/uL (1.8-7.7); NEUTROPHILS % 79.3 % (36.0-66.0); PLATELET COUNT, AUTOMATED 297 10^3/uL (150-450); RED BLOOD COUNT 4.22 10^6/uL (4.00-5.40); WHITE BLOOD COUNT 20.1 10^3/uL (4.0-10.0)
[2018-08-27 19:04] LABS: MONO # 2.3 10^3/uL (0.0-0.8)
[2018-08-27 19:13] LABS: ALBUMIN 3.2 GM/DL (3.2-5.2); ALT/SGPT 21 U/L (12-78); BILIRUBIN,DIRECT < 0.1 MG/DL (0.0-0.2); BILIRUBIN,TOTAL 0.4 MG/DL (0.2-1.0); BLOOD UREA NITROGEN 27 MG/DL (7-18); CALCIUM LEVEL 9.1 MG/DL (8.8-10.2); CARBON DIOXIDE LEVEL 25 MEQ/L (21-32); CHLORIDE LEVEL 102 MEQ/L (98-107); CPK CREATINE PHOSPHOKINASE 126 U/L (26-192); CREATININE FOR GFR 1.22 MG/DL (0.55-1.30); GLOMERULAR FILTRATION RATE 44.4 (>32); GLUCOSE, FASTING 144 MG/DL (70-100); MB/CK RELATIVE INDEX 1.03 (< OR =4); POTASSIUM SERUM 4.7 MEQ/L (3.5-5.1); SODIUM LEVEL 135 MEQ/L (136-145); TOTAL PROTEIN 6.7 GM/DL (6.4-8.2); TROPONIN I 0.02 NG/ML (< 0.10)
[2018-08-27 19:14] LABS: INFLUENZA A AMPLIFICATION NEGATIVE (NEGATIVE); INFLUENZA B AMPLIFICATION NEGATIVE (NEGATIVE)
[2018-08-27] MEDS ORDERED: NS 1,000 ML IV SCH (19:15)
[2018-08-27] MEDS ORDERED: IPRATROPIUM 0.5MG/ALBUTEROL 2.5MG INH SOL UD 3ML (DUONEB)(J7620) NEB PRN (19:15)
--- NOTE | 2018-08-27 19:27 | REP ---
Chest one-view HISTORY: Cough Comparison: 04/06/2018 The lungs are clear. The heart is normal in size. The pulmonary vasculature is normal in appearance. Impression: No acute disease. Electronically Signed by Jim Alexandre MD 08/27/2018 07:18 P
[2018-08-27] MEDS ORDERED: AVEL1TAB3 PO (19:53)
[2018-08-27] MEDS ORDERED: MOXIFLOXACIN HCL 400 MG in APPROPRIATE DILUENT 1 EA IV ONE (20:00)
[2018-08-27 21:50] VITALS: BP 101/54
--- NOTE | 2018-08-28 13:44 | ECGEPIP ---
Stationary ECG Study [facility] - ED Test Date: 2018-08-27 Pat Name: LOUISA ALATORRE Department: Room: - Gender: F [employer]: marcie : [id number] Requested By: HEIDI Andrade Order Number: [id number] Reading MD: Lu Walls Measurements Intervals [place] Rate: 82 P: 23 ID: [id number] QRS: 1 QRSD: 102 T: 66 QT: 387 QTc: 452 Interpretive Statements SINUS RHYTHM IVCD NSTTW ABNORMALITY Electronically Signed On 08-28-2018 13:44:11 EST by Lu Walls
== END 2018-08-27 22:05 | disposition home or self-care (01) ==
LOC: EDBD 17:19 → M ED 17:19
DX: J18.9 Pneumonia, unspecified organism (principal); I10 Essential (primary) hypertension; J45.909 Unspecified asthma, uncomplicated; M10.9 Gout, unspecified; I48.91 Unspecified atrial fibrillation; G47.33 Obstructive sleep apnea (adult) (pediatric); Z79.899 Other long term (current) drug therapy; Z79.01 Long term (current) use of anticoagulants; Z88.0 Allergy status to penicillin; Z88.2 Allergy status to sulfonamides; Z88.5 Allergy status to narcotic agent; Z88.8 Allergy status to other drugs, medicaments and biological substances; Z91.040 Latex allergy status
CPT/HCPCS: 71045; 80048; 80076; 82550; 82553; 83605; 84443; 84484; 85025; 87040; 87502; 93005; 93041; 94640; 94760; 96361; 96365; 99285; J2280

== ENCOUNTER → 2018-09-08 | Outpatient (REF) | payer MEDICARE, MEDICAID ==
[~2018-09-08] MED LIST changes: +AVEL1TAB3 PO
== END ==
LOC: M SFHCPLAZ 14:03
PROVIDERS: ATTEND Internal Medicine Pulmonary Disease
DX: I48.0 Paroxysmal atrial fibrillation (principal); Z53.8 Procedure and treatment not carried out for other reasons

== ENCOUNTER → 2018-09-19 | Outpatient (REF) | payer MEDICARE, MEDICAID ==
[2018-09-19 09:46] LABS: INR 2.66; PROTHROMBIN TIME 28.9 SECONDS (12.1-14.4)
== END ==
PROVIDERS: ATTEND Pediatrics
DX: Z79.01 Long term (current) use of anticoagulants (principal)

== ENCOUNTER → 2018-09-26 | Outpatient (REF) | payer MEDICARE, MEDICAID ==
[~2018-09-26] MED LIST changes: -/ADVA50050 INH; -/AMLO25TA PO; -/LEVE75TA PO; -/NITR4TASL SL; -/SYST15OP OD; -/WARF25TA PO; +ADVA1AER2 INH; +COUM1TAB18 PO; -ENOX40SY SC; +LATA0.0013 OU; -LATA5OPD OU; +LOVE1INJ SC; +NORV2TAB PO; +NYST-15 TOP; -NYST10PW TOP; -SENN1TAB2 PO; +SENN1TAB40 PO; +SENN1TAB41 PO; -SENN8.6T7 PO; +SYST1SOL OD
[2018-09-26 10:28] LABS: INR 2.2; PROTHROMBIN TIME 24.9 SECONDS (12.1-14.4)
== END ==
PROVIDERS: ATTEND Family Medicine
DX: Z51.81 Encounter for therapeutic drug level monitoring (principal); Z79.01 Long term (current) use of anticoagulants

== ENCOUNTER → 2018-10-03 | Outpatient (REF) | payer MEDICARE, MEDICAID ==
[2018-10-03 10:06] LABS: INR 2.2; PROTHROMBIN TIME 24.8 SECONDS (12.1-14.4)
== END ==
PROVIDERS: ATTEND Family Medicine
DX: Z51.81 Encounter for therapeutic drug level monitoring (principal); Z79.01 Long term (current) use of anticoagulants

== ENCOUNTER → 2018-10-09 | Outpatient (CLI) | payer MEDICARE, MEDICAID ==
[~2018-10-09] MED LIST changes: +/ADVA50050 INH; +/AMLO25TA PO; +/LEVE75TA PO; +/NITR4TASL SL; +/SYST15OP OD; +/WARF25TA PO; -ADVA1AER2 INH; -COUM1TAB18 PO; +ENOX40SY SC; -LATA0.0013 OU; +LATA5OPD OU; -LOVE1INJ SC; -NORV2TAB PO; -NYST-15 TOP; +NYST10PW TOP; +SENN1TAB2 PO; -SENN1TAB40 PO; -SENN1TAB41 PO; +SENN8.6T7 PO; -SYST1SOL OD
--- NOTE | 2018-10-09 10:34 | REP ---
RIGHT KNEE, FOUR VIEWS: HISTORY: Pain. The patient is status post right total knee replacement. There is no acute fracture or dislocation. Calcifications are present lateral to the joint space. This represents ligamentous or tendon calcification. The bony structure is osteopenic . IMPRESSION: The patient is status post right total knee replacement. Electronically Signed by Jim Alexandre MD 10/09/2018 10:44 A
== END ==
LOC: M SMT 09:55
PROVIDERS: ATTEND Family Medicine
DX: M85.88 Other specified disorders of bone density and structure, other site (principal); M25.561 Pain in right knee; Z96.651 Presence of right artificial knee joint

== ENCOUNTER → 2018-10-19 | Outpatient (CLI) | payer MEDICARE, MEDICAID ==
--- NOTE | 2018-10-19 12:16 | REP ---
Clinical: Left knee pain. Technique: AP, lateral, bilateral oblique views of the left knee. Comparison: 07/24/2018. Findings: Evidence of prior arthroplasty in satisfactory stable position. The osseous structures are intact and normal for age. No effusion. Innumerable chronic stable calcifications are identified in the superficial soft tissues overlying the distal quadriceps unchanged from prior examination. Impression: Knee replacement in satisfactory stable position. Osseous structures and surrounding soft tissues unchanged at No obvious acute process. Electronically Signed by Quintin Paz MD 10/19/2018 12:08 P
== END ==
LOC: M SMT 11:40
PROVIDERS: ATTEND Family Medicine
DX: M25.562 Pain in left knee (principal); Z96.652 Presence of left artificial knee joint

== ENCOUNTER → 2018-11-01 | Outpatient (REF) | payer MEDICARE, MEDICAID ==
[2018-11-01 10:21] LABS: CALCIUM LEVEL 10.2 MG/DL (8.8-10.2); GLOMERULAR FILTRATION RATE 55.8 (>32); POTASSIUM SERUM 4.6 MEQ/L (3.5-5.1)
== END ==
PROVIDERS: ATTEND Family Medicine
DX: I50.33 Acute on chronic diastolic (congestive) heart failure (principal)

== ENCOUNTER → 2018-11-30 | Outpatient (CLI) | payer MEDICARE, MEDICAID ==
[~2018-11-30] MED LIST changes: -/ADVA50050 INH; -/AMLO25TA PO; -/LEVE75TA PO; -/NITR4TASL SL; -/SYST15OP OD; -/WARF25TA PO; +ADVA1AER2 INH; +COUM1TAB18 PO; -ENOX40SY SC; +LATA0.0013 OU; -LATA5OPD OU; +LOVE1INJ SC; +NORV2TAB PO; +NYST-15 TOP; -NYST10PW TOP; -SENN1TAB2 PO; +SENN1TAB40 PO; +SENN1TAB41 PO; -SENN8.6T7 PO; +SYST1SOL OD
--- NOTE | 2018-11-30 13:14 | REP ---
Right shoulder three views: Comparison is 08/06/2016. There is demineralization. There is no fracture or dislocation. There are no calcifications. The acromioclavicular glenohumeral articulations are unremarkable. There is thoracic spine scoliosis convex right. Impression: Demineralization. Scoliosis. Otherwise, negative right shoulder. Electronically Signed by Trace Page MD 11/30/2018 01:05 P
== END ==
LOC: M SMT 11:16
PROVIDERS: ATTEND Family Medicine
DX: M25.511 Pain in right shoulder (principal); M41.34 Thoracogenic scoliosis, thoracic region

== ENCOUNTER → 2018-12-01 | Outpatient (REF) | payer MEDICARE, MEDICAID ==
[2018-12-01 18:06] LABS: APPEARANCE, URINE CLEAR (CLEAR); BACTERIA, URINE AUTO NEGATIVE (NEGATIVE); BILIRUBIN, URINE AUTO NEGATIVE (NEGATIVE); BLOOD, URINE BLOOD NEGATIVE (NEGATIVE); COLOR, URINE STRAW (YELLOW); GLUCOSE, URINE (UA) AUTO NEGATIVE (NEGATIVE); KETONE, URINE AUTO NEGATIVE (NEGATIVE); LEUKOCYTE ESTERASE, URINE AUTO 1+ (NEGATIVE); NITRITE, URINE AUTO NEGATIVE (NEGATIVE); PROTEIN, URINE AUTO NEGATIVE (NEGATIVE); RBC, URINE AUTO 0 /HPF (0-3); SPECIFIC GRAVITY URINE AUTO 1.009 (1.002-1.035); SQUAMOUS EPITHELIAL CELL UR AU 0 /HPF (0-6); UROBILINOGEN, URINE AUTO 0.2 mg/dL (0.0-2.0); WBC, URINE AUTO 2 /HPF (0-3)
== END ==
LOC: M SFHCPLAZ 17:26
PROVIDERS: ATTEND Family Medicine
DX: R30.0 Dysuria (principal)

== ENCOUNTER → 2019-01-04 | Outpatient (CLI) | payer MEDICARE, MEDICAID ==
--- NOTE | 2019-01-04 17:01 | REP ---
MRI right shoulder without contrast: History: Pain in the right shoulder. Comparison radiographs November 30, 2018. Technique: Axial, oblique coronal and oblique sagittal imaging planes are utilized. T1 and T2-weighted scans were obtained with and without fat saturation. MRI findings: Glenohumeral and acromioclavicular joints are normally aligned. There is moderate AC joint hypertrophy, fluid, and mild marrow edema. There is inferolateral spurring of the acromion process. There is a small quantity of subacromial subdeltoid bursal effusion. There is subcortical cyst formation in the proximal humeral head. There is a retracted full-thickness supraspinatus cuff tear with some narrowing of the subacromial space. The infraspinatus and subscapularis tendons appear intact. Biceps tendon is in the bony bicipital groove and appears to be intact. No anterior or posterior labral tear is seen. Superior labrum is heterogeneous and shows increased signal intensity consistent with degeneration. No juxta-articular cyst is seen. There is marrow edema and adjacent edema along the mid scapular spine and posterosuperior scapular border. This is of uncertain significance. No bony destructive lesion is seen. A stress injury or stress fracture could have this appearance. The oblique sagittal images suggest bony hypertrophy consistent with a healing stress fracture or conceivably healing fracture. Impression: 1. Osteoarthritis of the AC joint. 2. Rotator cuff tear with some retraction. 3. Findings consistent with a healing stress fracture of the scapular spine at its junction with the scapular body. CT scanning would provide better bone detail if desired. Electronically Signed by Gennaro Monson MD 01/04/2019 08:25 P
== END ==
LOC: M RAD 14:03
PROVIDERS: ATTEND Orthopaedic Surgery Sports Medicine
DX: M19.011 Primary osteoarthritis, right shoulder (principal); M75.101 Unspecified rotator cuff tear or rupture of right shoulder, not specified as traumatic

== ENCOUNTER → 2019-01-23 | Outpatient (REF) | payer MEDICARE, MEDICAID ==
[~2019-01-23] MED LIST changes: +ACET-683 PO; +ACET-908 PO; +ACET500T15 PO; -ALL10TAB28 PO; +ALL10TAB29 PO; +APAP500T10 PO; +ASPE4PAD TOP; +BISA10SU PR; +BISA10SU20 PR; +CHOL100029 PO; +CLIN150C14 PO; +COLA100C5 PO; +COUM1TAB14 PO; +COUM1TAB19 PO; +CYMB1CAP5 PO; +GLIP5TAB20 PO; +HYDR1LOT9 TOP; +KEPP250T5 PO; +LIDO5TD TD; +MOM30SS PO; +MUCI600T31 PO; +MUSCCRE9 TOP; +NITR4TASL SL; +OMEP-358 PO; +OMEP1CAP73 PO; -OMEP20TA PO; +PANT-23 PO; +PANT40TA3 PO; +PRED25TA PO; +Patient Own Medication OU; +SENN-53 PO; +SENN18TA PO; -SENN1TAB40 PO; +SIMV40TA20 PO; +SYST0.6S OU; +SYST1SOL4 OU; +XARE20TA PO
[2019-01-23 09:42] LABS: INR 2.36; PROTHROMBIN TIME 26.3 SECONDS (12.1-14.4)
== END ==
PROVIDERS: ATTEND Family Medicine
DX: I48.91 Unspecified atrial fibrillation (principal); Z79.01 Long term (current) use of anticoagulants

== ENCOUNTER 2019-01-28 10:38 | Inpatient (IN) | payer MEDICARE, MEDICAID ==
[~2019-01-28] VITALS: Ht 137.2 cm; Wt 73.2 kg
[~2019-01-28 10:38] MED LIST changes: -ACET-683 PO; -ACET-908 PO; -ACET500T15 PO; +ALL10TAB28 PO; -ALL10TAB29 PO; -APAP500T10 PO; -ASPE4PAD TOP; -BISA10SU PR; -BISA10SU20 PR; -CHOL100029 PO; -CLIN150C14 PO; -COLA100C5 PO; -COUM1TAB14 PO; -COUM1TAB19 PO; -CYMB1CAP5 PO; -GLIP5TAB20 PO; -HYDR1LOT9 TOP; -KEPP250T5 PO; -LIDO5TD TD; -MOM30SS PO; -MUCI600T31 PO; -MUSCCRE9 TOP; -NITR4TASL SL; -OMEP-358 PO; -OMEP1CAP73 PO; +OMEP20TA PO; -PANT-23 PO; -PANT40TA3 PO; -PRED25TA PO; -Patient Own Medication OU; -SENN-53 PO; -SENN18TA PO; +SENN1TAB40 PO; -SIMV40TA20 PO; -SYST0.6S OU; -SYST1SOL4 OU; -XARE20TA PO
--- NOTE | 2019-01-28 11:15 | REP ---
CT Head without contrast HISTORY: Trauma COMPARISON: 08/21/2018 Areas of decreased attenuation are present in the periventricular and subcortical white matter. This represents small-vessel ischemic disease. There is no intraparenchymal hemorrhage, acute infarct, mass or midline shift. The ventricular system and cortical sulci as well as subarachnoid space in the posterior fossa are dilated consistent with moderate volume loss. There is no extra cerebral collection. There is no fracture. The visualized sinuses are clear. IMPRESSION: 1. Small vessel ischemic disease. 2. Moderate volume loss. Electronically Signed by Jim Alexandre MD 01/28/2019 11:07 A
[2019-01-28] MEDS ORDERED: MUCI600T31 PO (11:23)
[2019-01-28] MEDS ORDERED: WARF-20 PO (11:23)
[2019-01-28] MEDS ORDERED: ACET500T15 PO (11:23)
[2019-01-28] MEDS ORDERED: APAP500T10 PO (11:23)
[2019-01-28] MEDS ORDERED: HYDR1LOT9 TOP (11:23)
--- NOTE | 2019-01-28 11:24 | REP ---
CT cervical spine without contrast HISTORY: Trauma COMPARISON: 08/21/2018 There is no acute fracture. Disc bulges with associated osteophyte formation are present at the C3-4 through C6-7 levels. There is minimal to mild narrowing of the spinal canal. Uncinate process and/or facet hypertrophy are present at the C2-3 through C7-T1 levels. These findings produce minimal to severe narrowing of the neural foramina. The C3-4 through C7-T1 intervertebral discs are decreased in height consistent with disc degeneration. There are 2 mm of anterior subluxation of C2-3 and 4 mm of anterior subluxation of C7 on T1. IMPRESSION: 1. There is no acute fracture. 2. There is cervical spondylosis at the C2-3 through C7-T1 levels. There is no significant change compared to the previous study. Electronically Signed by Jim Alexandre MD 01/28/2019 11:16 A
[2019-01-28] MEDS ORDERED: SYST0.6S OU (11:32)
[2019-01-28] MEDS ORDERED: NORCO, ANEXSIA 5/325MG TABLET (HYDROcodone/ACETAMINOPHEN) PO ONE (11:45)
--- NOTE | 2019-01-28 12:36 | REP ---
RIGHT SHOULDER THREE VIEWS: HISTORY: Trauma. COMPARISON: 11/30/2018 There is a nondisplaced fracture of the neck at the humerus. There is no dislocation. The joint spaces are normal in appearance. A curvilinear lucency is present overlying the scapula. This may represent a nondisplaced fracture. The bony structure is osteopenic. IMPRESSION: 1. Nondisplaced fracture of the proximal humerus. 2. There is a curvilinear lucency overlying the scapula that may represent a nondisplaced fracture. Electronically Signed by Jim Alexandre MD 01/28/2019 01:19 P
--- NOTE | 2019-01-28 13:31 | REP ---
Chest one-view HISTORY: Trauma Comparison: 08/27/2018 Linear density is present in the left lower lobe consistent with scar. The right lung is clear. The heart is normal in size. The pulmonary vasculature is normal in appearance. Impression: No acute disease. Electronically Signed by Jim Alexandre MD 01/28/2019 01:22 P
[2019-01-28] MEDS ORDERED: ALBUTEROL 90 MCG/ACT 8GM HFA INHALER INH PRN (14:15)
[2019-01-28] MEDS ORDERED: diphenhydrAMINE CREAM 30GM TOP PRN (14:15)
[2019-01-28] MEDS ORDERED: NYSTATIN 100,000 UNITS/GM TOPICAL PWD 15 GM TOP PRN (14:15)
[2019-01-28] MEDS ORDERED: ALBUTEROL SULFATE 2.5 MG/0.5 ML INH NEB SOLN INH PRN (14:15)
[2019-01-28] MEDS ORDERED: guaiFENesin ER 600 MG TAB PO PRN (14:15)
[2019-01-28] MEDS ORDERED: SENOKOT S TAB PO PRN (14:15)
[2019-01-28] MEDS ORDERED: ACETAMINOPHEN 500 MG TAB PO PRN ×2 (14:15)
[2019-01-28] MEDS ORDERED: DEXTROSE 50% 50 ML SYRINGE IV PRN (14:30)
[2019-01-28] MEDS ORDERED: GLUCOSE 4 GM CHEW TABLET PO PRN (14:30)
[2019-01-28] MEDS ORDERED: NITROGLYCERIN 0.4 MG SUBL TABLET SL PRN (14:30)
[2019-01-28] MEDS ORDERED: GLUCAGON FOR INJ 1 MG VIAL (J1610) SC PRN (14:30)
[2019-01-28 14:55] VITALS: BP 133/70
[2019-01-28] MEDS ORDERED: PILL CUTTER 1 EACH XX PRN (15:15)
[2019-01-28 15:35] LABS: HEMATOCRIT 36.2 % (36.0-47.0); HEMOGLOBIN 11.9 g/dl (12.0-15.5); MEAN CORPUSCULAR HEMOGLOBIN 28.8 pg (27.0-33.0); MEAN CORPUSCULAR HGB CONC 32.9 g/dl (32.0-36.5); MEAN CORPUSCULAR VOLUME 87.7 fl (80.0-96.0); PLATELET COUNT, AUTOMATED 282 10^3/uL (150-450); RED BLOOD COUNT 4.13 10^6/uL (4.00-5.40); WHITE BLOOD COUNT 10.5 10^3/uL (4.0-10.0)
[2019-01-28 15:56] LABS: BLOOD UREA NITROGEN 20 MG/DL (7-18); CALCIUM LEVEL 9.6 MG/DL (8.8-10.2); CARBON DIOXIDE LEVEL 24 MEQ/L (21-32); CHLORIDE LEVEL 107 MEQ/L (98-107); CREATININE FOR GFR 0.82 MG/DL (0.55-1.30); GLOMERULAR FILTRATION RATE > 60.0 (>32); GLUCOSE, FASTING 109 MG/DL (70-100); POTASSIUM SERUM 4.4 MEQ/L (3.5-5.1); SODIUM LEVEL 138 MEQ/L (136-145)
--- NOTE | 2019-01-28 16:09 | HPE ---
DATE OF ADMISSION: 01/28/2019 PRIMARY CARE PHYSICIAN: Tyrell benitez, Dr. Girish Christine. ATTENDING PHYSICIAN: Dr. Esme Hunter. HISTORY OF PRESENT ILLNESS: This is an 88-year-old female with a significant past medical history of type 2 diabetes, dyslipidemia, asthma, obstructive sleep apnea (MARCO) compliant with continuous positive airway pressure (C-PAP), pulmonary hypertension, peripheral neuropathy, osteoarthritis, chronic back pain with spinal stenosis, cerebellar and frontal lobe stroke, hypertension, paroxysmal atrial fibrillation, osteoporosis, diastolic congestive heart failure, unspecified cerebral artery occlusion without infarction, seizure disorder, mitral valve stenosis and first degree atrioventricular (AV) block, who presents after a fall at [facility]. Patient states she was walking from the restroom to attempt to get a phone and tripped. She denies dizziness or lightheadedness. Denies syncope. She fell onto her right side, hitting her head and arm on a bedside table. She denies any active loss of consciousness and presented to the emergency department. Workup in the emergency department (ED) proved positive for a nondisplaced fracture of the proximal humorous. Also noted is a curvilinear lucency overlying the scapula that may represent a nondisplaced fracture as well. PAST MEDICAL HISTORY: As previously stated in history of present illness (HPI). PAST SURGICAL HISTORY: 1. Total abdominal hysterectomy. 2. She has had a carpal tunnel of the right wrist repair. 3. Left wrist carpal tunnel repair. 4. Cholecystectomy. 5. Left knee replacement. 6. Right knee replacement. 7. Cardiac catheter 1997. 8. Laminectomy 1998. 9. Polyp removal 2003. 10. Cataract surgery right eye 2002. 11. Cataract surgery left eye 2003. 12. Left knee replacement revision 2010. 13. Oral surgery 10/2016. FAMILY HISTORY: Mother, father, siblings are . She has a positive history of heart disease in her father. SOCIAL HISTORY: She lives at [facility]. She is a nonsmoker, nondrinker, is retired. ALLERGIES: Include CODEINE, SULFATE, which causes a rash, IODINE, LATEX, SULFA, REGLAN, MYRBETRIQ, UROXATRAL. CURRENT MEDICATIONS: Include: - torsemide 10 mg one by mouth twice a day - warfarin 4 mg one tablet by mouth Tuesday, Tuesday, Tuesday - warfarin 3 mg one by mouth Tuesday, Tuesday, , Tuesday - Centrum Silver multivitamin one daily - extra strength Tylenol 500 mg two tablets by mouth as needed daily - Tylenol 500 mg tablet by mouth every 4 hours as needed for pain - Keppra 500 mg one by mouth twice a day - clotrimazole cream applied to rash on her breast topically as needed - glipizide XL 5 mg one by mouth daily - Ventolin HFA two puffs every 8 hours as needed - spironolactone 25 mg one daily - baclofen 10 mg 1/2 tablet by mouth twice a day - Senna one tablet by mouth daily as needed - cetirizine 10 mg by mouth daily - allopurinol 0.5 mg by mouth daily - vitamin D3 2000 Internation Units one by mouth daily - nitroglycerin sublingual 0.4 mg as needed for chest pain - albuterol sulfate nebulizer every 6 hours as needed for shortness of breath - anti-itch cream diphenhydramine with zinc apply topically as needed four times a day - triamcinolone 0.5% ointment twice a day as needed - guaifenesin 600 mg by mouth every 12 hours as needed - Eucerin cream apply every 4 hours as needed - Sherman-Ald[place] Ultra Strength apply four times a day as needed - Nystatin powder twice a day for excoriation abdominal folds as needed - Xalatan eye drops 0.005% give one drop daily at bedtime - bisacodyl delayed release 5 mg one tablet by mouth daily as needed for constipation - Systane eye drops six times per day - simvastatin 40 mg one by mouth daily - FiberCon 620 mg one tablet by mouth twice a day - omeprazole 20 mg by mouth daily REVIEW OF SYSTEMS: Patient's main complaint is right upper extremity pain and discomfort. She denies chest pain, headache, blurry vision, dizziness, shortness of breath, chronic dyspnea on exertion, heart palpitations, numbness, tingling, loss of bowel or bladder functions, loss of consciousness. PHYSICAL EXAMINATION: Blood pressure stable 134/62, oxygen saturation 96% on room air, respiratory rate 18, heart rate 90 and in sinus rhythm. HEENT: Neck is supple without lymphadenopathy or jugular venous distention (JVD). Tympanic membrane intact bilaterally. Oropharynx is pink and moist and no tonsillar enlargement. Uvula raise is midline. No carotid bruits appreciated. No significant lymphadenopathy is noted. CARDIOVASCULAR: Heart rate rhythm irregular with a grade 3/6 systolic ejection murmur. PULMONARY: Lungs are clear to auscultation throughout. ABDOMEN: Soft and nontender with positive bowel sounds in all four quadrants. BILATERAL LOWER EXTREMITIES: Do have some ready venous discoloration with some mild nonpitting edema. Positive pedal pulses are palpated bilaterally. NEUROLOGIC: Patient has full sensation to bilateral lower and bilateral upper extremities. She is alert and oriented times three and is an excellent historian. ASSESSMENT: 1. Proximal nondisplaced humorous fracture, nonsurgical. 2. Frequent falls with recent mechanical fall. 3. Diabetes. 4. Hypertension. 5. History of congestive heart failure. 6. Paroxysmal atrial fibrillation. 7. Obstructive sleep apnea. 8. Aortic valve stenosis. 9. Pulmonary hypertension. 10. Chronic lumbar spine stenosis. 11. Seizure disorder. PLAN: 1. Patient will be admitted to [facility]. She will be evaluated by physical therapy. She is currently nonweightbearing on the right upper extremity. 2. Regarding her diabetes, patient's fingersticks will be evaluated every morning and every evening. Regular insulin sliding scale has been ordered. She may continue her glipizide that she was taking at home. 3. Regarding her paroxysmal atrial fibrillation, Warfarin is on hold. INR has been ordered, as well as complete blood count (CBC). 4. Physical therapy (PT)/occupational therapy (OT) is to evaluate patient, as well as patient and family services for potential rehabilitation needs. 5. Regarding patient's congestive heart failure, last echocardiogram was completed 09/25/2017, shows aortic valve sclerosis with mild aortic stenosis and trace mild aortic regurgitation. Calculated ejection fraction is 65-70%. She has mild tricuspid regurgitation. 6. routine medications continued. Will monitor for signs of bleeding given fall after taking warfarin. Case has been reviewed with Dr. Esme Hunter. We will continue to follow patient on the hospitalist service while she is admitted. ADDENDUM: 01/28/2019 Patient did not actually have an orthopedic consult while in the emergency department (ED). I did speak with Dr. Rolando Kilgore, who was returning a phone call for Dr. Komal Sawyer. His recommendations include ice the humorous and back and shoulder every two hours, elevate the head of the bed to a recliner position, make sure that her rings have been removed and follow up with orthopedics within the next week. She should be nonweightbearing on that upper extremity until followup and does not recommend a walker at this time. Dr. Kilgore will evaluate patient in the morning, as this is a nonurgent consult. Patient's pain will be controlled with Tylenol as needed. She declines any stronger pain medications at this time. I have left express instructions with the nursing staff to make sure that they contact me in the event the patient's pain is uncontrolled with simple Tylenol. VIKTORIA
[2019-01-28] MEDS: TORSEMIDE 10 MG TABLET PO SCH (16:24)
[2019-01-28] MEDS: HumaLOG INSULIN (NovoLOG) PER UNIT SC SCH (17:21)
[2019-01-28 18:16] LABS: INR 2.66; PROTHROMBIN TIME 28.9 SECONDS (12.1-14.4)
--- NOTE | 2019-01-28 20:00 | ECGEPIP ---
[facility] - ED Test Date: 2019-01-28 Pat Name: LOUISA ALATORRE Department: Room: [place] [address] Gender: Female Director Of Investigations: jovon : 1930 Requested By: Sachin Maxwell Order Number: [id number] Reading MD: Yifan Wang Measurements Intervals [place] Rate: 88 P: 87 AK: 229 QRS: 184 QRSD: 102 T: 96 QT: 375 QTc: 454 Interpretive Statements SINUS RHYTHM WITH FIRST DEGREE AV BLOCK Incomplete right bundle branch block SEPTAL MYOCARDIAL INFARCTION, PROBABLY OLD LATERAL MYOCARDIAL INFARCTION, OF INDETERMINATE AGE Nonspecific ST-T wave abnormalities Significant change in QRS axis from previous tracing done 08-27-18- limb lead reversal or ischemia Electronically Signed on 01-28-2019 20:00:48 EDT by Yifan Wang
[2019-01-28] MEDS: LATANOPROST 0.005% OPHTH SOLN 2.5 ML OU SCH (20:47)
[2019-01-28] MEDS: SIMVASTATIN 40 MG TAB PO SCH (20:47)
[2019-01-28] MEDS: levETIRAcetam 250MG TABLET (KEPPRA) PO SCH (20:48)
[2019-01-28] MEDS: ACETAMINOPHEN 500 MG TAB PO PRN (20:48)
[2019-01-28] MEDS: BACLOFEN 5MG PER 1/2 TABLET PO SCH (21:25)
[2019-01-28 22:00] VITALS: BP 133/66
[2019-01-29 06:00] VITALS: BP 129/63
[2019-01-29] MEDS: OMEPRAZOLE 20 MG CAP PO SCH (06:30)
[2019-01-29] MEDS: HumaLOG INSULIN (NovoLOG) PER UNIT SC SCH ×4 (07:30→16:52)
[2019-01-29] MEDS: MOM 30ML SUSPENSION UDC PO SCH (08:56)
[2019-01-29] MEDS: MIRALAX *UNIT DOSE* 17GM PACKET PO SCH (08:57)
[2019-01-29] MEDS: glipiZIDE XL 5 MG TABCR PO SCH (08:57)
[2019-01-29] MEDS: VITAMIN D 1,000 INTERNATIONAL UNITS TABLET PO SCH (08:58)
[2019-01-29] MEDS: BISACODYL 5 MG TAB PO SCH (08:58)
[2019-01-29] MEDS: ALLOPURINOL 300 MG TAB PO SCH (08:58)
[2019-01-29] MEDS: BACLOFEN 5MG PER 1/2 TABLET PO SCH ×2 (08:58→20:15)
[2019-01-29] MEDS: MULTIVITAMINS/MINERALS THERAP 1 TAB PO SCH (08:58)
[2019-01-29] MEDS: TORSEMIDE 10 MG TABLET PO SCH ×2 (08:58→13:45)
[2019-01-29] MEDS: levETIRAcetam 250MG TABLET (KEPPRA) PO SCH ×2 (08:58→20:16)
[2019-01-29] MEDS: SPIRONOLACTONE 25 MG TAB PO SCH (08:59)
[2019-01-29] MEDS ORDERED: WARFARIN SOD 4 MG TAB PO SCH (09:00)
[2019-01-29] MEDS ORDERED: WARFARIN SOD 3 MG TAB PO SCH (09:00)
[2019-01-29] MEDS: ACETAMINOPHEN 500 MG TAB PO PRN ×3 (09:00→22:19)
[2019-01-29] MEDS: CETIRIZINE (ZyrTEC) 10 MG TAB PO SCH (09:31)
--- NOTE | 2019-01-29 09:57 | REP ---
CT RIGHT SHOULDER: CT right shoulder performed without IV contrast. Sagittal and coronal reconstruction images are performed. There is a fracture again seen of the proximal humerus which is slightly angulated. Scapula is intact with no fracture. Remaining visualized osseous structures demonstrate no fracture. There are diffuse degenerative changes of the visualized lower cervical and upper thoracic spine. No other significant soft tissue abnormality is seen. The visualized right lung is unremarkable. IMPRESSION: Fracture of proximal right humerus. Right scapula is intact with no fracture. Electronically Signed by Trace Tripathi MD 01/30/2019 10:37 A
--- NOTE | 2019-01-29 10:10 | CR ---
DATE OF CONSULTATION: 01/29/2019 CHIEF COMPLAINT: Right arm and shoulder pain. HISTORY OF PRESENT ILLNESS: This is an 88-year-old female who sustained a mechanical fall at [facility]. She denies loss of consciousness. She fell onto her right side. She was found to have a nondisplaced fracture of the proximal humerus upon arrival to the emergency department and was admitted due to difficulties taking care of herself. PAST MEDICAL HISTORY: 1. Type 2 diabetes. 2. Dyslipidemia. 3. Asthma. 4. Obstructive sleep apnea (MARCO). 5. Pulmonary hypertension. 6. Peripheral neuropathy. 7. Osteoarthritis. 8. Chronic back pain with spinal stenosis. 9. History of stroke. 10. Hypertension. 11. Proximal atrial fibrillation. 12. Osteoporosis. 13. Diastolic congestive heart failure. 14. Unspecified cerebral artery occlusion without infarction. 15. Seizure disorder. 16. Mitral valve stenosis. 17. First degree AV block. PAST SURGICAL HISTORY: 1. Hysterectomy. 2. Carpal tunnel release bilaterally. 3. Cholecystectomy. 4. Bilateral knee replacements. 5. Cardiac catheter. 6. Laminectomy. 7. Polyp removal. 8. Bilateral cataract surgery. 9. Left total knee replacement revision. 10. Oral surgery. SOCIAL HISTORY: Patient lives at [facility]. She does not smoke or drink. ALLERGIES: CODEINE, SULFA, IODINE, LATEX, REGLAN, MYRBETRIQ, UROXATRAL. HOME MEDICATIONS: - torsemide - warfarin - Centrum Silver - Tylenol - Keppra - clotrimazole - glipizide - Ventolin - spironolactone - Baclofen - senna - cetirizine - allopurinol - vitamin D3 - nitroglycerine - albuterol - anti-itch cream - triamcinolone cream - guaifenesin - Nystatin - Xalatan eye drops - bisacodyl - simvastatin - FiberCon - omeprazole PHYSICAL EXAMINATION: Afebrile, vital signs stable. Cardiovascular: Regular heart rate. Pulmonary: Lungs clear to auscultation. Abdomen: . Extremities: Right upper extremity there is tenderness along the shoulder and upper arm. There is also tenderness along the scapula. Skin is intact. Mild swelling. Motor and sensory intact medial and distribution. Axillary nerve is intact as well. IMAGING: Right shoulder x-ray revealed a nondisplaced proximal humeral fracture. There is possible scapula fracture, however, this may just be projection from a skin fold. IMPRESSION: Right proximal humerus fracture. PLAN: We will get a CT scan for further evaluation as the patient is tender over her scapula and there is question of a fracture on her x-ray. Otherwise, we will keep her non-weight bearing in the sling. She should followup in 1-2 weeks with one of the PAs at [facility] for x-ray check.
[2019-01-29 14:00] VITALS: BP 106/55
[2019-01-29 15:34] LABS: INR 2.11; PROTHROMBIN TIME 24.1 SECONDS (12.1-14.4)
[2019-01-29] MEDS: LATANOPROST 0.005% OPHTH SOLN 2.5 ML OU SCH (20:15)
[2019-01-29] MEDS: SIMVASTATIN 40 MG TAB PO SCH (20:16)
[2019-01-29 22:00] VITALS: BP 109/55
--- NOTE | 2019-01-29 23:42 | IPNPDOC ---
Text Note Date of Service The patient was seen on 01/29/19. NOTE Pt denies any headache, visual changes. Denies any episode of bleeding. denies any blood per rectum or hematemesis. INR 2, f/u next Hg. Head CT negative for bleeding. Objective: Gen: AAOx3, pleasant old lady HEENT: no trauma no laceration no ecchymosis Chest: S1 S2 no murmur Lungs: clr bilateral no wheeze no rales Ext: no edema no tenderness in legs, shoulder tenderness appreciated Abd: soft nT not distended Vital Signs Date Time Temp Pulse Resp B/P (MAP) Pulse Ox O2 Delivery O2 Flow Rate FiO2 01/29/19 22:00 99.8 96 19 109/55 (73) 91 01/29/19 14:00 98.9 89 18 106/55 (72) 97 01/29/19 06:00 97.2 79 18 129/63 (85) 95 Intake & Output 01/30/19 06:00 Intake Total 940 ml Output Total 450 ml Balance 490 ml Laboratory Tests 01/29/19 05:56: Bedside Glucose (Misc Panel) 108 01/29/19 15:16: Prothrombin Time 24.1H, Prothromb Time International Ratio 2.11 01/29/19 20:21: Bedside Glucose (Misc Panel) 192H Current Medications Medications (Trade) Dose Ordered Sig/Agueda Route PRN Reason Start Time Stop Time Status Last Admin Dose Admin Acetaminophen (Tylenol Tab) 1,000 mg Q6H PRN PO PAIN 01/28/19 15:00 02/04/19 14:59 01/29/19 22:19 1,000 MG Allopurinol (Zyloprim) 150 mg DAILY PO 01/29/19 09:00 01/29/19 08:58 150 MG Baclofen (Lioresal) 5 mg BID PO 01/28/19 21:00 01/29/19 20:15 5 MG Bisacodyl (Dulcolax Tab) 5 mg DAILY PO 01/29/19 09:00 01/29/19 08:58 5 MG Cetirizine HCl (ZyrTEC) 10 mg DAILY PO 01/29/19 09:00 01/29/19 09:31 10 MG Glipizide (Glucotrol Xl) 5 mg DAILY PO 01/29/19 09:00 01/29/19 08:57 5 MG Latanoprost (Xalatan 0.005% Op Soln) 1 drop QHS OU 01/28/19 21:00 01/29/19 20:15 1 DROP Levetiracetam (Keppra) 500 mg Q12H PO 01/28/19 20:00 01/29/19 20:16 500 MG Magnesium Hydroxide (Milk Of Magnesia) 30 ml DAILY PO 01/29/19 09:00 01/29/19 08:56 30 ML Multivitamins (Theragram-M) 1 tab DAILY PO 01/29/19 09:00 01/29/19 08:58 1 TAB Omeprazole (PriLOSEC) 20 mg DAILY@0600 PO 01/29/19 06:00 01/29/19 06:30 20 MG Patient Own Medication (Patient'S Own Med) 1 DROP Q4H OU 01/28/19 21:00 01/29/19 20:15 1 EA Polyethylene Glycol (Miralax) 1 pkt DAILY PO 01/29/19 09:00 01/29/19 08:57 1 PKT Simvastatin (Zocor) 40 mg QHS PO 01/28/19 21:00 01/29/19 20:16 40 MG Spironolactone (Aldactone) 25 mg DAILY PO 01/29/19 09:00 01/29/19 08:59 25 MG Torsemide (Demadex) 10 mg BID@0900,1400 PO 01/28/19 14:00 01/29/19 13:45 10 MG Vitamin D (Vitamin D) 2,000 units DAILY PO 01/29/19 09:00 01/29/19 08:58 2,000 UNITS 1-s/p fall 2-Pt on anticoagulation for paroxysmal Afib. INR 2, warfarin was held on admission 3-CT head negative for any acute bleeding 4-Warfarin 2mg resumed today (01/29)in view of no signs of bleeding, Will monitor HG/Hct, INR closely. 5-Nondisplaced humerus fracture managed by orthopedics surgery, recommendations appreciated. 6-pain control Acetaminophen, Ketorolac PRN PT/OT evaluate and treat, plan for discharge VS,Fishbone, I+O VS, Fishbone, I+O Vital Signs Date Time Temp Pulse Resp B/P (MAP) Pulse Ox O2 Delivery O2 Flow Rate FiO2 01/29/19 22:00 99.8 96 19 109/55 (73) 91 01/28/19 14:38 Room Air I&O- Last 24 Hours up to 6 AM 01/29/19 06:00 Intake Total 600 ml Output Total 0 ml Balance 600 ml REINALDO MCKEON MD Jan 29, 2019 23:42
[2019-01-30 05:38] LABS: HEMATOCRIT 31.2 % (36.0-47.0); HEMOGLOBIN 10.1 g/dl (12.0-15.5); MEAN CORPUSCULAR HEMOGLOBIN 29.1 pg (27.0-33.0); MEAN CORPUSCULAR HGB CONC 32.4 g/dl (32.0-36.5); MEAN CORPUSCULAR VOLUME 89.9 fl (80.0-96.0); PLATELET COUNT, AUTOMATED 222 10^3/uL (150-450); RED BLOOD COUNT 3.47 10^6/uL (4.00-5.40)
[2019-01-30 05:49] LABS: INR 2.09; PROTHROMBIN TIME 23.9 SECONDS (12.1-14.4)
[2019-01-30 06:00] VITALS: BP 117/64
[2019-01-30 06:01] LABS: BLOOD UREA NITROGEN 20 MG/DL (7-18); CALCIUM LEVEL 9.1 MG/DL (8.8-10.2); CARBON DIOXIDE LEVEL 27 MEQ/L (21-32); CHLORIDE LEVEL 108 MEQ/L (98-107); CREATININE FOR GFR 0.92 MG/DL (0.55-1.30); GLOMERULAR FILTRATION RATE > 60.0 (>32); GLUCOSE, FASTING 118 MG/DL (70-100); POTASSIUM SERUM 4.3 MEQ/L (3.5-5.1); SODIUM LEVEL 139 MEQ/L (136-145)
[2019-01-30] MEDS: OMEPRAZOLE 20 MG CAP PO SCH (06:24)
[2019-01-30] MEDS: HumaLOG INSULIN (NovoLOG) PER UNIT SC SCH ×3 (07:26→16:50)
[2019-01-30] MEDS: BACLOFEN 5MG PER 1/2 TABLET PO SCH (08:57)
[2019-01-30] MEDS: levETIRAcetam 250MG TABLET (KEPPRA) PO SCH (08:57)
[2019-01-30] MEDS: BISACODYL 5 MG TAB PO SCH (08:58)
[2019-01-30] MEDS: ALLOPURINOL 300 MG TAB PO SCH (08:58)
[2019-01-30] MEDS: SPIRONOLACTONE 25 MG TAB PO SCH (08:58)
[2019-01-30] MEDS: CETIRIZINE (ZyrTEC) 10 MG TAB PO SCH (08:58)
[2019-01-30] MEDS: MULTIVITAMINS/MINERALS THERAP 1 TAB PO SCH (08:58)
[2019-01-30] MEDS: TORSEMIDE 10 MG TABLET PO SCH ×2 (08:58→13:45)
[2019-01-30] MEDS: VITAMIN D 1,000 INTERNATIONAL UNITS TABLET PO SCH (08:59)
[2019-01-30] MEDS: MIRALAX *UNIT DOSE* 17GM PACKET PO SCH (08:59)
[2019-01-30] MEDS: glipiZIDE XL 5 MG TABCR PO SCH (08:59)
[2019-01-30] MEDS: MOM 30ML SUSPENSION UDC PO SCH (08:59)
[2019-01-30] MEDS: ACETAMINOPHEN 500 MG TAB PO PRN (11:24)
[2019-01-30 14:00] VITALS: BP 116/64
--- NOTE | 2019-01-30 16:42 | DS.PDOC ---
Discharge Summary General Date of Admission Jan 28, 2019 at 14:03 Date of Discharge 01/30/19 Specialist/Consultants Involve Dr. Komal Sawyer of Orthopedic Surgery Discharge Summary PROCEDURES PERFORMED DURING STAY: None. ADMITTING/DISCHARGE DIAGNOSES: Fracture of the Right proximal humerus History of atrial fibrillation on Coumadin COMPLICATIONS/CHIEF COMPLAINT: Humerus Fracture. HISTORY OF PRESENT ILLNESS: . 88-year-old female with a significant past medical history of type 2 diabetes, dyslipidemia, asthma, obstructive sleep apnea (MARCO) compliant with continuous positive airway pressure (C-PAP), pulmonary hypertension, peripheral neuropathy, osteoarthritis, chronic back pain with spinal stenosis, cerebellar and frontal lobe stroke, hypertension, paroxysmal atrial fibrillation, osteoporosis, diastolic congestive heart failure, unspecified cerebral artery occlusion without infarction, seizure disorder, mitral valve stenosis and first degree atrioventricular (AV) block, who presented after a fall at [facility]. Patient stated she was walking from the restroom to attempt to get a phone and tripped. She denies dizziness or lightheadedness. Denies syncope. She fell onto her right side, hitting her head and arm on a bedside table. She denies any active loss of consciousness and presented to the emergency department. Workup in the emergency department (ED) proved positive for a nondisplaced fracture of the proximal humerus During hospitalization, a CT scan of the extremity/shoulder was obtained and confirmed the same. Orthopedic surgery was consulted and recommended that the patient keep her right upper extremity nonweightbearing and in a sling. At this time, the patient has no further complaints and all of her other lab work has remained relatively benign. The patient was evaluated by physical therapy, and they have noted that the patient would benefit from acute rehabilitation. I have advised patient to follow-up with her primary care physician within 7 days, and with orthopedic surgery as scheduled. DISCHARGE MEDICATIONS: Please see below. ALLERGIES: Please see below. PHYSICAL EXAMINATION ON DISCHARGE: VITAL SIGNS: Please see below. GENERAL: Awake, alert, in no acute distress HEENT: Normocephalic, atraumatic NECK: No JVD CARDIOVASCULAR EXAMINATION: Normal rate, normal S1, S2 RESPIRATORY EXAMINATION: Clear to auscultation bilaterally ABDOMINAL EXAMINATION: Soft, nontender, nondistended EXTREMITIES: Right upper extremity with limited range of motion due to fracture. Extremity neurovascularly intact distally LABORATORY DATA: Please see below. IMAGING: CT Head without contrast HISTORY: Trauma COMPARISON: 08/21/2018 Areas of decreased attenuation are present in the periventricular and subcortical white matter. This represents small-vessel ischemic disease. There is no intraparenchymal hemorrhage, acute infarct, mass or midline shift. The ventricular system and cortical sulci as well as subarachnoid space in the posterior fossa are dilated consistent with moderate volume loss. There is no extra cerebral collection. There is no fracture. The visualized sinuses are clear. IMPRESSION: 1. Small vessel ischemic disease. 2. Moderate volume loss. CT cervical spine without contrast HISTORY: Trauma COMPARISON: 08/21/2018 There is no acute fracture. Disc bulges with associated osteophyte formation are present at the C3-4 through C6-7 levels. There is minimal to mild narrowing of the spinal canal. Uncinate process and/or facet hypertrophy are present at the C2-3 through C7-T1 levels. These findings produce minimal to severe narrowing of the neural foramina. The C3-4 through C7-T1 intervertebral discs are decreased in height consistent with disc degeneration. There are 2 mm of anterior subluxation of C2-3 and 4 mm of anterior subluxation of C7 on T1. IMPRESSION: 1. There is no acute fracture. 2. There is cervical spondylosis at the C2-3 through C7-T1 levels. There is no significant change compared to the previous study. RIGHT SHOULDER THREE VIEWS: HISTORY: Trauma. COMPARISON: 11/30/2018 There is a nondisplaced fracture of the neck at the humerus. There is no dislocation. The joint spaces are normal in appearance. A curvilinear lucency is present overlying the scapula. This may represent a nondisplaced fracture. The bony structure is osteopenic. IMPRESSION: 1. Nondisplaced fracture of the proximal humerus. 2. There is a curvilinear lucency overlying the scapula that may represent a nondisplaced fracture. Chest one-view HISTORY: Trauma Comparison: 08/27/2018 Linear density is present in the left lower lobe consistent with scar. The right lung is clear. The heart is normal in size. The pulmonary vasculature is normal in appearance. Impression: No acute disease. CT RIGHT SHOULDER: CT right shoulder performed without IV contrast. Sagittal and coronal reconstruction images are performed. There is a fracture again seen of the proximal humerus which is slightly angulated. Scapula is intact with no fracture. Remaining visualized osseous structures demonstrate no fracture. There are diffuse degenerative changes of the visualized lower cervical and upper thoracic spine. No other significant soft tissue abnormality is seen. The visualized right lung is unremarkable. IMPRESSION: Fracture of proximal right humerus. Right scapula is intact with no fracture. PROGNOSIS: Fair ACTIVITY: As per orthopedic surgery recommendations. DIET: 2 g low sodium diet DISCHARGE PLAN: DISPOSITION: . Rehabilitation DISCHARGE INSTRUCTIONS: As noted above DISCHARGE CONDITION: Stable. TIME SPENT ON DISCHARGE: Greater than 30 minutes. Vital Signs/I&Os Vital Signs Date Time Temp Pulse Resp B/P (MAP) Pulse Ox O2 Delivery O2 Flow Rate FiO2 01/30/19 14:00 99.0 96 20 116/64 (81) 94 01/28/19 14:38 Room Air I&O- Last 24 Hours up to 6 AM 01/30/19 05:59 Intake Total 1060 ml Output Total 450 ml Balance 610 ml Laboratory Data Labs 24H Laboratory Tests 2 01/29/19 20:21: Bedside Glucose (Misc Panel) 192H 01/30/19 05:27: Nucleated Red Blood Cells % (auto) 0.0, Prothrombin Time 23.9H, Prothromb Time International Ratio 2.09, Anion Gap 4L, Glomerular Filtration Rate > 60.0, Blood Urea Nitrogen 20H, Creatinine 0.92, Sodium Level 139, Potassium Level 4.3, Chloride Level 108H, Carbon Dioxide Level 27, Calcium Level 9.1 CBC/BMP Laboratory Tests 01/30/19 05:27 Red Blood Count 3.47 L, Mean Corpuscular Volume 89.9, Mean Corpuscular Hemoglobin 29.1, Mean Corpuscular Hemoglobin Concent 32.4, Red Cell Distribution Width 14.4, Calcium Level 9.1 FSBS Laboratory Tests Test 01/29/19 20:21 Range/Units Bedside Glucose (Misc Panel) 192 83-110 MG/DL Discharge Medications Scheduled Allopurinol (Zyloprim) 300 Mg Tab, 150 MG PO DAILY, (Reported) Baclofen (Baclofen) 10 Mg Tab, 5 MG PO BID, (Reported) Bisacodyl (Bisacodyl) 5 Mg Tab, 5 MG PO DAILY, (Reported) HOLD FOR LOOSE STOOL Calcium Polycarbophil (Fibercon) 625 Mg Tab, 625 MG PO BID, (Reported) Cetirizine HCl (Cetirizine HCl) 10 Mg Tab, 10 MG PO DAILY, (Reported) Cholecalciferol (Vitamin D3) (Vitamin D3) 2,000 Unit Tab, 2,000 UNIT PO DAILY, (Reported) Glipizide (Glipizide Xl) 5 Mg Tab, 5 MG PO DAILY, (Reported) Latanoprost (Xalatan) 0.005 % Tran, 1 DROP OU QHS, (Reported) Levetiracetam (Keppra) 500 Mg Tab, 500 MG PO Q12H, (Reported) 0800,2000 Multivitamins (Thera M Plus Tablet) 1 Tab Tab, 1 TAB PO DAILY, (Reported) Omeprazole (Omeprazole) 20 Mg Cap, 20 MG PO DAILY, (Reported) TAKES AT 0600 Propylene Glycol (Systane Complete) 10 Ml Drops, 1 DROP OU 6XD, (Reported) PT SELF ADMINISTERS Simvastatin (Simvastatin) 40 Mg Tab, 40 MG PO QHS, (Reported) Spironolactone (Spironolactone) 25 Mg Tab, 25 MG PO DAILY, (Reported) Torsemide (Torsemide) 10 Mg Tab, 10 MG PO BID, (Reported) @ 0900 AND 1400 Warfarin Sodium (Warfarin Sodium) 3 Mg Tab, 3 MG PO 4XWK, (Reported) SAT/SUN/TUE/THURS AT 1600 Warfarin Sodium (Warfarin Sodium) 4 Mg Tablet, 4 MG PO 3XW, (Reported) MON/WED/FRI AT 1600 Scheduled PRN Acetaminophen (Acetaminophen) 500 Mg Tablet, 1,000 MG PO DAILY PRN for PAIN, (Reported) Acetaminophen (Acetaminophen) 500 Mg Tablet, 500 MG PO Q4H PRN for PAIN, (Reported) Albuterol Sulf (Albuterol Sulfate) 2.5 Mg/3 Ml Nebu, 2.5 MG INH Q6H PRN for SO B/WHEEZING, (Reported) Albuterol Sulfate (Ventolin Hfa) 108 Mcg/Act Aer, 2 PUFFS INH QID PRN for SHORTNESS OF BREATH, (Reported) Clotrimazole (Clotrimazole) 1 % Cre, 1 DOSE EXT BID PRN for RASH, (Reported) APPLY TO RASH UNDER BREAST ABD AFFECTED THIGH AREA Diphenhydramine HCl (Itch Relief Cream) 1 Dose/28.3 Gm Cream, 1 DOSE TOP QID PRN for ITCHING, (Reported) APPLY TO ARMS, BACK, AND CHEST AREAS Guaifenesin (Mucinex) 600 Mg Tab.er.12h, 600 MG PO BID PRN for CONGESTION, (Reported) Methyl Salicylate/Menth/Camph (Bengay Ultra Strength Cream) 1 Cre Cre, 1 APLCT TOP QID PRN for PAIN, (Reported) RT FLANK AND BACK Mineral Oil/I-Prop Myr/Water (Hydrocerin Lotion) 236 Ml Lotion, 1 APLCT TOP Q4H PRN for DRY SKIN, (Reported) Nitroglycerin (Nitroglycerin) 0.4 Mg Sub, 0.4 MG SL Q5MP PRN for CHEST PAIN, (Reported) Nystatin (Nystatin Powder) 100,000 Unit/Gm Pow, 1 DOSE TOP BID PRN for RASH, (Reported) APPLY TO ABDOMINAL FOLDS Sennosides/Docusate Sodium (Senna-S Tablet) 1 Tab Tab, 1 TAB PO DAILY PRN for CONSTIPATION, (Reported) Triamcinolone Acetonide (Triamcinolone Acetonide) 0.5 % Oin, 1 DOSE EXT BID PRN for SKIN TREATMENT, (Reported) APPLY TO BILATERAL LOWER ABDOMEN WALL Allergies Coded Allergies: Sulfa (Sulfonamide Antibiotics) (Verified Allergy, Severe, 01/28/19) iodine (Verified Allergy, Intermediate, swelling, 01/28/19) amoxicillin (Verified Allergy, Mild, body rash, 01/28/19) latex (Verified Allergy, Mild, rash, 01/28/19) codeine (Verified Adverse Reaction, Intermediate, vomiting, 01/28/19) TINO SAWYER MD Jan 30, 2019 16:42
[2019-01-30] MEDS ORDERED: WARFARIN SOD 4 MG TAB PO ONE (17:00)
== END 2019-01-30 17:35 | DRG 563 ==
LOC: EDBD 10:38 → M ED 10:38 → M ED INP 14:03 → M MS5PR 14:55
PROVIDERS: ADMIT Hospitalist; ATTEND Hospitalist
DX: S42.201A Unspecified fracture of upper end of right humerus, initial encounter for closed fracture (principal); I50.32 Chronic diastolic (congestive) heart failure; E11.42 Type 2 diabetes mellitus with diabetic polyneuropathy; E78.5 Hyperlipidemia, unspecified; J45.909 Unspecified asthma, uncomplicated; G47.33 Obstructive sleep apnea (adult) (pediatric); I27.20 Pulmonary hypertension, unspecified; M19.90 Unspecified osteoarthritis, unspecified site; Z86.73 Personal history of transient ischemic attack (TIA), and cerebral infarction without residual deficits; I11.0 Hypertensive heart disease with heart failure; I48.0 Paroxysmal atrial fibrillation; G40.909 Epilepsy, unspecified, not intractable, without status epilepticus; I44.0 Atrioventricular block, first degree; Z90.710 Acquired absence of both cervix and uterus; Z90.49 Acquired absence of other specified parts of digestive tract; Z96.653 Presence of artificial knee joint, bilateral; Z98.41 Cataract extraction status, right eye; Z98.42 Cataract extraction status, left eye; Z88.2 Allergy status to sulfonamides; Z88.5 Allergy status to narcotic agent; Z88.8 Allergy status to other drugs, medicaments and biological substances; Z91.040 Latex allergy status; Z79.01 Long term (current) use of anticoagulants; Z79.84 Long term (current) use of oral hypoglycemic drugs; Z79.899 Other long term (current) drug therapy; W18.09XA Striking against other object with subsequent fall, initial encounter; Y92.128 Other place in nursing home as the place of occurrence of the external cause; R29.6 Repeated falls; I35.0 Nonrheumatic aortic (valve) stenosis; M48.061 Spinal stenosis, lumbar region without neurogenic claudication

== ENCOUNTER 2019-01-30 16:47 | Inpatient (IN) | payer MEDICARE, MEDICAID ==
[~2019-01-30] VITALS: Ht 142.2 cm; Wt 71.6 kg
[~2019-01-30 16:47] MED LIST changes: +ACET500T15 PO; +APAP500T10 PO; +HYDR1LOT9 TOP; +MUCI600T31 PO; +SYST0.6S OU
[2019-01-30 17:45] VITALS: BP 157/92
[2019-01-30] MEDS ORDERED: BISACODYL 10 MG SUPP PR PRN (18:45)
[2019-01-30] MEDS ORDERED: NITROGLYCERIN 0.4 MG SUBL TABLET SL PRN (18:45)
[2019-01-30] MEDS ORDERED: ENTER DRUG NAME HERE (PATIENT'S OWN MED) OU SCH (18:45)
[2019-01-30] MEDS ORDERED: ALBUTEROL 90 MCG/ACT 8GM HFA INHALER INH PRN (18:45)
[2019-01-30] MEDS ORDERED: PILL CUTTER 1 EACH XX PRN (19:15)
[2019-01-30 20:00] VITALS: BP 130/60
[2019-01-30] MEDS: SENNA 8.6 MG TAB (SENOKOT) PO SCH (20:22)
[2019-01-30] MEDS: SIMVASTATIN 40 MG TAB PO SCH (20:22)
[2019-01-30] MEDS: DOCUSATE SODIUM 100 MG CAP PO SCH (20:22)
[2019-01-30] MEDS: ACETAMINOPHEN 500 MG TAB PO SCH (20:22)
[2019-01-30] MEDS: guaiFENesin 200 MG TAB PO SCH ×2 (20:22→21:00)
[2019-01-30] MEDS: levETIRAcetam 250MG TABLET (KEPPRA) PO SCH (20:22)
[2019-01-30] MEDS: LATANOPROST 0.005% OPHTH SOLN 2.5 ML OU SCH (20:23)
[2019-01-30] MEDS: LIDOCAINE 5% (LIDODERM) PATCH TD SCH (20:23)
--- NOTE | 2019-01-30 21:54 | CR ---
DATE OF CONSULTATION: 01/30/2019 ATTENDING PHYSICIAN: Dr. Goodwin in the rehab unit. CONSULTING PHYSICIAN: Dr. Kelli Grubbs REASON FOR THE CONSULT: Medical management. HISTORY OF THE PRESENT ILLNESS: The patient is an 88-year-old white female with multiple chronic medical conditions listed below who was admitted to rehab today. She is a resident in a long term. She fell on January 28, 2019, and she was admitted to the medical floor. She was found to have a right arm fracture. She was evaluated by orthopedic service and recommended to put a sling for conservative management. Due to general weakness, she was discharged today from medicine service and admitted to the rehab unit today, and medicine was requested for the consultation. REVIEW OF SYSTEMS: Denies fever. No chills. No headache. No blurred vision. No shortness of breath. No chest pain. No abdominal pain. No diarrhea. No tingling, numbness or weakness in the arms or lower extremities except the pain in her right arm. All other systems were reviewed but negative. PAST MEDICAL HISTORY: 1. Type 2 diabetes. 2. Morbid obesity. 3. Paroxysmal atrial fibrillation. 4. Obstructive sleep apnea, on continuous positive airway pressure (CPAP). 5. Dyslipidemia. 6. Chronic diastolic congestive heart failure (CHF). 7. Recent right humerus fracture. PAST SURGICAL HISTORY: 1. Hysterectomy. 2. Carpal tunnel repair. 3. Cholecystectomy. 4. Bilateral knee replacement. 5. Laminectomy. SOCIAL HISTORY: Denies tobacco use. Denies alcohol abuse. Denies illicit drug abuse. She lives at [facility]. Her daughter is her healthcare proxy. She is DO NOT RESUSCITATE, DO NOT INTUBATE. FAMILY HISTORY: Both parents and her father had a history of heart problems. ALLERGIES: She is allergic to CODEINE, SULFA, IODINE, LATEX. MEDICATIONS: Reviewed. PHYSICAL EXAMINATION: VITAL SIGNS: Temperature 99.2, heart rate 86, respiratory rate 18, blood pressure 150/90, oxygen saturation is 93% on room air. GENERAL: She is awake, alert, oriented times three. She is not in acute distress. She is morbidly obese. HEENT: Atraumatic. Pupils equal, round and reactive to light. No jaundice. Extraocular muscles intact. Ears, nose and throat normal. Mouth: Mucosa a little dry. NECK: No jugular venous distention (JVD), no bruits. LUNGS: Clear. No wheezing, no crackles. HEART: S1, S2, regular. No murmur. ABDOMEN: Soft. Bowel sounds positive, nontender. LOWER EXTREMITIES: No edema in bilateral lower extremities. NEUROLOGIC: Nonfocal. SKIN: No rash. PSYCHOLOGIC: No acute psychosis. UPPER EXTREMITIES: She does have tenderness in her right shoulder and right arm and also has limited movement of her right shoulder. DIAGNOSTIC AND LAB STUDIES: CBC and differential showed WBC 8, hemoglobin and hematocrit 10 over 31, platelets 222. Sodium 139, potassium 4.3, chloride 108, bicarbonate 27, BUN 20, creatinine 0.9, glucose 118. INR 2.09. IMPRESSION: 1. Right humerus fracture due to fall. 2. Type 2 diabetes. 3. Chronic diastolic congestive heart failure. 4. Paroxysmal atrial fibrillation, on Coumadin. 5. Morbid obesity. 6. Obstructive sleep apnea. RECOMMENDATION: Will continue current management and also continue her Coumadin for paroxysmal atrial fibrillation and her INR is therapeutic, and the medicine team will followup.
[2019-01-31 06:00] VITALS: BP 105/57
[2019-01-31 06:11] LABS: BASO # 0.1 10^3/uL (0.0-0.2); BASO % 0.6 % (0.0-1.0); EOS # 0.2 10^3/uL (0.0-0.50); EOS % 2.3 % (0.0-3.0); HEMATOCRIT 34.2 % (36.0-47.0); HEMOGLOBIN 11.3 g/dl (12.0-15.5); LYMPH # 2.4 10^3/uL (1.5-4.5); LYMPH % 25.7 % (24.0-44.0); MEAN CORPUSCULAR HEMOGLOBIN 29.4 pg (27.0-33.0); MEAN CORPUSCULAR VOLUME 88.8 fl (80.0-96.0); MONO # 1.4 10^3/uL (0.0-0.8); MONO % 15.3 % (0.0-5.0); NEUTROPHILS # 5.2 10^3/uL (1.8-7.7); NEUTROPHILS % 55.8 % (36.0-66.0); PLATELET COUNT, AUTOMATED 243 10^3/uL (150-450); RED BLOOD COUNT 3.85 10^6/uL (4.00-5.40); WHITE BLOOD COUNT 9.3 10^3/uL (4.0-10.0)
[2019-01-31 06:31] LABS: ALBUMIN 2.7 GM/DL (3.2-5.2); BILIRUBIN,TOTAL 0.4 MG/DL (0.2-1.0); CALCIUM LEVEL 9.5 MG/DL (8.8-10.2); CREATININE FOR GFR 0.97 MG/DL (0.55-1.30); GLOMERULAR FILTRATION RATE 57.8 (>32); TOTAL PROTEIN 6.4 GM/DL (6.4-8.2)
[2019-01-31 06:32] LABS: INR 1.94; PROTHROMBIN TIME 22.5 SECONDS (12.1-14.4)
--- NOTE | 2019-01-31 07:23 | REP ---
RIGHT HAND SERIES: Four views of the right hand are performed. I see no acute fracture or dislocation. There is mild narrowing of the radiocarpal joint. There is severe narrowing of the joint between the trapezium and base of first metacarpal with subchondral sclerosis and spurring. There is diffuse moderate to severe narrowing of the metacarpal phalangeal, interphalangeal joints with diffuse osteopenia and scattered spurring. IMPRESSION: Diffuse arthritic changes without evidence of acute fracture or dislocation. Electronically Signed by Trace Tripathi MD 01/31/2019 04:34 P
[2019-01-31] MEDS: DOCUSATE SODIUM 100 MG CAP PO SCH ×2 (08:36→21:00)
[2019-01-31] MEDS: ACETAMINOPHEN 500 MG TAB PO SCH ×3 (08:36→20:57)
[2019-01-31] MEDS: MULTIVITAMINS/MINERALS THERAP 1 TAB PO SCH (08:36)
[2019-01-31] MEDS: ALLOPURINOL 300 MG TAB PO SCH (08:37)
[2019-01-31] MEDS: SPIRONOLACTONE 25 MG TAB PO SCH (08:37)
[2019-01-31] MEDS: VITAMIN D 1,000 INTERNATIONAL UNITS TABLET PO SCH (08:37)
[2019-01-31] MEDS: BACLOFEN 5MG PER 1/2 TABLET PO SCH (08:37)
[2019-01-31] MEDS: levETIRAcetam 250MG TABLET (KEPPRA) PO SCH ×2 (08:37→20:57)
[2019-01-31] MEDS: TORSEMIDE 10 MG TABLET PO SCH ×3 (08:37→17:12)
[2019-01-31] MEDS: guaiFENesin 200 MG TAB PO SCH ×3 (08:37→21:00)
[2019-01-31] MEDS: CETIRIZINE (ZyrTEC) 10 MG TAB PO SCH (08:37)
[2019-01-31] MEDS: glipiZIDE XL 5 MG TABCR PO SCH (08:38)
[2019-01-31] MEDS: **NOTE PATIENT COMMENT** MISC XX SCH (08:41)
[2019-01-31] MEDS ORDERED: predniSONE 5 MG TAB PO SCH (09:00)
[2019-01-31] MEDS ORDERED: OMEPRAZOLE 20 MG CAP PO SCH (09:00)
--- NOTE | 2019-01-31 11:08 | HPEPDOC ---
[employer] Professor Note DATE OF ADMISSION: Jan 30, 2019 at 17:38 SOURCE OF ADMISSION INFORMATION: patient and [facility] records CHIEF COMPLAINT: spinal stenosis with right humeral fracture HISTORY OF PRESENT ILLNESS: 88F pmh DM2, HLD, Asthma, MARCO, history of stroke, spinal stenosis, peripheral neuropathy, RA, diastolic CHF, Afib on Coumadin, first degree AV block, seizure disorder, who fell while at [facility] after tripping without pre-syncopal symptoms and presented to [facility] ED on 01/28/19 complaining of right UE pain. CTH showed small vessel ischemic disease without intracranial hemorrhage or mass. CT neck revealed, cervical spondylosis at the 3-3 through C7-T1 levels. Shoulder imaging showed, Nondisplaced fracture of the proximal humerus There is a curvilinear lucency overlying the scapula that may represent a nondisplaced fracture, but CT shoulder confirmed . Right scapula is intact with no fracture. She was evaluated by orthopedic surgery for her right humeral fracture who recommended non-weight bearing and to utilize a sling. Patient was evaluated by therapy and found to be well below her baseline, primarily limited by her low back pain and bilateral LE weakness and generalized painful arthritic joints. She was deemed medically appropriate for discharge to ARU. REVIEW OF SYSTEMS: The following is a completed review of systems and has been reviewed. Review of systems otherwise unremarkable. PAIN: Patient self reports diffuse pain and stiffness EYES: Negative recent vision loss EARS, NOSE, & THROAT: denies throat pain, rhinorrhea or dysphagia CARDIOVASCULAR: denies chest pain or palpitations PULMONARY: Negative. Denies shortness of breath GASTROINTESTINAL: no diarrhea or constipation GENITOURINARY: no dysuria MUSCULOSKELETAL:+spinal OA and diffuse RA, right proximal humeral fracture NEUROLOGICAL: no focal tremor or seizure activity SKIN: right hand laceration PSYCHIATRIC: Unremarkable All other review of systems found to be negative. PAST MEDICAL HISTORY: as per HPI PAST SURGICAL HISTORY: CTS release bilat, hysterectomy, bilat cataract surgery, cholecystectomy, hysterectomy ALLERGIES: Please see below. MEDICATIONS: Please see below. SOCIAL HISTORY: lives at [facility], denies ETOH, smoking, or illicit drug use DIET: low sodium PHYSICAL EXAMINATION: VITAL SIGNS: Please see below. GENERAL: Pleasant and cooperative. No acute distress. HEENT: PERRL. Extraocular movements intact. Clear conjunctiva, +glasses CARDIOVASCULAR: Regular rate and rhythm. No murmurs, rubs, or gallops LUNGS: Clear to auscultation bilaterally. No wheezes. No rhonchi ABDOMEN: Soft, nontender, nondistended. Positive bowel sounds. Normal active bowel sounds NEUROLOGICAL: Alert and oriented times three. Cranial nerves II through XII grossly intact. Sensation grossly intact in a 4 extremities EXTREMITIES: 4\5 strength bilateral upper extremities. 4\5 strength right lower extremity. 4/5 strength in left lower extremity. (right arm in a sling) decreased ROM bilateral shoulders, +ulnar deviation of bilat MCP joints with subluxed thumbs, decreased ROM of neck SKIN: right hand laceration, bilateral feet purple with palpable pedal pulses IMAGING: Imaging documentation personally reviewed by record FUNCTIONAL STATUS: Premorbid: Independent with all activities of daily life as well as mobility with RW household distances On Admission: Max assist for bed mobility, min assist for ambulation with RW 5 feet, Min assist for for functional transfers GOALS: Mod-I with cane vs center-post RW for household distances, dressing, bathing, toileting, fall recovery, medical optimization, assess for DMEs, caregiver training. ASSESSMENT:88-year-old F with past medical history of spinal stenosis, diffuse RA who presents status post fall with right proximal humeral fracture with difficulty ambulating due to worsening spinal stenosis. PLAN: 1. Rehab: PT and OT to work on strenghtening, endurance training, use of adaptive equipment for ADls management, preserve joint ROM<-will clarify with ortho if RUE can be ranged, maintain NWB to RUE 2. Neuro: pmh CVA, c/u statin, on warfarin -seizure d/o c/u Keppra 3. Cardio: pmh Afib and diastolic CHF- c/u Torsemide, spironolactone and Warfarin-medicine consulted to help manage 4. Resp: pmh MARCO- c/u CPAP 5. Ortho: right humeral fracture, sling when out of bed, NWB- ortho consulted -pmh spinla stenosis with LE weakness significantly limiting her ability to walk 6. Rheum: significant RA, will start on low dose prednisone and refer to outpatient rheum 7. Pain: c/u tylenol, will trial Cymbalta 8. Endo: pmh DM c/u Glipizide 9. DVT ppx: on warfarin 10. : monitor PVRs 11. Dispo: TBD POST ADMISSION PHYSICIAN EVALUATION: Medical and functional status: Description of medical status, medical assessment: As above. Rehabilitation diagnosis and current and prior cold morbid medical conditions as above. Risk of complications and plans to mitigate them as above. Description of functional status current status is as above. Prior status as above. Status compared to preadmission: There are no clinically significant differences between the patient's current status and the information described on the pre admission screening document. Treatment plan anticipated: Treatment plan is as described above. Required disciplines including physical therapy, occupational therapy, others as noted above Intensity of services: 3 hours a day, 6 days a week. Special considerations: There are no specific special or safety considerations that would likely preclude immediate implementation of an intensive rehabilitation program or subsequently influence the plan of care ATTESTATION: Considering all the information above, it is my best judgment that this patient requires intensive rehabilitation therapy as described above and an inpatient hospital environment due to the complexity of nursing, medical, and rehabilitation needs required by the patient. Furthermore, this patient can reasonably be expected to participate in an benefit from an inpatient rehabilitation stay with an interdisciplinary team approach to the delivery of rehabilitation care under the direction and supervision of rehabilitation physician. PROGNOSIS: good ESTIMATED LENGTH OF STAY:18-21 days. PROJECTED DISCHARGE DESTINATION: Home with family support and any durable medical equipment required to increase functional safety and mobility TIME SPENT COUNSELING AND COORDINATING INITIAL CARE: Greater than 70 minutes. Vital Signs Vital Sign - Last 24 Hours 01/30/19 01/30/19 01/31/19 17:45 20:00 06:00 Temp 99.2 99.0 98.6 Pulse 86 99 83 Resp 18 18 17 B/P (MAP) 157/92 (113) 130/60 (83) 105/57 (73) Pulse Ox 93 95 96 Laboratory Data CBC/BMP Laboratory Tests 01/31/19 05:57 Red Blood Count 3.85 L, Mean Corpuscular Volume 88.8, Mean Corpuscular Hemoglobin 29.4, Mean Corpuscular Hemoglobin Concent 33.0, Red Cell Distribution Width 14.2, Neutrophils (%) (Auto) 55.8, Lymphocytes (%) (Auto) 25.7, Monocytes (%) (Auto) 15.3 H, Eosinophils (%) (Auto) 2.3, Basophils (%) (Auto) 0.6, Neutrophils # (Auto) 5.2, Lymphocytes # (Auto) 2.4, Monocytes # (Auto) 1.4 H, Eosinophils # (Auto) 0.2, Basophils # (Auto) 0.1, Calcium Level 9.5, Aspartate Amino Transf (AST/SGOT) 18, Alanine Aminotransferase (ALT/SGPT) 16, Alkaline Phosphatase 79, Total Bilirubin 0.4, Total Protein 6.4, Albumin 2.7 L Labs 24H Laboratory Tests 2 01/31/19 05:57: Immature Granulocyte % (Auto) 0.3, White Blood Count 9.3, Red Blood Count 3.85L, Hemoglobin 11.3L, Hematocrit 34.2L, Mean Corpuscular Volume 88.8, Mean Corpuscular Hemoglobin 29.4, Mean Corpuscular Hemoglobin Concent 33.0, Red Cell Distribution Width 14.2, Platelet Count 243, Neutrophils (%) (Auto) 55.8, Lymphocytes (%) (Auto) 25.7, Monocytes (%) (Auto) 15.3H, Eosinophils (%) (Auto) 2.3, Basophils (%) (Auto) 0.6, Neutrophils # (Auto) 5.2, Lymphocytes # (Auto) 2.4, Monocytes # (Auto) 1.4H, Eosinophils # (Auto) 0.2, Basophils # (Auto) 0.1, Nucleated Red Blood Cells % (auto) 0.0, Prothrombin Time 22.5H, Prothromb Time International Ratio 1.94, Anion Gap 9, Glomerular Filtration Rate 57.8, Blood Urea Nitrogen 22H, Creatinine 0.97, Sodium Level 139, Potassium Level 4.0, Chloride Level 106, Carbon Dioxide Level 24, Calcium Level 9.5, Aspartate Amino Transf (AST/SGOT) 18, Alanine Aminotransferase (ALT/SGPT) 16, Alkaline Phosphatase 79, Total Bilirubin 0.4, Total Protein 6.4, Albumin 2.7L, Alb umin/Globulin Ratio 0.73L Home Medications Scheduled Allopurinol (Zyloprim) 300 Mg Tab, 150 MG PO DAILY, (Reported) Baclofen (Baclofen) 10 Mg Tab, 5 MG PO BID, (Reported) Bisacodyl (Bisacodyl) 5 Mg Tab, 5 MG PO DAILY, (Reported) HOLD FOR LOOSE STOOL Calcium Polycarbophil (Fibercon) 625 Mg Tab, 625 MG PO BID, (Reported) Cetirizine HCl (Cetirizine HCl) 10 Mg Tab, 10 MG PO DAILY, (Reported) Cholecalciferol (Vitamin D3) (Vitamin D3) 2,000 Unit Tab, 2,000 UNIT PO DAILY, (Reported) Glipizide (Glipizide Xl) 5 Mg Tab, 5 MG PO DAILY, (Reported) Latanoprost (Xalatan) 0.005 % Tran, 1 DROP OU QHS, (Reported) Levetiracetam (Keppra) 500 Mg Tab, 500 MG PO Q12H, (Reported) 0800,2000 Multivitamins (Thera M Plus Tablet) 1 Tab Tab, 1 TAB PO DAILY, (Reported) Omeprazole (Omeprazole) 20 Mg Cap, 20 MG PO DAILY, (Reported) TAKES AT 0600 Propylene Glycol (Systane Complete) 10 Ml Drops, 1 DROP OU 6XD, (Reported) PT SELF ADMINISTERS Simvastatin (Simvastatin) 40 Mg Tab, 40 MG PO QHS, (Reported) Spironolactone (Spironolactone) 25 Mg Tab, 25 MG PO DAILY, (Reported) Torsemide (Torsemide) 10 Mg Tab, 10 MG PO BID, (Reported) @ 0900 AND 1400 Warfarin Sodium (Warfarin Sodium) 3 Mg Tab, 3 MG PO 4XWK, (Reported) SAT/SUN/TUE/THURS AT 1600 Warfarin Sodium (Warfarin Sodium) 4 Mg Tablet, 4 MG PO 3XW, (Reported) MON/WED/FRI AT 1600 Scheduled PRN Acetaminophen (Acetaminophen) 500 Mg Tablet, 1,000 MG PO DAILY PRN for PAIN, (Reported) Acetaminophen (Acetaminophen) 500 Mg Tablet, 500 MG PO Q4H PRN for PAIN, (Reported) Albuterol Sulf (Albuterol Sulfate) 2.5 Mg/3 Ml Nebu, 2.5 MG INH Q6H PRN for SOB/WHEEZING, (Reported) Albuterol Sulfate (Ventolin Hfa) 108 Mcg/Act Aer, 2 PUFFS INH QID PRN for VAN RTNESS OF BREATH, (Reported) Clotrimazole (Clotrimazole) 1 % Cre, 1 DOSE EXT BID PRN for RASH, (Reported) APPLY TO RASH UNDER BREAST ABD AFFECTED THIGH AREA Diphenhydramine HCl (Itch Relief Cream) 1 Dose/28.3 Gm Cream, 1 DOSE TOP QID PRN for ITCHING, (Reported) APPLY TO ARMS, BACK, AND CHEST AREAS Guaifenesin (Mucinex) 600 Mg Tab.er.12h, 600 MG PO BID PRN for CONGESTION, (Reported) Methyl Salicylate/Menth/Camph (Bengay Ultra Strength Cream) 1 Cre Cre, 1 APLCT TOP QID PRN for PAIN, (Reported) RT FLANK AND BACK Mineral Oil/I-Prop Myr/Water (Hydrocerin Lotion) 236 Ml Lotion, 1 APLCT TOP Q4H PRN for DRY SKIN, (Reported) Nitroglycerin (Nitroglycerin) 0.4 Mg Sub, 0.4 MG SL Q5MP PRN for CHEST PAIN, (Reported) Nystatin (Nystatin Powder) 100,000 Unit/Gm Pow, 1 DOSE TOP BID PRN for RASH, (Reported) APPLY TO ABDOMINAL FOLDS Sennosides/Docusate Sodium (Senna-S Tablet) 1 Tab Tab, 1 TAB PO DAILY PRN for CONSTIPATION, (Reported) Triamcinolone Acetonide (Triamcinolone Acetonide) 0.5 % Oin, 1 DOSE EXT BID PRN for SKIN TREATMENT, (Reported) APPLY TO BILATERAL LOWER ABDOMEN WALL Allergies Coded Allergies: Sulfa (Sulfonamide Antibiotics) (Verified Allergy, Severe, 01/28/19) iodine (Verified Allergy, Intermediate, swelling, 01/28/19) amoxicillin (Verified Allergy, Mild, body rash, 01/28/19) latex (Verified Allergy, Mild, rash, 01/28/19) codeine (Verified Adverse Reaction, Intermediate, vomiting, 01/28/19) A-FIB/CHADSVASC A-FIB History Current/History of A-Fib/PAF?: Yes Current PO Anticoag Therapy: Yes SEAN SAMPSON MD Jan 31, 2019 11:08
--- NOTE | 2019-01-31 11:08 | IPNPDOC ---
PM&R Progress Note DATE OF SERVICE: Jan 31, 2019 [employer] Progress Note Subjective: Patient states she has generalized pain throughout her body and is averse to medications but agreed to take a low dose daily prednisone. REVIEW OF SYSTEMS: The following is a completed review of systems and has been reviewed. Review of systems otherwise unremarkable. PAIN: Patient self reports diffuse pain and stiffness EYES: Negative recent vision loss EARS, NOSE, & THROAT: denies throat pain, rhinorrhea or dysphagia CARDIOVASCULAR: denies chest pain or palpitations PULMONARY: Negative. Denies shortness of breath GASTROINTESTINAL: no diarrhea or constipation GENITOURINARY: no dysuria MUSCULOSKELETAL:+spinal OA and diffuse RA, right proximal humeral fracture NEUROLOGICAL: no focal tremor or seizure activity SKIN: right hand laceration PSYCHIATRIC: Unremarkable All other review of systems found to be negative. PHYSICAL EXAMINATION: VITAL SIGNS: Please see below. GENERAL: Pleasant and cooperative. No acute distress. HEENT: PERRL. Extraocular movements intact. Clear conjunctiva, +glasses CARDIOVASCULAR: Regular rate and rhythm. No murmurs, rubs, or gallops LUNGS: Clear to auscultation bilaterally. No wheezes. No rhonchi ABDOMEN: Soft, nontender, nondistended. Positive bowel sounds. Normal active bowel sounds NEUROLOGICAL: Alert and oriented times three. Cranial nerves II through XII grossly intact. Sensation grossly intact in a 4 extremities EXTREMITIES: 4\5 strength bilateral upper extremities. 4\5 strength right lower extremity. 4/5 strength in left lower extremity. (right arm in a sling) decreased ROM bilateral shoulders, +ulnar deviation of bilat MCP joints with subluxed thumbs, decreased ROM of neck SKIN: right hand laceration, bilateral feet purple with palpable pedal pulses ASSESSMENT:88-year-old F with past medical history of spinal stenosis, diffuse RA who presents status post fall with right proximal humeral fracture with difficulty ambulating due to worsening spinal stenosis. PLAN: 1. Rehab: PT and OT to work on strengthening, endurance training, use of adaptive equipment for ADls management, preserve joint ROM<-c/u NWB and no PROM 2. Neuro: pmh CVA, c/u statin, on warfarin -seizure d/o c/u Keppra 3. Cardio: pmh Afib and diastolic CHF- c/u Torsemide, spironolactone and Warfarin-medicine consulted to help manage 4. Resp: pmh MARCO- c/u CPAP 5. Ortho: right humeral fracture, sling when out of bed, NWB- ortho consulted -pmh spinal stenosis with LE weakness significantly limiting her ability to walk -X-ray of right hand negative for fracture, showing advanced arthritis 6. Rheum: significant RA, will start low dose prednisone and refer to outpatient rheum 7. Pain: c/u tylenol, c/u Cymbalta, start low dose prednisone, lidoderm path to right shoulder and mid-back 8. Endo: pmh DM c/u Glipizide- FS well controlled 9. DVT ppx: on warfarin 10. : monitor PVRs 11. Dispo: TBD Allergies Coded Allergies: Sulfa (Sulfonamide Antibiotics) (Verified Allergy, Severe, 01/28/19) iodine (Verified Allergy, Intermediate, swelling, 01/28/19) amoxicillin (Verified Allergy, Mild, body rash, 01/28/19) latex (Verified Allergy, Mild, rash, 01/28/19) codeine (Verified Adverse Reaction, Intermediate, vomiting, 01/28/19) Vital Signs Vital Signs Date Time Temp Pulse Resp B/P (MAP) Pulse Ox O2 Delivery O2 Flow Rate FiO2 01/31/19 06:00 98.6 83 17 105/57 (73) 96 Laboratory Data CBC/BMP Laboratory Tests 01/31/19 05:57 Red Blood Count 3.85 L, Mean Corpuscular Volume 88.8, Mean Corpuscular Hemoglobin 29.4, Mean Corpuscular Hemoglobin Concent 33.0, Red Cell Distribution Width 14.2, Neutrophils (%) (Auto) 55.8, Lymphocytes (%) (Auto) 25.7, Monocytes (%) (Auto) 15.3 H, Eosinophils (%) (Auto) 2.3, Basophils (%) (Auto) 0.6, Neutrophils # (Auto) 5.2, Lymphocytes # (Auto) 2.4, Monocytes # (Auto) 1.4 H, Eosinophils # (Auto) 0.2, Basophils # (Auto) 0.1, Calcium Level 9.5, Aspartate Amino Transf (AST/SGOT) 18, Alanine Aminotransferase (ALT/SGPT) 16, Alkaline Phosphatase 79, Total Bilirubin 0.4, Total Protein 6.4, Albumin 2.7 L Labs 24H Laboratory Tests 2 01/31/19 05:57: Immature Granulocyte % (Auto) 0.3, White Blood Count 9.3, Red Blood Count 3.85L, Hemoglobin 11.3L, Hematocrit 34.2L, Mean Corpuscular Volume 88.8, Mean Corpu scular Hemoglobin 29.4, Mean Corpuscular Hemoglobin Concent 33.0, Red Cell Distribution Width 14.2, Platelet Count 243, Neutrophils (%) (Auto) 55.8, Lymphocytes (%) (Auto) 25.7, Monocytes (%) (Auto) 15.3H, Eosinophils (%) (Auto) 2.3, Basophils (%) (Auto) 0.6, Neutrophils # (Auto) 5.2, Lymphocytes # (Auto) 2.4, Monocytes # (Auto) 1.4H, Eosinophils # (Auto) 0.2, Basophils # (Auto) 0.1, Nucleated Red Blood Cells % (auto) 0.0, Prothrombin Time 22.5H, Prothromb Time International Ratio 1.94, Anion Gap 9, Glomerular Filtration Rate 57.8, Blood Urea Nitrogen 22H, Creatinine 0.97, Sodium Level 139, Potassium Level 4.0, Chloride Level 106, Carbon Dioxide Level 24, Calcium Level 9.5, Aspartate Amino Transf (AST/SGOT) 18, Alanine Aminotransferase (ALT/SGPT) 16, Alkaline Phosphatase 79, Total Bilirubin 0.4, Total Protein 6.4, Albumin 2.7L, Albumin/Globulin Ratio 0.73L Current Medications Current Medications Current Medications Acetaminophen (Tylenol Tab) 1,000 mg TID PO Last administered on 01/31/19at 08:36; Start 01/30/19 at 21:00 Albuterol Sulfate (Proventil, Ventolin Hfa) 2 puff Q4HP PRN INH SHORTNESS OF BREATH; Start 01/30/19 at 18:45 Allopurinol (Zyloprim) 150 mg DAILY PO Last administered on 01/31/19at 08:37; Start 01/31/19 at 09:00 Baclofen (Lioresal) 5 mg DAILY PO Last administered on 01/31/19at 08:37; Start 01/31/19 at 09:00 Bisacodyl (Dulcolax Suppository) 10 mg DAILYPRN PRN [place] CONSTIPATION; Start 01/30/19 at 18:45 Cetirizine HCl (ZyrTEC) 10 mg DAILY PO Last administered on 01/31/19 08:37; Start 01/31/19 at 09:00 Docusate Sodium (Colace) 100 mg BID PO Last administered on 01/31/19 08:36; Start 01/30/19 at 21:00 Duloxetine HCl (Cymbalta) 30 mg DAILY PO ; Start 01/31/19 at 09:00 Glipizide (Glucotrol Xl) 5 mg DAILY@0730 PO Last administered on 01/31/19 08:38; Start 01/31/19 at 07:30 Guaifenesin (Robitussin Tab) 400 mg TID PO Last administered on 01/31/19 08:37; Start 01/30/19 at 21:00 Latanoprost (Xalatan 0.005% Op Soln) 1 drop QHS OU Last administered on 01/30/19 20:23; Start 01/30/19 at 21:00 Levetiracetam (Keppra) 500 mg BID PO Last administered on 01/31/19 08:37; Start 01/30/19 at 21:00 Lidocaine (Lidoderm Patch) 1 patch QHS TD Last administered on 01/30/19 20:23; Start 01/30/19 at 21:00 Miscellaneous (Unresolved Patient Own Med Order) SEE LABEL COMMENTS DAILY XX Last administered on 01/31/19 08:41; Start 01/30/19 at 09:00 Multivitamins (Theragram-M) 1 tab DAILY PO Last administered on 01/31/19 08:36; Start 01/31/19 at 09:00 Nitroglycerin (Nitrostat (1/ 150)) 0.4 mg Q5MP PRN SL CHEST PAIN; Start 01/30/19 at 18:45 Non-Formulary Medication ( See Comment Field Below ) REMOVE LIDODERM PATCH DAILY XX Last administered on 01/31/19 08:41; Start 01/31/19 at 09:00 Omeprazole (PriLOSEC) 20 mg DAILY PO Last administered on 01/31/19 08:37; Start 01/31/19 at 09:00; Stop 01/31/19 at 10:58; Status DC Pantoprazole Sodium (Protonix) 40 mg BID PO ; Start 01/31/19 at 21:00 Patient Own Medication (Patient'S Own Med) 1 ea ASDIRECTED OU ; Start 01/30/19 at 18:45; Status UNV Prednisone (Deltasone) 5 mg DAILY PO ; Start 01/31/19 at 09:00 Senna (Senokot) 1 tab QHS PO Last administered on 01/30/19at 20:22; Start 01/30/19 at 21:00 Simvastatin (Zocor) 40 mg QHS PO Last administered on 01/30/19at 20:22; Start 01/30/19 at 21:00 Spironolactone (Aldactone) 25 mg QAM PO Last administered on 01/31/19at 08:37; Start 01/31/19 at 09:00 Torsemide (Demadex) 10 mg BID@09,17 PO Last administered on 01/31/19 08:37; Start 01/31/19 at 09:00 Vitamin D (Vitamin D) 2,000 units DAILY PO Last administered on 01/31/19at 08:37; Start 01/31/19 at 09:00 Warfarin Sodium (Coumadin) 4 mg DAILY@1700 PO ; Start 01/31/19 at 17:00 SEAN SAMPSON MD Jan 31, 2019 11:08
[2019-01-31] MEDS: DULoxetine 30 MG CAP (CYMBALTA) PO SCH (12:21)
[2019-01-31 14:00] VITALS: BP 116/56
--- NOTE | 2019-01-31 16:36 | IPNPDOC ---
Text Note Date of Service The patient was seen on 01/31/19. NOTE Subjective: Patient is an 88 year old female who presented to the ER on 01/28/19 after she had fallen at the [facility]. She was found to have a fracture of her R arm. Orthopedic surgery evaluated her and recommended conservative therapy. Patient was transferred to ARU on 01/30/19 under the care of Dr. Goodwin. Hospitalist service was called on consultation for medical management. Patient was seen and examined at the bedside. Currently reports her R hand has some pain. Has progressed with PT. Denies CP, SOB or palpitations. Objective: Vitals (See below) General: Lying in bed, no acute distress, comfortable, awake / alert HEENT: NC, AT CVS: RRR, +S1S2 Lungs: Fair air entry b/l, -w/r/r Abdomen: Soft, ND, NT Extremities: - Edema, - Calf tenderness, R arm in sling Assessment and plan: Right humerus fracture - 2/2 mechanical fall - c/w conservative therapy - pain control and physical therapy as per ARU Right hand pain - suspected to be 2/2 arthritic changes / gout - c/w Allopurinol - Has been started on Prednisone as per ARU Paroxysmal atrial fibrillation - c/w rate control with - c/w full anticoagulation with Coumadin - INR approaching therapeutic Chronic diastolic congestive heart failure - no evidence of exacerbation - c/w Torsemide and Spironolactone Asthma - no evidence of exacerbation - c/w inhaled therapy as ordered Obstructive sleep apnea - may use own CPAP DM2 - c/w glipizide DLP - c/w simvastatin History of seizure disorder - c/w Keppra Morbid obesity - complicating medical care Mood disorder - c/w Duloxetine GERD - c/w Protonix DVT prophylaxis - c/w Coumadin for anticoagulation; INR approaching therapeutic levels VS,Antwonbone, I+O VS, Fishbone, I+O Laboratory Tests 01/31/19 05:57 Red Blood Count 3.85 L, Mean Corpuscular Volume 88.8, Mean Corpuscular Hemoglobin 29.4, Mean Corpuscular Hemoglobin Concent 33.0, Red Cell Distribution Width 14.2, Neutrophils (%) (Auto) 55.8, Lymphocytes (%) (Auto) 25.7, Monocytes (%) (Auto) 15.3 H, Eosinophils (%) (Auto) 2.3, Basophils (%) (Auto) 0.6, Ne utrophils # (Auto) 5.2, Lymphocytes # (Auto) 2.4, Monocytes # (Auto) 1.4 H, Eosinophils # (Auto) 0.2, Basophils # (Auto) 0.1, Calcium Level 9.5, Aspartate Amino Transf (AST/SGOT) 18, Alanine Aminotransferase (ALT/SGPT) 16, Alkaline Phosphatase 79, Total Bilirubin 0.4, Total Protein 6.4, Albumin 2.7 L Vital Signs Date Time Temp Pulse Resp B/P (MAP) Pulse Ox O2 Delivery O2 Flow Rate FiO2 01/31/19 14:00 97.6 88 20 116/56 (20) 95 I&O- Last 24 Hours up to 6 AM 01/31/19 06:00 Intake Total 720 ml Balance 720 ml OLIVIA CADENA MD Jan 31, 2019 16:23
[2019-01-31] MEDS: POLYVINYL ALCOHOL OPHTH SOLN 15 ML(LIQUITEARS) OU SCH ×2 (17:12→21:00)
[2019-01-31] MEDS: WARFARIN SOD 4 MG TAB PO SCH (17:12)
[2019-01-31 20:00] VITALS: BP 111/59
[2019-01-31] MEDS: PANTOPRAZOLE 40MG TAB (PROTONIX) PO SCH (20:56)
[2019-01-31] MEDS: SENNA 8.6 MG TAB (SENOKOT) PO SCH (21:00)
[2019-01-31] MEDS: SIMVASTATIN 40 MG TAB PO SCH (21:01)
[2019-01-31] MEDS: LATANOPROST 0.005% OPHTH SOLN 2.5 ML OU SCH (21:01)
[2019-01-31] MEDS: LIDOCAINE 5% (LIDODERM) PATCH TD SCH (21:02)
[2019-02-01] MEDS ORDERED: ONDANSETRON 4 MG ORAL DISINTEGRATING TAB (Q0162 PER 1MG) SL PRN (04:00)
[2019-02-01 05:49] VITALS: BP 140/65
[2019-02-01] MEDS: POLYVINYL ALCOHOL OPHTH SOLN 15 ML(LIQUITEARS) OU SCH ×6 (06:00→21:00)
[2019-02-01 06:36] LABS: INR 2.32; PROTHROMBIN TIME 25.9 SECONDS (12.1-14.4)
[2019-02-01] MEDS: glipiZIDE XL 5 MG TABCR PO SCH (08:08)
[2019-02-01] MEDS: DULoxetine 30 MG CAP (CYMBALTA) PO SCH (08:08)
[2019-02-01] MEDS: DOCUSATE SODIUM 100 MG CAP PO SCH ×2 (08:09→22:37)
[2019-02-01] MEDS: predniSONE 2.5 MG TAB PO SCH (08:09)
[2019-02-01] MEDS: PANTOPRAZOLE 40MG TAB (PROTONIX) PO SCH ×2 (08:09→22:37)
[2019-02-01] MEDS: TORSEMIDE 10 MG TABLET PO SCH ×2 (08:09→17:21)
[2019-02-01] MEDS: levETIRAcetam 250MG TABLET (KEPPRA) PO SCH ×2 (08:09→22:37)
[2019-02-01] MEDS: VITAMIN D 1,000 INTERNATIONAL UNITS TABLET PO SCH (08:09)
[2019-02-01] MEDS: BACLOFEN 5MG PER 1/2 TABLET PO SCH (08:09)
[2019-02-01] MEDS: ALLOPURINOL 300 MG TAB PO SCH (08:10)
[2019-02-01] MEDS: SPIRONOLACTONE 25 MG TAB PO SCH (08:11)
[2019-02-01] MEDS: CETIRIZINE (ZyrTEC) 10 MG TAB PO SCH (08:11)
[2019-02-01] MEDS: ACETAMINOPHEN 500 MG TAB PO SCH ×3 (08:11→22:39)
[2019-02-01] MEDS: MULTIVITAMINS/MINERALS THERAP 1 TAB PO SCH (08:11)
[2019-02-01] MEDS: guaiFENesin 200 MG TAB PO SCH ×3 (08:12→21:00)
[2019-02-01] MEDS: **NOTE PATIENT COMMENT** MISC XX SCH ×2 (09:00→21:00)
--- NOTE | 2019-02-01 10:02 | IPNPDOC ---
PM&R Progress Note DATE OF SERVICE: Feb 01, 2019 [employer] Progress Note Subjective: Patient reporting her pain is better today since starting low dose prednisone. REVIEW OF SYSTEMS: The following is a completed review of systems and has been reviewed. Review of systems otherwise unremarkable. PAIN: Patient self reports diffuse pain and stiffness EYES: Negative recent vision loss EARS, NOSE, & THROAT: denies throat pain, rhinorrhea or dysphagia CARDIOVASCULAR: denies chest pain or palpitations PULMONARY: Negative. Denies shortness of breath GASTROINTESTINAL: no diarrhea or constipation GENITOURINARY: no dysuria MUSCULOSKELETAL:+spinal OA and diffuse RA, right proximal humeral fracture NEUROLOGICAL: no focal tremor or seizure activity SKIN: right hand laceration PSYCHIATRIC: Unremarkable All other review of systems found to be negative. PHYSICAL EXAMINATION: VITAL SIGNS: Please see below. GENERAL: Pleasant and cooperative. No acute distress. HEENT: PERRL. Extraocular movements intact. Clear conjunctiva, +glasses CARDIOVASCULAR: Regular rate and rhythm. No murmurs, rubs, or gallops LUNGS: Clear to auscultation bilaterally. No wheezes. No rhonchi ABDOMEN: Soft, nontender, nondistended. Positive bowel sounds. Normal active bowel sounds NEUROLOGICAL: Alert and oriented times three. Cranial nerves II through XII grossly intact. Sensation grossly intact in a 4 extremities EXTREMITIES: 4\5 strength bilateral upper extremities. 4\5 strength right lower extremity. 4/5 strength in left lower extremity. (right arm in a sling) decreased ROM bilateral shoulders, +ulnar deviation of bilat MCP joints with subluxed thumbs, decreased ROM of neck SKIN: right hand laceration, bilateral feet purple with palpable pedal pulses ASSESSMENT:88-year-old F with past medical history of spinal stenosis, diffuse RA who presents status post fall with right proximal humeral fracture with difficulty ambulating due to worsening spinal stenosis. PLAN: 1. Rehab: PT and OT to work on strengthening, endurance training, use of adaptive equipment for ADls management, preserve joint ROM<-c/u NWB and no PROM 2. Neuro: pmh CVA, c/u statin, on warfarin -seizure d/o c/u Keppra 3. Cardio: pmh Afib and diastolic CHF- c/u Torsemide, spironolactone and Warfarin-medicine consulted to help manage 4. Resp: pmh MARCO- c/u CPAP 5. Ortho: right humeral fracture, sling when out of bed, NWB- ortho consulted -pmh spinal stenosis with LE weakness significantly limiting her ability to walk -X-ray of right hand negative for fracture, showing advanced arthritis 6. Rheum: significant RA, c/u low dose prednisone and refer to outpatient rheum 7. Pain: c/u tylenol, c/u Cymbalta and low dose prednisone, lidoderm path to right shoulder and mid-back 8. Endo: pmh DM c/u Glipizide- FS well controlled 9. DVT ppx: on warfarin 10. : monitor PVRs 11. Dispo: TBD Allergies Coded Allergies: Sulfa (Sulfonamide Antibiotics) (Verified Allergy, Severe, 01/28/19) iodine (Verified Allergy, Intermediate, swelling, 01/28/19) amoxicillin (Verified Allergy, Mild, body rash, 01/28/19) latex (Verified Allergy, Mild, rash, 01/28/19) codeine (Verified Adverse Reaction, Intermediate, vomiting, 01/28/19) Vital Signs Vital Signs Date Time Temp Pulse Resp B/P (MAP) Pulse Ox O2 Delivery O2 Flow Rate FiO2 02/01/19 05:49 97.6 90 18 140/65 (90) 92 Laboratory Data Labs 24H Laboratory Tests 2 01/31/19 16:42: Bedside Glucose (Misc Panel) 202H 02/01/19 06:04: Prothrombin Time 25.9H, Prothromb Time International Ratio 2.32 02/01/19 06:13: Bedside Glucose (Misc Panel) 110 Current Medications Current Medications Current Medications Acetaminophen (Tylenol Tab) 1,000 mg TID PO Last administered on 02/01/19at 08:11; Start 01/30/19 at 21:00 Albuterol Sulfate (Proventil, Ventolin Hfa) 2 puff Q4HP PRN INH SHORTNESS OF BREATH; Start 01/30/19 at 18:45 Allopurinol (Zyloprim) 150 mg DAILY PO Last administered on 02/01/19at 08:10; Start 01/31/19 at 09:00 Artificial Tears (Akwa Tears) 1 drop 6XD OU ; Start 01/31/19 at 18:00 Baclofen (Lioresal) 5 mg DAILY PO Last administered on 02/01/19at 08:09; Start 01/31/19 at 09:00 Bisacodyl (Dulcolax Suppository) 10 mg DAILYPRN PRN NE CONSTIPATION; Start 01/30/19 at 18:45 Cetirizine HCl (ZyrTEC) 10 mg DAILY PO Last administered on 02/01/19 08:11; Start 01/31/19 at 09:00 Docusate Sodium (Colace) 100 mg BID PO Last administered on 02/01/19 08:09; Start 01/30/19 at 21:00 Duloxetine HCl (Cymbalta) 30 mg DAILY PO Last administered on 02/01/19 08:08; Start 01/31/19 at 09:00 Glipizide (Glucotrol Xl) 5 mg DAILY@0730 PO Last administered on 02/01/19 08:08; Start 01/31/19 at 07:30 Guaifenesin (Robitussin Tab) 400 mg TID PO Last administered on 01/31/19 08:37; Start 01/30/19 at 21:00 Latanoprost (Xalatan 0.005% Op Soln) 1 drop QHS OU Last administered on 01/31/19 21:01; Start 01/30/19 at 21:00 Levetiracetam (Keppra) 500 mg BID PO Last administered on 02/01/19 08:09; Start 01/30/19 at 21:00 Lidocaine (Lidoderm Patch) 1 patch QHS TD Last administered on 01/31/19 21:02; Start 01/30/19 at 21:00 Miscellaneous (Unresolved Patient Own Med Order) SEE LABEL COMMENTS DAILY XX Last administered on 01/31/19 08:41; Start 01/30/19 at 09:00; Stop 01/31/19 at 15:45; Status DC Multivitamins (Theragram-M) 1 tab DAILY PO Last administered on 02/01/19 08:11; Start 01/31/19 at 09:00 Nitroglycerin (Nitrostat (1/ 150)) 0.4 mg Q5MP PRN SL CHEST PAIN; Start 01/30/19 at 18:45 Non-Formulary Medication ( See Comment Field Below ) REMOVE LIDODERM PATCH DAILY XX Last administered on 01/31/19 08:41; Start 01/31/19 at 09:00 Omeprazole (PriLOSEC) 20 mg DAILY PO Last administered on 01/31/19 08:37; Start 01/31/19 at 09:00; Stop 01/31/19 at 10:58; Status DC Ondansetron HCl (Zofran Odt) 4 mg Q6HP PRN SL NAUSEA OR VOMITING Last administered on 02/01/19 04:11; Start 02/01/19 at 04:00 Pantoprazole Sodium (Protonix) 40 mg BID PO Last administered on 02/01/19 08:09; Start 01/31/19 at 21:00 Patient Own Medication (Patient'S Own Med) 1 ea ASDIRECTED OU ; Start 01/30/19 at 18:45; Stop 01/31/19 at 15:47; Status DC Prednisone (Deltasone) 2.5 mg DAILY PO Last administered on 02/01/19 08:09; Start 02/01/19 at 09:00 Prednisone (Deltasone) 5 mg DAILY PO ; Start 01/31/19 at 09:00; Stop 01/31/19 at 15:39; Status DC Senna (Senokot) 1 tab QHS PO Last administered on 01/30/19at 20:22; Start 01/30/19 at 21:00 Simvastatin (Zocor) 40 mg QHS PO Last administered on 01/31/19at 21:01; Start 01/30/19 at 21:00 Spironolactone (Aldactone) 25 mg QAM PO Last administered on 02/01/19 08:11; Start 01/31/19 at 09:00 Torsemide (Demadex) 10 mg BID@,17 PO Last administered on 02/01/19 08:09; Start 01/31/19 at 09:00 Vitamin D (Vitamin D) 2,000 units DAILY PO Last administered on 02/01/19 08:09; Start 01/31/19 at 09:00 Warfarin Sodium (Coumadin) 4 mg DAILY@1700 PO Last administered on 01/31/19 17:12; Start 01/31/19 at 17:00 SEAN SAMPSON MD Feb 01, 2019 10:02
[2019-02-01] MEDS: LIDOCAINE 5% (LIDODERM) PATCH TD SCH ×2 (11:19→22:38)
[2019-02-01 14:00] VITALS: BP 117/56
--- NOTE | 2019-02-01 16:14 | IPNPDOC ---
Subjective Date Seen The patient was seen on 02/01/19. Subjective Chief Complaint/HPI Patient is an 88-year-old female, past medical history significant for obstructive sleep apnea, diabetes mellitus type 2, degenerative disc disease, peripheral neuropathy, atrial fibrillation on Coumadin, presenting to the hospital on account of right femoral fracture status post fall. Imaging study showed nondisplaced fracture proximal humerus. She was evaluated by orthopaedic surgical team who recommended non weight bearing and sling utilization. She was discharged to rehabilitation unit for mobilization and strengthening. Events since last encounter Up to chair at bedside, has no complaints today. Denies chest pain, denies shortness of breath, denies discomfort Objective Physical Examination General Exam: Positive: Alert, No Acute Distress Eye Exam: Positive: PERRLA, Conjunctiva & lids normal, EOMI ENT Exam: Positive: Atraumatic, Mucous membr. moist/pink, Pharynx Normal Neck Exam: Positive: Supple; Negative: JVD, thyromegaly Chest Exam: Positive: Clear to auscultation, Normal air movement; Negative: Rales, Rhonchi Heart Exam: Positive: Regular Rhythm, Murmurs Abdomen Exam: Positive: Normal bowel sounds, Soft; Negative: Tenderness Extremity Exam: Positive: Edema Skin Exam: Positive: Nl turgor and temperature; Negative: Breakdown Neuro Exam: Positive: Normal Speech, Cranial Nerves 3-12 NL Psych Exam: Positive: Mental status NL, Oriented x 3; Negative: Anxiety Assessment /Plan Assessment Right humerus fracture -Due to mechanical fall -Mobilization and strengthening per primary team -Continue fall precautions Paroxysmal atrial fibrillation - Rate is controlled in sinus rhythm -INR is therapeutic at 2.3 today -continue with Coumadin with INR monitoring Chronic diastolic congestive heart failure -Currently euvolemic -Continue Torsemide and Spironolactone Obstructive sleep apnea - qHS CPAP DM2 -Diabetic diet -Fingerstick monitoring prior to meals and at bedtime -Oral antidiabetic medication Seizure disorder --On Keppra Morbid obesity - complicating medical care Mood disorder -Continue antidepressant with Duloxetine DVT prophylaxis -Fully anticoagulated on Coumadin Plan/VTE VTE Prophylaxis Ordered?: Yes VS, I&O, 24H, Fishbone Vital Signs/I&O Vital Signs Date Time Temp Pulse Resp B/P (MAP) Pulse Ox O2 Delivery O2 Flow Rate FiO2 02/01/19 14:00 97.8 86 18 117/56 (76) 96 I&O- Last 24 Hours up to 6 AM 02/01/19 06:00 Intake Total 1080 ml Output Total 451 ml Balance 629 ml Laboratory Data 24H LABS Laboratory Tests 2 01/31/19 16:42: Bedside Glucose (Misc Panel) 202H 02/01/19 06:04: Prothrombin Time 25.9H, Prothromb Time International Ratio 2.32 02/01/19 06:13: Bedside Glucose (Misc Panel) 110 KIRILL BHATIA [facility] Feb 01, 2019 16:14
[2019-02-01] MEDS: WARFARIN SOD 4 MG TAB PO SCH (17:21)
[2019-02-01 21:00] VITALS: BP 118/56
[2019-02-01] MEDS: LATANOPROST 0.005% OPHTH SOLN 2.5 ML OU SCH (22:36)
[2019-02-01] MEDS: SENNA 8.6 MG TAB (SENOKOT) PO SCH (22:37)
[2019-02-01] MEDS: SIMVASTATIN 40 MG TAB PO SCH (22:37)
[2019-02-02 05:00] VITALS: BP 144/64
[2019-02-02] MEDS: POLYVINYL ALCOHOL OPHTH SOLN 15 ML(LIQUITEARS) OU SCH ×6 (06:00→20:47)
[2019-02-02 06:24] LABS: BLOOD UREA NITROGEN 28 MG/DL (7-18); CALCIUM LEVEL 9.3 MG/DL (8.8-10.2); CARBON DIOXIDE LEVEL 23 MEQ/L (21-32); CHLORIDE LEVEL 106 MEQ/L (98-107); CREATININE FOR GFR 0.88 MG/DL (0.55-1.30); GLOMERULAR FILTRATION RATE > 60.0 (>32); GLUCOSE, FASTING 83 MG/DL (70-100); SODIUM LEVEL 135 MEQ/L (136-145)
[2019-02-02] MEDS: guaiFENesin 200 MG TAB PO SCH ×5 (09:00→21:00)
[2019-02-02] MEDS: BACLOFEN 5MG PER 1/2 TABLET PO SCH (09:01)
[2019-02-02] MEDS: VITAMIN D 1,000 INTERNATIONAL UNITS TABLET PO SCH (09:01)
[2019-02-02] MEDS: DULoxetine 30 MG CAP (CYMBALTA) PO SCH (09:01)
[2019-02-02] MEDS: glipiZIDE XL 5 MG TABCR PO SCH (09:01)
[2019-02-02] MEDS: ALLOPURINOL 300 MG TAB PO SCH (09:02)
[2019-02-02] MEDS: MULTIVITAMINS/MINERALS THERAP 1 TAB PO SCH (09:02)
[2019-02-02] MEDS: TORSEMIDE 10 MG TABLET PO SCH ×2 (09:02→16:19)
[2019-02-02] MEDS: SPIRONOLACTONE 25 MG TAB PO SCH (09:02)
[2019-02-02] MEDS: levETIRAcetam 250MG TABLET (KEPPRA) PO SCH ×2 (09:03→20:43)
[2019-02-02] MEDS: predniSONE 2.5 MG TAB PO SCH (09:04)
[2019-02-02] MEDS: DOCUSATE SODIUM 100 MG CAP PO SCH ×2 (09:04→20:43)
[2019-02-02] MEDS: PANTOPRAZOLE 40MG TAB (PROTONIX) PO SCH ×2 (09:04→20:42)
[2019-02-02] MEDS: ACETAMINOPHEN 500 MG TAB PO SCH ×3 (09:04→20:45)
[2019-02-02] MEDS: CETIRIZINE (ZyrTEC) 10 MG TAB PO SCH (09:05)
[2019-02-02] MEDS: LIDOCAINE 5% (LIDODERM) PATCH TD SCH ×2 (09:05→20:42)
[2019-02-02] MEDS: **NOTE PATIENT COMMENT** MISC XX SCH ×2 (09:31→20:47)
[2019-02-02 14:00] VITALS: BP 122/60
[2019-02-02] MEDS: WARFARIN SOD 4 MG TAB PO SCH (16:18)
--- NOTE | 2019-02-02 17:18 | IPNPDOC ---
Subjective Date Seen The patient was seen on 02/02/19. Subjective Chief Complaint/HPI Patient is an 88-year-old female, past medical history significant for obstructive sleep apnea, diabetes mellitus type 2, degenerative disc disease, pe ripheral neuropathy, atrial fibrillation on Coumadin, presenting to the hospital on account of right femoral fracture status post fall. Imaging study showed nondisplaced fracture proximal humerus. She was evaluated by orthopaedic surgical team who recommended non weight bearing and sling utilization. She was discharged to rehabilitation unit for mobilization and strengthening. Events since last encounter Up to chair at bedside working with occupational therapy at time of evaluation. Complaints of persisting right shoulder pain but otherwise, denies chills, fever, chest pain, shortness of breath. Objective Physical Examination General Exam: Positive: Alert, No Acute Distress Eye Exam: Positive: PERRLA, Conjunctiva & lids normal, EOMI ENT Exam: Positive: Atraumatic, Mucous membr. moist/pink, Pharynx Normal Neck Exam: Positive: Supple; Negative: JVD, thyromegaly Chest Exam: Positive: Clear to auscultation, Normal air movement; Negative: Rales, Rhonchi Heart Exam: Positive: Regular Rhythm, Murmurs Abdomen Exam: Positive: Normal bowel sounds, Soft; Negative: Tenderness Extremity Exam: Positive: Edema Skin Exam: Positive: Nl turgor and temperature; Negative: Breakdown Neuro Exam: Positive: Normal Speech, Cranial Nerves 3-12 NL Psych Exam: Positive: Mental status NL, Oriented x 3; Negative: Anxiety Assessment /Plan Assessment Right humerus fracture -Due to mechanical fall -Mobilization and strengthening per primary team -Continue fall precautions Paroxysmal atrial fibrillation - currently in sinus rhythm with therapeutic INR levels -continue with Coumadin Chronic diastolic congestive heart failure -Currently euvolemic -fluid restriction -Continue Torsemide and Spironolactone Obstructive sleep apnea - CPAP QHS DM2 -Diabetic diet -Fingerstick monitoring prior to meals and at bedtime -continue Glipizide Seizure disorder --On Keppra -continue seizure precautions Morbid obesity - complicating medical care Mood disorder -Continue antidepressant with Duloxetine DVT prophylaxis -Fully anticoagulated on Coumadin Plan/VTE VTE Prophylaxis Ordered?: Yes VS, I&O, 24H, Fishbone Vital Signs/I&O Vital Signs Date Time Temp Pulse Resp B/P (MAP) Pulse Ox O2 Delivery O2 Flow Rate FiO2 02/02/19 14:00 98.4 80 17 122/60 (80) 95 I&O- Last 24 Hours up to 6 AM 02/02/19 06:00 Intake Total 1200 ml Balance 1200 ml Laboratory Data 24H LABS Laboratory Tests 2 02/01/19 17:15: Bedside Glucose (Misc Panel) 138H 02/02/19 05:37: Anion Gap 6L, Glomerular Filtration Rate > 60.0, Blood Urea Nitrogen 28H, Creatinine 0.88, Sodium Level 135L, Potassium Level 5.0#, Chloride Level 106, Carbon Dioxide Level 23, Calcium Level 9.3 02/02/19 07:44: Bedside Glucose (Misc Panel) 153H CBC/BMP Laboratory Tests 02/02/19 05:37 Calcium Level 9.3 KIRILL BHATIA [facility] Feb 02, 2019 17:18
[2019-02-02 20:00] VITALS: BP 129/58
[2019-02-02] MEDS: SIMVASTATIN 40 MG TAB PO SCH (20:42)
[2019-02-02] MEDS: LATANOPROST 0.005% OPHTH SOLN 2.5 ML OU SCH (20:43)
[2019-02-02] MEDS: SENNA 8.6 MG TAB (SENOKOT) PO SCH (20:43)
[2019-02-03 05:36] VITALS: BP 132/70
[2019-02-03] MEDS: POLYVINYL ALCOHOL OPHTH SOLN 15 ML(LIQUITEARS) OU SCH (05:56)
[2019-02-03 07:11] LABS: INR 3.43; PROTHROMBIN TIME 35.4 SECONDS (12.1-14.4)
[2019-02-03] MEDS: glipiZIDE XL 5 MG TABCR PO SCH (07:43)
[2019-02-03] MEDS: VITAMIN D 1,000 INTERNATIONAL UNITS TABLET PO SCH (08:03)
[2019-02-03] MEDS: SPIRONOLACTONE 25 MG TAB PO SCH (08:04)
[2019-02-03] MEDS: BACLOFEN 5MG PER 1/2 TABLET PO SCH (08:04)
[2019-02-03] MEDS: ALLOPURINOL 300 MG TAB PO SCH (08:04)
[2019-02-03] MEDS: PANTOPRAZOLE 40MG TAB (PROTONIX) PO SCH ×2 (08:04→21:30)
[2019-02-03] MEDS: LIDOCAINE 5% (LIDODERM) PATCH TD SCH ×3 (08:04→21:00)
[2019-02-03] MEDS: predniSONE 2.5 MG TAB PO SCH (08:04)
[2019-02-03] MEDS: levETIRAcetam 250MG TABLET (KEPPRA) PO SCH ×2 (08:05→21:30)
[2019-02-03] MEDS: MULTIVITAMINS/MINERALS THERAP 1 TAB PO SCH (08:05)
[2019-02-03] MEDS: DULoxetine 30 MG CAP (CYMBALTA) PO SCH (08:05)
[2019-02-03] MEDS: DOCUSATE SODIUM 100 MG CAP PO SCH ×2 (08:05→21:28)
[2019-02-03] MEDS: ACETAMINOPHEN 500 MG TAB PO SCH ×3 (08:06→21:29)
[2019-02-03] MEDS: TORSEMIDE 10 MG TABLET PO SCH ×2 (08:06→16:45)
[2019-02-03] MEDS: guaiFENesin 200 MG TAB PO SCH ×3 (08:06→21:00)
[2019-02-03] MEDS: CETIRIZINE (ZyrTEC) 10 MG TAB PO SCH (08:07)
[2019-02-03] MEDS: **NOTE PATIENT COMMENT** MISC XX SCH ×2 (08:07→21:00)
[2019-02-03] MEDS: SYSTANE BALANCE OU SCH ×5 (12:00→21:00)
--- NOTE | 2019-02-03 12:15 | IPNPDOC ---
Subjective Date Seen The patient was seen on 02/03/19. Subjective Chief Complaint/HPI Patient is an 88-year-old female, past medical history significant for obstructive sleep apnea, diabetes mellitus type 2, degenerative disc disease, peripheral neuropathy, atrial fibrillation on Coumadin, presenting to the hospital on account of right humeral fracture status post fall. Imaging study showed nondisplaced fracture proximal humerus. She was evaluated by orthopaedic surgical team who recommended non weight bearing and sling utilization. She was discharged to rehabilitation unit for mobilization and strengthening. Events since last encounter Up to chair at bedside, went out today with therapy and reports no acute concerns. We have discussed INR is 3.4 today and so we'll be holding Coumadin. Denies signs symptoms of bleeding. Denies chills, fever, chest pain, shortness of breath. Objective Physical Examination General Exam: Positive: Alert, Cooperative, No Acute Distress; Negative: Mild Distress Eye Exam: Positive: PERRLA, Conjunctiva & lids normal, EOMI ENT Exam: Positive: Atraumatic, Mucous membr. moist/pink, Pharynx Normal Neck Exam: Positive: Supple; Negative: JVD Chest Exam: Positive: Clear to auscultation, Normal air movement Heart Exam: Positive: Regular Rhythm, Murmurs Abdomen Exam: Positive: Normal bowel sounds, Soft Extremity Exam: Positive: Edema Skin Exam: Positive: Nl turgor and temperature Neuro Exam: Positive: Normal Speech, Cranial Nerves 3-12 NL Psych Exam: Positive: Mental status NL, Oriented x 3 Assessment /Plan Assessment Right humerus fracture -Rehabilitation by primary team -No acute or new concerns -Follow recommendations by PT, OT and rehabilitation team Paroxysmal atrial fibrillation - on coumadin for anticoagulation -INr is 3.4 today -hold coumadin dose for today Chronic diastolic congestive heart failure -Currently euvolemic -fluid restriction -Continue Torsemide and Spironolactone Obstructive sleep apnea - CPAP QHS DM2 -Diabetic diet -Fingerstick monitoring prior to meals and at bedtime -continue Glipizide Seizure disorder --On Keppra -continue seizure precautions Morbid obesity - complicating medical care Mood disorder -Continue antidepressant with Duloxetine DVT prophylaxis -Fully anticoagulated on Coumadin Plan/VTE VTE Prophylaxis Ordered?: Yes VS, I&O, 24H, Fishbone Vital Signs/I&O Vital Signs Date Time Temp Pulse Resp B/P (MAP) Pulse Ox O2 Delivery O2 Flow Rate FiO2 6/15/19 05:36 97.5 92 18 132/70 (90) 96 I&O- Last 24 Hours up to 6 AM 02/03/19 06:00 Intake Total 1050 ml Balance 1050 ml Laboratory Data 24H LABS Laboratory Tests 2 02/02/19 12:12: Bedside Glucose (Misc Panel) 98 02/02/19 16:46: Bedside Glucose (Misc Panel) 176H 02/02/19 20:04: Bedside Glucose (Misc Panel) 158H 02/03/19 06:09: Bedside Glucose (Misc Panel) 110 02/03/19 06:29: Prothrombin Time 35.4H, Prothromb Time International Ratio 3.43 KIRLIL BHATIAP Feb 03, 2019 12:15
[2019-02-03 14:00] VITALS: BP 124/58
[2019-02-03] MEDS: SIMVASTATIN 40 MG TAB PO SCH (21:28)
[2019-02-03] MEDS: SENNA 8.6 MG TAB (SENOKOT) PO SCH (21:30)
[2019-02-03] MEDS: LATANOPROST 0.005% OPHTH SOLN 2.5 ML OU SCH (21:30)
[2019-02-03 22:00] VITALS: BP 118/58
[2019-02-04 06:00] VITALS: BP 141/65
[2019-02-04] MEDS: PANTOPRAZOLE 40MG TAB (PROTONIX) PO SCH ×2 (06:01→20:26)
[2019-02-04] MEDS: SYSTANE BALANCE OU SCH ×6 (06:02→20:27)
[2019-02-04 07:29] LABS: INR 2.75; PROTHROMBIN TIME 29.7 SECONDS (12.1-14.4)
[2019-02-04] MEDS: glipiZIDE XL 5 MG TABCR PO SCH (07:33)
[2019-02-04] MEDS: DOCUSATE SODIUM 100 MG CAP PO SCH ×2 (09:00→20:26)
[2019-02-04] MEDS: **NOTE PATIENT COMMENT** MISC XX SCH ×2 (09:00→20:37)
[2019-02-04] MEDS: LIDOCAINE 5% (LIDODERM) PATCH TD SCH ×2 (09:00→20:27)
[2019-02-04] MEDS: ALLOPURINOL 300 MG TAB PO SCH (09:32)
[2019-02-04] MEDS: MULTIVITAMINS/MINERALS THERAP 1 TAB PO SCH (09:32)
[2019-02-04] MEDS: VITAMIN D 1,000 INTERNATIONAL UNITS TABLET PO SCH (09:33)
[2019-02-04] MEDS: levETIRAcetam 250MG TABLET (KEPPRA) PO SCH ×2 (09:33→20:26)
[2019-02-04] MEDS: guaiFENesin 200 MG TAB PO SCH ×3 (09:33→20:26)
[2019-02-04] MEDS: TORSEMIDE 10 MG TABLET PO SCH ×2 (09:33→16:53)
[2019-02-04] MEDS: CETIRIZINE (ZyrTEC) 10 MG TAB PO SCH (09:33)
[2019-02-04] MEDS: BACLOFEN 5MG PER 1/2 TABLET PO SCH (09:33)
[2019-02-04] MEDS: DULoxetine 30 MG CAP (CYMBALTA) PO SCH (09:33)
[2019-02-04] MEDS: ACETAMINOPHEN 500 MG TAB PO SCH ×3 (09:34→20:26)
[2019-02-04] MEDS: predniSONE 2.5 MG TAB PO SCH (09:35)
--- NOTE | 2019-02-04 12:34 | IPNPDOC ---
Subjective Date Seen The patient was seen on 02/04/19. Subjective Chief Complaint/HPI Patient is an 88-year-old female, past medical history significant for obstructive sleep apnea, diabetes mellitus type 2, degenerative disc disease, peripheral neuropathy, atrial fibrillation on Coumadin, presenting to the hospital on account of right humeral fracture status post fall. Imaging study showed nondisplaced fracture proximal humerus. She was evaluated by orthopaedic surgical team who recommended non weight bearing and sling utilization. She was discharged to inpatient rehabilitation unit for mobilization and strengthening. Events since last encounter Complaining of pain to neck from the sling. Feels bad, unable to localize source of unhappiness today. Denies chest pain, denies shortness of breath. We have discussed elevated potassium levels and the need to hold Aldactone Objective Physical Examination General Exam: Positive: Alert, Cooperative, No Acute Distress; Negative: Mild Distress Eye Exam: Positive: PERRLA, Conjunctiva & lids normal, EOMI ENT Exam: Positive: Atraumatic, Mucous membr. moist/pink, Pharynx Normal Neck Exam: Positive: Supple; Negative: JVD Chest Exam: Positive: Clear to auscultation, Normal air movement Heart Exam: Positive: Regular Rhythm, Murmurs Abdomen Exam: Positive: Normal bowel sounds, Soft Extremity Exam: Positive: Edema Skin Exam: Positive: Nl turgor and temperature Neuro Exam: Positive: Normal Speech, Cranial Nerves 3-12 NL Psych Exam: Positive: Mental status NL, Oriented x 3 Assessment /Plan Assessment Right humerus fracture -Rehabilitation by primary team -No acute or new concerns -Follow recommendations by PT, OT and rehabilitation team Paroxysmal atrial fibrillation - on coumadin for anticoagulation -INR is 2.75. Today -Continue coumadin Chronic diastolic congestive heart failure -Currently euvolemic -fluid restriction -Continue Torsemide -Hold spironolactone due to elevated potassium levels Hyperkalemia -On spironolactone, which has been held. -Monitor levels and adjust management as needed Obstructive sleep apnea - CPAP QHS DM2 -Diabetic diet -Fingerstick monitoring prior to meals and at bedtime -continue Glipizide Seizure disorder --On Keppra -continue seizure precautions DVT prophylaxis -Fully anticoagulated on Coumadin Plan/VTE VTE Prophylaxis Ordered?: Yes VS, I&O, 24H, Fishbone Vital Signs/I&O Vital Signs Date Time Temp Pulse Resp B/P (MAP) Pulse Ox O2 Delivery O2 Flow Rate FiO2 02/04/19 06:00 99.4 82 22 141/65 (90) 93 I&O- Last 24 Hours up to 6 AM 02/04/19 06:00 Intake Total 685 ml Balance 685 ml Laboratory Data 24H LABS Laboratory Tests 2 02/03/19 16:47: Bedside Glucose (Misc Panel) 151H 02/04/19 06:33: Prothrombin Time 29.7H, Prothromb Time International Ratio 2.75 02/04/19 06:35: Bedside Glucose (Misc Panel) 108 KIRILL BHATIA [facility] Feb 04, 2019 12:34
[2019-02-04 14:00] VITALS: BP_SYST 131; BP_SYST 140; BP_DIAS 63; BP_DIAS 67
[2019-02-04] MEDS: WARFARIN SOD 4 MG TAB PO SCH (16:53)
[2019-02-04 20:24] VITALS: BP 122/61
[2019-02-04] MEDS: SENNA 8.6 MG TAB (SENOKOT) PO SCH (20:26)
[2019-02-04] MEDS: SIMVASTATIN 40 MG TAB PO SCH (20:26)
[2019-02-04] MEDS: LATANOPROST 0.005% OPHTH SOLN 2.5 ML OU SCH (20:27)
[2019-02-05 05:49] VITALS: BP 138/78
[2019-02-05] MEDS: SYSTANE BALANCE OU SCH ×6 (06:08→21:03)
[2019-02-05] MEDS: PANTOPRAZOLE 40MG TAB (PROTONIX) PO SCH ×2 (06:08→21:02)
[2019-02-05] MEDS: MULTIVITAMINS/MINERALS THERAP 1 TAB PO SCH (07:56)
[2019-02-05] MEDS: DULoxetine 30 MG CAP (CYMBALTA) PO SCH (07:56)
[2019-02-05] MEDS: glipiZIDE XL 5 MG TABCR PO SCH (07:56)
[2019-02-05] MEDS: levETIRAcetam 250MG TABLET (KEPPRA) PO SCH ×2 (07:57→21:02)
[2019-02-05] MEDS: ACETAMINOPHEN 500 MG TAB PO SCH ×3 (07:57→21:03)
[2019-02-05] MEDS: ALLOPURINOL 300 MG TAB PO SCH (07:57)
[2019-02-05] MEDS: TORSEMIDE 10 MG TABLET PO SCH ×2 (07:57→21:02)
[2019-02-05] MEDS: guaiFENesin 200 MG TAB PO SCH ×3 (07:58→21:00)
[2019-02-05] MEDS: predniSONE 2.5 MG TAB PO SCH (07:58)
[2019-02-05] MEDS: VITAMIN D 1,000 INTERNATIONAL UNITS TABLET PO SCH (07:58)
[2019-02-05] MEDS: DOCUSATE SODIUM 100 MG CAP PO SCH ×2 (07:58→21:02)
[2019-02-05] MEDS: BACLOFEN 5MG PER 1/2 TABLET PO SCH (07:58)
[2019-02-05] MEDS: CETIRIZINE (ZyrTEC) 10 MG TAB PO SCH (07:58)
[2019-02-05] MEDS: **NOTE PATIENT COMMENT** MISC XX SCH ×2 (07:59→21:14)
[2019-02-05] MEDS: LIDOCAINE 5% (LIDODERM) PATCH TD SCH ×2 (07:59→21:01)
--- NOTE | 2019-02-05 12:03 | IPNPDOC ---
Subjective Date Seen The patient was seen on 02/05/19. Subjective Chief Complaint/HPI Patient is an 88-year-old female, past medical history significant for obstructive sleep apnea, diabetes mellitus type 2, degenerative disc disease, peripheral neuropathy, atrial fibrillation on Coumadin, presenting to the hospital on account of right humeral fracture status post fall. Imaging study showed nondisplaced fracture proximal humerus. She was evaluated by orthopaedic surgical team who recommended non weight bearing and sling utilization. She was discharged to inpatient rehabilitation unit for mobilization and strengthening. Events since last encounter Staff report patient has refused all blood work today including INR levels. Feels unhappy, denies chest pain, denies shortness of breath. Objective Physical Examination General Exam: Positive: Alert, Cooperative, No Acute Distress; Negative: Mild Distress Eye Exam: Positive: PERRLA, Conjunctiva & lids normal, EOMI ENT Exam: Positive: Atraumatic, Mucous membr. moist/pink, Pharynx Normal Neck Exam: Positive: Supple; Negative: JVD Chest Exam: Positive: Clear to auscultation, Normal air movement Heart Exam: Positive: Regular Rhythm, Murmurs Abdomen Exam: Positive: Normal bowel sounds, Soft Extremity Exam: Positive: Edema Skin Exam: Positive: Nl turgor and temperature Neuro Exam: Positive: Normal Speech, Cranial Nerves 3-12 NL Psych Exam: Positive: Oriented x 3, Other (depressed) Assessment /Plan Assessment Right humerus fracture -Currently in rehabilitation with PT, OT for mobilization Paroxysmal atrial fibrillation - on coumadin for anticoagulation -INR levels for today unavailable -Continue coumadin Chronic diastolic congestive heart failure -Currently euvolemic -Continue fluid restriction -Continue Torsemide .Spironolactone discontinued due to elevated potassium levels -Follow chemistry potassium levels today. When patient allows Hyperkalemia -On spironolactone, which has been held. -Follow potassium levels Obstructive sleep apnea - CPAP QHS DM2 -Diabetic diet -Fingerstick monitoring prior to meals and at bedtime -continue Glipizide Seizure disorder --On Keppra -continue seizure precautions DVT prophylaxis -Fully anticoagulated on Coumadin Plan/VTE VTE Prophylaxis Ordered?: Yes VS, I&O, 24H, Fishbone Vital Signs/I&O Vital Signs Date Time Temp Pulse Resp B/P (MAP) Pulse Ox O2 Delivery O2 Flow Rate FiO2 02/05/19 05:49 98.0 92 18 138/78 (98) 95 I&O- Last 24 Hours up to 6 AM 02/05/19 06:00 Intake Total 880 ml Output Total 300 ml Balance 580 ml Laboratory Data 24H LABS Laboratory Tests 2 02/04/19 16:48: Bedside Glucose (Misc Panel) 158H 02/05/19 06:06: Bedside Glucose (Misc Panel) 125H Microbiology Microbiology 02/04/19 Urine Culture, Received Pending KIRILL BHATIA [facility] Feb 05, 2019 12:03
[2019-02-05 14:00] VITALS: BP 135/65
[2019-02-05] MEDS: WARFARIN SOD 4 MG TAB PO SCH (17:50)
--- NOTE | 2019-02-05 19:56 | IPNPDOC ---
PM&R Progress Note DATE OF SERVICE: Feb 05, 2019 Service Order Dispatcher Progress Note Subjective: Patient reporting her midback and right shoulder are responding to the lidoderm patch and she would like to try it on her low back as well. REVIEW OF SYSTEMS: The following is a completed review of systems and has been reviewed. Review of systems otherwise unremarkable. PAIN: Patient self reports diffuse pain and stiffness EYES: Negative recent vision loss EARS, NOSE, & THROAT: denies throat pain, rhinorrhea or dysphagia CARDIOVASCULAR: denies chest pain or palpitations PULMONARY: Negative. Denies shortness of breath GASTROINTESTINAL: no diarrhea or constipation GENITOURINARY: no dysuria MUSCULOSKELETAL:+spinal OA and diffuse RA, right proximal humeral fracture NEUROLOGICAL: no focal tremor or seizure activity SKIN: right hand laceration PSYCHIATRIC: Unremarkable All other review of systems found to be negative. PHYSICAL EXAMINATION: VITAL SIGNS: Please see below. GENERAL: Pleasant and cooperative. No acute distress. HEENT: PERRL. Extraocular movements intact. Clear conjunctiva, +glasses CARDIOVASCULAR: Regular rate and rhythm. No murmurs, rubs, or gallops LUNGS: Clear to auscultation bilaterally. No wheezes. No rhonchi ABDOMEN: Soft, nontender, nondistended. Positive bowel sounds. Normal active bowel sounds NEUROLOGICAL: Alert and oriented times three. Cranial nerves II through XII grossly intact. Sensation grossly intact in a 4 extremities EXTREMITIES: 4\5 strength bilateral upper extremities. 4\5 strength right lower extremity. 4/5 strength in left lower extremity. (right arm in a sling) decreased ROM bilateral shoulders, +ulnar deviation of bilat MCP joints with subluxed thumbs, decreased ROM of neck SKIN: right hand laceration, bilateral feet purple with palpable pedal pulses ASSESSMENT:88-year-old F with past medical history of spinal stenosis, diffuse RA who presents status post fall with right proximal humeral fracture with difficulty ambulating due to worsening spinal stenosis. PLAN: 1. Rehab: PT and OT to work on strengthening, endurance training, use of adaptive equipment for ADls management, preserve joint ROM<-c/u NWB and no PROM 2. Neuro: pmh CVA, c/u statin, on warfarin -seizure d/o c/u Keppra 3. Cardio: pmh Afib and diastolic CHF- c/u Torsemide, spironolactone and Warfarin-medicine consulted to help manage, spironolactone n hold for elevated potassium of 5 4. Resp: pmh MARCO- c/u CPAP 5. Ortho: right humeral fracture, sling when out of bed, NWB- ortho consulted -pmh spinal stenosis with LE weakness significantly limiting her ability to walk -X-ray of right hand negative for fracture, showing advanced arthritis 6. Rheum: significant RA, c/u low dose prednisone and refer to outpatient rheum 7. Pain: c/u tylenol, c/u Cymbalta an dlow dose prednisone, lidoderm path to right shoulder and mid-back 8. Endo: pmh DM c/u Glipizide- FS well controlled 9. DVT ppx: on warfarin 10. : monitor PVRs 11. Dispo: TBD Allergies Coded Allergies: Sulfa (Sulfonamide Antibiotics) (Verified Allergy, Severe, 01/28/19) iodine (Verified Allergy, Intermediate, swelling, 01/28/19) amoxicillin (Verified Allergy, Mild, body rash, 01/28/19) latex (Verified Allergy, Mild, rash, 01/28/19) codeine (Verified Adverse Reaction, Intermediate, vomiting, 01/28/19) Vital Signs Vital Signs Date Time Temp Pulse Resp B/P (MAP) Pulse Ox O2 Delivery O2 Flow Rate FiO2 02/05/19 14:00 97.6 98 18 135/65 (88) 90 Laboratory Data Labs 24H Laboratory Tests 2 02/05/19 06:06: Bedside Glucose (Misc Panel) 125H Microbiology Microbiology 02/04/19 Urine Culture - Final, Complete Current Medications Current Medications Current Medications Acetaminophen (Tylenol Tab) 1,000 mg TID PO Last administered on 02/05/19at 17:50; Start 01/30/19 at 21:00 Albuterol Sulfate (Proventil, Ventolin Hfa) 2 puff Q4HP PRN INH SHORTNESS OF BREATH; Start 01/30/19 at 18:45 Allopurinol (Zyloprim) 150 mg DAILY PO Last administered on 02/05/19at 07:57; Start 01/31/19 at 09:00 Artificial Tears (Akwa Tears) 1 drop 6XD OU Last administered on 02/02/19at 17:51; Start 01/31/19 at 18:00; Stop 02/03/19 at 06:12; Status DC Baclofen (Lioresal) 5 mg DAILY PO Last administered on 02/05/19 07:58; Start 01/31/19 at 09:00 Bisacodyl (Dulcolax Suppository) 10 mg DAILYPRN PRN [place] CONSTIPATION; Start 01/30/19 at 18:45 Cetirizine HCl (ZyrTEC) 10 mg DAILY PO Last administered on 02/05/19 07:58; Start 01/31/19 at 09:00 Docusate Sodium (Colace) 100 mg BID PO Last administered on 02/04/19 20:26; Start 01/30/19 at 21:00 Duloxetine HCl (Cymbalta) 30 mg DAILY PO Last administered on 02/05/19 07:56; Start 01/31/19 at 09:00 Glipizide (Glucotrol Xl) 5 mg DAILY@0730 PO Last administered on 02/05/19 07:56; Start 01/31/19 at 07:30 Guaifenesin (Robitussin Tab) 400 mg TID PO Last administered on 02/04/19 20: 26; Start 01/30/19 at 21:00 Latanoprost (Xalatan 0.005% Op Soln) 1 drop QHS OU Last administered on 02/04/19 20:27; Start 01/30/19 at 21:00 Levetiracetam (Keppra) 500 mg BID PO Last administered on 02/05/19 07:57; Start 01/30/19 at 21:00 Lidocaine (Lidoderm Patch) 1 patch DAILY TD Last administered on 02/05/19 07:59; Start 02/01/19 at 11:00 Lidocaine (Lidoderm Patch) 1 patch QHS TD Last administered on 02/04/19 20:27; Start 01/30/19 at 21:00 Miscellaneous (Unresolved Patient Own Med Order) SEE LABEL COMMENTS DAILY XX Last administered on 01/31/19 08:41; Start 01/30/19 at 09:00; Stop 01/31/19 at 15:45; Status DC Multivitamins (Theragram-M) 1 tab DAILY PO Last administered on 02/05/19 07:56; Start 01/31/19 at 09:00 Nitroglycerin (Nitrostat (1/ 150)) 0.4 mg Q5MP PRN SL CHEST PAIN; Start 01/30/19 at 18:45 Non-Formulary Medication ( See Comment Field Below ) REMOVE LIDODERM PATCH ... DAILY XX Last administered on 02/03/19at 08:07; Start 01/31/19 at 09:00 Non-Formulary Medication ( See Comment Field Below ) REMOVE LIDODERM PATCH F... DAILY@21 XX Last administered on 02/04/19at 20:37; Start 02/01/19 at 21:00 Omeprazole (PriLOSEC) 20 mg DAILY PO Last administered on 01/31/19 08:37; Start 01/31/19 at 09:00; Stop 01/31/19 at 10:58; Status DC Ondansetron HCl (Zofran Odt) 4 mg Q6HP PRN SL NAUSEA OR VOMITING Last administered on 02/01/19at 04:11; Start 02/01/19 at 04:00 Pantoprazole Sodium (Protonix) 40 mg BID PO Last administered on 02/03/19at 08:04; Start 01/31/19 at 21:00; Stop 02/03/19 at 08:51; Status DC Pantoprazole Sodium (Protonix) 40 mg BID@0700,2100 PO Last administered on 02/05/19at 06:08; Start 02/03/19 at 21:00 Patient Own Medication (Patient'S Own Med) 1 DROP TO EACH EYE 6XD OU Last administered on 02/05/19at 17:51; Start 02/03/19 at 09:00 Patient Own Medication (Patient'S Own Med) 1 ea ASDIRECTED OU ; Start 01/30/19 at 18:45; Stop 01/31/19 at 15:47; Status DC Prednisone (Deltasone) 2.5 mg DAILY PO Last administered on 02/05/19at 07:58; Start 02/01/19 at 09:00 Prednisone (Deltasone) 5 mg DAILY PO ; Start 01/31/19 at 09:00; Stop 01/31/19 at 15:39; Status DC Senna (Senokot) 1 tab QHS PO Last administered on 02/04/19at 20:26; Start 01/30/19 at 21:00 Simvastatin (Zocor) 40 mg QHS PO Last administered on 02/04/19at 20:26; Start 01/30/19 at 21:00 Spironolactone (Aldactone) 25 mg QAM PO Last administered on 02/03/19at 08:04; Start 01/31/19 at 09:00; Stop 02/04/19 at 10:40; Status DC Torsemide (Demadex) 10 mg BID@,17 PO Last administered on 02/05/19at 07:57; Start 01/31/19 at 09:00 Vitamin D (Vitamin D) 2,000 units DAILY PO Last administered on 02/05/19at 07:58; Start 01/31/19 at 09:00 Warfarin Sodium (Coumadin) 4 mg DAILY@1700 PO Last administered on 02/05/19at 17:50; Start 01/31/19 at 17:00; Status Future hold SENA SAMPSON MD Feb 05, 2019 19:56
[2019-02-05] MEDS: SENNA 8.6 MG TAB (SENOKOT) PO SCH (21:00)
[2019-02-05] MEDS: SIMVASTATIN 40 MG TAB PO SCH (21:02)
[2019-02-05] MEDS: LATANOPROST 0.005% OPHTH SOLN 2.5 ML OU SCH (21:03)
[2019-02-05 22:00] VITALS: BP 131/60
[2019-02-06 06:00] VITALS: BP 123/56
[2019-02-06] MEDS: PANTOPRAZOLE 40MG TAB (PROTONIX) PO SCH ×2 (06:17→21:05)
[2019-02-06] MEDS: SYSTANE BALANCE OU SCH ×6 (06:17→21:06)
[2019-02-06 07:08] LABS: INR 2.95; PROTHROMBIN TIME 31.4 SECONDS (12.1-14.4)
[2019-02-06] MEDS: glipiZIDE XL 5 MG TABCR PO SCH (08:22)
[2019-02-06] MEDS: MULTIVITAMINS/MINERALS THERAP 1 TAB PO SCH (08:22)
[2019-02-06] MEDS: predniSONE 2.5 MG TAB PO SCH (08:22)
[2019-02-06] MEDS: ACETAMINOPHEN 500 MG TAB PO SCH ×3 (08:22→21:05)
[2019-02-06] MEDS: DULoxetine 30 MG CAP (CYMBALTA) PO SCH (08:22)
[2019-02-06] MEDS: CETIRIZINE (ZyrTEC) 10 MG TAB PO SCH (08:22)
[2019-02-06] MEDS: VITAMIN D 1,000 INTERNATIONAL UNITS TABLET PO SCH (08:23)
[2019-02-06] MEDS: ALLOPURINOL 300 MG TAB PO SCH (08:23)
[2019-02-06] MEDS: BACLOFEN 5MG PER 1/2 TABLET PO SCH (08:23)
[2019-02-06] MEDS: TORSEMIDE 10 MG TABLET PO SCH (08:23)
[2019-02-06] MEDS: levETIRAcetam 250MG TABLET (KEPPRA) PO SCH ×2 (08:23→21:05)
[2019-02-06] MEDS: LIDOCAINE 5% (LIDODERM) PATCH TD SCH ×2 (08:24→11:00)
[2019-02-06] MEDS: **NOTE PATIENT COMMENT** MISC XX SCH ×3 (08:24→21:06)
[2019-02-06] MEDS: guaiFENesin 200 MG TAB PO SCH ×3 (08:24→21:00)
[2019-02-06] MEDS: DOCUSATE SODIUM 100 MG CAP PO SCH ×2 (08:24→21:05)
[2019-02-06 10:00] VITALS: BP 127/58
[2019-02-06 11:06] LABS: BLOOD UREA NITROGEN 41 MG/DL (7-18); CALCIUM LEVEL 9.6 MG/DL (8.8-10.2); CARBON DIOXIDE LEVEL 23 MEQ/L (21-32); CHLORIDE LEVEL 105 MEQ/L (98-107); CREATININE FOR GFR 0.86 MG/DL (0.55-1.30); GLOMERULAR FILTRATION RATE > 60.0 (>32); GLUCOSE, FASTING 114 MG/DL (70-100); POTASSIUM SERUM 4.6 MEQ/L (3.5-5.1); SODIUM LEVEL 136 MEQ/L (136-145)
--- NOTE | 2019-02-06 12:47 | IPNPDOC ---
Subjective Date Seen The patient was seen on 02/06/19. Subjective Chief Complaint/HPI Patient is an 88-year-old female, past medical history significant for MARCO, DM type 2, degenerative disc disease, peripheral neuropathy, A. fibrillation on Coumadin, presenting to the hospital on. account of right humeral fracture status post fall. Events since last encounter Has no complaints today Objective Physical Examination General Exam: Positive: Alert, Cooperative, No Acute Distress; Negative: Mild Distress Eye Exam: Positive: PERRLA, Conjunctiva & lids normal, EOMI ENT Exam: Positive: Atraumatic, Mucous membr. moist/pink, Pharynx Normal Neck Exam: Positive: Supple; Negative: JVD Chest Exam: Positive: Clear to auscultation, Normal air movement Heart Exam: Positive: Regular Rhythm, Murmurs Abdomen Exam: Positive: Normal bowel sounds, Soft Extremity Exam: Positive: Edema Skin Exam: Positive: Nl turgor and temperature Neuro Exam: Positive: Normal Speech, Cranial Nerves 3-12 NL Psych Exam: Positive: Oriented x 3, Other (depressed) Assessment /Plan Assessment Right humerus fracture -continued in rehabilitation with PT, OT for mobilization -management per primary team Paroxysmal atrial fibrillation - on coumadin for anticoagulation with therapeutic INR levels today -Continue coumadin Chronic diastolic congestive heart failure -Currently euvolemic -Continue fluid restriction -Continue Torsemide daily due to elevated BUN -Spironolactone since discontinued due to elevated potassium levels Hyperkalemia resolved Obstructive sleep apnea - continue CPAP QHS DM2 -Diabetic diet -Fingerstick monitoring prior to meals and at bedtime -continue Glipizide Seizure disorder --On Keppra -continue seizure precautions DVT prophylaxis -Fully anticoagulated on Coumadin Plan/VTE VTE Prophylaxis Ordered?: Yes VS, [facility]&O[facility] Vital Signs/I&O Vital Signs Date Time Temp Pulse Resp B/P (MAP) Pulse Ox O2 Delivery O2 Flow Rate FiO2 02/06/19 10:00 98.2 74 18 127/58 (81) 99 I&O- Last 24 Hours up to 6 AM 02/06/19 06:00 Intake Total 1230 ml Output Total 0 ml Balance 1230 ml Laboratory Data 24H LABS Laboratory Tests 2 02/06/19 05:47: Bedside Glucose (Misc Panel) 115H 02/06/19 06:42: Prothrombin Time 31.4H, Prothromb Time International Ratio 2.95 02/06/19 06:43: Anion Gap 8, Glomerular Filtration Rate > 60.0, Blood Urea Nitrogen 41H, Creatinine 0.86, Sodium Level 136, Potassium Level 4.6, Chloride Level 105, Carbon Dioxide Level 23, Calcium Level 9.6 CBC/BMP Laboratory Tests 02/06/19 06:43 Calcium Level 9.6 Microbiology Microbiology 02/04/19 Urine Culture - Final, Complete KIRILL BHATIAP Feb 06, 2019 12:47
[2019-02-06 14:00] VITALS: BP 120/58
[2019-02-06] MEDS: WARFARIN SOD 4 MG TAB PO SCH (17:22)
[2019-02-06 20:50] VITALS: BP 119/58
[2019-02-06] MEDS: SIMVASTATIN 40 MG TAB PO SCH (21:05)
[2019-02-06] MEDS: SENNA 8.6 MG TAB (SENOKOT) PO SCH (21:05)
[2019-02-06] MEDS: LATANOPROST 0.005% OPHTH SOLN 2.5 ML OU SCH (21:06)
[2019-02-06] MEDS: ANALGESIC BALM CRM 120 GM TOP SCH (21:06)
[2019-02-07 06:00] VITALS: BP 156/67
[2019-02-07] MEDS: PANTOPRAZOLE 40MG TAB (PROTONIX) PO SCH ×2 (06:06→21:55)
[2019-02-07] MEDS: SYSTANE BALANCE OU SCH ×6 (06:07→21:00)
[2019-02-07] MEDS: VITAMIN D 1,000 INTERNATIONAL UNITS TABLET PO SCH (08:39)
[2019-02-07] MEDS: guaiFENesin 200 MG TAB PO SCH ×3 (08:40→21:00)
[2019-02-07] MEDS: MULTIVITAMINS/MINERALS THERAP 1 TAB PO SCH (08:40)
[2019-02-07] MEDS: predniSONE 2.5 MG TAB PO SCH (08:40)
[2019-02-07] MEDS: DULoxetine 30 MG CAP (CYMBALTA) PO SCH (08:40)
[2019-02-07] MEDS: BACLOFEN 5MG PER 1/2 TABLET PO SCH (08:40)
[2019-02-07] MEDS: glipiZIDE XL 5 MG TABCR PO SCH (08:40)
[2019-02-07] MEDS: levETIRAcetam 250MG TABLET (KEPPRA) PO SCH ×2 (08:41→21:55)
[2019-02-07] MEDS: ACETAMINOPHEN 500 MG TAB PO SCH ×3 (08:41→21:54)
[2019-02-07] MEDS: TORSEMIDE 10 MG TABLET PO SCH (08:41)
[2019-02-07] MEDS: ALLOPURINOL 300 MG TAB PO SCH (08:41)
[2019-02-07] MEDS: CETIRIZINE (ZyrTEC) 10 MG TAB PO SCH (08:42)
[2019-02-07] MEDS: LIDOCAINE 5% (LIDODERM) PATCH TD SCH ×2 (08:42→09:00)
[2019-02-07] MEDS: DOCUSATE SODIUM 100 MG CAP PO SCH ×2 (08:42→21:54)
[2019-02-07 08:54] LABS: BASO # 0.1 10^3/uL (0.0-0.2); EOS # 0.3 10^3/uL (0.0-0.50); EOS % 3.7 % (0.0-3.0); HEMATOCRIT 35.6 % (36.0-47.0); HEMOGLOBIN 11.7 g/dl (12.0-15.5); LYMPH # 1.8 10^3/uL (1.5-4.5); LYMPH % 23.6 % (24.0-44.0); MEAN CORPUSCULAR HEMOGLOBIN 29.6 pg (27.0-33.0); MEAN CORPUSCULAR HGB CONC 32.9 g/dl (32.0-36.5); MEAN CORPUSCULAR VOLUME 90.1 fl (80.0-96.0); MONO # 0.9 10^3/uL (0.0-0.8); MONO % 11.4 % (0.0-5.0); NEUTROPHILS # 4.6 10^3/uL (1.8-7.7); NEUTROPHILS % 59.8 % (36.0-66.0); PLATELET COUNT, AUTOMATED 392 10^3/uL (150-450); RED BLOOD COUNT 3.95 10^6/uL (4.00-5.40); WHITE BLOOD COUNT 7.7 10^3/uL (4.0-10.0)
[2019-02-07 09:06] LABS: CALCIUM LEVEL 9.5 MG/DL (8.8-10.2); CREATININE FOR GFR 1.03 MG/DL (0.55-1.30)
[2019-02-07 09:11] LABS: INR 3.48; PROTHROMBIN TIME 35.8 SECONDS (11.8-14.0)
--- NOTE | 2019-02-07 11:32 | REP ---
RIGHT SHOULDER, TWO VIEWS: Two views of the right shoulder performed and compared to a prior study of 01/28/2019. Fracture of the proximal humerus involving the head and neck is unchanged. There is lateral angulation unchanged. IMPRESSION: Stable exam. Electronically Signed by Trace Tripathi MD 02/07/2019 04:33 P
[2019-02-07 14:00] VITALS: BP 135/66
[2019-02-07 20:00] VITALS: BP 144/65
[2019-02-07] MEDS: ANALGESIC BALM CRM 120 GM TOP SCH (21:00)
[2019-02-07] MEDS: **NOTE PATIENT COMMENT** MISC XX SCH ×2 (21:00)
[2019-02-07] MEDS: SENNA 8.6 MG TAB (SENOKOT) PO SCH (21:54)
[2019-02-07] MEDS: LATANOPROST 0.005% OPHTH SOLN 2.5 ML OU SCH (21:55)
[2019-02-07] MEDS: SIMVASTATIN 40 MG TAB PO SCH (21:55)
[2019-02-08 06:00] VITALS: BP 133/68
[2019-02-08] MEDS: PANTOPRAZOLE 40MG TAB (PROTONIX) PO SCH ×2 (06:43→20:44)
[2019-02-08] MEDS: SYSTANE BALANCE OU SCH ×6 (06:44→20:46)
[2019-02-08 07:51] LABS: INR 3.17; PROTHROMBIN TIME 32.4 SECONDS (11.8-14.0)
[2019-02-08] MEDS: MULTIVITAMINS/MINERALS THERAP 1 TAB PO SCH (08:30)
[2019-02-08] MEDS: ALLOPURINOL 300 MG TAB PO SCH (08:30)
[2019-02-08] MEDS: VITAMIN D 1,000 INTERNATIONAL UNITS TABLET PO SCH (08:30)
[2019-02-08] MEDS: CETIRIZINE (ZyrTEC) 10 MG TAB PO SCH (08:31)
[2019-02-08] MEDS: ACETAMINOPHEN 500 MG TAB PO SCH ×3 (08:31→20:45)
[2019-02-08] MEDS: DOCUSATE SODIUM 100 MG CAP PO SCH ×2 (08:31→20:44)
[2019-02-08] MEDS: BACLOFEN 5MG PER 1/2 TABLET PO SCH (08:31)
[2019-02-08] MEDS: glipiZIDE XL 5 MG TABCR PO SCH (08:31)
[2019-02-08] MEDS: DULoxetine 30 MG CAP (CYMBALTA) PO SCH (08:31)
[2019-02-08] MEDS: guaiFENesin 200 MG TAB PO SCH ×3 (08:31→20:49)
[2019-02-08] MEDS: predniSONE 2.5 MG TAB PO SCH (08:31)
[2019-02-08] MEDS: TORSEMIDE 10 MG TABLET PO SCH (08:31)
[2019-02-08] MEDS: levETIRAcetam 250MG TABLET (KEPPRA) PO SCH ×2 (08:31→20:44)
[2019-02-08] MEDS: LIDOCAINE 5% (LIDODERM) PATCH TD SCH ×2 (08:36)
--- NOTE | 2019-02-08 11:26 | IPNPDOC ---
PM&R Progress Note DATE OF SERVICE: Feb 06, 2019 Physician Interventional Cardiologist Progress Note Subjective: Patient reporting her back pain is slightly better and was encouraged to try to put more effort into therapy. REVIEW OF SYSTEMS: The following is a completed review of systems and has been reviewed. Review of systems otherwise unremarkable. PAIN: Patient self reports diffuse pain and stiffness EYES: Negative recent vision loss EARS, NOSE, & THROAT: denies throat pain, rhinorrhea or dysphagia CARDIOVASCULAR: denies chest pain or palpitations PULMONARY: Negative. Denies shortness of breath GASTROINTESTINAL: no diarrhea or constipation GENITOURINARY: no dysuria MUSCULOSKELETAL:+spinal OA and diffuse RA, right proximal humeral fracture NEUROLOGICAL: no focal tremor or seizure activity SKIN: right hand laceration PSYCHIATRIC: Unremarkable All other review of systems found to be negative. PHYSICAL EXAMINATION: VITAL SIGNS: Please see below. GENERAL: Pleasant and cooperative. No acute distress. HEENT: PERRL. Extraocular movements intact. Clear conjunctiva, +glasses CARDIOVASCULAR: Regular rate and rhythm. No murmurs, rubs, or gallops LUNGS: Clear to auscultation bilaterally. No wheezes. No rhonchi ABDOMEN: Soft, nontender, nondistended. Positive bowel sounds. Normal active bowel sounds NEUROLOGICAL: Alert and oriented times three. Cranial nerves II through XII grossly intact. Sensation grossly intact in a 4 extremities EXTREMITIES: 4\5 strength bilateral upper extremities. 4\5 strength right lower extremity. 4/5 strength in left lower extremity. (right arm in a sling) decreased ROM bilateral shoulders, +ulnar deviation of bilat MCP joints with subluxed thumbs, decreased ROM of neck SKIN: right hand laceration, bilateral feet purple with palpable pedal pulses ASSESSMENT:88-year-old F with past medical history of spinal stenosis, diffuse RA who presents status post fall with right proximal humeral fracture with difficulty ambulating due to worsening spinal stenosis. PLAN: 1. Rehab: PT and OT to work on strengthening, endurance training, use of adaptive equipment for ADls management, preserve joint ROM<-c/u NWB and no PROM, having difficulty with step-length 2. Neuro: pmh CVA, c/u statin, on warfarin -seizure d/o c/u Keppra 3. Cardio: pmh Afib and diastolic CHF- c/u Torsemide, spironolactone and Warfarin-medicine consulted to help manage 4. Resp: pmh MARCO- c/u CPAP 5. Ortho: right humeral fracture, sling when out of bed, NWB- ortho consulted -pmh spinal stenosis with LE weakness significantly limiting her ability to walk -X-ray of right hand negative for fracture, showing advanced arthritis 6. Rheum: significant RA, c/u low dose prednisone and refer to outpatient rheum 7. Pain: c/u tylenol, c/u Cymbalta and low dose prednisone, lidoderm path to right shoulder and mid-back 8. Endo: pmh DM c/u Glipizide- FS well controlled 9. DVT ppx: on warfarin 10. : monitor PVRs 11. Dispo: TBD Allergies Coded Allergies: Sulfa (Sulfonamide Antibiotics) (Verified Allergy, Severe, 01/28/19) iodine (Verified Allergy, Intermediate, swelling, 01/28/19) amoxicillin (Verified Allergy, Mild, body rash, 01/28/19) latex (Verified Allergy, Mild, rash, 01/28/19) codeine (Verified Adverse Reaction, Intermediate, vomiting, 01/28/19) Vital Signs Vital Signs Date Time Temp Pulse Resp B/P (MAP) Pulse Ox O2 Delivery O2 Flow Rate FiO2 02/08/19 06:00 97.9 88 18 133/68 (89) 95 Laboratory Data Labs 24H Laboratory Tests 2 02/07/19 16:55: Bedside Glucose (Misc Panel) 133H 02/08/19 06:26: Bedside Glucose (Misc Panel) 109 02/08/19 07:16: Prothrombin Time 32.4H, Prothromb Time International Ratio 3.17 Microbiology Microbiology 02/04/19 Urine Culture - Final, Complete Current Medications Current Medications Current Medications Acetaminophen (Tylenol Tab) 1,000 mg TID PO Last administered on 02/08/19at 08:31; Start 01/30/19 at 21:00 Albuterol Sulfate (Proventil, Ventolin Hfa) 2 puff Q4HP PRN INH SHORTNESS OF BREATH; Start 01/30/19 at 18:45 Allopurinol (Zyloprim) 150 mg DAILY PO Last administered on 02/08/19at 08:30; Start 01/31/19 at 09:00 Artificial Tears (Akwa Tears) 1 drop 6XD OU Last administered on 02/02/19at 17:51; Start 01/31/19 at 18:00; Stop 02/03/19 at 06:12; Status DC Baclofen (Lioresal) 5 mg DAILY PO Last administered on 02/08/19 08:31; Start 01/31/19 at 09:00 Bisacodyl (Dulcolax Suppository) 10 mg DAILYPRN PRN [place] CONSTIPATION; Start 01/30/19 at 18:45 Cetirizine HCl (ZyrTEC) 10 mg DAILY PO Last administered on 02/08/19at 08:31; Start 01/31/19 at 09:00 Docusate Sodium (Colace) 100 mg BID PO Last administered on 02/08/19 08:31; Start 01/30/19 at 21:00 Duloxetine HCl (Cymbalta) 30 mg DAILY PO Last administered on 02/08/19 08:31; Start 01/31/19 at 09:00 Glipizide (Glucotrol Xl) 5 mg DAILY@0730 PO Last administered on 02/08/19 08:31; Start 01/31/19 at 07:30 Guaifenesin (Robitussin Tab) 400 mg TID PO Last administered on 02/07/19 08:4 0; Start 01/30/19 at 21:00 Latanoprost (Xalatan 0.005% Op Soln) 1 drop QHS OU Last administered on 02/07/19 21:55; Start 01/30/19 at 21:00 Levetiracetam (Keppra) 500 mg BID PO Last administered on 02/08/19 08:31; Start 01/30/19 at 21:00 Lidocaine (Lidoderm Patch) 1 patch DAILY TD Last administered on 02/08/19 08:36; Start 02/01/19 at 11:00 Lidocaine (Lidoderm Patch) 1 patch DAILY TD Last administered on 02/08/19 08:36; Start 02/06/19 at 09:00 Lidocaine (Lidoderm Patch) 1 patch QHS TD Last administered on 02/05/19 21:01; Start 01/30/19 at 21:00; Stop 02/06/19 at 11:01; Status DC Menthol/Methyl Salicylate (Bengay Cream) QHS TOP Last administered on 02/06/19at 21:06; Start 02/06/19 at 21:00 Miscellaneous (Unresolved Patient Own Med Order) SEE LABEL COMMENTS DAILY XX Last administered on 01/31/19 08:41; Start 01/30/19 at 09:00; Stop 01/31/19 at 15:45; Status DC Multivitamins (Theragram-M) 1 tab DAILY PO Last administered on 02/08/19 08:30; Start 01/31/19 at 09:00 Nitroglycerin (Nitrostat (1/ 150)) 0.4 mg Q5MP PRN SL CHEST PAIN; Start 01/30/19 at 18:45 Non-Formulary Medication ( See Comment Field Below ) REMOVE LIDODERM PATCH DAILY@21 XX ; Start 02/06/19 at 21:00 Non-Formulary Medication ( See Comment Field Below ) REMOVE LIDODERM PATCH ... DAILY XX Last administered on 02/06/19 08:24; Start 01/31/19 at 09:00; Stop 02/06/19 at 11:04; Status DC Non-Formulary Medication ( See Comment Field Below ) REMOVE LIDODERM PATCH F... DAILY@21 XX Last administered on 02/06/19 21:06; Start 02/01/19 at 21:00 Omeprazole (PriLOSEC) 20 mg DAILY PO Last administered on 01/31/19 08:37; Start 01/31/19 at 09:00; Stop 01/31/19 at 10:58; Status DC Ondansetron HCl (Zofran Odt) 4 mg Q6HP PRN SL NAUSEA OR VOMITING Last administered on 02/01/19 04:11; Start 02/01/19 at 04:00 Pantoprazole Sodium (Protonix) 40 mg BID PO Last administered on 02/03/19 08:04; Start 01/31/19 at 21:00; Stop 02/03/19 at 08:51; Status DC Pantoprazole Sodium (Protonix) 40 mg BID@0700,2100 PO Last administered on 02/08/19 06:43; Start 02/03/19 at 21:00 Patient Own Medication (Patient'S Own Med) 1 DROP TO EACH EYE 6XD OU Last administered on 02/08/19 08:32; Start 02/03/19 at 09:00 Patient Own Medication (Patient'S Own Med) 1 ea ASDIRECTED OU ; Start 01/30/19 at 18:45; Stop 01/31/19 at 15:47; Status DC Prednisone (Deltasone) 2.5 mg DAILY PO Last administered on 02/08/19 08:31; Start 02/01/19 at 09:00 Prednisone (Deltasone) 5 mg DAILY PO ; Start 01/31/19 at 09:00; Stop 01/31/19 at 15:39; Status DC Senna (Senokot) 1 tab QHS PO Last administered on 02/07/19 21:54; Start 01/30/19 at 21:00 Simvastatin (Zocor) 40 mg QHS PO Last administered on 02/07/19 21:55; Start 01/30/19 at 21:00 Spironolactone (Aldactone) 25 mg QAM PO Last administered on 02/03/19at 08:04; Start 01/31/19 at 09:00; Stop 02/04/19 at 10:40; Status DC Torsemide (Demadex) 10 mg BID@09,17 PO Last administered on 02/06/19 08:23; Start 01/31/19 at 09:00; Stop 02/06/19 at 12:35; Status DC Torsemide (Demadex) 10 mg DAILY PO Last administered on 02/08/19 08:31; Start 02/07/19 at 09:00 Vitamin D (Vitamin D) 2,000 units DAILY PO Last administered on 02/08/19at 08:30; Start 01/31/19 at 09:00 Warfarin Sodium (Coumadin) 4 mg DAILY@1700 PO Last administered on 02/06/19at 17:22; Start 01/31/19 at 17:00; Stop 02/07/19 at 17:24; Status DC Warfarin Sodium (Coumadin) 4 mg Q2D@1700 PO ; Start 02/08/19 at 17:00 SEAN SAMPSON MD Feb 08, 2019 11:26
--- NOTE | 2019-02-08 11:27 | IPNPDOC ---
PM&R Progress Note DATE OF SERVICE: Feb 07, 2019 [employer] Progress Note Subjective: Patient seen walking in therapy very slowly. REVIEW OF SYSTEMS: The following is a completed review of systems and has been reviewed. Review of systems otherwise unremarkable. PAIN: Patient self reports diffuse pain and stiffness EYES: Negative recent vision loss EARS, NOSE, & THROAT: denies throat pain, rhinorrhea or dysphagia CARDIOVASCULAR: denies chest pain or palpitations PULMONARY: Negative. Denies shortness of breath GASTROINTESTINAL: no diarrhea or constipation GENITOURINARY: no dysuria MUSCULOSKELETAL:+spinal OA and diffuse RA, right proximal humeral fracture NEUROLOGICAL: no focal tremor or seizure activity SKIN: right hand laceration PSYCHIATRIC: Unremarkable All other review of systems found to be negative. PHYSICAL EXAMINATION: VITAL SIGNS: Please see below. GENERAL: Pleasant and cooperative. No acute distress. HEENT: PERRL. Extraocular movements intact. Clear conjunctiva, +glasses CARDIOVASCULAR: Regular rate and rhythm. No murmurs, rubs, or gallops LUNGS: Clear to auscultation bilaterally. No wheezes. No rhonchi ABDOMEN: Soft, nontender, nondistended. Positive bowel sounds. Normal active bowel sounds NEUROLOGICAL: Alert and oriented times three. Cranial nerves II through XII grossly intact. Sensation grossly intact in a 4 extremities EXTREMITIES: 4\5 strength bilateral upper extremities. 4\5 strength right lower extremity. 4/5 strength in left lower extremity. (right arm in a sling) decreased ROM bilateral shoulders, +ulnar deviation of bilat MCP joints with subluxed thumbs, decreased ROM of neck SKIN: right hand laceration, bilateral feet purple with palpable pedal pulses ASSESSMENT:88-year-old F with past medical history of spinal stenosis, diffuse RA who presents status post fall with right proximal humeral fracture with difficulty ambulating due to worsening spinal stenosis. PLAN: 1. Rehab: PT and OT to work on strengthening, endurance training, use of adaptive equipment for ADls management, preserve joint ROM<-c/u NWB and no PROM, having difficulty with step-length 2. Neuro: pmh CVA, c/u statin, on warfarin -seizure d/o c/u Keppra 3. Cardio: pmh Afib and diastolic CHF- c/u Torsemide, spironolactone and Warfarin-medicine consulted to help manage 4. Resp: pmh MARCO- c/u CPAP 5. Ortho: right humeral fracture, sling when out of bed, NWB- ortho consulted -pmh spinal stenosis with LE weakness significantly limiting her ability to walk -X-ray of right hand negative for fracture, showing advanced arthritis 6. Rheum: significant RA, c/u low dose prednisone and refer to outpatient rheum 7. Pain: c/u tylenol, c/u Cymbalta and low dose prednisone, lidoderm path to right shoulder and low back, menthol salicylate rub qHS to back 8. Endo: pmh DM c/u Glipizide- FS well controlled 9. DVT ppx: on warfarin 10. : monitor PVRs 11. Dispo: progressing slowly towards goals Allergies Coded Allergies: Sulfa (Sulfonamide Antibiotics) (Verified Allergy, Severe, 01/28/19) iodine (Verified Allergy, Intermediate, swelling, 01/28/19) amoxicillin (Verified Allergy, Mild, body rash, 01/28/19) latex (Verified Allergy, Mild, rash, 01/28/19) codeine (Verified Adverse Reaction, Intermediate, vomiting, 01/28/19) Vital Signs Vital Signs Date Time Temp Pulse Resp B/P (MAP) Pulse Ox O2 Delivery O2 Flow Rate FiO2 02/08/19 06:00 97.9 88 18 133/68 (89) 95 Laboratory Data Labs 24H Laboratory Tests 2 02/07/19 16:55: Bedside Glucose (Misc Panel) 133H 02/08/19 06:26: Bedside Glucose (Misc Panel) 109 02/08/19 07:16: Prothrombin Time 32.4H, Prothromb Time International Ratio 3.17 Microbiology Microbiology 02/04/19 Urine Culture - Final, Complete Current Medications Current Medications Current Medications Acetaminophen (Tylenol Tab) 1,000 mg TID PO Last administered on 02/08/19at 08:31; Start 01/30/19 at 21:00 Albuterol Sulfate (Proventil, Ventolin Hfa) 2 puff Q4HP PRN INH SHORTNESS OF BREATH; Start 01/30/19 at 18:45 Allopurinol (Zyloprim) 150 mg DAILY PO Last administered on 02/08/19at 08:30; Start 01/31/19 at 09:00 Artificial Tears (Akwa Tears) 1 drop 6XD OU Last administered on 02/02/19at 17:51; Start 01/31/19 at 18:00; Stop 02/03/19 at 06:12; Status DC Baclofen (Lioresal) 5 mg DAILY PO Last administered on 02/08/19 08:31; Start 01/31/19 at 09:00 Bisacodyl (Dulcolax Suppository) 10 mg DAILYPRN PRN [place] CONSTIPATION; Start 01/30/19 at 18:45 Cetirizine HCl (ZyrTEC) 10 mg DAILY PO Last administered on 02/08/19at 08:31; Start 01/31/19 at 09:00 Docusate Sodium (Colace) 100 mg BID PO Last administered on 02/08/19 08:31; Start 01/30/19 at 21:00 Duloxetine HCl (Cymbalta) 30 mg DAILY PO Last administered on 02/08/19 08:31; Start 01/31/19 at 09:00 Glipizide (Glucotrol Xl) 5 mg DAILY@0730 PO Last administered on 02/08/19 08:31; Start 01/31/19 at 07:30 Guaifenesin (Robitussin Tab) 400 mg TID PO Last administered on 02/07/19 08:4 0; Start 01/30/19 at 21:00 Latanoprost (Xalatan 0.005% Op Soln) 1 drop QHS OU Last administered on 02/07/19 21:55; Start 01/30/19 at 21:00 Levetiracetam (Keppra) 500 mg BID PO Last administered on 02/08/19 08:31; Start 01/30/19 at 21:00 Lidocaine (Lidoderm Patch) 1 patch DAILY TD Last administered on 02/08/19 08:36; Start 02/01/19 at 11:00 Lidocaine (Lidoderm Patch) 1 patch DAILY TD Last administered on 02/08/19 08:36; Start 02/06/19 at 09:00 Lidocaine (Lidoderm Patch) 1 patch QHS TD Last administered on 02/05/19 21:01; Start 01/30/19 at 21:00; Stop 02/06/19 at 11:01; Status DC Menthol/Methyl Salicylate (Bengay Cream) QHS TOP Last administered on 02/06/19at 21:06; Start 02/06/19 at 21:00 Miscellaneous (Unresolved Patient Own Med Order) SEE LABEL COMMENTS DAILY XX Last administered on 01/31/19 08:41; Start 01/30/19 at 09:00; Stop 01/31/19 at 15:45; Status DC Multivitamins (Theragram-M) 1 tab DAILY PO Last administered on 02/08/19 08:30; Start 01/31/19 at 09:00 Nitroglycerin (Nitrostat (1/ 150)) 0.4 mg Q5MP PRN SL CHEST PAIN; Start 01/30/19 at 18:45 Non-Formulary Medication ( See Comment Field Below ) REMOVE LIDODERM PATCH DAILY@21 XX ; Start 02/06/19 at 21:00 Non-Formulary Medication ( See Comment Field Below ) REMOVE LIDODERM PATCH ... DAILY XX Last administered on 02/06/19 08:24; Start 01/31/19 at 09:00; Stop 02/06/19 at 11:04; Status DC Non-Formulary Medication ( See Comment Field Below ) REMOVE LIDODERM PATCH F... DAILY@21 XX Last administered on 02/06/19 21:06; Start 02/01/19 at 21:00 Omeprazole (PriLOSEC) 20 mg DAILY PO Last administered on 01/31/19 08:37; Start 01/31/19 at 09:00; Stop 01/31/19 at 10:58; Status DC Ondansetron HCl (Zofran Odt) 4 mg Q6HP PRN SL NAUSEA OR VOMITING Last administered on 02/01/19 04:11; Start 02/01/19 at 04:00 Pantoprazole Sodium (Protonix) 40 mg BID PO Last administered on 02/03/19 08:04; Start 01/31/19 at 21:00; Stop 02/03/19 at 08:51; Status DC Pantoprazole Sodium (Protonix) 40 mg BID@0700,2100 PO Last administered on 02/08/19 06:43; Start 02/03/19 at 21:00 Patient Own Medication (Patient'S Own Med) 1 DROP TO EACH EYE 6XD OU Last administered on 02/08/19 08:32; Start 02/03/19 at 09:00 Patient Own Medication (Patient'S Own Med) 1 ea ASDIRECTED OU ; Start 01/30/19 at 18:45; Stop 01/31/19 at 15:47; Status DC Prednisone (Deltasone) 2.5 mg DAILY PO Last administered on 02/08/19at 08:31; Start 02/01/19 at 09:00 Prednisone (Deltasone) 5 mg DAILY PO ; Start 01/31/19 at 09:00; Stop 01/31/19 at 15:39; Status DC Senna (Senokot) 1 tab QHS PO Last administered on 02/07/19 21:54; Start 01/30/19 at 21:00 Simvastatin (Zocor) 40 mg QHS PO Last administered on 02/07/19 21:55; Start 01/30/19 at 21:00 Spironolactone (Aldactone) 25 mg QAM PO Last administered on 02/03/19at 08:04; Start 01/31/19 at 09:00; Stop 02/04/19 at 10:40; Status DC Torsemide (Demadex) 10 mg BID@09,17 PO Last administered on 02/06/19 08:23; Start 01/31/19 at 09:00; Stop 02/06/19 at 12:35; Status DC Torsemide (Demadex) 10 mg DAILY PO Last administered on 02/08/19 08:31; Start 02/07/19 at 09:00 Vitamin D (Vitamin D) 2,000 units DAILY PO Last administered on 02/08/19at 08:30; Start 01/31/19 at 09:00 Warfarin Sodium (Coumadin) 4 mg DAILY@1700 PO Last administered on 02/06/19 17:22; Start 01/31/19 at 17:00; Stop 02/07/19 at 17:24; Status DC Warfarin Sodium (Coumadin) 4 mg Q2D@1700 PO ; Start 02/08/19 at 17:00 SEAN SAMPSON MD Feb 08, 2019 11:27
--- NOTE | 2019-02-08 11:27 | IPNPDOC ---
PM&R Progress Note DATE OF SERVICE: Feb 08, 2019 [employer] Progress Note Subjective: Patient seen in room reporting she was able to walk farther today and overall is feeling less pain. REVIEW OF SYSTEMS: The following is a completed review of systems and has been reviewed. Review of systems otherwise unremarkable. PAIN: Patient self reports diffuse pain and stiffness EYES: Negative recent vision loss EARS, NOSE, & THROAT: denies throat pain, rhinorrhea or dysphagia CARDIOVASCULAR: denies chest pain or palpitations PULMONARY: Negative. Denies shortness of breath GASTROINTESTINAL: no diarrhea or constipation GENITOURINARY: no dysuria MUSCULOSKELETAL:+spinal OA and diffuse RA, right proximal humeral fracture NEUROLOGICAL: no focal tremor or seizure activity SKIN: right hand laceration PSYCHIATRIC: Unremarkable All other review of systems found to be negative. PHYSICAL EXAMINATION: VITAL SIGNS: Please see below. GENERAL: Pleasant and cooperative. No acute distress. HEENT: PERRL. Extraocular movements intact. Clear conjunctiva, +glasses CARDIOVASCULAR: Regular rate and rhythm. No murmurs, rubs, or gallops LUNGS: Clear to auscultation bilaterally. No wheezes. No rhonchi ABDOMEN: Soft, nontender, nondistended. Positive bowel sounds. Normal active bowel sounds NEUROLOGICAL: Alert and oriented times three. Cranial nerves II through XII grossly intact. Sensation grossly intact in a 4 extremities EXTREMITIES: 4\5 strength bilateral upper extremities. 4\5 strength right lower extremity. 4/5 strength in left lower extremity. (right arm in a sling) decreased ROM bilateral shoulders, +ulnar deviation of bilat MCP joints with subluxed thumbs, decreased ROM of neck SKIN: right hand laceration, bilateral feet purple with palpable pedal pulses ASSESSMENT:88-year-old F with past medical history of spinal stenosis, diffuse RA who presents status post fall with right proximal humeral fracture with difficulty ambulating due to worsening spinal stenosis. PLAN: 1. Rehab: PT and OT to work on strengthening, endurance training, use of adaptive equipment for ADls management, preserve joint ROM<-c/u NWB and no PROM, having difficulty with step-length but improving on distance 2. Neuro: pmh CVA, c/u statin, on warfarin -seizure d/o c/u Keppra 3. Cardio: pmh Afib and diastolic CHF- c/u Torsemide, spironolactone and Warfarin-medicine consulted to help manage 4. Resp: pmh MARCO- c/u CPAP 5. Ortho: right humeral fracture, sling when out of bed, NWB- ortho consulted -pmh spinal stenosis with LE weakness significantly limiting her ability to walk -X-ray of right hand negative for fracture, showing advanced arthritis 6. Rheum: significant RA, c/u low dose prednisone and refer to outpatient rheum 7. Pain: c/u tylenol, c/u Cymbalta and low dose prednisone, lidoderm path to right shoulder and low back, menthol salicylate rub qHS to back 8. Endo: pmh DM c/u Glipizide- FS well controlled 9. DVT ppx: on warfarin 10. : monitor PVRs 11. Dispo: progressing slowly towards goals, d/c 02/15/19 Allergies Coded Allergies: Sulfa (Sulfonamide Antibiotics) (Verified Allergy, Severe, 01/28/19) iodine (Verified Allergy, Intermediate, swelling, 01/28/19) amoxicillin (Verified Allergy, Mild, body rash, 01/28/19) latex (Verified Allergy, Mild, rash, 01/28/19) codeine (Verified Adverse Reaction, Intermediate, vomiting, 01/28/19) Vital Signs Vital Signs Date Time Temp Pulse Resp B/P (MAP) Pulse Ox O2 Delivery O2 Flow Rate FiO2 02/08/19 06:00 97.9 88 18 133/68 (89) 95 Laboratory Data Labs 24H Laboratory Tests 2 02/07/19 16:55: Bedside Glucose (Misc Panel) 133H 02/08/19 06:26: Bedside Glucose (Misc Panel) 109 02/08/19 07:16: Prothrombin Time 32.4H, Prothromb Time International Ratio 3.17 Microbiology Microbiology 02/04/19 Urine Culture - Final, Complete Current Medications Current Medications Current Medications Acetaminophen (Tylenol Tab) 1,000 mg TID PO Last administered on 02/08/19at 08:31; Start 01/30/19 at 21:00 Albuterol Sulfate (Proventil, Ventolin Hfa) 2 puff Q4HP PRN INH SHORTNESS OF BREATH; Start 01/30/19 at 18:45 Allopurinol (Zyloprim) 150 mg DAILY PO Last administered on 02/08/19at 08:30; Start 01/31/19 at 09:00 Artificial Tears (Akwa Tears) 1 drop 6XD OU Last administered on 02/02/19at 17:51; Start 01/31/19 at 18:00; Stop 02/03/19 at 06:12; Status DC Baclofen (Lioresal) 5 mg DAILY PO Last administered on 02/08/19at 08:31; Start 01/31/19 at 09:00 Bisacodyl (Dulcolax Suppository) 10 mg DAILYPRN PRN ME CONSTIPATION; Start 01/30/19 at 18:45 Cetirizine HCl (ZyrTEC) 10 mg DAILY PO Last administered on 02/08/19 08:31; Start 01/31/19 at 09:00 Docusate Sodium (Colace) 100 mg BID PO Last administered on 02/08/19 08:31; Start 01/30/19 at 21:00 Duloxetine HCl (Cymbalta) 30 mg DAILY PO Last administered on 02/08/19 08:31; Start 01/31/19 at 09:00 Glipizide (Glucotrol Xl) 5 mg DAILY@0730 PO Last administered on 02/08/19 08:31; Start 01/31/19 at 07:30 Guaifenesin (Robitussin Tab) 400 mg TID PO Last administered on 02/07/19 08:40; Start 01/30/19 at 21:00 Latanoprost (Xalatan 0.005% Op Soln) 1 drop QHS OU Last administered on 02/07/19at 21:55; Start 01/30/19 at 21:00 Levetiracetam (Keppra) 500 mg BID PO Last administered on 02/08/19 08:31; Start 01/30/19 at 21:00 Lidocaine (Lidoderm Patch) 1 patch DAILY TD Last administered on 02/08/19 08:36; Start 02/01/19 at 11:00 Lidocaine (Lidoderm Patch) 1 patch DAILY TD Last administered on 02/08/19 08:36; Start 02/06/19 at 09:00 Lidocaine (Lidoderm Patch) 1 patch QHS TD Last administered on 02/05/19at 21:01; Start 01/30/19 at 21:00; Stop 02/06/19 at 11:01; Status DC Menthol/Methyl Salicylate (Bengay Cream) QHS TOP Last administered on 02/06/19 t 21:06; Start 02/06/19 at 21:00 Miscellaneous (Unresolved Patient Own Med Order) SEE LABEL COMMENTS DAILY XX Last administered on 01/31/19 08:41; Start 01/30/19 at 09:00; Stop 01/31/19 at 15:45; Status DC Multivitamins (Theragram-M) 1 tab DAILY PO Last administered on 02/08/19at 08:30; Start 01/31/19 at 09:00 Nitroglycerin (Nitrostat (1/ 150)) 0.4 mg Q5MP PRN SL CHEST PAIN; Start 01/30/19 at 18:45 Non-Formulary Medication ( See Comment Field Below ) REMOVE LIDODERM PATCH DAILY@21 XX ; Start 02/06/19 at 21:00 Non-Formulary Medication ( See Comment Field Below ) REMOVE LIDODERM PATCH ... DAILY XX Last administered on 02/06/19 08:24; Start 01/31/19 at 09:00; Stop 02/06/19 at 11:04; Status DC Non-Formulary Medication ( See Comment Field Below ) REMOVE LIDODERM PATCH F... DAILY@21 XX Last administered on 02/06/19 21:06; Start 02/01/19 at 21:00 Omeprazole (PriLOSEC) 20 mg DAILY PO Last administered on 01/31/19 08:37; Start 01/31/19 at 09:00; Stop 01/31/19 at 10:58; Status DC Ondansetron HCl (Zofran Odt) 4 mg Q6HP PRN SL NAUSEA OR VOMITING Last administered on 02/01/19 04:11; Start 02/01/19 at 04:00 Pantoprazole Sodium (Protonix) 40 mg BID PO Last administered on 02/03/19 08:04; Start 01/31/19 at 21:00; Stop 02/03/19 at 08:51; Status DC Pantoprazole Sodium (Protonix) 40 mg BID@0700,2100 PO Last administered on 02/08/19 06:43; Start 02/03/19 at 21:00 Patient Own Medication (Patient'S Own Med) 1 DROP TO EACH EYE 6XD OU Last administered on 02/08/19 08:32; Start 02/03/19 at 09:00 Patient Own Medication (Patient'S Own Med) 1 ea ASDIRECTED OU ; Start 01/30/19 at 18:45; Stop 01/31/19 at 15:47; Status DC Prednisone (Deltasone) 2.5 mg DAILY PO Last administered on 02/08/19 08:31; Start 02/01/19 at 09:00 Prednisone (Deltasone) 5 mg DAILY PO ; Start 01/31/19 at 09:00; Stop 01/31/19 at 15:39; Status DC Senna (Senokot) 1 tab QHS PO Last administered on 02/07/19 21:54; Start 01/30/19 at 21:00 Simvastatin (Zocor) 40 mg QHS PO Last administered on 02/07/19 21:55; Start 01/30/19 at 21:00 Spironolactone (Aldactone) 25 mg QAM PO Last administered on 02/03/19at 08:04; Start 01/31/19 at 09:00; Stop 02/04/19 at 10:40; Status DC Torsemide (Demadex) 10 mg BID@09,17 PO Last administered on 02/06/19 08:23; Start 01/31/19 at 09:00; Stop 02/06/19 at 12:35; Status DC Torsemide (Demadex) 10 mg DAILY PO Last administered on 02/08/19 08:31; Start 02/07/19 at 09:00 Vitamin D (Vitamin D) 2,000 units DAILY PO Last administered on 02/08/19at 08:30; Start 01/31/19 at 09:00 Warfarin Sodium (Coumadin) 4 mg DAILY@1700 PO Last administered on 02/06/19 17:22; Start 01/31/19 at 17:00; Stop 02/07/19 at 17:24; Status DC Warfarin Sodium (Coumadin) 4 mg Q2D@1700 PO ; Start 02/08/19 at 17:00 SEAN SAMPSON MD Feb 08, 2019 11:27
[2019-02-08 14:00] VITALS: BP 146/68
[2019-02-08] MEDS ORDERED: WARFARIN SOD 4 MG TAB PO SCH (17:00)
[2019-02-08 20:00] VITALS: BP 124/63
[2019-02-08] MEDS: SIMVASTATIN 40 MG TAB PO SCH (20:44)
[2019-02-08] MEDS: SENNA 8.6 MG TAB (SENOKOT) PO SCH (20:44)
[2019-02-08] MEDS: LATANOPROST 0.005% OPHTH SOLN 2.5 ML OU SCH (20:46)
[2019-02-08] MEDS: ANALGESIC BALM CRM 120 GM TOP SCH (20:47)
[2019-02-08] MEDS: **NOTE PATIENT COMMENT** MISC XX SCH ×2 (20:49)
[2019-02-09] MEDS: SYSTANE BALANCE OU SCH ×6 (05:55→21:28)
[2019-02-09] MEDS: PANTOPRAZOLE 40MG TAB (PROTONIX) PO SCH ×2 (05:55→21:26)
[2019-02-09 06:00] VITALS: BP 139/65
[2019-02-09 07:44] LABS: BLOOD UREA NITROGEN 35 MG/DL (7-18); CALCIUM LEVEL 9.9 MG/DL (8.8-10.2); CARBON DIOXIDE LEVEL 24 MEQ/L (21-32); CHLORIDE LEVEL 105 MEQ/L (98-107); CREATININE FOR GFR 0.88 MG/DL (0.55-1.30); GLOMERULAR FILTRATION RATE > 60.0 (>32); GLUCOSE, FASTING 100 MG/DL (70-100); POTASSIUM SERUM 4.2 MEQ/L (3.5-5.1); SODIUM LEVEL 137 MEQ/L (136-145)
[2019-02-09] MEDS: glipiZIDE XL 5 MG TABCR PO SCH (07:53)
[2019-02-09 07:56] LABS: INR 3.07; PROTHROMBIN TIME 31.6 SECONDS (11.8-14.0)
[2019-02-09 08:02] LABS: BASO # 0.1 10^3/uL (0.0-0.2); BASO % 0.8 % (0.0-1.0); EOS # 0.3 10^3/uL (0.0-0.50); EOS % 4.5 % (0.0-3.0); HEMATOCRIT 37.2 % (36.0-47.0); HEMOGLOBIN 12.4 g/dl (12.0-15.5); LYMPH # 1.7 10^3/uL (1.5-4.5); LYMPH % 27.4 % (24.0-44.0); MEAN CORPUSCULAR HEMOGLOBIN 30.4 pg (27.0-33.0); MEAN CORPUSCULAR HGB CONC 33.3 g/dl (32.0-36.5); MEAN CORPUSCULAR VOLUME 91.2 fl (80.0-96.0); MONO # 0.9 10^3/uL (0.0-0.8); MONO % 14.1 % (0.0-5.0); NEUTROPHILS # 3.3 10^3/uL (1.8-7.7); NEUTROPHILS % 52.9 % (36.0-66.0); PLATELET COUNT, AUTOMATED 401 10^3/uL (150-450); RED BLOOD COUNT 4.08 10^6/uL (4.00-5.40); WHITE BLOOD COUNT 6.3 10^3/uL (4.0-10.0)
[2019-02-09] MEDS: guaiFENesin 200 MG TAB PO SCH ×3 (09:00→21:00)
[2019-02-09] MEDS: VITAMIN D 1,000 INTERNATIONAL UNITS TABLET PO SCH (09:27)
[2019-02-09] MEDS: ALLOPURINOL 300 MG TAB PO SCH (09:28)
[2019-02-09] MEDS: levETIRAcetam 250MG TABLET (KEPPRA) PO SCH ×2 (09:28→21:26)
[2019-02-09] MEDS: BACLOFEN 5MG PER 1/2 TABLET PO SCH (09:28)
[2019-02-09] MEDS: DOCUSATE SODIUM 100 MG CAP PO SCH ×2 (09:28→21:26)
[2019-02-09] MEDS: predniSONE 2.5 MG TAB PO SCH (09:28)
[2019-02-09] MEDS: MULTIVITAMINS/MINERALS THERAP 1 TAB PO SCH (09:28)
[2019-02-09] MEDS: ACETAMINOPHEN 500 MG TAB PO SCH ×3 (09:28→21:26)
[2019-02-09] MEDS: LIDOCAINE 5% (LIDODERM) PATCH TD SCH ×2 (09:29)
[2019-02-09] MEDS: DULoxetine 30 MG CAP (CYMBALTA) PO SCH (09:29)
[2019-02-09] MEDS: CETIRIZINE (ZyrTEC) 10 MG TAB PO SCH (09:29)
[2019-02-09] MEDS: TORSEMIDE 10 MG TABLET PO SCH (09:29)
--- NOTE | 2019-02-09 12:18 | IPNPDOC ---
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 REVIEW OF SYSTEMS: The following is a completed review of systems and has been reviewed. Review of systems otherwise unremarkable. PAIN: Patient self reports diffuse pain and stiffness EYES: Negative recent vision loss EARS, NOSE, & THROAT: denies throat pain, rhinorrhea or dysphagia CARDIOVASCULAR: denies chest pain or palpitations PULMONARY: Negative. Denies shortness of breath GASTROINTESTINAL: no diarrhea or constipation GENITOURINARY: no dysuria MUSCULOSKELETAL:+spinal OA and diffuse RA, right proximal humeral fracture NEUROLOGICAL: no focal tremor or seizure activity SKIN: right hand laceration PSYCHIATRIC: Unremarkable All other review of systems found to be negative. PHYSICAL EXAMINATION: VITAL SIGNS: Please see below. GENERAL: Pleasant and cooperative. No acute distress. HEENT: PERRL. Extraocular movements intact. Clear conjunctiva, +glasses CARDIOVASCULAR: Regular rate and rhythm. No murmurs, rubs, or gallops LUNGS: Clear to auscultation bilaterally. No wheezes. No rhonchi ABDOMEN: Soft, nontender, nondistended. Positive bowel sounds. Normal active bowel sounds NEUROLOGICAL: Alert and oriented times three. Cranial nerves II through XII grossly intact. Sensation grossly intact in a 4 extremities EXTREMITIES: 4\5 strength bilateral upper extremities. 4\5 strength right lower extremity. 4/5 strength in left lower extremity. (right arm in a sling) decreased ROM bilateral shoulders, +ulnar deviation of bilat MCP joints with subluxed thumbs, decreased ROM of neck SKIN: right hand laceration, bilateral feet purple with palpable pedal pulses ASSESSMENT:88-year-old F with past medical history of spinal stenosis, diffuse RA who presents status post fall with right proximal humeral fracture with difficulty ambulating due to worsening spinal stenosis. PLAN: 1. Rehab: PT and OT to work on strengthening, endurance training, use of adaptive equipment for ADls management, preserve joint ROM<-c/u NWB and no PROM, having difficulty with step-length but improving on distance and now step length 2. Neuro: pmh CVA, c/u statin, on warfarin -seizure d/o c/u Keppra 3. Cardio: pmh Afib and diastolic CHF- c/u Torsemide, spironolactone and Warfarin-medicine consulted to help manage 4. Resp: pmh MARCO- c/u CPAP 5. Ortho: right humeral fracture, sling when out of bed, NWB- ortho consulted -pmh spinal stenosis with LE weakness significantly limiting her ability to walk -X-ray of right hand negative for fracture, showing advanced arthritis 6. Rheum: significant RA, c/u low dose prednisone and refer to outpatient rheum 7. Pain: c/u tylenol, c/u Cymbalta and low dose prednisone, lidoderm path to right shoulder and low back, menthol salicylate rub qHS to back 8. Endo: pmh DM c/u Glipizide- FS well controlled 9. DVT ppx: on warfarin 10. : monitor PVRs 11. Dispo: progressing slowly towards goals, d/c 02/15/19 Allergies Coded Allergies: Sulfa (Sulfonamide Antibiotics) (Verified Allergy, Severe, 01/28/19) iodine (Verified Allergy, Intermediate, swelling, 01/28/19) amoxicillin (Verified Allergy, Mild, body rash, 01/28/19) latex (Verified Allergy, Mild, rash, 01/28/19) codeine (Verified Adverse Reaction, Intermediate, vomiting, 01/28/19) Vital Signs Vital Signs Date Time Temp Pulse Resp B/P (MAP) Pulse Ox O2 Delivery O2 Flow Rate FiO2 02/09/19 06:00 97.5 72 18 139/65 (89) 95 Laboratory Data CBC/BMP Laboratory Tests 02/09/19 07:08 Red Blood Count 4.08, Mean Corpuscular Volume 91.2, Mean Corpuscular Hemoglobin 30.4, Mean Corpuscular Hemoglobin Concent 33.3, Red Cell Distribution Width 14.6 H, Neutrophils (%) (Auto) 52.9, Lymphocytes (%) (Auto) 27.4, Monocytes (%) (Auto) 14.1 H, Eosinophils (%) (Auto) 4.5 H, Basophils (%) (Auto) 0.8, Neutrophils # (Auto) 3.3, Lymphocytes # (Auto) 1.7, Monocytes # (Auto) 0.9 H, Eosinophils # (Auto) 0.3, Basophils # (Auto) 0.1, Calcium Level 9.9 Labs 24H Laboratory Tests 2 02/08/19 16:52: Bedside Glucose (Misc Panel) 146H 02/09/19 06:36: Bedside Glucose (Misc Panel) 106 02/09/19 07:08: Immature Granulocyte % (Auto) 0.3, White Blood Count 6.3, Red Blood Count 4.08, Hemoglobin 12.4, Hematocrit 37.2, Mean Corpuscular Volume 91.2, Mean Corpuscular Hemoglobin 30.4, Mean Corpuscular Hemoglobin Concent 33.3, Red Cell Distribution Width 14.6H, Platelet Count 401, Neutrophils (%) (Auto) 52.9, Lymphocytes (%) (Auto) 27.4, Monocytes (%) (Auto) 14.1H, Eosinophils (%) (Auto) 4.5H, Basophils (%) (Auto) 0.8, Neutrophils # (Auto) 3.3, Lymphocytes # (Auto) 1.7, Monocytes # (Auto) 0.9H, Eosinophils # (Auto) 0.3, Basophils # (Auto) 0.1, Nucleated Red Blood Cells % (auto) 0.0, Prothrombin Time 31.6H, Prothromb Time International Ratio 3.07, Anion Gap 8, Glomerular Filtration Rate > 60.0, Blood Urea Nitrogen 35H, Creatinine 0.88, Sodium Level 137, Potassium Level 4.2, Chloride Level 105, Carbon Dioxide Level 24, Calcium Level 9.9 Microbiology Microbiology 02/04/19 Urine Culture - Final, Complete Current Medications Current Medications Current Medications Acetaminophen (Tylenol Tab) 1,000 mg TID PO Last administered on 02/09/19at 09:28; Start 01/30/19 at 21:00 Albuterol Sulfate (Proventil, Ventolin Hfa) 2 puff Q4HP PRN INH SHORTNESS OF BREATH; Start 01/30/19 at 18:45 Allopurinol (Zyloprim) 150 mg DAILY PO Last administered on 02/09/19at 09:28; Start 01/31/19 at 09:00 Artificial Tears (Akwa Tears) 1 drop 6XD OU Last administered on 02/02/19at 17:51; Start 01/31/19 at 18:00; Stop 02/03/19 at 06:12; Status DC Baclofen (Lioresal) 5 mg DAILY PO Last administered on 02/09/19at 09:28; Start 01/31/19 at 09:00 Bisacodyl (Dulcolax Suppository) 10 mg DAILYPRN PRN [place] CONSTIPATION; Start 01/30/19 at 18:45 Cetirizine HCl (ZyrTEC) 10 mg DAILY PO Last administered on 02/09/19 09:29; Start 01/31/19 at 09:00 Docusate Sodium (Colace) 100 mg BID PO Last administered on 02/09/19 09:28; Start 01/30/19 at 21:00 Duloxetine HCl (Cymbalta) 30 mg DAILY PO Last administered on 02/09/19 09:29; Start 01/31/19 at 09:00 Glipizide (Glucotrol Xl) 5 mg DAILY@0730 PO Last administered on 02/09/19 07: 53; Start 01/31/19 at 07:30 Guaifenesin (Robitussin Tab) 400 mg TID PO Last administered on 02/07/19 08:40; Start 01/30/19 at 21:00 Latanoprost (Xalatan 0.005% Op Soln) 1 drop QHS OU Last administered on 02/08/19 20:46; Start 01/30/19 at 21:00 Levetiracetam (Keppra) 500 mg BID PO Last administered on 02/09/19 09:28; Start 01/30/19 at 21:00 Lidocaine (Lidoderm Patch) 1 patch DAILY TD Last administered on 02/09/19 09:29; Start 02/01/19 at 11:00 Lidocaine (Lidoderm Patch) 1 patch DAILY TD Last administered on 02/09/19 09:29; Start 02/06/19 at 09:00 Lidocaine (Lidoderm Patch) 1 patch QHS TD Last administered on 02/05/19 21:01; Start 01/30/19 at 21:00; Stop 02/06/19 at 11:01; Status DC Menthol/Methyl Salicylate (Bengay Cream) QHS TOP Last administered on 02/06/19 21:06; Start 02/06/19 at 21:00 Miscellaneous (Unresolved Patient Own Med Order) SEE LABEL COMMENTS DAILY XX Last administered on 01/31/19 08:41; Start 01/30/19 at 09:00; Stop 01/31/19 at 15:45; Status DC Multivitamins (Theragram-M) 1 tab DAILY PO Last administered on 02/09/19at 09:28; Start 01/31/19 at 09:00 Nitroglycerin (Nitrostat (1/ 150)) 0.4 mg Q5MP PRN SL CHEST PAIN; Start 01/30/19 at 18:45 Non-Formulary Medication ( See Comment Field Below ) REMOVE LIDODERM PATCH DAILY@21 XX Last administered on 02/08/19at 20:49; Start 02/06/19 at 21:00 Non-Formulary Medication ( See Comment Field Below ) REMOVE LIDODERM PATCH ... DAILY XX Last administered on 02/06/19 08:24; Start 01/31/19 at 09:00; Stop 02/06/19 at 11:04; Status DC Non-Formulary Medication ( See Comment Field Below ) REMOVE LIDODERM PATCH F... DAILY@21 XX Last administered on 02/08/19at 20:49; Start 02/01/19 at 21:00 Omeprazole (PriLOSEC) 20 mg DAILY PO Last administered on 01/31/19at 08:37; Start 01/31/19 at 09:00; Stop 01/31/19 at 10:58; Status DC Ondansetron HCl (Zofran Odt) 4 mg Q6HP PRN SL NAUSEA OR VOMITING Last administered on 02/01/19 04:11; Start 02/01/19 at 04:00 Pantoprazole Sodium (Protonix) 40 mg BID PO Last administered on 02/03/19 08:04; Start 01/31/19 at 21:00; Stop 02/03/19 at 08:51; Status DC Pantoprazole Sodium (Protonix) 40 mg BID@0700,2100 PO Last administered on 02/09/19at 05:55; Start 02/03/19 at 21:00 Patient Own Medication (Patient'S Own Med) 1 DROP TO EACH EYE 6XD OU Last administered on 02/09/19 09:30; Start 02/03/19 at 09:00 Patient Own Medication (Patient'S Own Med) 1 ea ASDIRECTED OU ; Start 01/30/19 at 18:45; Stop 01/31/19 at 15:47; Status DC Prednisone (Deltasone) 2.5 mg DAILY PO Last administered on 02/09/19 09:28; Start 02/01/19 at 09:00 Prednisone (Deltasone) 5 mg DAILY PO ; Start 01/31/19 at 09:00; Stop 01/31/19 at 15:39; Status DC Senna (Senokot) 1 tab QHS PO Last administered on 02/08/19 20:44; Start 01/30/19 at 21:00 Simvastatin (Zocor) 40 mg QHS PO Last administered on 02/08/19 20:44; Start 01/30/19 at 21:00 Spironolactone (Aldactone) 25 mg QAM PO Last administered on 02/03/19 08:04; Start 01/31/19 at 09:00; Stop 02/04/19 at 10:40; Status DC Torsemide (Demadex) 10 mg BID@09,17 PO Last administered on 02/06/19 08:23; Start 01/31/19 at 09:00; Stop 02/06/19 at 12:35; Status DC Torsemide (Demadex) 10 mg DAILY PO Last administered on 02/09/19 09:29; Start 02/07/19 at 09:00 Vitamin D (Vitamin D) 2,000 units DAILY PO Last administered on 02/09/19 09:27; Start 01/31/19 at 09:00 Warfarin Sodium (Coumadin) 4 mg DAILY@1700 PO Last administered on 02/06/19 17:22; Start 01/31/19 at 17:00; Stop 02/07/19 at 17:24; Status DC Warfarin Sodium (Coumadin) 4 mg Q2D@1700 PO Last administered on 02/08/19 16:55; Start 02/08/19 at 17:00 SEAN SAMPSON MD Feb 09, 2019 12:18
[2019-02-09 14:00] VITALS: BP 118/64
[2019-02-09 21:00] VITALS: BP 125/60
[2019-02-09] MEDS: SIMVASTATIN 40 MG TAB PO SCH (21:26)
[2019-02-09] MEDS: **NOTE PATIENT COMMENT** MISC XX SCH ×2 (21:26)
[2019-02-09] MEDS: SENNA 8.6 MG TAB (SENOKOT) PO SCH (21:26)
[2019-02-09] MEDS: ANALGESIC BALM CRM 120 GM TOP SCH (21:27)
[2019-02-09] MEDS: LATANOPROST 0.005% OPHTH SOLN 2.5 ML OU SCH (21:27)
[2019-02-10 06:00] VITALS: BP 136/63
[2019-02-10] MEDS: SYSTANE BALANCE OU SCH ×6 (06:09→21:14)
[2019-02-10] MEDS: PANTOPRAZOLE 40MG TAB (PROTONIX) PO SCH ×2 (06:13→21:13)
[2019-02-10] MEDS: guaiFENesin 200 MG TAB PO SCH ×3 (09:00→21:00)
[2019-02-10] MEDS: DULoxetine 30 MG CAP (CYMBALTA) PO SCH (09:53)
[2019-02-10] MEDS: MULTIVITAMINS/MINERALS THERAP 1 TAB PO SCH (09:54)
[2019-02-10] MEDS: BACLOFEN 5MG PER 1/2 TABLET PO SCH (09:54)
[2019-02-10] MEDS: predniSONE 2.5 MG TAB PO SCH (09:54)
[2019-02-10] MEDS: glipiZIDE XL 5 MG TABCR PO SCH (09:54)
[2019-02-10] MEDS: DOCUSATE SODIUM 100 MG CAP PO SCH ×2 (09:54→21:13)
[2019-02-10] MEDS: TORSEMIDE 10 MG TABLET PO SCH (09:54)
[2019-02-10] MEDS: VITAMIN D 1,000 INTERNATIONAL UNITS TABLET PO SCH (09:54)
[2019-02-10] MEDS: CETIRIZINE (ZyrTEC) 10 MG TAB PO SCH (09:54)
[2019-02-10] MEDS: ALLOPURINOL 300 MG TAB PO SCH (09:54)
[2019-02-10] MEDS: ACETAMINOPHEN 500 MG TAB PO SCH ×3 (09:55→21:14)
[2019-02-10] MEDS: levETIRAcetam 250MG TABLET (KEPPRA) PO SCH ×2 (09:55→21:13)
[2019-02-10] MEDS: LIDOCAINE 5% (LIDODERM) PATCH TD SCH ×2 (10:12)
--- NOTE | 2019-02-10 12:30 | IPNPDOC ---
Date Seen The patient was seen on 02/10/19. Progress Note SUBJECTIVE: Patient initially seen walking with PT then later in the room. Complains of pain in the r. arm, back and leg pains. Looks tired after session but otherwise no other complaints apart from this. INR had been elevated slightly above 3. Adjust dose of warfarin today. Otherwise no acute events reported overnight. OBJECTIVE PHYSICAL EXAMINATION: VITAL SIGNS: Please see below. General: No acute distress, Alert Eyes: Normal sclera, EOMI, BOYD HENT: Atraumatic, neck supple, moist mucous membranes Cardiovascular: Normal rate, normal rhythm. Pulmonary: Clear to auscultation b/l, no wheezing GI: Soft, nontender, nondistended Skin: Warm and dry Neuro: CN grossly intact. No focal deficits. Strength and ROM reduced on R. side with pain. R. arm has sling in place. Psych: oriented x 3 LABORATORY DATA, IMAGING STUDIES, MICROBIOLOGY: Please see below. ASSESSMENT AND PLAN: 1. R. humeral fracture - c/w PT/OT 2. Afib - On warfarin. daily INR. - Had been elevated slightly >3 on warfarin 4mg daily. - Will adjust dose to alternating 4 and 3mg to see if it can be more stabilize between 2-3. 3. HFpEF - Appears euvolemic. - c/w fluid restriction and diuretics. - K is stable at this time. 4. MARCO - CPAP hs 5. DM - Accuchecks. - c/w glipizide. 6. Seizure disorder - c/w Keppra and seizure precautions. DVT prophylaxis ordered?: On Warfarin VS, I&O, 24H, Fishbone Vital Signs/I&O Vital Signs Date Time Temp Pulse Resp B/P (MAP) Pulse Ox O2 Delivery O2 Flow Rate FiO2 02/10/19 06:00 97.8 70 18 136/63 (87) 87 I&O- Last 24 Hours up to 6 AM 02/10/19 06:00 Intake Total 1140 ml Balance 1140 ml Laboratory Data 24H LABS Laboratory Tests 2 02/09/19 16:42: Bedside Glucose (Misc Panel) 146H 02/10/19 06:16: Bedside Glucose (Misc Panel) 105 Microbiology Microbiology 02/04/19 Urine Culture - Final, Complete SATISH FLORES MD Feb 10, 2019 12:30
[2019-02-10 14:00] VITALS: BP 135/66
[2019-02-10] MEDS ORDERED: WARFARIN SOD 3 MG TAB PO SCH (17:00)
[2019-02-10] MEDS: WARFARIN SOD 3 MG TAB PO SCH (17:48)
[2019-02-10 20:00] VITALS: BP 127/65
[2019-02-10] MEDS: ANALGESIC BALM CRM 120 GM TOP SCH (21:00)
[2019-02-10] MEDS: LATANOPROST 0.005% OPHTH SOLN 2.5 ML OU SCH (21:13)
[2019-02-10] MEDS: SENNA 8.6 MG TAB (SENOKOT) PO SCH (21:13)
[2019-02-10] MEDS: SIMVASTATIN 40 MG TAB PO SCH (21:13)
[2019-02-10] MEDS: **NOTE PATIENT COMMENT** MISC XX SCH ×2 (21:14)
[2019-02-11 06:00] VITALS: BP 147/70
[2019-02-11] MEDS: PANTOPRAZOLE 40MG TAB (PROTONIX) PO SCH ×2 (06:45→20:07)
[2019-02-11] MEDS: SYSTANE BALANCE OU SCH ×6 (06:45→20:08)
[2019-02-11] MEDS: guaiFENesin 200 MG TAB PO SCH ×3 (09:00→20:08)
[2019-02-11] MEDS: BACLOFEN 5MG PER 1/2 TABLET PO SCH (09:16)
[2019-02-11] MEDS: levETIRAcetam 250MG TABLET (KEPPRA) PO SCH ×2 (09:16→20:07)
[2019-02-11] MEDS: DULoxetine 30 MG CAP (CYMBALTA) PO SCH (09:16)
[2019-02-11] MEDS: predniSONE 2.5 MG TAB PO SCH (09:16)
[2019-02-11] MEDS: CETIRIZINE (ZyrTEC) 10 MG TAB PO SCH (09:16)
[2019-02-11] MEDS: DOCUSATE SODIUM 100 MG CAP PO SCH ×2 (09:17→20:07)
[2019-02-11] MEDS: MULTIVITAMINS/MINERALS THERAP 1 TAB PO SCH (09:17)
[2019-02-11] MEDS: ALLOPURINOL 300 MG TAB PO SCH (09:17)
[2019-02-11] MEDS: glipiZIDE XL 5 MG TABCR PO SCH (09:17)
[2019-02-11] MEDS: TORSEMIDE 10 MG TABLET PO SCH (09:17)
[2019-02-11] MEDS: LIDOCAINE 5% (LIDODERM) PATCH TD SCH ×2 (09:18)
[2019-02-11] MEDS: ACETAMINOPHEN 500 MG TAB PO SCH ×3 (09:18→20:08)
[2019-02-11] MEDS: VITAMIN D 1,000 INTERNATIONAL UNITS TABLET PO SCH (09:18)
[2019-02-11] MEDS: WARFARIN SOD 4 MG TAB PO SCH (10:17)
[2019-02-11 14:00] VITALS: BP 111/78
--- NOTE | 2019-02-11 14:31 | IPNPDOC ---
Text Note Date of Service The patient was seen on 02/11/19. NOTE SUBJECTIVE: Ms. Gallego is an 88-year-old female who tripped and fell [facility] at [facility]. She was brought to the emergency room and was found sustained a nondisplaced fracture to the right proximal humerus. Conservative management is planned; she has been placed into a sling and transitioned to the acute rehabilitation unit. OBJECTIVE: Patient is seen on the rehabilitation unit. She is up in a wheelchair and her right upper extremity is in a sling. Gen.: Awake, alert and conversant. ENT: Neck is supple, oral mucosa is moist, no scleral icterus. Cardiovascular: Regular rate and rhythm, grade 2/6 systolic murmur. Respiratory: Clear to auscultation, no wheezes, no cough. Abdominal: Abdomen is soft. Patient has remarkable central obesity for her body habitus, otherwise benign. Extremities: Right upper extremity is secured in a sling, patient has trace lower extremity edema ASSESSMENT/PLAN: 1. Chronic atrial fibrillation--patient is on chronic anticoagulation with Coumadin. Patient has been a bit supratherapeutic. We are adjusting dosing and monitoring. Goal INR is between 2 and 3. We were unable to check the patient's INR today as she was a difficult blood draw and refused further attempts. We will try again tomorrow. In the meantime, we are holding her Coumadin. Her INR had been above 3. 2. Right humeral fracture--patient will continue with physical therapy and occupational therapy. It is unknown when [facility]'ll [facility]. 3. [id number] diabetes mellitus--continues with her glipizide and sliding scale insulin 4. Seizure disorder--remains on Keppra VS,Fishbone, I+O VS, Fishbone, I+O Vital Signs Date Time Temp Pulse Resp B/P (MAP) Pulse Ox O2 Delivery O2 Flow Rate FiO2 02/11/19 06:00 98.6 69 18 147/70 (95) 97 I&O- Last 24 Hours up to 6 AM 02/11/19 06:00 Intake Total 900 ml Balance 900 ml MICHELLE NIELSEN MD Feb 11, 2019 14:31
[2019-02-11 20:00] VITALS: BP 112/63
[2019-02-11] MEDS: SIMVASTATIN 40 MG TAB PO SCH (20:07)
[2019-02-11] MEDS: SENNA 8.6 MG TAB (SENOKOT) PO SCH (20:07)
[2019-02-11] MEDS: LATANOPROST 0.005% OPHTH SOLN 2.5 ML OU SCH (20:08)
[2019-02-11] MEDS: ANALGESIC BALM CRM 120 GM TOP SCH (20:09)
[2019-02-11] MEDS: **NOTE PATIENT COMMENT** MISC XX SCH ×2 (20:09)
[2019-02-12 05:44] VITALS: BP 122/65
[2019-02-12] MEDS: SYSTANE BALANCE OU SCH ×6 (06:23→21:00)
[2019-02-12] MEDS: PANTOPRAZOLE 40MG TAB (PROTONIX) PO SCH ×2 (06:23→21:09)
[2019-02-12 07:25] LABS: INR 1.86; PROTHROMBIN TIME 21.2 SECONDS (11.8-14.0)
[2019-02-12] MEDS: predniSONE 2.5 MG TAB PO SCH (07:51)
[2019-02-12] MEDS: glipiZIDE XL 5 MG TABCR PO SCH (07:51)
[2019-02-12] MEDS: DOCUSATE SODIUM 100 MG CAP PO SCH ×2 (07:51→21:09)
[2019-02-12] MEDS: DULoxetine 30 MG CAP (CYMBALTA) PO SCH (07:51)
[2019-02-12] MEDS: BACLOFEN 5MG PER 1/2 TABLET PO SCH (07:52)
[2019-02-12] MEDS: MULTIVITAMINS/MINERALS THERAP 1 TAB PO SCH (07:52)
[2019-02-12] MEDS: guaiFENesin 200 MG TAB PO SCH ×3 (07:52→21:00)
[2019-02-12] MEDS: VITAMIN D 1,000 INTERNATIONAL UNITS TABLET PO SCH (07:52)
[2019-02-12] MEDS: CETIRIZINE (ZyrTEC) 10 MG TAB PO SCH (07:52)
[2019-02-12] MEDS: TORSEMIDE 10 MG TABLET PO SCH (07:52)
[2019-02-12] MEDS: levETIRAcetam 250MG TABLET (KEPPRA) PO SCH ×2 (07:53→21:09)
[2019-02-12] MEDS: ALLOPURINOL 300 MG TAB PO SCH (07:53)
[2019-02-12] MEDS: LIDOCAINE 5% (LIDODERM) PATCH TD SCH ×2 (07:54)
[2019-02-12] MEDS: ACETAMINOPHEN 500 MG TAB PO SCH ×3 (07:54→21:10)
--- NOTE | 2019-02-12 10:22 | IPNPDOC ---
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 REVIEW OF SYSTEMS: The following is a completed review of systems and has been reviewed. Review of systems otherwise unremarkable. PAIN: Patient self reports diffuse pain and stiffness EYES: Negative recent vision loss EARS, NOSE, & THROAT: denies throat pain, rhinorrhea or dysphagia CARDIOVASCULAR: denies chest pain or palpitations PULMONARY: Negative. Denies shortness of breath GASTROINTESTINAL: no diarrhea or constipation GENITOURINARY: no dysuria MUSCULOSKELETAL:+spinal OA and diffuse RA, right proximal humeral fracture NEUROLOGICAL: no focal tremor or seizure activity SKIN: right hand laceration PSYCHIATRIC: Unremarkable All other review of systems found to be negative. PHYSICAL EXAMINATION: VITAL SIGNS: Please see below. GENERAL: Pleasant and cooperative. No acute distress. HEENT: PERRL. Extraocular movements intact. Clear conjunctiva, +glasses CARDIOVASCULAR: Regular rate and rhythm. No murmurs, rubs, or gallops LUNGS: Clear to auscultation bilaterally. No wheezes. No rhonchi ABDOMEN: Soft, nontender, nondistended. Positive bowel sounds. Normal active bowel sounds NEUROLOGICAL: Alert and oriented times three. Cranial nerves II through XII grossly intact. Sensation grossly intact in a 4 extremities EXTREMITIES: 4\5 strength bilateral upper extremities. 4\5 strength right lower extremity. 4/5 strength in left lower extremity. (right arm in a sling) decreased ROM bilateral shoulders, +ulnar deviation of bilat MCP joints with subluxed thumbs, decreased ROM of neck SKIN: right hand laceration, bilateral feet purple with palpable pedal pulses ASSESSMENT:88-year-old F with past medical history of spinal stenosis, diffuse RA who presents status post fall with right proximal humeral fracture with difficulty ambulating due to worsening spinal stenosis. PLAN: 1. Rehab: PT and OT to work on strengthening, endurance training, use of adaptive equipment for ADls management, preserve joint ROM<-c/u NWB and no PROM, having difficulty with step-length but improving on distance and now step length 2. Neuro: pmh CVA, c/u statin, on warfarin -seizure d/o c/u Keppra 3. Cardio: pmh Afib and diastolic CHF- c/u Torsemide, spironolactone and Warfarin-medicine consulted to help manage 4. Resp: pmh MARCO- c/u CPAP 5. Ortho: right humeral fracture, sling when out of bed, NWB- ortho consulted -pmh spinal stenosis with LE weakness significantly limiting her ability to walk -X-ray of right hand negative for fracture, showing advanced arthritis 6. Rheum: significant RA, c/u low dose prednisone and refer to outpatient rheum 7. Pain: c/u tylenol, will increase Cymbalta to 60mg, c/u low dose prednisone, lidoderm path to right shoulder and low back, menthol salicylate rub qHS to back 8. Endo: pmh DM c/u Glipizide- FS well controlled 9. DVT ppx: on warfarin 10. : monitor PVRs 11. Dispo: progressing slowly towards goals, d/c 02/15/19 Allergies Coded Allergies: Sulfa (Sulfonamide Antibiotics) (Verified Allergy, Severe, 01/28/19) iodine (Verified Allergy, Intermediate, swelling, 01/28/19) amoxicillin (Verified Allergy, Mild, body rash, 01/28/19) latex (Verified Allergy, Mild, rash, 01/28/19) codeine (Verified Adverse Reaction, Intermediate, vomiting, 01/28/19) Vital Signs Vital Signs Date Time Temp Pulse Resp B/P (MAP) Pulse Ox O2 Delivery O2 Flow Rate FiO2 02/12/19 05:44 97.1 75 18 122/65 (84) 95 Laboratory Data Labs 24H Laboratory Tests 2 02/11/19 17:00: Bedside Glucose (Misc Panel) 124H 02/12/19 06:37: Bedside Glucose (Misc Panel) 108 02/12/19 06:45: Prothrombin Time 21.2H, Prothromb Time International Ratio 1.86 Microbiology Microbiology 02/04/19 Urine Culture - Final, Complete Current Medications Current Medications Current Medications Acetaminophen (Tylenol Tab) 1,000 mg TID PO Last administered on 02/12/19at 07:54; Start 01/30/19 at 21:00 Albuterol Sulfate (Proventil, Ventolin Hfa) 2 puff Q4HP PRN INH SHORTNESS OF BREATH; Start 01/30/19 at 18:45 Allopurinol (Zyloprim) 150 mg DAILY PO Last administered on 02/12/19at 07:53; Start 01/31/19 at 09:00 Artificial Tears (Akwa Tears) 1 drop 6XD OU Last administered on 02/02/19 17:51; Start 01/31/19 at 18:00; Stop 02/03/19 at 06:12; Status DC Baclofen (Lioresal) 5 mg DAILY PO Last administered on 02/12/19 07:52; Start 01/31/19 at 09:00 Bisacodyl (Dulcolax Suppository) 10 mg DAILYPRN PRN [place] CONSTIPATION; Start 01/30/19 at 18:45 Cetirizine HCl (ZyrTEC) 10 mg DAILY PO Last administered on 02/12/19 07:52; Start 01/31/19 at 09:00 Docusate Sodium (Colace) 100 mg BID PO Last administered on 02/12/19 07:51; Start 01/30/19 at 21:00 Duloxetine HCl (Cymbalta) 30 mg DAILY PO Last administered on 02/12/19 07:51; Start 01/31/19 at 09:00 Glipizide (Glucotrol Xl) 5 mg DAILY@0730 PO Last administered on 02/12/19 07:51; Start 01/31/19 at 07:30 Guaifenesin (Robitussin Tab) 400 mg TID PO Last administered on 02/12/19 07:52; Start 01/30/19 at 21:00 Latanoprost (Xalatan 0.005% Op Soln) 1 drop QHS OU Last administered on 02/11/19at 20:08; Start 01/30/19 at 21:00 Levetiracetam (Keppra) 500 mg BID PO Last administered on 02/12/19 07:53; Start 01/30/19 at 21:00 Lidocaine (Lidoderm Patch) 1 patch DAILY TD Last administered on 02/12/19 07:54; Start 02/01/19 at 11:00 Lidocaine (Lidoderm Patch) 1 patch DAILY TD Last administered on 02/12/19 07:54; Start 02/06/19 at 09:00 Lidocaine (Lidoderm Patch) 1 patch QHS TD Last administered on 02/05/19at 21:01; Start 01/30/19 at 21:00; Stop 02/06/19 at 11:01; Status DC Menthol/Methyl Salicylate (Bengay Cream) QHS TOP Last administered on 02/11/19 20:09; Start 02/06/19 at 21:00 Miscellaneous (Unresolved Patient Own Med Order) SEE LABEL COMMENTS DAILY XX Last administered on 01/31/19 08:41; Start 01/30/19 at 09:00; Stop 01/31/19 at 15:45; Status DC Multivitamins (Theragram-M) 1 tab DAILY PO Last administered on 02/12/19 07:52; Start 01/31/19 at 09:00 Nitroglycerin (Nitrostat (1/ 150)) 0.4 mg Q5MP PRN SL CHEST PAIN; Start 01/30/19 at 18:45 Non-Formulary Medication ( See Comment Field Below ) REMOVE LIDODERM PATCH DAILY@21 XX Last administered on 02/11/19 20:09; Start 02/06/19 at 21:00 Non-Formulary Medication ( See Comment Field Below ) REMOVE LIDODERM PATCH ... DAILY XX Last administered on 02/06/19 08:24; Start 01/31/19 at 09:00; Stop 02/06/19 at 11:04; Status DC Non-Formulary Medication ( See Comment Field Below ) REMOVE LIDODERM PATCH F... DAILY@21 XX Last administered on 02/11/19 20:09; Start 02/01/19 at 21:00 Omeprazole (PriLOSEC) 20 mg DAILY PO Last administered on 01/31/19 08:37; Start 01/31/19 at 09:00; Stop 01/31/19 at 10:58; Status DC Ondansetron HCl (Zofran Odt) 4 mg Q6HP PRN SL NAUSEA OR VOMITING Last administered on 02/01/19 04:11; Start 02/01/19 at 04:00 Pantoprazole Sodium (Protonix) 40 mg BID PO Last administered on 02/03/19 08:04; Start 01/31/19 at 21:00; Stop 02/03/19 at 08:51; Status DC Pantoprazole Sodium (Protonix) 40 mg BID@0700,2100 PO Last administered on 02/12/19 06:23; Start 02/03/19 at 21:00 Patient Own Medication (Patient'S Own Med) 1 DROP TO EACH EYE 6XD OU Last administered on 02/12/19at 07:58; Start 02/03/19 at 09:00 Patient Own Medication (Patient'S Own Med) 1 ea ASDIRECTED OU ; Start 01/30/19 at 18:45; Stop 01/31/19 at 15:47; Status DC Prednisone (Deltasone) 2.5 mg DAILY PO Last administered on 02/12/19at 07:51; Start 02/01/19 at 09:00 Prednisone (Deltasone) 5 mg DAILY PO ; Start 01/31/19 at 09:00; Stop 01/31/19 at 15:39; Status DC Senna (Senokot) 1 tab QHS PO Last administered on 02/11/19 20:07; Start 01/30/19 at 21:00 Simvastatin (Zocor) 40 mg QHS PO Last administered on 02/11/19at 20:07; Start 01/30/19 at 21:00 Spironolactone (Aldactone) 25 mg QAM PO Last administered on 02/03/19 08:04; Start 01/31/19 at 09:00; Stop 02/04/19 at 10:40; Status DC Torsemide (Demadex) 10 mg BID@,17 PO Last administered on 02/06/19 08:23; Start 01/31/19 at 09:00; Stop 02/06/19 at 12:35; Status DC Torsemide (Demadex) 10 mg DAILY PO Last administered on 02/12/19 07:52; Start 02/07/19 at 09:00 Vitamin D (Vitamin D) 2,000 units DAILY PO Last administered on 02/12/19 07:52; Start 01/31/19 at 09:00 Warfarin Sodium (Coumadin) 3 mg MoWeFrSa@1700 PO Last administered on 02/10/19at 17:48; Start 02/10/19 at 17:00 Warfarin Sodium (Coumadin) 3 mg Q2D@1700 PO ; Start 02/10/19 at 17:00; Stop 02/10/19 at 17:00; Status DC Warfarin Sodium (Coumadin) 4 mg DAILY@1700 PO Last administered on 02/06/19at 17:22; Start 01/31/19 at 17:00; Stop 02/07/19 at 17:24; Status DC Warfarin Sodium (Coumadin) 4 mg Q2D@1700 PO Last administered on 02/08/19at 16:55; Start 02/08/19 at 17:00; Stop 02/10/19 at 08:15; Status DC Warfarin Sodium (Coumadin) 4 mg SuTuTh@1700 PO ; Start 02/11/19 at 17:00 SEAN SAMPSON MD Feb 12, 2019 10:22
--- NOTE | 2019-02-12 10:25 | IPNPDOC ---
Text Note Date of Service The patient was seen on 02/12/19. NOTE Patient is an 88-year-old female, past medical history significant for obstructive sleep apnea, diabetes mellitus type 2, degenerative disc disease, peripheral neuropathy, atrial fibrillation on Coumadin, presenting to the hospital on account of right femoral fracture status post fall. Imaging study showed nondisplaced fracture proximal humerus. SUBJECTIVE : Complains of generalized pain and weakness, especially with multiple blood draws. Denies chills, fever, chest pain, shortness of breath. GENERAL: NAD SKIN : Warm, dry intact HEENT: Atraumatic, normocephalic, PERRL, moist mucous membrane CARDIOVASCULAR: irregular rate and rhythm, S1S2, no JVD, BLE edema RESP: CTAB, no accessory muscle use noted ABDOMEN: BS+ non distended non tender MS: right arm sling in place with right extremity limited ROM NEURO: Alert and oriented x 3, CN2-12 grossly intact PSYCH: no anxiety or agitation, appropriate mood and affect. ASSESSMENT AND PLAN Right humeral fracture -Rehabilitation and management by primary team Diabetes mellitus type 2 -Finger stick checks prior to meals and at bedtime -Continue glipizide -Coverage with insulin per sliding scale protocol Seizure disorder -Continue Keppra Paroxysmal atrial fibrillation -INR today is 1.8 -Continue Coumadin with monitoring of INR with target range 2-3 DVT prophylaxis -Fully anticoagulated VS,Fishbone, I+O VS, Fishbone, I+O Vital Signs Date Time Temp Pulse Resp B/P (MAP) Pulse Ox O2 Delivery O2 Flow Rate FiO2 02/12/19 05:44 97.1 75 18 122/65 (84) 95 I&O- Last 24 Hours up to 6 AM 02/12/19 06:00 Intake Total 1620 ml Balance 1620 ml KIRILL BHATIA [facility] Feb 12, 2019 10:25
[2019-02-12 14:31] VITALS: BP 125/56
[2019-02-12] MEDS: WARFARIN SOD 3 MG TAB PO SCH (16:21)
[2019-02-12 20:08] VITALS: BP 131/60
[2019-02-12] MEDS: ANALGESIC BALM CRM 120 GM TOP SCH (21:00)
[2019-02-12] MEDS: SENNA 8.6 MG TAB (SENOKOT) PO SCH (21:09)
[2019-02-12] MEDS: SIMVASTATIN 40 MG TAB PO SCH (21:09)
[2019-02-12] MEDS: LATANOPROST 0.005% OPHTH SOLN 2.5 ML OU SCH (21:10)
[2019-02-12] MEDS: **NOTE PATIENT COMMENT** MISC XX SCH ×2 (21:14)
[2019-02-13 05:47] VITALS: BP 117/54
[2019-02-13] MEDS: SYSTANE BALANCE OU SCH ×6 (06:01→21:00)
[2019-02-13] MEDS: PANTOPRAZOLE 40MG TAB (PROTONIX) PO SCH ×2 (06:01→21:20)
[2019-02-13 07:19] LABS: INR 1.76; PROTHROMBIN TIME 20.3 SECONDS (11.8-14.0)
[2019-02-13] MEDS: LIDOCAINE 5% (LIDODERM) PATCH TD SCH ×2 (09:27)
[2019-02-13] MEDS: TORSEMIDE 10 MG TABLET PO SCH (09:28)
[2019-02-13] MEDS: CETIRIZINE (ZyrTEC) 10 MG TAB PO SCH (09:28)
[2019-02-13] MEDS: ACETAMINOPHEN 500 MG TAB PO SCH ×3 (09:28→21:19)
[2019-02-13] MEDS: DOCUSATE SODIUM 100 MG CAP PO SCH ×2 (09:28→21:20)
[2019-02-13] MEDS: ALLOPURINOL 300 MG TAB PO SCH (09:28)
[2019-02-13] MEDS: BACLOFEN 5MG PER 1/2 TABLET PO SCH (09:28)
[2019-02-13] MEDS: levETIRAcetam 250MG TABLET (KEPPRA) PO SCH ×2 (09:28→21:20)
[2019-02-13] MEDS: predniSONE 2.5 MG TAB PO SCH (09:28)
[2019-02-13] MEDS: MULTIVITAMINS/MINERALS THERAP 1 TAB PO SCH (09:28)
[2019-02-13] MEDS: VITAMIN D 1,000 INTERNATIONAL UNITS TABLET PO SCH (09:29)
[2019-02-13] MEDS: DULoxetine 30 MG CAP (CYMBALTA) PO SCH (09:29)
[2019-02-13] MEDS: guaiFENesin 200 MG TAB PO SCH ×3 (09:29→21:00)
[2019-02-13] MEDS: glipiZIDE XL 5 MG TABCR PO SCH (09:29)
--- NOTE | 2019-02-13 09:51 | IPNPDOC ---
PM&R Progress Note DATE OF SERVICE: Feb 13, 2019 Engineering Officer Progress Note Subjective: Patient eager to go to SNF, states her pain is slightly better. REVIEW OF SYSTEMS: The following is a completed review of systems and has been reviewed. Review of systems otherwise unremarkable. PAIN: Patient self reports diffuse pain and stiffness EYES: Negative recent vision loss EARS, NOSE, & THROAT: denies throat pain, rhinorrhea or dysphagia CARDIOVASCULAR: denies chest pain or palpitations PULMONARY: Negative. Denies shortness of breath GASTROINTESTINAL: no diarrhea or constipation GENITOURINARY: no dysuria MUSCULOSKELETAL:+spinal OA and diffuse RA, right proximal humeral fracture NEUROLOGICAL: no focal tremor or seizure activity SKIN: right hand laceration PSYCHIATRIC: Unremarkable All other review of systems found to be negative. PHYSICAL EXAMINATION: VITAL SIGNS: Please see below. GENERAL: Pleasant and cooperative. No acute distress. HEENT: PERRL. Extraocular movements intact. Clear conjunctiva, +glasses CARDIOVASCULAR: Regular rate and rhythm. No murmurs, rubs, or gallops LUNGS: Clear to auscultation bilaterally. No wheezes. No rhonchi ABDOMEN: Soft, nontender, nondistended. Positive bowel sounds. Normal active bowel sounds NEUROLOGICAL: Alert and oriented times three. Cranial nerves II through XII grossly intact. Sensation grossly intact in a 4 extremities EXTREMITIES: 4\5 strength bilateral upper extremities. 4\5 strength right lower extremity. 4/5 strength in left lower extremity. (right arm in a sling) decreased ROM bilateral shoulders, +ulnar deviation of bilat MCP joints with subluxed thumbs, decreased ROM of neck SKIN: right hand laceration, bilateral feet purple with palpable pedal pulses ASSESSMENT:88-year-old F with past medical history of spinal stenosis, diffuse RA who presents status post fall with right proximal humeral fracture with difficulty ambulating due to worsening spinal stenosis. PLAN: 1. Rehab: PT and OT to work on strengthening, endurance training, use of adaptive equipment for ADls management, preserve joint ROM<-c/u NWB and no PROM, having difficulty with step-length but improving on distance and now step length 2. Neuro: pmh CVA, c/u statin, on warfarin -seizure d/o c/u Keppra 3. Cardio: pmh Afib and diastolic CHF- c/u Torsemide, spironolactone and Warfarin-medicine consulted to help manage 4. Resp: pmh MARCO- c/u CPAP 5. Ortho: right humeral fracture, sling when out of bed, NWB- ortho consulted -pmh spinal stenosis with LE weakness significantly limiting her ability to walk -X-ray of right hand negative for fracture, showing advanced arthritis 6. Rheum: significant RA, c/u low dose prednisone and refer to outpatient rheum 7. Pain: c/u tylenol, will increase Cymbalta to 60mg, c/u low dose prednisone, lidoderm path to right shoulder and low back, menthol salicylate rub qHS to back 8. Endo: pmh DM c/u Glipizide- FS well controlled 9. DVT ppx: on warfarin 10. : monitor PVRs 11. Dispo: progressing slowly towards goals, d/c 02/15/19 Allergies Coded Allergies: Sulfa (Sulfonamide Antibiotics) (Verified Allergy, Severe, 01/28/19) iodine (Verified Allergy, Intermediate, swelling, 01/28/19) amoxicillin (Verified Allergy, Mild, body rash, 01/28/19) latex (Verified Allergy, Mild, rash, 01/28/19) codeine (Verified Adverse Reaction, Intermediate, vomiting, 01/28/19) Vital Signs Vital Signs Date Time Temp Pulse Resp B/P (MAP) Pulse Ox O2 Delivery O2 Flow Rate FiO2 02/13/19 05:47 97.9 70 18 117/54 (75) 97 Laboratory Data Labs 24H Laboratory Tests 2 02/12/19 17:13: Bedside Glucose (Misc Panel) 128H 02/13/19 06:24: Bedside Glucose (Misc Panel) 93 02/13/19 06:35: Prothrombin Time 20.3H, Prothromb Time International Ratio 1.76 Microbiology Microbiology 02/04/19 Urine Culture - Final, Complete Current Medications Current Medications Current Medications Acetaminophen (Tylenol Tab) 1,000 mg TID PO Last administered on 02/13/19at 09:28; Start 01/30/19 at 21:00 Albuterol Sulfate (Proventil, Ventolin Hfa) 2 puff Q4HP PRN INH SHORTNESS OF BREATH; Start 01/30/19 at 18:45 Allopurinol (Zyloprim) 150 mg DAILY PO Last administered on 02/13/19at 09:28; Start 01/31/19 at 09:00 Artificial Tears (Akwa Tears) 1 drop 6XD OU Last administered on 02/02/19 17:51; Start 01/31/19 at 18:00; Stop 02/03/19 at 06:12; Status DC Baclofen (Lioresal) 5 mg DAILY PO Last administered on 02/13/19 09:28; Start 01/31/19 at 09:00 Bisacodyl (Dulcolax Suppository) 10 mg DAILYPRN PRN OR CONSTIPATION; Start 01/30/19 at 18:45 Cetirizine HCl (ZyrTEC) 10 mg DAILY PO Last administered on 02/13/19 09:28; Start 01/31/19 at 09:00 Docusate Sodium (Colace) 100 mg BID PO Last administered on 02/13/19 09:28; Start 01/30/19 at 21:00 Duloxetine HCl (Cymbalta) 30 mg DAILY PO Last administered on 02/12/19 07:51; Start 01/31/19 at 09:00; Stop 02/12/19 at 14:54; Status DC Duloxetine HCl (Cymbalta) 60 mg DAILY PO Last administered on 02/13/19 09:29; Start 02/13/19 at 09:00 Glipizide (Glucotrol Xl) 5 mg DAILY@0730 PO Last administered on 02/13/19 09: 29; Start 01/31/19 at 07:30 Guaifenesin (Robitussin Tab) 400 mg TID PO Last administered on 02/13/19 09:29; Start 01/30/19 at 21:00 Latanoprost (Xalatan 0.005% Op Soln) 1 drop QHS OU Last administered on 02/12/19 21:10; Start 01/30/19 at 21:00 Levetiracetam (Keppra) 500 mg BID PO Last administered on 02/13/19 09:28; Start 01/30/19 at 21:00 Lidocaine (Lidoderm Patch) 1 patch DAILY TD Last administered on 02/13/19 09:27; Start 02/01/19 at 11:00 Lidocaine (Lidoderm Patch) 1 patch DAILY TD Last administered on 02/13/19 09:27; Start 02/06/19 at 09:00 Lidocaine (Lidoderm Patch) 1 patch QHS TD Last administered on 02/05/19 21:01; Start 01/30/19 at 21:00; Stop 02/06/19 at 11:01; Status DC Menthol/Methyl Salicylate (Bengay Cream) QHS TOP Last administered on 02/11/19 20:09; Start 02/06/19 at 21:00 Miscellaneous (Unresolved Patient Own Med Order) SEE LABEL COMMENTS DAILY XX La st administered on 01/31/19 08:41; Start 01/30/19 at 09:00; Stop 01/31/19 at 15:45; Status DC Multivitamins (Theragram-M) 1 tab DAILY PO Last administered on 02/13/19 09:28; Start 01/31/19 at 09:00 Nitroglycerin (Nitrostat (1/ 150)) 0.4 mg Q5MP PRN SL CHEST PAIN; Start 01/30/19 at 18:45 Non-Formulary Medication ( See Comment Field Below ) REMOVE LIDODERM PATCH DAILY@ XX Last administered on 02/12/19 21:14; Start 02/06/19 at 21:00 Non-Formulary Medication ( See Comment Field Below ) REMOVE LIDODERM PATCH ... DAILY XX Last administered on 02/06/19 08:24; Start 01/31/19 at 09:00; Stop 02/06/19 at 11:04; Status DC Non-Formulary Medication ( See Comment Field Below ) REMOVE LIDODERM PATCH F... DAILY@21 XX Last administered on 02/12/19 21:14; Start 02/01/19 at 21:00 Omeprazole (PriLOSEC) 20 mg DAILY PO Last administered on 01/31/19 08:37; Start 01/31/19 at 09:00; Stop 01/31/19 at 10:58; Status DC Ondansetron HCl (Zofran Odt) 4 mg Q6HP PRN SL NAUSEA OR VOMITING Last administered on 02/01/19 04:11; Start 02/01/19 at 04:00 Pantoprazole Sodium (Protonix) 40 mg BID PO Last administered on 02/03/19 08:04; Start 01/31/19 at 21:00; Stop 02/03/19 at 08:51; Status DC Pantoprazole Sodium (Protonix) 40 mg BID@0700,2100 PO Last administered on 02/13/19 06:01; Start 02/03/19 at 21:00 Patient Own Medication (Patient'S Own Med) 1 DROP TO EACH EYE 6XD OU Last administered on 02/13/19 09:30; Start 02/03/19 at 09:00 Patient Own Medication (Patient'S Own Med) 1 ea ASDIRECTED OU ; Start 01/30/19 at 18:45; Stop 01/31/19 at 15:47; Status DC Prednisone (Deltasone) 2.5 mg DAILY PO Last administered on 02/13/19 09:28; Start 02/01/19 at 09:00 Prednisone (Deltasone) 5 mg DAILY PO ; Start 01/31/19 at 09:00; Stop 01/31/19 at 15:39; Status DC Senna (Senokot) 1 tab QHS PO Last administered on 02/12/19 21:09; Start 01/30/19 at 21:00 Simvastatin (Zocor) 40 mg QHS PO Last administered on 02/12/19 21:09; Start 01/30/19 at 21:00 Spironolactone (Aldactone) 25 mg QAM PO Last administered on 02/03/19 08:04; Start 01/31/19 at 09:00; Stop 02/04/19 at 10:40; Status DC Torsemide (Demadex) 10 mg BID@09,17 PO Last administered on 02/06/19 08:23; Start 01/31/19 at 09:00; Stop 02/06/19 at 12:35; Status DC Torsemide (Demadex) 10 mg DAILY PO Last administered on 02/13/19 09:28; Start 02/07/19 at 09:00 Vitamin D (Vitamin D) 2,000 units DAILY PO Last administered on 02/13/19 09:29; Start 01/31/19 at 09:00 Warfarin Sodium (Coumadin) 3 mg MoWeFrSa@1700 PO Last administered on 02/12/19 16:21; Start 02/10/19 at 17:00 Warfarin Sodium (Coumadin) 3 mg Q2D@1700 PO ; Start 02/10/19 at 17:00; Stop 02/10/19 at 17:00; Status DC Warfarin Sodium (Coumadin) 4 mg DAILY@1700 PO Last administered on 02/06/19at 17:22; Start 01/31/19 at 17:00; Stop 02/07/19 at 17:24; Status DC Warfarin Sodium (Coumadin) 4 mg Q2D@1700 PO Last administered on 02/08/19at 16:55; Start 02/08/19 at 17:00; Stop 02/10/19 at 08:15; Status DC Warfarin Sodium (Coumadin) 4 mg SuTuTh@1700 PO ; Start 02/11/19 at 17:00 SEAN SAMPSON MD Feb 13, 2019 09:51
[2019-02-13 10:16] LABS: BASO # 0.1 10^3/uL (0.0-0.2); BASO % 0.7 % (0.0-1.0); EOS # 0.3 10^3/uL (0.0-0.50); EOS % 4.3 % (0.0-3.0); HEMOGLOBIN 12.6 g/dl (12.0-15.5); LYMPH # 2.2 10^3/uL (1.5-4.5); LYMPH % 31.4 % (24.0-44.0); MEAN CORPUSCULAR HEMOGLOBIN 30.5 pg (27.0-33.0); MEAN CORPUSCULAR HGB CONC 33.2 g/dl (32.0-36.5); MONO # 0.8 10^3/uL (0.0-0.8); MONO % 11.8 % (0.0-5.0); NEUTROPHILS # 3.6 10^3/uL (1.8-7.7); NEUTROPHILS % 51.5 % (36.0-66.0); PLATELET COUNT, AUTOMATED 414 10^3/uL (150-450); RED BLOOD COUNT 4.13 10^6/uL (4.00-5.40); WHITE BLOOD COUNT 6.9 10^3/uL (4.0-10.0)
[2019-02-13 10:40] LABS: BLOOD UREA NITROGEN 31 MG/DL (7-18); CALCIUM LEVEL 10.2 MG/DL (8.8-10.2); CARBON DIOXIDE LEVEL 25 MEQ/L (21-32); CHLORIDE LEVEL 106 MEQ/L (98-107); GLOMERULAR FILTRATION RATE > 60.0 (>32); GLUCOSE, FASTING 92 MG/DL (70-100); POTASSIUM SERUM 4.3 MEQ/L (3.5-5.1); SODIUM LEVEL 139 MEQ/L (136-145)
[2019-02-13 14:00] VITALS: BP 125/61
[2019-02-13] MEDS: WARFARIN SOD 4 MG TAB PO SCH (17:12)
[2019-02-13 20:05] VITALS: BP 150/68
[2019-02-13] MEDS: ANALGESIC BALM CRM 120 GM TOP SCH (21:00)
[2019-02-13] MEDS: LATANOPROST 0.005% OPHTH SOLN 2.5 ML OU SCH (21:20)
[2019-02-13] MEDS: SENNA 8.6 MG TAB (SENOKOT) PO SCH (21:20)
[2019-02-13] MEDS: SIMVASTATIN 40 MG TAB PO SCH (21:20)
[2019-02-13] MEDS: **NOTE PATIENT COMMENT** MISC XX SCH ×2 (21:21)
[2019-02-14] MEDS: PANTOPRAZOLE 40MG TAB (PROTONIX) PO SCH ×2 (05:53→21:51)
[2019-02-14] MEDS: SYSTANE BALANCE OU SCH ×6 (05:54→21:00)
[2019-02-14 05:58] VITALS: BP 151/67
[2019-02-14 06:44] LABS: INR 1.88; PROTHROMBIN TIME 21.4 SECONDS (11.8-14.0)
[2019-02-14] MEDS: ALLOPURINOL 300 MG TAB PO SCH (09:39)
[2019-02-14] MEDS: predniSONE 2.5 MG TAB PO SCH (09:39)
[2019-02-14] MEDS: guaiFENesin 200 MG TAB PO SCH ×3 (09:39→21:00)
[2019-02-14] MEDS: CETIRIZINE (ZyrTEC) 10 MG TAB PO SCH (09:39)
[2019-02-14] MEDS: BACLOFEN 5MG PER 1/2 TABLET PO SCH (09:39)
[2019-02-14] MEDS: DULoxetine 30 MG CAP (CYMBALTA) PO SCH (09:39)
[2019-02-14] MEDS: VITAMIN D 1,000 INTERNATIONAL UNITS TABLET PO SCH (09:39)
[2019-02-14] MEDS: MULTIVITAMINS/MINERALS THERAP 1 TAB PO SCH (09:40)
[2019-02-14] MEDS: DOCUSATE SODIUM 100 MG CAP PO SCH ×2 (09:40→21:51)
[2019-02-14] MEDS: levETIRAcetam 250MG TABLET (KEPPRA) PO SCH ×2 (09:40→21:51)
[2019-02-14] MEDS: TORSEMIDE 10 MG TABLET PO SCH (09:40)
[2019-02-14] MEDS: ACETAMINOPHEN 500 MG TAB PO SCH ×3 (09:41→21:51)
[2019-02-14] MEDS: glipiZIDE XL 5 MG TABCR PO SCH (09:43)
[2019-02-14] MEDS: LIDOCAINE 5% (LIDODERM) PATCH TD SCH ×2 (09:53)
[2019-02-14 14:00] VITALS: BP 137/58
[2019-02-14] MEDS ORDERED: NITR4TASL SL (15:23)
[2019-02-14] MEDS ORDERED: SENN18TA PO (15:23)
[2019-02-14] MEDS ORDERED: GLIP5TAB20 PO (15:23)
[2019-02-14] MEDS ORDERED: CETI10TA PO (15:23)
[2019-02-14] MEDS ORDERED: KEPP250T5 PO (15:23)
[2019-02-14] MEDS ORDERED: COUM1TAB14 PO (15:23)
[2019-02-14] MEDS ORDERED: ZYLO300T6 PO (15:23)
[2019-02-14] MEDS ORDERED: LIDO5TD TD (15:23)
[2019-02-14] MEDS ORDERED: BACL10TA2 PO (15:23)
[2019-02-14] MEDS ORDERED: Patient Own Medication OU (15:23)
[2019-02-14] MEDS ORDERED: SIMV40TA2 PO (15:23)
[2019-02-14] MEDS ORDERED: PRED25TA PO (15:23)
[2019-02-14] MEDS ORDERED: MUSCCRE9 TOP (15:23)
[2019-02-14] MEDS ORDERED: TORS10TA3 PO (15:23)
[2019-02-14] MEDS ORDERED: ACET-683 PO (15:23)
[2019-02-14] MEDS ORDERED: BISA10SU2 PR (15:23)
[2019-02-14] MEDS ORDERED: VITMTA PO (15:23)
[2019-02-14] MEDS ORDERED: VENTAER INH (15:23)
[2019-02-14] MEDS ORDERED: VITAD1000T PO (15:23)
[2019-02-14] MEDS ORDERED: COUM1TAB19 PO (15:23)
[2019-02-14] MEDS ORDERED: CYMB1CAP5 PO (15:23)
[2019-02-14] MEDS ORDERED: PANT40TA3 PO (15:23)
[2019-02-14] MEDS ORDERED: COLA100C5 PO (15:23)
--- NOTE | 2019-02-14 16:48 | IPNPDOC ---
PM&R Progress Note DATE OF SERVICE: Feb 14, 2019 Parking Lot Attendant And Cashier Progress Note Subjective: Patient reports she walked much further today in therapy with handheld assist. REVIEW OF SYSTEMS: The following is a completed review of systems and has been reviewed. Review of systems otherwise unremarkable. PAIN: Patient self reports diffuse pain and stiffness EYES: Negative recent vision loss EARS, NOSE, & THROAT: denies throat pain, rhinorrhea or dysphagia CARDIOVASCULAR: denies chest pain or palpitations PULMONARY: Negative. Denies shortness of breath GASTROINTESTINAL: no diarrhea or constipation GENITOURINARY: no dysuria MUSCULOSKELETAL:+spinal OA and diffuse RA, right proximal humeral fracture NEUROLOGICAL: no focal tremor or seizure activity SKIN: right hand laceration PSYCHIATRIC: Unremarkable All other review of systems found to be negative. PHYSICAL EXAMINATION: VITAL SIGNS: Please see below. GENERAL: Pleasant and cooperative. No acute distress. HEENT: PERRL. Extraocular movements intact. Clear conjunctiva, +glasses CARDIOVASCULAR: Regular rate and rhythm. No murmurs, rubs, or gallops LUNGS: Clear to auscultation bilaterally. No wheezes. No rhonchi ABDOMEN: Soft, nontender, nondistended. Positive bowel sounds. Normal active bowel sounds NEUROLOGICAL: Alert and oriented times three. Cranial nerves II through XII grossly intact. Sensation grossly intact in a 4 extremities EXTREMITIES: 4\5 strength bilateral upper extremities. 4\5 strength right lower extremity. 4/5 strength in left lower extremity. (right arm in a sling) decreased ROM bilateral shoulders, +ulnar deviation of bilat MCP joints with subluxed thumbs, decreased ROM of neck SKIN: right hand laceration, bilateral feet purple with palpable pedal pulses ASSESSMENT:88-year-old F with past medical history of spinal stenosis, diffuse RA who presents status post fall with right proximal humeral fracture with difficulty ambulating due to worsening spinal stenosis. PLAN: 1. Rehab: PT and OT to work on strengthening, endurance training, use of adaptive equipment for ADls management, preserve joint ROM<-c/u NWB and no PROM, having difficulty with step-length but improving on distance and now step length 2. Neuro: pmh CVA, c/u statin, on warfarin -seizure d/o c/u Keppra 3. Cardio: pmh Afib and diastolic CHF- c/u Torsemide, spironolactone and Warfarin-medicine consulted to help manage 4. Resp: pmh MARCO- c/u CPAP 5. Ortho: right humeral fracture, sling when out of bed, NWB- ortho consulted -pmh spinal stenosis with LE weakness significantly limiting her ability to walk -X-ray of right hand negative for fracture, showing advanced arthritis 6. Rheum: significant RA, c/u low dose prednisone and refer to outpatient rheum 7. Pain: c/u tylenol, c/u Cymbalta 60mg, c/u low dose prednisone, lidoderm path to right shoulder and low back, menthol salicylate rub qHS to back 8. Endo: pmh DM c/u Glipizide- FS well controlled 9. DVT ppx: on warfarin 10. : monitor PVRs 11. Dispo: progressing slowly towards goals, d/c 02/15/19 Allergies Coded Allergies: Sulfa (Sulfonamide Antibiotics) (Verified Allergy, Severe, 01/28/19) iodine (Verified Allergy, Intermediate, swelling, 01/28/19) amoxicillin (Verified Allergy, Mild, body rash, 01/28/19) latex (Verified Allergy, Mild, rash, 01/28/19) codeine (Verified Adverse Reaction, Intermediate, vomiting, 01/28/19) Vital Signs Vital Signs Date Time Temp Pulse Resp B/P (MAP) Pulse Ox O2 Delivery O2 Flow Rate FiO2 02/14/19 14:00 97.1 90 18 137/58 (84) 95 Laboratory Data Labs 24H Laboratory Tests 2 02/13/19 16:57: Bedside Glucose (Misc Panel) 149H 02/14/19 06:19: Prothrombin Time 21.4H, Prothromb Time International Ratio 1.88 02/14/19 06:26: Bedside Glucose (Misc Panel) 96 Microbiology Microbiology 02/04/19 Urine Culture - Final, Complete Current Medications Current Medications Current Medications Acetaminophen (Tylenol Tab) 1,000 mg TID PO Last administered on 02/14/19at 09:41; Start 01/30/19 at 21:00 Albuterol Sulfate (Proventil, Ventolin Hfa) 2 puff Q4HP PRN INH SHORTNESS OF BREATH; Start 01/30/19 at 18:45 Allopurinol (Zyloprim) 150 mg DAILY PO Last administered on 02/14/19at 09:39; Start 01/31/19 at 09:00 Artificial Tears (Akwa Tears) 1 drop 6XD OU Last administered on 02/02/19 17:51; Start 01/31/19 at 18:00; Stop 02/03/19 at 06:12; Status DC Baclofen (Lioresal) 5 mg DAILY PO Last administered on 02/14/19 09:39; Start 01/31/19 at 09:00 Bisacodyl (Dulcolax Suppository) 10 mg DAILYPRN PRN HI CONSTIPATION; Start 01/30/19 at 18:45 Cetirizine HCl (ZyrTEC) 10 mg DAILY PO Last administered on 02/14/19 09:39; Start 01/31/19 at 09:00 Docusate Sodium (Colace) 100 mg BID PO Last administered on 02/14/19 09:40; Start 01/30/19 at 21:00 Duloxetine HCl (Cymbalta) 30 mg DAILY PO Last administered on 02/12/19 07:51; Start 01/31/19 at 09:00; Stop 02/12/19 at 14:54; Status DC Duloxetine HCl (Cymbalta) 60 mg DAILY PO Last administered on 02/14/19 09:39; Start 02/13/19 at 09:00 Glipizide (Glucotrol Xl) 5 mg DAILY@0730 PO Last administered on 02/14/19 09:43; Start 01/31/19 at 07:30 Guaifenesin (Robitussin Tab) 400 mg TID PO Last administered on 02/14/19 09:39; Start 01/30/19 at 21:00 Latanoprost (Xalatan 0.005% Op Soln) 1 drop QHS OU Last administered on 02/13/19 21:20; Start 01/30/19 at 21:00 Levetiracetam (Keppra) 500 mg BID PO Last administered on 02/14/19 09:40; Start 01/30/19 at 21:00 Lidocaine (Lidoderm Patch) 1 patch DAILY TD Last administered on 02/14/19 09:53; Start 02/01/19 at 11:00 Lidocaine (Lidoderm Patch) 1 patch DAILY TD Last administered on 02/14/19 09:53; Start 02/06/19 at 09:00 Lidocaine (Lidoderm Patch) 1 patch QHS TD Last administered on 02/05/19 21:01; Start 01/30/19 at 21:00; Stop 02/06/19 at 11:01; Status DC Menthol/Methyl Salicylate (Bengay Cream) QHS TOP Last administered on 02/11/19 20:09; Start 02/06/19 at 21:00 Miscellaneous (Unresolved Patient Own Med Order) SEE LABEL COMMENTS DAILY XX Last administered on 01/31/19 08:41; Start 01/30/19 at 09:00; Stop 01/31/19 at 15:45; Status DC Multivitamins (Theragram-M) 1 tab DAILY PO Last administered on 02/14/19 09:40; Start 01/31/19 at 09:00 Nitroglycerin (Nitrostat (1/ 150)) 0.4 mg Q5MP PRN SL CHEST PAIN; Start 01/30/19 at 18:45 Non-Formulary Medication ( See Comment Field Below ) REMOVE LIDODERM PATCH DAILY@21 XX Last administered on 02/13/19 21:21; Start 02/06/19 at 21:00 Non-Formulary Medication ( See Comment Field Below ) REMOVE LIDODERM PATCH ... DAILY XX Last administered on 02/06/19 08:24; Start 01/31/19 at 09:00; Stop 02/06/19 at 11:04; Status DC Non-Formulary Medication ( See Comment Field Below ) REMOVE LIDODERM PATCH F... DAILY@21 XX Last administered on 02/13/19 21:21; Start 02/01/19 at 21:00 Omeprazole (PriLOSEC) 20 mg DAILY PO Last administered on 01/31/19 08:37; Start 01/31/19 at 09:00; Stop 01/31/19 at 10:58; Status DC Ondansetron HCl (Zofran Odt) 4 mg Q6HP PRN SL NAUSEA OR VOMITING Last administered on 02/01/19 04:11; Start 02/01/19 at 04:00 Pantoprazole Sodium (Protonix) 40 mg BID PO Last administered on 02/03/19 08:04; Start 01/31/19 at 21:00; Stop 02/03/19 at 08:51; Status DC Pantoprazole Sodium (Protonix) 40 mg BID@0700,2100 PO Last administered on 02/14/19 05:53; Start 02/03/19 at 21:00 Patient Own Medication (Patient'S Own Med) 1 DROP TO EACH EYE 6XD OU Last administered on 02/14/19at 15:59; Start 02/03/19 at 09:00 Patient Own Medication (Patient'S Own Med) 1 ea ASDIRECTED OU ; Start 01/30/19 a t 18:45; Stop 01/31/19 at 15:47; Status DC Prednisone (Deltasone) 2.5 mg DAILY PO Last administered on 02/14/19 09:39; Start 02/01/19 at 09:00 Prednisone (Deltasone) 5 mg DAILY PO ; Start 01/31/19 at 09:00; Stop 01/31/19 at 15:39; Status DC Senna (Senokot) 1 tab QHS PO Last administered on 02/13/19at 21:20; Start 01/30/19 at 21:00 Simvastatin (Zocor) 40 mg QHS PO Last administered on 02/13/19 21:20; Start 01/30/19 at 21:00 Spironolactone (Aldactone) 25 mg QAM PO Last administered on 02/03/19 08:04; Start 01/31/19 at 09:00; Stop 02/04/19 at 10:40; Status DC Torsemide (Demadex) 10 mg BID@09,17 PO Last administered on 02/06/19at 08:23; Start 01/31/19 at 09:00; Stop 02/06/19 at 12:35; Status DC Torsemide (Demadex) 10 mg DAILY PO Last administered on 02/14/19at 09:40; Start 02/07/19 at 09:00 Vitamin D (Vitamin D) 2,000 units DAILY PO Last administered on 02/14/19 09:39; Start 01/31/19 at 09:00 Warfarin Sodium (Coumadin) 3 mg MoWeFrSa@1700 PO Last administered on 02/12/19at 16:21; Start 02/10/19 at 17:00 Warfarin Sodium (Coumadin) 3 mg Q2D@1700 PO ; Start 02/10/19 at 17:00; Stop 02/10/19 at 17:00; Status DC Warfarin Sodium (Coumadin) 4 mg DAILY@1700 PO Last administered on 02/06/19at 17:22; Start 01/31/19 at 17:00; Stop 02/07/19 at 17:24; Status DC Warfarin Sodium (Coumadin) 4 mg Q2D@1700 PO Last administered on 02/08/19at 16:55; Start 02/08/19 at 17:00; Stop 02/10/19 at 08:15; Status DC Warfarin Sodium (Coumadin) 4 mg SuTuTh@1700 PO Last administered on 02/13/19at 17:12; Start 02/11/19 at 17:00 SEAN SAMPSON MD Feb 14, 2019 16:48
[2019-02-14] MEDS: WARFARIN SOD 3 MG TAB PO SCH (17:47)
[2019-02-14 20:00] VITALS: BP 147/68
[2019-02-14] MEDS: ANALGESIC BALM CRM 120 GM TOP SCH (21:00)
[2019-02-14] MEDS: SIMVASTATIN 40 MG TAB PO SCH (21:51)
[2019-02-14] MEDS: SENNA 8.6 MG TAB (SENOKOT) PO SCH (21:51)
[2019-02-14] MEDS: **NOTE PATIENT COMMENT** MISC XX SCH ×2 (21:51)
[2019-02-14] MEDS: LATANOPROST 0.005% OPHTH SOLN 2.5 ML OU SCH (21:52)
[2019-02-15 06:00] VITALS: BP 169/74
[2019-02-15 06:30] VITALS: BP 148/70
[2019-02-15] MEDS: PANTOPRAZOLE 40MG TAB (PROTONIX) PO SCH (06:30)
[2019-02-15] MEDS: SYSTANE BALANCE OU SCH ×3 (06:30→12:43)
[2019-02-15 07:36] LABS: INR 2.27; PROTHROMBIN TIME 24.8 SECONDS (11.8-14.0)
[2019-02-15] MEDS: MULTIVITAMINS/MINERALS THERAP 1 TAB PO SCH (08:10)
[2019-02-15] MEDS: BACLOFEN 5MG PER 1/2 TABLET PO SCH (08:10)
[2019-02-15] MEDS: CETIRIZINE (ZyrTEC) 10 MG TAB PO SCH (08:11)
[2019-02-15] MEDS: glipiZIDE XL 5 MG TABCR PO SCH (08:11)
[2019-02-15] MEDS: TORSEMIDE 10 MG TABLET PO SCH (08:11)
[2019-02-15] MEDS: VITAMIN D 1,000 INTERNATIONAL UNITS TABLET PO SCH (08:11)
[2019-02-15] MEDS: DOCUSATE SODIUM 100 MG CAP PO SCH (08:11)
[2019-02-15] MEDS: DULoxetine 30 MG CAP (CYMBALTA) PO SCH (08:11)
[2019-02-15] MEDS: guaiFENesin 200 MG TAB PO SCH (08:11)
[2019-02-15] MEDS: levETIRAcetam 250MG TABLET (KEPPRA) PO SCH (08:11)
[2019-02-15] MEDS: ACETAMINOPHEN 500 MG TAB PO SCH (08:12)
[2019-02-15] MEDS: LIDOCAINE 5% (LIDODERM) PATCH TD SCH ×2 (08:12→08:13)
[2019-02-15] MEDS: ALLOPURINOL 300 MG TAB PO SCH (08:12)
[2019-02-15] MEDS: predniSONE 2.5 MG TAB PO SCH (08:12)
--- NOTE | 2019-02-15 11:11 | PMRDS ---
DATE OF ADMISSION: 01/30/2019 DATE OF DISCHARGE: DISCHARGE DIAGNOSIS: Spinal stenosis with a right humeral fracture. HISTORY OF PRESENT ILLNESS: This is an 88-year-old female with a past medical history of diabetes type 2, hyperlipidemia, asthma, obstructive sleep apnea, history of stroke, spinal stenosis, peripheral neuropathy, rheumatoid arthritis, diastolic congestive heart failure (CHF), atrial fibrillation on Coumadin, first degree AV block, seizure disorder who fell while at [facility] after tripping without presyncopal symptoms and presented to [facility] emergency department on 01/28/2019 complaining of right upper extremity pain. CT neck revealed some cervical spondylosis through C7-T1 levels. Shoulder imaging showed "nondisplaced fracture of the proximal humerus.. there is a curvilinear lucency overlying the scapula that may represent a nondisplaced fracture," but CT shoulder confirmed "right scapula is intact with no fracture." She was evaluated by orthopedic surgery for her right humeral fracture, who recommended nonweightbearing and to utilize a sling. The patient was evaluated by therapy, found to be well below her baseline, limited by her low back pain and bilateral lower extremity weakness and generalized painful arthritic joints. She was deemed medically appropriate for discharge to acute rehabilitation unit. PAST MEDICAL HISTORY: As per history of present illness. HOSPITAL COURSE: The patient was admitted and enrolled in a comprehensive physical therapy (PT) and occupational therapy (OT) program. She received 24-hour nursing supervision and weekly team meetings were held to discuss her progress. She was maintained on her seizure medication without any seizure activity during her hospital course. She was also maintained on torsemide, spironolactone and Coumadin dosing for history of atrial fibrillation and diastolic CHF. The patient continued to wear a sling for her right humeral fracture and required a Lidoderm patch to the right shoulder and low back for pain relief. The patient presented with ulnar deviation at her bilateral metacarpophalangeal joints with joint swelling and the patient reported she had not been followed by a office rental clerk, started on 2.5 mg daily of prednisone with relief in her symptoms. She was also started on Cymbalta for overall pain relief. X-ray of her right hand was also ordered because upon arrival she complained of right hand pain, which showed advanced arthritis. She made slow progression in therapy and was deemed medically and functionally appropriate for discharge to SNF level of rehab. DISCHARGE MEDICATIONS: As per instructions. FUNCTIONAL HISTORY: Upon discharge, the patient was minimal to moderate assist for most functional transfers, however she was able to ambulate 134 feet with a wheelchair follow, minimal assist, handheld assist. In occupational therapy, she was contact guard to minimal assist for functional transfers, max assist for bathing and upper body dressing, and max assist for lower body dressing, minimal assist for grooming, total assist for toileting.
[2019-02-15 14:00] VITALS: BP 129/61
== END 2019-02-15 13:55 | DRG 560 ==
LOC: M PM&R 17:38 → EEVIPCON 17:38
PROVIDERS: ADMIT Physical Medicine & Rehabilitation; ATTEND Physical Medicine & Rehabilitation
DX: S42.201D Unspecified fracture of upper end of right humerus, subsequent encounter for fracture with routine healing (principal); I50.32 Chronic diastolic (congestive) heart failure; E11.42 Type 2 diabetes mellitus with diabetic polyneuropathy; I48.2 Chronic atrial fibrillation; E66.01 Morbid (severe) obesity due to excess calories; G47.33 Obstructive sleep apnea (adult) (pediatric); M06.9 Rheumatoid arthritis, unspecified; J45.909 Unspecified asthma, uncomplicated; E78.5 Hyperlipidemia, unspecified; F39 Unspecified mood [affective] disorder; Z66 Do not resuscitate; G40.909 Epilepsy, unspecified, not intractable, without status epilepticus; S61.411D Laceration without foreign body of right hand, subsequent encounter; M47.812 Spondylosis without myelopathy or radiculopathy, cervical region; Z96.653 Presence of artificial knee joint, bilateral; Z90.49 Acquired absence of other specified parts of digestive tract; Z90.710 Acquired absence of both cervix and uterus; Z79.01 Long term (current) use of anticoagulants; Z79.84 Long term (current) use of oral hypoglycemic drugs; Z79.899 Other long term (current) drug therapy; Z88.2 Allergy status to sulfonamides; Z88.5 Allergy status to narcotic agent; Z88.8 Allergy status to other drugs, medicaments and biological substances; Z91.040 Latex allergy status; W18.09XD Striking against other object with subsequent fall, subsequent encounter; Y92.128 Other place in nursing home as the place of occurrence of the external cause; Z68.38 Body mass index [BMI] 38.0-38.9, adult

== ENCOUNTER → 2019-02-19 | Outpatient (REF) ==
[~2019-02-19] MED LIST changes: +ACET-683 PO; +BISA10SU2 PR; +COLA100C5 PO; +COUM1TAB14 PO; +COUM1TAB19 PO; +CYMB1CAP5 PO; +GLIP5TAB20 PO; +KEPP250T5 PO; +LIDO5TD TD; +MUSCCRE9 TOP; +NITR4TASL SL; +PANT40TA3 PO; +PRED25TA PO; +Patient Own Medication OU; +SENN18TA PO; +VITAD1000T PO
[2019-02-19 13:03] LABS: INR 3.02; PROTHROMBIN TIME 31.2 SECONDS (11.8-14.0)
== END ==
PROVIDERS: ATTEND Family Medicine
DX: I10 Essential (primary) hypertension (principal)

== ENCOUNTER → 2019-02-20 | Outpatient (REF) ==
[2019-02-20 09:38] LABS: HEMOGLOBIN 11.2 g/dl (12.0-15.5); MEAN CORPUSCULAR HEMOGLOBIN 30.6 pg (27.0-33.0); MEAN CORPUSCULAR HGB CONC 32.9 g/dl (32.0-36.5); MEAN CORPUSCULAR VOLUME 92.9 fl (80.0-96.0); PLATELET COUNT, AUTOMATED 361 10^3/uL (150-450); RED BLOOD COUNT 3.66 10^6/uL (4.00-5.40); WHITE BLOOD COUNT 7.1 10^3/uL (4.0-10.0)
[2019-02-20 10:27] LABS: BLOOD UREA NITROGEN 28 MG/DL (7-18); CALCIUM LEVEL 9.3 MG/DL (8.8-10.2); CARBON DIOXIDE LEVEL 27 MEQ/L (21-32); CHLORIDE LEVEL 106 MEQ/L (98-107); CREATININE FOR GFR 0.73 MG/DL (0.55-1.30); GLOMERULAR FILTRATION RATE > 60.0 (>32); GLUCOSE, FASTING 94 MG/DL (70-100); POTASSIUM SERUM 4.6 MEQ/L (3.5-5.1); SODIUM LEVEL 139 MEQ/L (136-145)
== END ==
PROVIDERS: ATTEND Family Medicine
DX: I10 Essential (primary) hypertension (principal)

== ENCOUNTER → 2019-02-21 | Outpatient (REF) ==
[2019-02-21 09:41] LABS: PROTHROMBIN TIME 31.1 SECONDS (11.8-14.0)
== END ==
PROVIDERS: ATTEND Family Medicine
DX: I10 Essential (primary) hypertension (principal)

== ENCOUNTER → 2019-02-28 | Outpatient (REF) ==
[~2019-02-28] MED LIST changes: -BISA10SU2 PR; +BISA10SU20 PR; +OMEP20CA4 PO
[2019-02-28 08:58] LABS: HEMATOCRIT 35.7 % (36.0-47.0); HEMOGLOBIN 11.6 g/dl (12.0-15.5); MEAN CORPUSCULAR HEMOGLOBIN 29.7 pg (27.0-33.0); MEAN CORPUSCULAR HGB CONC 32.5 g/dl (32.0-36.5); MEAN CORPUSCULAR VOLUME 91.3 fl (80.0-96.0); PLATELET COUNT, AUTOMATED 288 10^3/uL (150-450); RED BLOOD COUNT 3.91 10^6/uL (4.00-5.40); WHITE BLOOD COUNT 6.2 10^3/uL (4.0-10.0)
[2019-02-28 09:14] LABS: INR 3.63; PROTHROMBIN TIME 36.2 SECONDS (11.8-14.0)
[2019-02-28 09:25] LABS: BLOOD UREA NITROGEN 22 MG/DL (7-18); CALCIUM LEVEL 9.6 MG/DL (8.8-10.2); CARBON DIOXIDE LEVEL 28 MEQ/L (21-32); CHLORIDE LEVEL 107 MEQ/L (98-107); CREATININE FOR GFR 0.83 MG/DL (0.55-1.30); GLOMERULAR FILTRATION RATE > 60.0 (>32); GLUCOSE, FASTING 91 MG/DL (70-100); POTASSIUM SERUM 4.5 MEQ/L (3.5-5.1); SODIUM LEVEL 141 MEQ/L (136-145)
== END ==
PROVIDERS: ATTEND Family Medicine
DX: I48.91 Unspecified atrial fibrillation (principal)

== ENCOUNTER → 2019-03-02 | Outpatient (REF) | PROVIDERS: ATTEND Family Medicine | DX: I48.91 Unspecified atrial fibrillation (principal) ==

== ENCOUNTER → 2019-03-05 | Outpatient (REF) ==
[2019-03-05 10:22] LABS: INR 1.19; PROTHROMBIN TIME 14.8 SECONDS (11.8-14.0)
== END ==
PROVIDERS: ATTEND Family Medicine
DX: I48.91 Unspecified atrial fibrillation (principal)

== ENCOUNTER → 2019-03-07 | Outpatient (REF) ==
[2019-03-07 10:27] LABS: INR 1.25; PROTHROMBIN TIME 15.4 SECONDS (11.8-14.0)
== END ==
PROVIDERS: ATTEND Family Medicine
DX: I48.91 Unspecified atrial fibrillation (principal)

== ENCOUNTER → 2019-03-09 | Outpatient (REF) ==
[~2019-03-09] MED LIST changes: +ACET-908 PO; -ALL10TAB28 PO; +ALL10TAB29 PO; +ASPE4PAD TOP; +BISA10SU PR; +CHOL100029 PO; +CLIN150C14 PO; +MOM30SS PO; +OMEP-358 PO; +OMEP1CAP73 PO; -OMEP20CA4 PO; -OMEP20TA PO; +PANT-23 PO; +SENN-53 PO; -SENN1TAB40 PO; +SIMV40TA20 PO; +SYST1SOL4 OU; -VITAD1000T PO; +XARE20TA PO
[2019-03-09 14:54] LABS: INR 1.62
== END ==
PROVIDERS: ATTEND Family Medicine
DX: I48.91 Unspecified atrial fibrillation (principal)

== ENCOUNTER → 2019-03-14 | Outpatient (REF) ==
[~2019-03-14] MED LIST changes: -ACET-908 PO; +ALL10TAB28 PO; -ALL10TAB29 PO; -ASPE4PAD TOP; -BISA10SU PR; -CHOL100029 PO; -CLIN150C14 PO; -MOM30SS PO; -OMEP-358 PO; -OMEP1CAP73 PO; +OMEP20CA4 PO; +OMEP20TA PO; -PANT-23 PO; -SENN-53 PO; +SENN1TAB40 PO; -SIMV40TA20 PO; -SYST1SOL4 OU; +VITAD1000T PO; -XARE20TA PO
[2019-03-14 16:05] LABS: INR 3.1; PROTHROMBIN TIME 31.9 SECONDS (11.8-14.0)
== END ==
PROVIDERS: ATTEND Family Medicine
DX: I48.91 Unspecified atrial fibrillation (principal)

== ENCOUNTER → 2019-03-21 | Outpatient (REF) ==
[2019-03-21 18:34] LABS: INR 4.3; PROTHROMBIN TIME 41.4 SECONDS (11.8-14.0)
== END ==
PROVIDERS: ATTEND Family Medicine
DX: I48.91 Unspecified atrial fibrillation (principal)

== ENCOUNTER → 2019-03-23 | Outpatient (REF) | PROVIDERS: ATTEND Family Medicine | DX: I48.91 Unspecified atrial fibrillation (principal) ==

== ENCOUNTER → 2019-03-26 | Outpatient (REF) ==
[2019-03-26 10:21] LABS: HEMATOCRIT 34.6 % (36.0-47.0); HEMOGLOBIN 11.1 g/dl (12.0-15.5); MEAN CORPUSCULAR HEMOGLOBIN 30.4 pg (27.0-33.0); MEAN CORPUSCULAR HGB CONC 32.1 g/dl (32.0-36.5); MEAN CORPUSCULAR VOLUME 94.8 fl (80.0-96.0); PLATELET COUNT, AUTOMATED 285 10^3/uL (150-450); RED BLOOD COUNT 3.65 10^6/uL (4.00-5.40); WHITE BLOOD COUNT 6.6 10^3/uL (4.0-10.0)
[2019-03-26 10:29] LABS: INR 1.46; PROTHROMBIN TIME 17.4 SECONDS (11.8-14.0)
[2019-03-26 10:37] LABS: BLOOD UREA NITROGEN 20 MG/DL (7-18); CALCIUM LEVEL 9.6 MG/DL (8.8-10.2); CARBON DIOXIDE LEVEL 29 MEQ/L (21-32); CHLORIDE LEVEL 106 MEQ/L (98-107); CREATININE FOR GFR 0.86 MG/DL (0.55-1.30); GLOMERULAR FILTRATION RATE > 60.0 (>32); GLUCOSE, FASTING 84 MG/DL (70-100); POTASSIUM SERUM 4.2 MEQ/L (3.5-5.1); SODIUM LEVEL 141 MEQ/L (136-145)
== END ==
PROVIDERS: ATTEND Family Medicine
DX: I48.91 Unspecified atrial fibrillation (principal)

== ENCOUNTER → 2019-04-10 | Outpatient (REF) | PROVIDERS: ATTEND Family Medicine | DX: R56.9 Unspecified convulsions (principal) ==

== ENCOUNTER → 2019-04-25 | Outpatient (REF) | payer MEDICARE, MEDICAID, OTHER ==
[2019-04-25 11:29] LABS: HEMOGLOBIN 12.2 g/dl (12.0-15.5); MEAN CORPUSCULAR HEMOGLOBIN 30.2 pg (27.0-33.0); MEAN CORPUSCULAR HGB CONC 32.1 g/dl (32.0-36.5); MEAN CORPUSCULAR VOLUME 94.1 fl (80.0-96.0); PLATELET COUNT, AUTOMATED 262 10^3/uL (150-450); RED BLOOD COUNT 4.04 10^6/uL (4.00-5.40); WHITE BLOOD COUNT 7.3 10^3/uL (4.0-10.0)
[2019-04-25 11:44] LABS: BLOOD UREA NITROGEN 21 MG/DL (7-18); CALCIUM LEVEL 9.5 MG/DL (8.8-10.2); CARBON DIOXIDE LEVEL 24 MEQ/L (21-32); CHLORIDE LEVEL 107 MEQ/L (98-107); CREATININE FOR GFR 0.83 MG/DL (0.55-1.30); GLOMERULAR FILTRATION RATE > 60.0 (>32); GLUCOSE, FASTING 132 MG/DL (70-100); POTASSIUM SERUM 4.3 MEQ/L (3.5-5.1); SODIUM LEVEL 140 MEQ/L (136-145)
== END ==
PROVIDERS: ATTEND Family Medicine
DX: I10 Essential (primary) hypertension (principal)

== ENCOUNTER → 2019-05-10 | Outpatient (REF) ==
[~2019-05-10] MED LIST changes: -ALL10TAB28 PO; +ALL10TAB29 PO; +CHOL100029 PO; -VITAD1000T PO
[2019-05-11 15:11] LABS: APPEARANCE, URINE CLEAR (CLEAR); BACTERIA, URINE AUTO NEGATIVE (NEGATIVE); BILIRUBIN, URINE AUTO NEGATIVE (NEGATIVE); BLOOD, URINE BLOOD NEGATIVE (NEGATIVE); COLOR, URINE YELLOW (YELLOW); GLUCOSE, URINE (UA) AUTO NEGATIVE (NEGATIVE); KETONE, URINE AUTO NEGATIVE (NEGATIVE); LEUKOCYTE ESTERASE, URINE AUTO NEGATIVE (NEGATIVE); NITRITE, URINE AUTO NEGATIVE (NEGATIVE); PROTEIN, URINE AUTO NEGATIVE (NEGATIVE); RBC, URINE AUTO 0 /HPF (0-3); SPECIFIC GRAVITY URINE AUTO 1.014 (1.002-1.035); SQUAMOUS EPITHELIAL CELL UR AU 1 /HPF (0-6); UROBILINOGEN, URINE AUTO 0.2 mg/dL (0.0-2.0); WBC, URINE AUTO 0 /HPF (0-3)
== END ==
PROVIDERS: ATTEND Family Medicine
DX: I10 Essential (primary) hypertension (principal)

== ENCOUNTER → 2019-05-11 | Outpatient (REF) | payer MEDICAID, MEDICARE ==
[~2019-05-11] MED LIST changes: +ACET-908 PO; +ASPE4PAD TOP; +BISA10SU PR; +CLIN150C14 PO; +MOM30SS PO; +OMEP-358 PO; -OMEP20TA PO; +PANT-23 PO; +SENN-53 PO; -SENN1TAB40 PO; +SYST1SOL4 OU; +XARE20TA PO
[2019-05-11 12:35] LABS: HEMATOCRIT 38.5 % (36.0-47.0); HEMOGLOBIN 12.9 g/dl (12.0-15.5); MEAN CORPUSCULAR HEMOGLOBIN 31.5 pg (27.0-33.0); MEAN CORPUSCULAR HGB CONC 33.5 g/dl (32.0-36.5); MEAN CORPUSCULAR VOLUME 94.1 fl (80.0-96.0); PLATELET COUNT, AUTOMATED 235 10^3/uL (150-450); RED BLOOD COUNT 4.09 10^6/uL (4.00-5.40); WHITE BLOOD COUNT 8.9 10^3/uL (4.0-10.0)
[2019-05-11 13:35] LABS: BLOOD UREA NITROGEN 17 MG/DL (7-18); CALCIUM LEVEL 10.1 MG/DL (8.8-10.2); CARBON DIOXIDE LEVEL 27 MEQ/L (21-32); CHLORIDE LEVEL 103 MEQ/L (98-107); CREATININE FOR GFR 0.86 MG/DL (0.55-1.30); GLOMERULAR FILTRATION RATE > 60.0 (>32); GLUCOSE, FASTING 94 MG/DL (70-100); POTASSIUM SERUM 4.2 MEQ/L (3.5-5.1); SODIUM LEVEL 139 MEQ/L (136-145)
--- NOTE | 2019-05-11 13:42 | REP ---
REASON FOR EXAM: Pain after bruising. COMPARISON: None. There is significant artifact strewn about the chest which obscure a fracture. There is evidence of a healing fracture involving the lateral aspect of the right 8th rib. There is evidence of a healing proximal humeral fracture the fracture of which was previously described on a shoulder exam of 02/07/2019. The accompanying frontal view of the chest shows no significant change from the frontal view obtained on 01/28/2019 in regards to the lung ronquillo. IMPRESSION: 1. Healing right rib fracture as described above. I cannot rule out additional fractures. Consider CT of bone scintigraphy if clinically relevant. 2. Chronic lung field changes which appear stable from 01/28/2019. 3. Other findings as described above. Electronically Signed by Chato Nj DO 05/11/2019 03:56 P
--- NOTE | 2019-05-11 13:43 | REP ---
REASON: Trauma. The exam is technically limited. This is to such a degree a subtle clavicular fracture cannot be ruled out. No displaced fracture is evident on this plain film exam. IMPRESSION: Findings and limitations as described above. CT is recommended. Electronically Signed by Chato Nj DO 05/11/2019 03:56 P
== END ==
LOC: M LAB 11:36 → EDSTATUS 06-20 15:39
PROVIDERS: ATTEND Family Medicine
DX: R07.9 Chest pain, unspecified (principal); Z87.81 Personal history of (healed) traumatic fracture

== ENCOUNTER → 2019-05-11 | Outpatient (REF) ==
[~2019-05-11] MED LIST changes: -ACET-908 PO; -ASPE4PAD TOP; -BISA10SU PR; -CLIN150C14 PO; -MOM30SS PO; -OMEP-358 PO; +OMEP20TA PO; -PANT-23 PO; -SENN-53 PO; +SENN1TAB40 PO; -SYST1SOL4 OU; -XARE20TA PO
== END ==
LOC: M LAB 10:19
PROVIDERS: ATTEND Physician Assistant
DX: Z53.9 Procedure and treatment not carried out, unspecified reason (principal)

== ENCOUNTER → 2019-05-23 | Outpatient (REF) | payer MEDICAID, MEDICARE ==
[2019-05-23 08:56] LABS: HEMATOCRIT 35.6 % (36.0-47.0); HEMOGLOBIN 11.5 g/dl (12.0-15.5); MEAN CORPUSCULAR HEMOGLOBIN 30.7 pg (27.0-33.0); MEAN CORPUSCULAR HGB CONC 32.3 g/dl (32.0-36.5); MEAN CORPUSCULAR VOLUME 95.2 fl (80.0-96.0); PLATELET COUNT, AUTOMATED 344 10^3/uL (150-450); RED BLOOD COUNT 3.74 10^6/uL (4.00-5.40); WHITE BLOOD COUNT 6.6 10^3/uL (4.0-10.0)
[2019-05-23 09:18] LABS: BLOOD UREA NITROGEN 20 MG/DL (7-18); CALCIUM LEVEL 9.5 MG/DL (8.8-10.2); CARBON DIOXIDE LEVEL 30 MEQ/L (21-32); CHLORIDE LEVEL 105 MEQ/L (98-107); GLOMERULAR FILTRATION RATE > 60.0 (>32); GLUCOSE, FASTING 86 MG/DL (70-100); POTASSIUM SERUM 4.3 MEQ/L (3.5-5.1); SODIUM LEVEL 141 MEQ/L (136-145)
== END ==
PROVIDERS: ATTEND Family Medicine
DX: I10 Essential (primary) hypertension (principal)

== ENCOUNTER → 2019-05-30 | Outpatient (REF) ==
--- NOTE | 2019-05-30 16:01 | REP ---
Tibia-fibula two views: The distal tibia fibula are excluded at the inferior film margin but can be seen on the ankle series performed this same date. I suspect a nondisplaced fracture at the neck of the fibula. This should be correlated with clinical point tenderness. There is a total knee arthroplasty. The components are tightly applied and in satisfactory positions alignment. There is no evidence of loosening. There is demineralization. There is calcified vascular atheroma. Impression: Probable nondisplaced fracture of the fibular neck. Electronically Signed by Trace Page MD 05/30/2019 03:52 P
--- NOTE | 2019-05-30 16:06 | REP ---
RIGHT ANKLE, FOUR VIEWS: Four views of the right ankle performed. No fracture or dislocation is seen. There is narrowing of the medial tibiotalar joint with subchondral sclerosis. There is diffuse soft tissue swelling more so medially. There are diffuse vascular calcifications in the soft tissues. There is a moderate to large inferior calcaneal spur with mild posterior calcaneal spurring. IMPRESSION: Arthritic changes. Soft tissue swelling. No acute fracture or dislocation. Electronically Signed by Trace Tripathi MD 05/30/2019 06:43 P
== END ==
PROVIDERS: ATTEND Family Medicine
DX: M25.571 Pain in right ankle and joints of right foot (principal)

== ENCOUNTER 2019-06-04 15:20 | Inpatient (IN) | payer MEDICARE, MEDICAID ==
[~2019-06-04] VITALS: Ht 137.2 cm; Wt 67.2 kg
[~2019-06-04 15:20] MED LIST changes: +OMEP-358 PO; -OMEP20TA PO; +SENN-53 PO; -SENN1TAB40 PO
[2019-06-04] MEDS ORDERED: ACET-908 PO (17:02)
[2019-06-04] MEDS ORDERED: PANT-23 PO (17:05)
[2019-06-04] MEDS ORDERED: SYST1SOL4 OU (17:05)
[2019-06-04] MEDS ORDERED: MOM30SS PO (17:05)
[2019-06-04] MEDS ORDERED: BISA10SU PR (17:05)
[2019-06-04 17:11] LABS: BASO % 0.2 % (0.0-1.0); EOS # 0.1 10^3/uL (0.0-0.5); EOS % 0.8 % (0.0-3.0); HEMATOCRIT 36.5 % (36.0-47.0); HEMOGLOBIN 11.9 g/dl (12.0-15.5); LYMPH # 1.6 10^3/uL (1.5-5.0); LYMPH % 16.7 % (24.0-44.0); MEAN CORPUSCULAR HEMOGLOBIN 30.1 pg (27.0-33.0); MEAN CORPUSCULAR HGB CONC 32.6 g/dl (32.0-36.5); MEAN CORPUSCULAR VOLUME 92.4 fl (80.0-96.0); MONO # 1.3 10^3/uL (0.0-0.8); NEUTROPHILS # 6.6 10^3/uL (1.5-8.5); NEUTROPHILS % 68.9 % (36.0-66.0); PLATELET COUNT, AUTOMATED 311 10^3/uL (150-450); RED BLOOD COUNT 3.95 10^6/uL (4.00-5.40); WHITE BLOOD COUNT 9.6 10^3/uL (4.0-10.0)
[2019-06-04] MEDS ORDERED: ZYLO300T6 PO (17:11)
[2019-06-04] MEDS ORDERED: COLA100C5 PO (17:12)
[2019-06-04 17:20] LABS: BLOOD UREA NITROGEN 22 MG/DL (7-18); CALCIUM LEVEL 9.3 MG/DL (8.8-10.2); CARBON DIOXIDE LEVEL 27 MEQ/L (21-32); CHLORIDE LEVEL 104 MEQ/L (98-107); CREATININE FOR GFR 0.75 MG/DL (0.55-1.30); GLOMERULAR FILTRATION RATE > 60.0 (>32); GLUCOSE, FASTING 124 MG/DL (70-100); POTASSIUM SERUM 4.4 MEQ/L (3.5-5.1); SODIUM LEVEL 137 MEQ/L (136-145)
[2019-06-04] MEDS ORDERED: XARE20TA PO (17:36)
--- NOTE | 2019-06-04 17:40 | REPVR ---
PROCEDURE INFORMATION: Exam: US Duplex Right Lower Extremity Veins, Limited Exam date and time: 06/04/2019 5:13 PM Clinical history: 89 years old, female; Swelling (edema) of limb; Lower extremity, right; Additional info: Swelling R/O dvt TECHNIQUE: Imaging protocol: Real-time Duplex ultrasound of the Right Lower Extremity with 2-D alcantara scale, color Doppler flow and spectral waveform analysis with image documentation. Limited exam was focused on the right lower extremity veins. COMPARISON: US Duplex, Ext LOWER veins, bilat 09/24/2017 9:05 AM FINDINGS: Right deep veins: Unremarkable. The common femoral, femoral, proximal profunda femoral and popliteal veins are patent without thrombus. Normal Doppler waveforms. Normal compressibility and/or augmentation response. Right superficial veins: Unremarkable. Saphenofemoral junction is patent without thrombus. Soft tissues: Unremarkable. IMPRESSION: No evidence of deep vein thrombosis. Electronically signed by: Jose Munguia On 06/04/2019 17:39:56 PM
[2019-06-04] MEDS ORDERED: ASPE4PAD TOP (17:43)
[2019-06-04] MEDS ORDERED: ceFAZolin SOD 1 GM in D5W MINI-BAG PLUS 50 ML IV ONE (21:30)
[2019-06-04] MEDS ORDERED: NITROGLYCERIN 0.4 MG SUBL TABLET SL PRN (21:45)
[2019-06-04] MEDS ORDERED: BISACODYL 10 MG SUPP PR PRN (21:45)
[2019-06-04] MEDS ORDERED: ALBUTEROL SULFATE 2.5 MG/0.5 ML INH NEB SOLN INH PRN (21:45)
[2019-06-04] MEDS ORDERED: DOCUSATE SODIUM 100 MG CAP PO PRN (21:45)
[2019-06-04] MEDS ORDERED: MOM 30ML SUSPENSION UDC PO PRN (21:45)
[2019-06-04] MEDS: NS 1,000 ML IV SCH (22:04)
[2019-06-04] MEDS ORDERED: PILL CUTTER 1 EACH XX PRN (22:15)
--- NOTE | 2019-06-04 22:50 | REPVR ---
PROCEDURE INFORMATION: Exam: XR Right Tibia and Fibula Exam date and time: 06/04/2019 10:09 PM Clinical history: 89 years old, female; Pain; Knee; Bilateral; Additional info: Rle swelling, redness, pain with fall last week TECHNIQUE: Imaging protocol: XR Right tibia and fibula. Views: 2 views. COMPARISON: CR TIBIA/FIBULA AP,LAT 05/30/2019 3:23 PM FINDINGS: Bones/joints: Prior knee arthroplasty. Hardware projects in expected location with normal alignment. No fracture or malalignment. Degenerative arthrosis at the ankle. There is widening of the lateral ankle joint space suggesting underlying lateral ligament injury or laxity. Soft tissues: Normal. IMPRESSION: 1. No acute fracture. 2. Widening of the lateral ankle joint space may indicate ligament laxity or lateral ligament injury. PROCEDURE INFORMATION: Exam: XR Left Tibia and Fibula Exam date and time: 06/04/2019 10:09 PM Clinical history: 89 years old, female; Pain; Knee; Bilateral; Additional info: Rle swelling, redness, pain with fall last week TECHNIQUE: Imaging protocol: XR Left tibia and fibula. Views: 2 views. COMPARISON: CR TIBIA/FIBULA AP,LAT 05/30/2019 3:23 PM FINDINGS: Bones/joints: Prior knee arthroplasty. Hardware projects in expected location with normal alignment. No fracture or malalignment. Degenerative arthrosis at the ankle. There is widening of the lateral ankle joint space suggesting underlying lateral ligament injury or laxity. Soft tissues: Normal. Vasculature: Calcified phleboliths are noted at the knee. IMPRESSION: 1. No acute fracture. 2. Widening of the lateral ankle joint space may indicate ligament laxity or lateral ligament injury. Electronically signed by: Gibson Guillaume On 06/04/2019 22:50:13 PM
[2019-06-05] VITALS: O2SAT 92
[2019-06-05 01:30] VITALS: BP 149/86; O2SAT 96
[2019-06-05] MEDS: NS 1,000 ML IV SCH (02:15)
[2019-06-05] MEDS: ACETAMINOPHEN TAB 650MG DOSE (2X325MG) PO PRN (02:17)
[2019-06-05] MEDS: ceFAZolin SOD 1 GM in D5W MINI-BAG PLUS 50 ML IV SCH ×4 (05:06→22:45)
[2019-06-05 06:00] VITALS: BP 143/72
[2019-06-05 06:26] LABS: HEMATOCRIT 33.2 % (36.0-47.0); HEMOGLOBIN 10.9 g/dl (12.0-15.5); MEAN CORPUSCULAR HGB CONC 32.8 g/dl (32.0-36.5); MEAN CORPUSCULAR VOLUME 94.3 fl (80.0-96.0); PLATELET COUNT, AUTOMATED 300 10^3/uL (150-450); RED BLOOD COUNT 3.52 10^6/uL (4.00-5.40); WHITE BLOOD COUNT 8.2 10^3/uL (4.0-10.0)
[2019-06-05 06:40] LABS: INR 1.1; PROTHROMBIN TIME 13.9 SECONDS (11.8-14.0)
[2019-06-05 06:55] LABS: ALBUMIN 2.6 GM/DL (3.2-5.2); ALT/SGPT 22 U/L (12-78); BILIRUBIN,TOTAL 0.6 MG/DL (0.2-1.0); BLOOD UREA NITROGEN 19 MG/DL (7-18); CALCIUM LEVEL 9.3 MG/DL (8.8-10.2); CARBON DIOXIDE LEVEL 27 MEQ/L (21-32); CHLORIDE LEVEL 105 MEQ/L (98-107); CREATININE FOR GFR 0.84 MG/DL (0.55-1.30); GLOMERULAR FILTRATION RATE > 60.0 (>32); GLUCOSE, FASTING 111 MG/DL (70-100); POTASSIUM SERUM 3.7 MEQ/L (3.5-5.1); SODIUM LEVEL 137 MEQ/L (136-145); TOTAL PROTEIN 6.2 GM/DL (6.4-8.2)
[2019-06-05] MEDS: HumaLOG INSULIN (NovoLOG) PER UNIT SC SCH ×3 (07:30→17:30)
--- NOTE | 2019-06-05 08:28 | HPEPDOC ---
[facility] Medical History & Physical Date of Admission Jun 04, 2019 Date of Service: Jun 04, 2019 Primary Care Physician: Godwin Pichardo M.D. Attending Physician: LIAM SCHOFIELD MD History and Physical CHIEF COMPLAINT: RLE pain, redness, and swelling HISTORY OF PRESENT ILLNESS: Pat is a 89yo female with pertinent past medical history of DMII w/ neuropathy, history of seizures on Keppra, spinal stenosis, wilfrid w/ cpap, htn, spinal stenosis, h/o falls, and h/o recurrent uti, who presented to the ED on 06/04 w/ the cc of RLE swelling and redness with progressively increasing pain. Pt reports she feel roughly one week ago and has had some moderate accompanying rle pain since. Pt reports she has a history of many falls. Pt has been non- weight bearing and using a goldy lift since fall. Pt had rle xray imaging done after the fall last week that were questionable for rt fibular head fracture. She awoke this morning with increased swelling and redness of the rle. As the day progressed, pt's pain increased. Pt used tylenol for pain that worked to diminish her symptoms for a short period of time before her pain and discomfort returned. Any movement of pt's rle elicits pain. Pt reports accompanying lle numbness since this past Tuesday after sitting on a bedpan for an extended period of time to urinate. Pt also has soreness along the lateral margin of her left knee and thigh. Pt states this lt knee and thigh soreness is still present, but has improved. Pt says she has never experienced this presentation of symptoms before. Pt's last hospitalization was in January 2019 after a fall that caused a rt humeral fx that necessitated a sling and physical therapy. Pt was visited at her [facility] custodial facility by her daughter today, with her daughter subsequently calling ems to transport her to the ed. Pt was accompanied in ED by her daughter Karo, who assisted with history at times. Pt's pcp is Dr. Pichardo, and she follows with an eye care provider, pulmonology (Dr. Morgan), and neurology (Dr. Tucker) as an outpatient. Pt used to follow with Dr. Fernandez Lozano for primary care, before moving to the [facility] and receiving care from Dr. Pichardo. Pt verbalizes to hospitalist team upon questioning that her code status is full code. Both pt and her daughter confirm that her medical wishes, including dnr/dni, have been previously documented. In ED, pt underwent a rle duplex u/s that found no evidence of dvt. Initial cbc showed borderline normocytic anemia (Hgb 11.9). Pt was admitted under care of the hospitalist team to med/surg. PAST MEDICAL HISTORY: DMII, with neuropathy -h/o seizures, on keppra urinary incontinence OA osteoporosis spinal stenosis wilfrid with home cpap that pt states has not worked of late chronic htn gerd h/o recurrent uti h/o hypercholesterolemia h/o falls PAST SURGICAL HISTORY: cholecystectomy b/l total knee surgical replacements unspecified back sx to address disc issues bunion removal surgery on both feet b/l carpal tunnel surgeries SOCIAL HISTORY: Resides: [facility] in [place], [place] Children: one living child (daughter, Karo) and one (son) Employment: retired, formerly worked for a [employer] Tobacco use: denies ETOH: denies Illicit drug use: denies FAMILY HISTORY: Father: alcoholism Mother: DC Siblings: prostate ca and melanoma (half brother) Children: metastatic lung ca (son) ALLERGIES: Please see below. REVIEW OF SYSTEMS: CONSTITUTIONAL: Endorses chronic chills; Denies current fever, recent unitentional change in weight, night sweats HEENT: Endorses diminished visual acuity in both eyes, with right worse than left; Denies headache, dizzyness, lightheadedness, syncope CARDIOVASCULAR: Denies chest pain, chest pressure, or palpitations RESPIRATORY: Denies current sob, cough, or pleuritic chest pain GASTROINTESTINAL: Endorses frequent loose stools; Denies abdominal pain, nausea, vomiting GENITOURINARY: Endorses urinary incontinence with h/o recurrent uti; Denies dysuria or heamturia MUSCULOSKELETAL: Endorses chronic low back pain NEUROLOGICAL: Endorses numbness of b/l lower extremities ENDOCRINE: Endorses cold intolerance -Pt denies recent change in meds, travel, or known exposure to sick contacts HOME MEDICATIONS: Please see below. PHYSICAL EXAMINATION: VITAL SIGNS: Temperature 96.6; (following were visualized on monitoring in ED) pulse 88-91, respiratory rate 24-30, blood pressure 119/58, pulse oximetry 92% on room air. GENERAL APPEARANCE: Elderly woman who appears stated age. She appears to be in moderate discomfort while lying in ed bed. She is awake, alert and oriented x3, cooperative and pleasant. She responds appropriately to questions and commands, but does have some delay in her responses and slower-paced speech. HEENT: Normocephalic, atraumatic. She is wearing eye glasses. PERRLA. Able to track on EOMI, but a bit slower and with couple episodes of nystagmus. Upper dentures in place with no visible lower teeth. No pharyngeal exudate or erythema. Subtle tongue tremors/fasiculations visualized. Consistent lower lip subtle tremors CARDIOVASCULAR: 2/6 systolic murmur appreciated best at rt parasternal border, 2nd ics. No rubs or gallops appreciated. No jvd visualized. palpable radial and dorsalis pedis pulses bilaterally. LUNGS: diminhed tidal volume w/ symmetric chest expansion. no wheezes, rhonchi or crackles appreciated bilaterally. no accessory muscle use w/ respiration. ABDOMEN: diagonal ruq scar. Bowel sounds present. Moderate tenderness but no pain to palpation of llq. No palpable masses. No tympany to percussion. MUSCULOSKELETAL: pain to palpation of lspine b/l; 5/5 muscle strength testing of UE and LE bilaterally EXTREMITIES: Significant warmth of rle as compared to lle. Erythema of rle just inferior to patella advancing distally to level of malleolus, with accompanying areas of skin peeling but no visualized ulcers, discharge, or weeping wounds. Area of erythema blanches with pressure. Pain to calf squeeze b/l. Pt is able to wiggle toes on command b/l and able to plantar and dorsiflex b/l feet. NEUROLOGICAL: Awake, a&o x3. Speaking in full sentences. Speech is somewhat slowed, but pt responds appropriately to questions and commands. Diminished sensation to light touch of b/l le PSYCHIATRIC: Mildly nervous mood, appropriate affect LABORATORY DATA: See below. IMAGING: None to this point. Pt did have rle xray done last week after her fall at custodial facility that reportedly showed questionable rt fibular head fracture. MICROBIOLOGY: Please see below. ASSESSMENT & PLAN: This is an 89yo woman with pertinent pmh of DMII with neuropathy, urinary incontinence w/ ho recurrent uti, h/o seizures, chronic hypertension, wilfrid with home cpap, spinal stenosis, h/o falls, hypercholesterolemia, and gerd who presented to the ed via ems from her custodial facility after awaking this morning with increased redness, pain, and swelling of the rle. Pt sustained fall last week, and had some moderate discomfort since, but acuity of pain, swelling and new-onset erythema began today. Reportedly xray done last week after fall showed questionable rt fibular head fracture. Pt has been non-weight bearing since fall and has been using a goldy lift. Duplex LE u/s in ed showed no signs of dvt #Right lower extremity cellulitis -initial dose of Ancef antibiotic given, with subsequent scheduled dosing to follow -IVF ordered at soft rate (50mL/hr) -initial cbc in ed did not show leukocytosis #Possible right fibular head fracture -pt is made non-weight bearing and on bedrest -rt tib-fib xrays ordered to assess for possible fracture that was reportedly questionable of rt fibular head on imaging last week -consider possible orthopaedic consultation based on xray results. -prn tylenol for pain #Urinary incontinence with h/o recurrent uti -UA ordered via straight cath -no leukocytosis on initial labs #DM II -consistent carb diet -SSI ac&hs -FSBS ac&hs #HTN -pt's nitroglycerin and torsemide continued #h/o seizures -pt reports not having seizure in awhile -continue home keppra -placed on seizure precautions #h/o falls -pt on bedrest -pt placed on fall risk precautions #DVT prophylaxis: continue with home xarelto dosing I saw and evaluated patient. Discussed with the resident and agree with resident's findings and plan as documented in the resident's note Vital Signs Vital Signs Date Time Temp Pulse Resp B/P (MAP) Pulse Ox O2 Delivery O2 Flow Rate FiO2 06/05/19 01:30 96 Room Air 06/05/19 01:30 98.3 88 18 149/86 (107) Laboratory Data Labs 24H Laboratory Tests 2 06/04/19 16:47: Immature Granulocyte % (Auto) 0.4, White Blood Count 9.6, Red Blood Count 3.95L, Hemoglobin 11.9L, Hematocrit 36.5, Mean Corpuscular Volume 92.4, Mean Corpuscular Hemoglobin 30.1, Mean Corpuscular Hemoglobin Concent 32.6, Red Cell Distribution Width 13.4, Platelet Count 311, Neutrophils (%) (Auto) 68.9H, Lymphocytes (%) (Auto) 16.7L, Monocytes (%) (Auto) 13.0H, Eosinophils (%) (Auto) 0.8, Basophils (%) (Auto) 0.2, Neutrophils # (Auto) 6.6, Lymphocytes # (Auto) 1.6, Monocytes # (Auto) 1.3H, Eosinophils # (Auto) 0.1, Basophils # (Auto) 0.0, Nucleated Red Blood Cells % (auto) 0.0, Anion Gap 6L, Glomerular Filtration Rate > 60.0, Blood Urea Nitrogen 22H, Creatinine 0.75, Sodium Level 137, Potassium Level 4.4, Chloride Level 104, Carbon Dioxide Level 27, Calcium Level 9.3 06/05/19 05:54: Nucleated Red Blood Cells % (auto) 0.0, Anion Gap 5L, Glomerular Filtration Rate > 60.0, Blood Urea Nitrogen 19H, Creatinine 0.84, Sodium Level 137, Potassium Level 3.7, Chloride Level 105, Carbon Dioxide Level 27, Calcium Level 9.3, Prothrombin Time 13.9, Prothromb Time International Ratio 1.10, Activated Partial Thromboplast Time 31.0, Aspartate Amino Transf (AST/SGOT) 25, Alanine Aminotransferase (ALT/SGPT) 22, Alkaline Phosphatase 106, Total Bilirubin 0.6, Total Protein 6.2L, Albumin 2.6L, Albumin/Globulin Ratio 0.72L CBC/BMP Laboratory Tests 06/04/19 16:47 Red Blood Count 3.95 L, Mean Corpuscular Volume 92.4, Mean Corpuscular Hemoglobin 30.1, Mean Corpuscular Hemoglobin Concent 32.6, Red Cell Distribution Width 13.4, Neutrophils (%) (Auto) 68.9 H, Lymphocytes (%) (Auto) 16.7 L, Monocytes (%) (Auto) 13.0 H, Eosinophils (%) (Auto) 0.8, Basophils (%) (Auto) 0.2, Neutrophils # (Auto) 6.6, Lymphocytes # (Auto) 1.6, Monocytes # (Auto) 1.3 H, Eosinophils # (Auto) 0.1, Basophils # (Auto) 0.0, Calcium Level 9.3 06/05/19 05:54 Red Blood Count 3.52 L, Mean Corpuscular Volume 94.3, Mean Corpuscular Hemoglobin 31.0, Mean Corpuscular Hemoglobin Concent 32.8, Red Cell Distribution Width 13.3, Calcium Level 9.3, Aspartate Amino Transf (AST/SGOT) 25, Alanine Aminotransferase (ALT/SGPT) 22, Alkaline Phosphatase 106, Total Bilirubin 0.6, Total Protein 6.2 L, Albumin 2.6 L Home Medications Scheduled Allopurinol (Zyloprim) 300 Mg Tablet, 150 MG PO DAILY Cholecalciferol (Vitamin D3) (Vitamin D3) 2,000 Unit Tab, 2,000 UNIT PO DAILY Duloxetine Hcl (Cymbalta) 30 Mg Capsule.dr, 60 MG PO DAILY Glipizide (Glipizide Xl) 5 Mg Tab, 5 MG PO DAILY Latanoprost (Xalatan) 0.005 % Tran, 1 DROP OU QHS Levetiracetam (Keppra) 500 Mg Tab, 500 MG PO BID Lidocaine (Aspercreme) 4% Adh..patch, 2 PATCH TOP DAILY APPLY TO RIGHT SHOULDER/LOW BACK Multivitamins (Thera M Plus Tablet) 1 Tab Tab, 1 TAB PO DAILY Pantoprazole Sodium (Pantoprazole Sodium) 40 Mg Tablet.dr, 40 MG PO BID Prednisone (Prednisone) 2.5 Mg Tablet, 2.5 MG PO DAILY Propylene Glycol/Peg 400/Pf (Systane 0.3-0.4% Eye Drop) 1 Each Droperette, 1 DROP OU BID Rivaroxaban (Xarelto) 20 Mg Tablet, 20 MG PO QPM Sennosides/Docusate Sodium (Senna-S Tablet) 1 Tab Tab, 1 TAB PO QPM Simvastatin (Simvastatin) 40 Mg Tab, 40 MG PO QHS Torsemide (Torsemide) 10 Mg Tablet, 10 MG PO DAILY Vitamin D (Vitamin D3) 1,000 Unit Tablet, 2,000 UNITS PO DAILY Scheduled PRN Acetaminophen (Acetaminophen) 325 Mg Tablet, 650 MG PO Q6H PRN for PAIN Albuterol Sulf (Albuterol Sulfate) 2.5 Mg/3 Ml Nebu, 2.5 MG INH Q6H PRN for SOB/WHEEZING Albuterol Sulfate (Ventolin Hfa) 108 Mcg/Act Aer, 2 PUFFS INH QID PRN for SHORTNESS OF BREATH Bisacodyl (Bisacodyl) 10 Mg Supp.rect, 10 MG PA DAILY PRN for CONSTIPATION Docusate Sodium (Colace) 100 Mg Capsule, 100 MG PO BID PRN for CONSTIPATION Methyl Salicylate/Menth/Camph (Bengay Ultra Strength Cream) 1 Cre Cre, 1 APLCT TOP TID PRN for PAIN Milk Of Magnesia (Milk of Magnesia) 2,400 Mg/10 Ml Oral.susp, 30 ML PO DAILY PRN for CONSTIPATION Nitroglycerin (Nitroglycerin) 0.4 Mg Sub, 0.4 MG SL Q5MP PRN for CHEST PAIN Allergies Coded Allergies: Sulfa (Sulfonamide Antibiotics) (Verified Allergy, Severe, 01/28/19) amoxicillin (Verified Allergy, Intermediate, body rash, 06/04/19) iodine (Verified Allergy, Intermediate, swelling, 01/28/19) latex (Verified Allergy, Intermediate, rash, 06/04/19) codeine (Verified Adverse Reaction, Intermediate, vomiting, 01/28/19) A-FIB/CHADSVASC A-FIB History Current/History of A-Fib/PAF?: No Current PO Anticoag Therapy: Yes (continue home xarelto dosing) SHARRON RICH PGY-1 Jun 05, 2019 08:27 LIAM SCHOFIELD MD Jun 05, 2019 18:49
[2019-06-05] MEDS ORDERED: GLUCOSE 4 GM CHEW TABLET PO PRN (09:00)
[2019-06-05] MEDS ORDERED: GLUCAGON FOR INJ 1 MG VIAL (J1610) SC PRN (09:00)
[2019-06-05] MEDS ORDERED: DEXTROSE 50% 50 ML SYRINGE IV PRN (09:00)
[2019-06-05] MEDS: VITAMIN D 1,000 INTERNATIONAL UNITS TABLET PO SCH (09:03)
[2019-06-05] MEDS: PANTOPRAZOLE 40MG TAB (PROTONIX) PO SCH ×2 (09:03→21:50)
[2019-06-05] MEDS: predniSONE 2.5 MG TAB PO SCH (09:03)
[2019-06-05] MEDS: levETIRAcetam 250MG TABLET (KEPPRA) PO SCH ×2 (09:03→21:50)
[2019-06-05] MEDS: MULTIVITAMINS/MINERALS THERAP 1 TAB PO SCH (09:03)
[2019-06-05] MEDS: ALLOPURINOL 300 MG TAB PO SCH (09:03)
[2019-06-05] MEDS: DULoxetine 30 MG CAP (CYMBALTA) PO SCH (09:09)
[2019-06-05] MEDS: TORSEMIDE 10 MG TABLET PO SCH (09:15)
[2019-06-05 10:51] VITALS: O2SAT 93
[2019-06-05 14:00] VITALS: BP 140/65
[2019-06-05] MEDS ORDERED: traMADol 50 MG TAB PO PRN (17:00)
[2019-06-05] MEDS: RIVAROXABAN 15 MG TAB (XARELTO) PO SCH (17:14)
--- NOTE | 2019-06-05 17:27 | IPNPDOC ---
Date Seen The patient was seen on 06/05/19. Progress Note SUBJECTIVE: Patient reported not feeling too well saying that she broke her left leg because someone told her she did. She appear to complain of pain with palpation bilaterally. Afebrile overnight. WBC 8.2. AAO x 2 to person and year OBJECTIVE PHYSICAL EXAMINATION: VITAL SIGNS: Please see below. General: Mild to moderate distress, Alert Eyes: Normal sclera, EOMI HENT: Atraumatic, neck supple, moist mucous membranes Cardiovascular: Normal rate, normal rhythm. Pulmonary: Clear to auscultation b/l, no wheezing GI: Soft, nontender, nondistended Skin: Warm and dry. b/l chronic venous stasis changes and erythema from midshin down. Neuro: CN grossly intact. No focal deficits. Psych: oriented x 2 to person and year LABORATORY DATA, IMAGING STUDIES, MICROBIOLOGY: Please see below. DVT prophylaxis ordered?: On Xarelto ASSESSMENT AND PLAN: 1. Chronic venous stasis with suspected superimposing RLE cellulitis - c/w Ancef. - Afebrile with no leukocytosis. 2. R. fibular fracture ruled out - Pain diffusely throughout b/l legs. XR R. tibia/fibula showed no evidence of fracture. - c/w pain control for now. - Add on PT if/once tolerated. 3. DM - diabetic diet. - Initially on ISS with FS ACHS but patient does not want sliding scale insulin and requested to be back on home Glipizide. - BS had been controlled. Will d/c those at this time. Monitor Glucose of BMP. Resume sliding scale if persistently elevated. 4. HTN - Resume home meds 5. hx seizures - c/w keppra - seizure precautions 6. Urinary incontinence with h/o recurrent UTIs. - Monitor for symptoms. - Ideally would not continue testing and treating unless symptomatic. VS, I&O, 24H, Fishbone Vital Signs/I&O Vital Signs Date Time Temp Pulse Resp B/P (MAP) Pulse Ox O2 Delivery O2 Flow Rate FiO2 06/05/19 14:00 99.0 83 18 140/65 (90) 90 06/05/19 10:51 Room Air I&O- Last 24 Hours up to 6 AM 06/05/19 06:00 Intake Total 550 ml Output Total 0 ml Balance 550 ml Laboratory Data 24H LABS Laboratory Tests 2 06/05/19 05:54: Nucleated Red Blood Cells % (auto) 0.0, Prothrombin Time 13.9, Prothromb Time International Ratio 1.10, Activated Partial Thromboplast Time 31.0, Anion Gap 5L, Glomerular Filtration Rate > 60.0, Blood Urea Nitrogen 19H, Creatinine 0.84, Sodium Level 137, Potassium Level 3.7, Chloride Level 105, Carbon Dioxide Level 27, Calcium Level 9.3, Aspartate Amino Transf (AST/SGOT) 25, Alanine Aminotransferase (ALT/SGPT) 22, Alkaline Phosphatase 106, Total Bilirubin 0.6, Total Protein 6.2L, Albumin 2.6L, Albumin/Globulin Ratio 0.72L 06/05/19 11:49: Bedside Glucose (Misc Panel) 122H 06/05/19 16:47: Bedside Glucose (Misc Panel) 141H CBC/BMP Laboratory Tests 06/05/19 05:54 Red Blood Count 3.52 L, Mean Corpuscular Volume 94.3, Mean Corpuscular Hemoglobin 31.0, Mean Corpuscular Hemoglobin Concent 32.8, Red Cell Distribution Width 13.3, Calcium Level 9.3, Aspartate Amino Transf (AST/SGOT) 25, Alanine Aminotransferase (ALT/SGPT) 22, Alkaline Phosphatase 106, Total Bilirubin 0.6, Total Protein 6.2 L, Albumin 2.6 L SATISH FLORES MD Jun 05, 2019 17:27
[2019-06-05] MEDS: NYSTATIN CREAM 15 GM TOP SCH (17:46)
[2019-06-05] MEDS ORDERED: HumaLOG INSULIN (NovoLOG) PER UNIT SC SCH (21:00)
[2019-06-05] MEDS: LATANOPROST 0.005% OPHTH SOLN 2.5 ML OU SCH (21:50)
[2019-06-05] MEDS: SIMVASTATIN 40 MG TAB PO SCH (21:50)
[2019-06-05] MEDS: SENOKOT S TAB PO SCH (21:50)
[2019-06-05] MEDS: glipiZIDE XL 5 MG TABCR PO SCH (21:50)
[2019-06-05 22:00] VITALS: BP 136/78
[2019-06-06 06:00] VITALS: BP 137/64
[2019-06-06 06:10] LABS: MEAN CORPUSCULAR HEMOGLOBIN 30.2 pg (27.0-33.0); MEAN CORPUSCULAR HGB CONC 32.4 g/dl (32.0-36.5); MEAN CORPUSCULAR VOLUME 93.4 fl (80.0-96.0); PLATELET COUNT, AUTOMATED 319 10^3/uL (150-450); RED BLOOD COUNT 3.64 10^6/uL (4.00-5.40); WHITE BLOOD COUNT 8.1 10^3/uL (4.0-10.0)
[2019-06-06 06:23] LABS: INR 1.44; PROTHROMBIN TIME 17.3 SECONDS (11.8-14.0)
[2019-06-06 06:33] LABS: BLOOD UREA NITROGEN 20 MG/DL (7-18); CALCIUM LEVEL 9.4 MG/DL (8.8-10.2); CARBON DIOXIDE LEVEL 27 MEQ/L (21-32); CHLORIDE LEVEL 108 MEQ/L (98-107); CREATININE FOR GFR 0.73 MG/DL (0.55-1.30); GLOMERULAR FILTRATION RATE > 60.0 (>32); GLUCOSE, FASTING 96 MG/DL (70-100); POTASSIUM SERUM 3.8 MEQ/L (3.5-5.1); SODIUM LEVEL 141 MEQ/L (136-145)
[2019-06-06 09:00] VITALS: O2SAT 95
[2019-06-06] MEDS: TORSEMIDE 10 MG TABLET PO SCH ×2 (09:00→09:59)
[2019-06-06] MEDS: ceFAZolin SOD 1 GM in D5W MINI-BAG PLUS 50 ML IV SCH ×2 (09:04→16:09)
[2019-06-06] MEDS: NS 1,000 ML IV SCH (09:04)
[2019-06-06] MEDS: glipiZIDE XL 5 MG TABCR PO SCH (09:59)
[2019-06-06] MEDS: DULoxetine 30 MG CAP (CYMBALTA) PO SCH (09:59)
[2019-06-06] MEDS: MULTIVITAMINS/MINERALS THERAP 1 TAB PO SCH (09:59)
[2019-06-06 10:00] VITALS: BP 98/52
[2019-06-06] MEDS: levETIRAcetam 250MG TABLET (KEPPRA) PO SCH ×2 (10:01→21:33)
[2019-06-06] MEDS: NYSTATIN CREAM 15 GM TOP SCH (10:01)
[2019-06-06] MEDS: ALLOPURINOL 300 MG TAB PO SCH (10:01)
[2019-06-06] MEDS: predniSONE 2.5 MG TAB PO SCH (10:01)
[2019-06-06] MEDS: VITAMIN D 1,000 INTERNATIONAL UNITS TABLET PO SCH (10:01)
[2019-06-06] MEDS: PANTOPRAZOLE 40MG TAB (PROTONIX) PO SCH ×2 (10:01→21:33)
--- NOTE | 2019-06-06 13:50 | IPNPDOC ---
Date Seen The patient was seen on 06/06/19. Progress Note SUBJECTIVE: Patient appeared to be unchanged from yesterday saying she does not feel well. Complaints of pain in her legs chronically. Afebrile overnight. OBJECTIVE PHYSICAL EXAMINATION: VITAL SIGNS: Please see below. General: Mild to moderate distress, Alert Eyes: Normal sclera, EOMI HENT: Atraumatic, neck supple, moist mucous membranes Cardiovascular: Normal rate, normal rhythm. Pulmonary: Clear to auscultation b/l, no wheezing GI: Soft, nontender, nondistended Skin: Warm and dry. b/l chronic venous stasis changes but slightly more erythematous from midshin down on RLE with surrounding bruised edges. Neuro: CN grossly intact. No focal deficits. Psych: oriented x 2 to person and year LABORATORY DATA, IMAGING STUDIES, MICROBIOLOGY: Please see below. DVT prophylaxis ordered?: On Xarelto ASSESSMENT AND PLAN: 1. Chronic venous stasis with suspected superimposing RLE cellulitis - c/w Ancef. Some bruising noted around edges, likely from the fall she had at one point. - Afebrile with no leukocytosis. 2. R. fibular fracture ruled out - Pain diffusely throughout b/l legs. XR R. tibia/fibula showed no evidence of fracture. - c/w pain control for now. - PT if tolerated. 3. DM - diabetic diet. - Initially on ISS with FS ACHS but patient does not want sliding scale insulin and requested to be back on home Glipizide. - BS had been controlled. Will d/c those at this time. Monitor Glucose of BMP. Resume sliding scale if persistently elevated. 4. HTN - Resume home meds 5. hx seizures - c/w keppra - seizure precautions 6. Urinary incontinence with h/o recurrent UTIs. - Monitor for symptoms. - Ideally would not continue testing and treating unless symptomatic. VS, I&O, 24H, Fishbone Vital Signs/I&O Vital Signs Date Time Temp Pulse Resp B/P (MAP) Pulse Ox O2 Delivery O2 Flow Rate FiO2 06/06/19 10:00 92 98/52 (67) 06/06/19 06:00 98.6 18 98 06/05/19 10:51 Room Air I&O- Last 24 Hours up to 6 AM 06/06/19 06:00 Intake Total 1970 ml Output Total 0 ml Balance 1970 ml Laboratory Data 24H LABS Laboratory Tests 2 06/05/19 16:47: Bedside Glucose (Misc Panel) 141H 06/05/19 20:31: Bedside Glucose (Misc Panel) 164H 06/06/19 05:29: Nucleated Red Blood Cells % (auto) 0.0, Prothrombin Time 17.3H, Prothromb Time International Ratio 1.44, Anion Gap 6L, Glomerular Filtration Rate > 60.0, Calcium Level 9.4 06/06/19 11:20: Bedside Glucose (Misc Panel) 166H CBC/BMP Laboratory Tests 06/06/19 05:29 SATISH FLORES MD Jun 06, 2019 13:50
[2019-06-06 14:00] VITALS: BP 118/65
[2019-06-06] MEDS ORDERED: MORPHINE 4 MG/ML 1ML VIAL/SYRINGE (J2270) IV ONE (16:45)
[2019-06-06] MEDS: RIVAROXABAN 15 MG TAB (XARELTO) PO SCH (17:05)
[2019-06-06 20:00] VITALS: BP_SYST 121; BP_SYST 127; BP_DIAS 66; BP_DIAS 80
[2019-06-06] MEDS: SENOKOT S TAB PO SCH (21:33)
[2019-06-06] MEDS: LATANOPROST 0.005% OPHTH SOLN 2.5 ML OU SCH (21:34)
[2019-06-06] MEDS: SIMVASTATIN 40 MG TAB PO SCH (21:34)
[2019-06-06 23:15] VITALS: O2SAT 91
[2019-06-07] MEDS: ceFAZolin SOD 1 GM in D5W MINI-BAG PLUS 50 ML IV SCH ×3 (01:22→17:16)
[2019-06-07 06:00] VITALS: BP 133/79
[2019-06-07 06:50] LABS: HEMATOCRIT 32.3 % (36.0-47.0); HEMOGLOBIN 10.4 g/dl (12.0-15.5); MEAN CORPUSCULAR HEMOGLOBIN 30.1 pg (27.0-33.0); MEAN CORPUSCULAR HGB CONC 32.2 g/dl (32.0-36.5); MEAN CORPUSCULAR VOLUME 93.6 fl (80.0-96.0); PLATELET COUNT, AUTOMATED 319 10^3/uL (150-450); RED BLOOD COUNT 3.45 10^6/uL (4.00-5.40); WHITE BLOOD COUNT 8.1 10^3/uL (4.0-10.0)
[2019-06-07 07:00] LABS: INR 1.4; PROTHROMBIN TIME 16.9 SECONDS (11.8-14.0)
[2019-06-07 07:20] LABS: BLOOD UREA NITROGEN 20 MG/DL (7-18); CALCIUM LEVEL 9.4 MG/DL (8.8-10.2); CARBON DIOXIDE LEVEL 25 MEQ/L (21-32); CHLORIDE LEVEL 108 MEQ/L (98-107); CREATININE FOR GFR 0.66 MG/DL (0.55-1.30); GLOMERULAR FILTRATION RATE > 60.0 (>32); GLUCOSE, FASTING 105 MG/DL (70-100); POTASSIUM SERUM 3.9 MEQ/L (3.5-5.1); SODIUM LEVEL 139 MEQ/L (136-145)
[2019-06-07 09:00] VITALS: O2SAT 93
[2019-06-07] MEDS: TORSEMIDE 10 MG TABLET PO SCH (09:02)
[2019-06-07] MEDS: VITAMIN D 1,000 INTERNATIONAL UNITS TABLET PO SCH (09:02)
[2019-06-07] MEDS: predniSONE 2.5 MG TAB PO SCH (09:02)
[2019-06-07] MEDS: PANTOPRAZOLE 40MG TAB (PROTONIX) PO SCH ×2 (09:02→20:50)
[2019-06-07] MEDS: MULTIVITAMINS/MINERALS THERAP 1 TAB PO SCH (09:02)
[2019-06-07] MEDS: levETIRAcetam 250MG TABLET (KEPPRA) PO SCH ×2 (09:02→20:50)
[2019-06-07] MEDS: glipiZIDE XL 5 MG TABCR PO SCH (09:02)
[2019-06-07] MEDS: DULoxetine 30 MG CAP (CYMBALTA) PO SCH (09:03)
[2019-06-07] MEDS: ALLOPURINOL 300 MG TAB PO SCH (09:03)
[2019-06-07] MEDS: NYSTATIN CREAM 15 GM TOP SCH (09:03)
[2019-06-07] MEDS: NS 1,000 ML IV SCH (09:04)
[2019-06-07 12:00] VITALS: BP 135/68
[2019-06-07 16:00] VITALS: BP 128/64
[2019-06-07] MEDS: RIVAROXABAN 15 MG TAB (XARELTO) PO SCH (17:16)
--- NOTE | 2019-06-07 19:48 | IPNPDOC ---
Date Seen The patient was seen on 06/07/19. Progress Note SUBJECTIVE: Patient still seem sensitive and complains of pain to touch at most places. slightly confused as usual, suspect that this is her baseline. Bruising in RLE improving OBJECTIVE PHYSICAL EXAMINATION: VITAL SIGNS: Please see below. General: Mild to moderate distress, Alert Eyes: Normal sclera, EOMI HENT: Atraumatic, neck supple, moist mucous membranes Cardiovascular: Normal rate, normal rhythm. Pulmonary: Clear to auscultation b/l, no wheezing GI: Soft, nontender, nondistended Skin: Warm and dry. b/l chronic venous stasis changes but slightly more erythematous from midshin down on RLE. Neuro: CN grossly intact. No focal deficits. Psych: oriented x 2 to person and year LABORATORY DATA, IMAGING STUDIES, MICROBIOLOGY: Please see below. DVT prophylaxis ordered?: On Xarelto ASSESSMENT AND PLAN: 1. Chronic venous stasis with suspected superimposing RLE cellulitis - c/w Ancef. Some bruising noted around edges, likely from the fall she had at one point. - Afebrile with no leukocytosis. 2. R. fibular fracture ruled out - Pain diffusely throughout b/l legs. XR R. tibia/fibula showed no evidence of fracture. - c/w pain control for now. - PT if tolerated. 3. DM - diabetic diet. - Initially on ISS with FS ACHS but patient does not want sliding scale insulin and requested to be back on home Glipizide. - BS had been controlled. Will d/c those at this time. Monitor Glucose of BMP. Resume sliding scale if persistently elevated. 4. HTN - Resume home meds 5. hx seizures - c/w keppra - seizure precautions 6. Urinary incontinence with h/o recurrent UTIs. - Monitor for symptoms. - Ideally would not continue testing and treating unless symptomatic. VS, I&O, 24H, Fishbone Vital Signs/I&O Vital Signs Date Time Temp Pulse Resp B/P (MAP) Pulse Ox O2 Delivery O2 Flow Rate FiO2 06/07/19 16:00 97.5 78 18 128/64 (85) 93 2.0 06/07/19 12:00 Nasal Cannula I&O- Last 24 Hours up to 6 AM 06/07/19 05:59 Intake Total 1896.7 ml Output Total 0 ml Balance 1896.7 ml Laboratory Data 24H LABS Laboratory Tests 2 06/07/19 06:30: Nucleated Red Blood Cells % (auto) 0.0, Prothrombin Time 16.9H, Prothromb Time International Ratio 1.40, Anion Gap 6L, Glomerular Filtration Rate > 60.0, Calcium Level 9.4 CBC/BMP Laboratory Tests 06/07/19 06:30 SATISH FLORES MD Jun 07, 2019 19:48
[2019-06-07] MEDS: LATANOPROST 0.005% OPHTH SOLN 2.5 ML OU SCH (20:50)
[2019-06-07] MEDS: SIMVASTATIN 40 MG TAB PO SCH (20:50)
[2019-06-07] MEDS: SENOKOT S TAB PO SCH (20:50)
[2019-06-07] MEDS: ACETAMINOPHEN TAB 650MG DOSE (2X325MG) PO PRN (20:51)
[2019-06-07 22:00] VITALS: BP 135/77
[2019-06-08] MEDS: ceFAZolin SOD 1 GM in D5W MINI-BAG PLUS 50 ML IV SCH ×2 (00:50→09:40)
[2019-06-08 03:48] VITALS: O2SAT 97
[2019-06-08 06:00] VITALS: BP 130/71
[2019-06-08 06:40] LABS: HEMATOCRIT 32.7 % (36.0-47.0); HEMOGLOBIN 10.6 g/dl (12.0-15.5); MEAN CORPUSCULAR HEMOGLOBIN 30.1 pg (27.0-33.0); MEAN CORPUSCULAR HGB CONC 32.4 g/dl (32.0-36.5); MEAN CORPUSCULAR VOLUME 92.9 fl (80.0-96.0); PLATELET COUNT, AUTOMATED 339 10^3/uL (150-450); RED BLOOD COUNT 3.52 10^6/uL (4.00-5.40); WHITE BLOOD COUNT 6.7 10^3/uL (4.0-10.0)
[2019-06-08 06:54] LABS: INR 1.37; PROTHROMBIN TIME 16.6 SECONDS (11.8-14.0)
[2019-06-08 07:06] LABS: BLOOD UREA NITROGEN 15 MG/DL (7-18); CALCIUM LEVEL 9.2 MG/DL (8.8-10.2); CARBON DIOXIDE LEVEL 27 MEQ/L (21-32); CHLORIDE LEVEL 109 MEQ/L (98-107); CREATININE FOR GFR 0.69 MG/DL (0.55-1.30); GLOMERULAR FILTRATION RATE > 60.0 (>32); GLUCOSE, FASTING 85 MG/DL (70-100); POTASSIUM SERUM 3.8 MEQ/L (3.5-5.1); SODIUM LEVEL 141 MEQ/L (136-145)
[2019-06-08] MEDS: TORSEMIDE 10 MG TABLET PO SCH (09:36)
[2019-06-08] MEDS: MULTIVITAMINS/MINERALS THERAP 1 TAB PO SCH (09:36)
[2019-06-08] MEDS: levETIRAcetam 250MG TABLET (KEPPRA) PO SCH (09:37)
[2019-06-08] MEDS: VITAMIN D 1,000 INTERNATIONAL UNITS TABLET PO SCH (09:37)
[2019-06-08] MEDS: ALLOPURINOL 300 MG TAB PO SCH (09:37)
[2019-06-08] MEDS: PANTOPRAZOLE 40MG TAB (PROTONIX) PO SCH (09:37)
[2019-06-08] MEDS: glipiZIDE XL 5 MG TABCR PO SCH (09:38)
[2019-06-08] MEDS: predniSONE 2.5 MG TAB PO SCH (09:38)
[2019-06-08] MEDS: DULoxetine 30 MG CAP (CYMBALTA) PO SCH (09:38)
[2019-06-08] MEDS: NYSTATIN CREAM 15 GM TOP SCH (09:39)
[2019-06-08] MEDS: NS 1,000 ML IV SCH (09:39)
[2019-06-08] MEDS ORDERED: CLIN150C14 PO (10:46)
[2019-06-08 10:48] VITALS: O2SAT 96
--- NOTE | 2019-06-08 11:41 | DS.PDOC ---
Discharge Summary General Date of Admission Jun 04, 2019 at 23:58 Date of Discharge 06/08/19 Discharge Summary PROCEDURES PERFORMED DURING STAY: [None]. ADMITTING DIAGNOSES: 1. RLE cellulitis 2. Suspected R. fibular head fracture 3. Urinary incontinence 4. DM II 5. HTN 6. h/o Seizures 7. h/o Falls DISCHARGE DIAGNOSES: 1. RLE cellulitis 2. Suspected R. fibular head fracture 3. Urinary incontinence 4. DM II 5. HTN 6. h/o Seizures 7. h/o Falls COMPLICATIONS/CHIEF COMPLAINT: Cellulitis Of Right Lower Extremity. HISTORY OF PRESENT ILLNESS: "Pat is a 89yo female with pertinent past medical history of DMII w/ neuropathy, history of seizures on Keppra, spinal stenosis, wilfrid w/ cpap, htn, spinal stenosis, h/o falls, and h/o recurrent uti, who presented to the ED on 06/04 w/ the cc of RLE swelling and redness with progressively increasing pain. Pt reports she feel roughly one week ago and has had some moderate accompanying rle pain since. Pt reports she has a history of many falls. Pt has been non- weight bearing and using a goldy lift since fall. Pt had rle xray imaging done after the fall last week that were questionable for rt fibular head fracture. She awoke this morning with increased swelling and redness of the rle. As the day progressed, pt's pain increased. Pt used tylenol for pain that worked to diminish her symptoms for a short period of time before her pain and discomfort returned. Any movement of pt's rle elicits pain. Pt reports accompanying lle numbness since this past Tuesday after sitting on a bedpan for an extended period of time to urinate. Pt also has soreness along the lateral margin of her left knee and thigh. Pt states this lt knee and thigh soreness is still present, but has improved. Pt says she has never experienced this presentation of symptoms before. Pt's last hospitalization was in January 2019 after a fall that caused a rt humeral fx that necessitated a sling and physical therapy. Pt was visited at her [facility] facility by her daughter today, with her daughter subsequently calling ems to transport her to the ed. Pt was accompanied in ED by her daughter Karo, who assisted with history at times. Pt's pcp is Dr. Pichardo, and she follows with an eye care provider, pulmonology (Dr. Morgan), and neurology (Dr. Tucker) as an outpatient. Pt used to follow with Dr. Fernandez Lozano for primary care, before moving to the [facility] and receiving care from Dr. Pichardo. Pt verbalizes to hospitalist team upon questioning that her code status is full code. Both pt and her daughter confirm that her medical wishes, including dnr/dni, have been previously documented. In ED, pt underwent a rle duplex u/s that found no evidence of dvt. Initial cbc showed borderline normocytic anemia (Hgb 11.9). Pt was admitted under care of the hospitalist team to med/surg." HOSPITAL COURSE: Patient admitted for treatment of cellulitis and does note erythema b/l worse on the RLE. There are some erythema b/l below shins likely stasis changes but worse on the R. side with some bruising in the periphery. Suspect that patient may have fell onto the R. leg causing bruising. There was a concern for R. fibular fracture but XR does not note any on this admission. Patient does complain of severe pain at most places particularly her lower extremities. She reported that she has a lot of pain everywhere because someone told her her L. leg had a fracture. She continues to complain of discomfort and sensitive to touch in most areas of her body. She does appear confused despite being able to answer most questions appropriately. She had previously been here and based on history, this seems like her baseline status of dementia with hesitancy to ambulate with reports of discomfort when touched. RLE erythema bruised have slowly resolved, also erythematous but slightly improved. Has been getting cefazolin for 3 days, will discharge with 5 additional days of clindamycin for cellulitis treatment given patient has an allergy to Sulfa and amoxicillin. DISCHARGE MEDICATIONS: Please see below. ALLERGIES: Please see below. PHYSICAL EXAMINATION ON DISCHARGE: VITAL SIGNS: Please see below. General: Mild to moderate distress, Alert Eyes: Normal sclera, EOMI HENT: Atraumatic, neck supple, moist mucous membranes Cardiovascular: Normal rate, normal rhythm. Pulmonary: Clear to auscultation b/l, no wheezing GI: Soft, nontender, nondistended Skin: Warm and dry. b/l erythema below beck worse on the R. side, minimal on the L. Neuro: CN grossly intact. No focal deficits. Psych: oriented x 2 to person and year LABORATORY DATA: Please see below. IMAGING: Duplex US RLE- IMPRESSION: No evidence of deep vein thrombosis. RLE XR- IMPRESSION: 1. No acute fracture. 2. Widening of the lateral ankle joint space may indicate ligament laxity or lateral ligament injury. ACTIVITY: [As tolerated]. DIET: Consistent carbohydrate DISCHARGE PLAN: Complete course of antibiotics f/u PMD within 1 week DISPOSITION: [facility]. DISCHARGE INSTRUCTIONS: Complete course of antibiotics f/u PMD within 1 week ITEMS TO FOLLOWUP ON ON OUTPATIENT: None DISCHARGE CONDITION: [Stable]. TIME SPENT ON DISCHARGE: 32 minutes Vital Signs/I&Os Vital Signs Date Time Temp Pulse Resp B/P (MAP) Pulse Ox O2 Delivery O2 Flow Rate FiO2 06/08/19 10:48 96 Room Air 06/08/19 06:00 98.3 69 18 130/71 (90) 2.0 I&O- Last 24 Hours up to 6 AM 06/08/19 06:00 Intake Total 650 ml Output Total 0 ml Balance 650 ml Laboratory Data Labs 24H Laboratory Tests 2 06/08/19 06:17: Nucleated Red Blood Cells % (auto) 0.0, Prothrombin Time 16.6H, Prothromb Time International Ratio 1.37, Anion Gap 5L, Glomerular Filtration Rate > 60.0, Calcium Level 9.2 CBC/BMP Laboratory Tests 06/08/19 06:17 Discharge Medications Scheduled Allopurinol (Zyloprim) 300 Mg Tablet, 150 MG PO DAILY, (Reported) Cholecalciferol (Vitamin D3) (Vitamin D3) 2,000 Unit Tab, 2,000 UNIT PO DAILY, (Reported) Clindamycin Hcl (Clindamycin HCl) 150 Mg Capsule, 300 MG PO QID Duloxetine Hcl (Cymbalta) 30 Mg Capsule.dr, 60 MG PO DAILY Glipizide (Glipizide Xl) 5 Mg Tab, 5 MG PO DAILY, (Reported) Latanoprost (Xalatan) 0.005 % Tran, 1 DROP OU QHS, (Reported) Levetiracetam (Keppra) 500 Mg Tab, 500 MG PO BID, (Reported) Lidocaine (Aspercreme) 4% Adh..patch, 2 PATCH TOP DAILY, (Reported) APPLY TO RIGHT SHOULDER/LOW BACK Multivitamins (Thera M Plus Tablet) 1 Tab Tab, 1 TAB PO DAILY, (Reported) Pantoprazole Sodium (Pantoprazole Sodium) 40 Mg Tablet.dr, 40 MG PO BID, (Reported) Prednisone (Prednisone) 2.5 Mg Tablet, 2.5 MG PO DAILY Propylene Glycol/Peg 400/Pf (Systane 0.3-0.4% Eye Drop) 1 Each Droperette, 1 DROP OU BID, (Reported) Rivaroxaban (Xarelto) 20 Mg Tablet, 20 MG PO QPM, (Reported) Sennosides/Docusate Sodium (Senna-S Tablet) 1 Tab Tab, 1 TAB PO QPM, (Reported) Simvastatin (Simvastatin) 40 Mg Tab, 40 MG PO QHS, (Reported) Torsemide (Torsemide) 10 Mg Tablet, 10 MG PO DAILY Vitamin D (Vitamin D3) 1,000 Unit Tablet, 2,000 UNITS PO DAILY Scheduled PRN Acetaminophen (Acetaminophen) 325 Mg Tablet, 650 MG PO Q6H PRN for PAIN, (Reported) Albuterol Sulf (Albuterol Sulfate) 2.5 Mg/3 Ml Nebu, 2.5 MG INH Q6H PRN for SOB/WHEEZING, (Reported) Albuterol Sulfate (Ventolin Hfa) 108 Mcg/Act Aer, 2 PUFFS INH QID PRN for SHORTNESS OF BREATH, (Reported) Bisacodyl (Bisacodyl) 10 Mg Supp.rect, 10 MG MD DAILY PRN for CONSTIPATION, (Reported) Docusate Sodium (Colace) 100 Mg Capsule, 100 MG PO BID PRN for CONSTIPATION, (Reported) Methyl Salicylate/Menth/Camph (Bengay Ultra Strength Cream) 1 Cre Cre, 1 APLCT TOP TID PRN for PAIN, (Reported) Milk Of Magnesia (Milk of Magnesia) 2,400 Mg/10 Ml Oral.susp, 30 ML PO DAILY PRN for CONSTIPATION, (Reported) Nitroglycerin (Nitroglycerin) 0.4 Mg Sub, 0.4 MG SL Q5MP PRN for CHEST PAIN, (Reported) Allergies Coded Allergies: Sulfa (Sulfonamide Antibiotics) (Verified Allergy, Severe, 01/28/19) amoxicillin (Verified Allergy, Intermediate, body rash, 06/04/19) iodine (Verified Allergy, Intermediate, swelling, 01/28/19) latex (Verified Allergy, Intermediate, rash, 06/04/19) codeine (Verified Adverse Reaction, Intermediate, vomiting, 01/28/19) SATISH FLORES MD Jun 08, 2019 11:41
== END 2019-06-08 12:00 | DRG 603 ==
LOC: EDBD 15:20 → M ED 15:20 → M ED INP 23:58 → M MSPAV 06-05 01:27
PROVIDERS: ADMIT Internal Medicine; ATTEND Student in an Organized Health Care Education/Training Program
DX: L03.115 Cellulitis of right lower limb (principal); M79.661 Pain in right lower leg; E11.40 Type 2 diabetes mellitus with diabetic neuropathy, unspecified; G40.909 Epilepsy, unspecified, not intractable, without status epilepticus; G47.33 Obstructive sleep apnea (adult) (pediatric); M48.00 Spinal stenosis, site unspecified; I10 Essential (primary) hypertension; Z91.81 History of falling; Z79.84 Long term (current) use of oral hypoglycemic drugs; Z66 Do not resuscitate; R32 Unspecified urinary incontinence; M19.90 Unspecified osteoarthritis, unspecified site; M81.0 Age-related osteoporosis without current pathological fracture; K21.9 Gastro-esophageal reflux disease without esophagitis; Z87.440 Personal history of urinary (tract) infections; E78.00 Pure hypercholesterolemia, unspecified; Z90.49 Acquired absence of other specified parts of digestive tract; Z96.653 Presence of artificial knee joint, bilateral; Z79.4 Long term (current) use of insulin; Z79.899 Other long term (current) drug therapy; Z79.01 Long term (current) use of anticoagulants; Z88.1 Allergy status to other antibiotic agents; Z88.2 Allergy status to sulfonamides; Z88.5 Allergy status to narcotic agent; Z88.8 Allergy status to other drugs, medicaments and biological substances; Z91.040 Latex allergy status; I87.8 Other specified disorders of veins; D64.9 Anemia, unspecified; L53.9 Erythematous condition, unspecified; M25.871 Other specified joint disorders, right ankle and foot; M25.872 Other specified joint disorders, left ankle and foot

== ENCOUNTER → 2019-06-13 | Outpatient (REF) ==
[~2019-06-13] MED LIST changes: +ACET-908 PO; +ASPE4PAD TOP; +BISA10SU PR; +CLIN150C14 PO; +MOM30SS PO; +PANT-23 PO; +SYST1SOL4 OU; +XARE20TA PO
[2019-06-13 13:14] LABS: HEMOGLOBIN 12.1 g/dl (12.0-15.5); MEAN CORPUSCULAR HEMOGLOBIN 30.2 pg (27.0-33.0); MEAN CORPUSCULAR HGB CONC 31.8 g/dl (32.0-36.5); MEAN CORPUSCULAR VOLUME 94.8 fl (80.0-96.0); PLATELET COUNT, AUTOMATED 451 10^3/uL (150-450); RED BLOOD COUNT 4.01 10^6/uL (4.00-5.40); WHITE BLOOD COUNT 8.1 10^3/uL (4.0-10.0)
[2019-06-13 13:39] LABS: BLOOD UREA NITROGEN 22 MG/DL (7-18); CALCIUM LEVEL 9.8 MG/DL (8.8-10.2); CARBON DIOXIDE LEVEL 30 MEQ/L (21-32); CHLORIDE LEVEL 104 MEQ/L (98-107); CREATININE FOR GFR 0.74 MG/DL (0.55-1.30); GLOMERULAR FILTRATION RATE > 60.0 (>32); GLUCOSE, FASTING 144 MG/DL (70-100); POTASSIUM SERUM 4.1 MEQ/L (3.5-5.1); SODIUM LEVEL 139 MEQ/L (136-145)
== END ==
PROVIDERS: ATTEND Family Medicine
DX: I50.9 Heart failure, unspecified (principal)

== ENCOUNTER → 2019-06-20 | Outpatient (REF) ==
[2019-06-20 09:47] LABS: HEMATOCRIT 39.6 % (36.0-47.0); HEMOGLOBIN 12.7 g/dl (12.0-15.5); MEAN CORPUSCULAR HEMOGLOBIN 30.8 pg (27.0-33.0); MEAN CORPUSCULAR HGB CONC 32.1 g/dl (32.0-36.5); MEAN CORPUSCULAR VOLUME 95.9 fl (80.0-96.0); PLATELET COUNT, AUTOMATED 402 10^3/uL (150-450); RED BLOOD COUNT 4.13 10^6/uL (4.00-5.40); WHITE BLOOD COUNT 7.6 10^3/uL (4.0-10.0)
[2019-06-20 10:12] LABS: BLOOD UREA NITROGEN 25 MG/DL (7-18); CARBON DIOXIDE LEVEL 29 MEQ/L (21-32); CHLORIDE LEVEL 105 MEQ/L (98-107); CREATININE FOR GFR 0.82 MG/DL (0.55-1.30); GLOMERULAR FILTRATION RATE > 60.0 (>32); GLUCOSE, FASTING 88 MG/DL (70-100); POTASSIUM SERUM 4.4 MEQ/L (3.5-5.1); SODIUM LEVEL 140 MEQ/L (136-145)
== END ==
PROVIDERS: ATTEND Family Medicine
DX: I50.9 Heart failure, unspecified (principal)

== ENCOUNTER → 2019-07-25 | Outpatient (REF) ==
[~2019-07-25] MED LIST changes: +SIMV40TA20 PO
[2019-07-25 09:04] LABS: HEMATOCRIT 39.5 % (36.0-47.0); HEMOGLOBIN 12.4 g/dl (12.0-15.5); MEAN CORPUSCULAR HGB CONC 31.4 g/dl (32.0-36.5); MEAN CORPUSCULAR VOLUME 95.6 fl (80.0-96.0); PLATELET COUNT, AUTOMATED 278 10^3/uL (150-450); RED BLOOD COUNT 4.13 10^6/uL (4.00-5.40); WHITE BLOOD COUNT 9.5 10^3/uL (4.0-10.0)
[2019-07-25 09:25] LABS: BLOOD UREA NITROGEN 26 MG/DL (7-18); CALCIUM LEVEL 9.8 MG/DL (8.8-10.2); CARBON DIOXIDE LEVEL 29 MEQ/L (21-32); CHLORIDE LEVEL 106 MEQ/L (98-107); GLOMERULAR FILTRATION RATE > 60.0 (>32); GLUCOSE, FASTING 104 MG/DL (70-100); POTASSIUM SERUM 4.5 MEQ/L (3.5-5.1); SODIUM LEVEL 141 MEQ/L (136-145)
== END ==
PROVIDERS: ATTEND Family Medicine
DX: I50.20 Unspecified systolic (congestive) heart failure (principal)

== ENCOUNTER → 2019-07-30 | Outpatient (REF) ==
[~2019-07-30] MED LIST changes: +OMEP-172 PO; -OMEP20CA4 PO
--- NOTE | 2019-07-30 15:46 | REPPI ---
Single view chest: 07/30/2019. Indication: Cough. Comparison: 05/11/2019. Findings: Poor inspiratory result is noted. Chronic interstitial fibrosis is present. Scoliosis is unchanged. Ectatic and atherosclerotic aorta is again noted. There is no evidence of pneumothorax or significant pleural effusion. Impression: No acute changes compared to the previous studies. Electronically Signed by Juan Miguel Jeff DO 07/30/2019 03:38 P
== END ==
PROVIDERS: ATTEND Nurse Practitioner Adult Health
DX: R05 Cough (principal)

== ENCOUNTER → 2019-10-10 | Outpatient (REF) | payer MEDICARE, MEDICAID ==
[~2019-10-10] MED LIST changes: -OMEP-172 PO; +OMEP1CAP73 PO
[2019-10-10 18:40] LABS: HEMATOCRIT 41.9 % (36.0-47.0); HEMOGLOBIN 13.3 g/dl (12.0-15.5); MEAN CORPUSCULAR HEMOGLOBIN 29.9 pg (27.0-33.0); MEAN CORPUSCULAR HGB CONC 31.7 g/dl (32.0-36.5); MEAN CORPUSCULAR VOLUME 94.2 fl (80.0-96.0); PLATELET COUNT, AUTOMATED 335 10^3/uL (150-450); RED BLOOD COUNT 4.45 10^6/uL (4.00-5.40); WHITE BLOOD COUNT 7.6 10^3/uL (4.0-10.0)
[2019-10-10 19:09] LABS: ALBUMIN 3.4 GM/DL (3.2-5.2); ALT/SGPT 21 U/L (12-78); BILIRUBIN,TOTAL 0.3 MG/DL (0.2-1.0); BLOOD UREA NITROGEN 24 MG/DL (7-18); CALCIUM LEVEL 10.1 MG/DL (8.8-10.2); CARBON DIOXIDE LEVEL 30 MEQ/L (21-32); CHLORIDE LEVEL 104 MEQ/L (98-107); CREATININE FOR GFR 0.85 MG/DL (0.55-1.30); GLOMERULAR FILTRATION RATE > 60.0 (>32); GLUCOSE, FASTING 127 MG/DL (70-100); POTASSIUM SERUM 4.8 MEQ/L (3.5-5.1); SODIUM LEVEL 138 MEQ/L (136-145); TOTAL PROTEIN 6.5 GM/DL (6.4-8.2)
== END ==
PROVIDERS: ATTEND Family Medicine
DX: R56.9 Unspecified convulsions (principal); R30.9 Painful micturition, unspecified

== ENCOUNTER → 2019-10-11 | Outpatient (CLI) | payer MEDICARE, MEDICAID ==
--- NOTE | 2019-10-11 13:05 | REP ---
Clinical: Right upper quadrant pain. Technique: Axial noncontrast images from the lung bases to the pubic symphysis with coronal and sagittal re-formations. Comparison: 04/14/2018 Findings: Liver, spleen, pancreas, bilateral adrenal glands and kidneys are relatively normal for noncontrast evaluation. The enteric system exhibits moderate fecal stasis without obstruction or acute inflammatory process. Colonic diverticulosis noted without acute diverticulitis. Pelvis demonstrates normal bladder and evidence for prior hysterectomy. No ascites. No free air. No adenopathy. Atherosclerotic changes to the aorta without aneurysm. Musculoskeletal structures demonstrate age-related degenerative changes including chronic anterolisthesis at the L4-5 level. Lung bases demonstrate chronic changes. Impression: 1. Moderate fecal stasis. 2. No acute abdominopelvic pathology appreciated. No ascites, focal inflammatory stranding, or adenopathy. No free air. 3. 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 Electronically Signed by Quintin Paz MD 10/11/2019 12:57 P
== END ==
LOC: M RAD 11:57
PROVIDERS: ATTEND Nurse Practitioner Adult Health
DX: R10.13 Epigastric pain (principal)

== ENCOUNTER → 2019-10-24 | Outpatient (REF) ==
[2019-10-24 12:52] LABS: CALCIUM LEVEL 10.1 MG/DL (8.8-10.2); CREATININE FOR GFR 1.02 MG/DL (0.55-1.30); GLOMERULAR FILTRATION RATE 54.4 (>32); HEMATOCRIT 43.2 % (36.0-47.0); HEMOGLOBIN 13.7 g/dl (12.0-15.5); MEAN CORPUSCULAR HEMOGLOBIN 30.2 pg (27.0-33.0); MEAN CORPUSCULAR HGB CONC 31.7 g/dl (32.0-36.5); MEAN CORPUSCULAR VOLUME 95.4 fl (80.0-96.0); PLATELET COUNT, AUTOMATED 348 10^3/uL (150-450); POTASSIUM SERUM 4.5 MEQ/L (3.5-5.1); RED BLOOD COUNT 4.53 10^6/uL (4.00-5.40); WHITE BLOOD COUNT 8.2 10^3/uL (4.0-10.0)
== END ==
PROVIDERS: ATTEND Family Medicine
DX: I50.9 Heart failure, unspecified (principal)

== ENCOUNTER → 2019-11-21 | Outpatient (REF) ==
[2019-11-21 09:59] LABS: BASO # 0.1 10^3/uL (0.0-0.2); BASO % 0.7 % (0.0-1.0); EOS # 0.3 10^3/uL (0.0-0.5); EOS % 4.7 % (0.0-3.0); HEMOGLOBIN 12.9 g/dl (12.0-15.5); LYMPH # 1.8 10^3/uL (1.5-5.0); LYMPH % 25.4 % (24.0-44.0); MEAN CORPUSCULAR HEMOGLOBIN 30.9 pg (27.0-33.0); MEAN CORPUSCULAR HGB CONC 33.1 g/dl (32.0-36.5); MEAN CORPUSCULAR VOLUME 93.5 fl (80.0-96.0); MONO # 0.8 10^3/uL (0.0-0.8); MONO % 10.9 % (0.0-5.0); NEUTROPHILS # 4.1 10^3/uL (1.5-8.5); NEUTROPHILS % 58.2 % (36.0-66.0); PLATELET COUNT, AUTOMATED 279 10^3/uL (150-450); RED BLOOD COUNT 4.17 10^6/uL (4.00-5.40); WHITE BLOOD COUNT 7.1 10^3/uL (4.0-10.0)
[2019-11-21 10:39] LABS: ALBUMIN 3.1 GM/DL (3.2-5.2); ALT/SGPT 15 U/L (12-78); BILIRUBIN,TOTAL 0.4 MG/DL (0.2-1.0); BLOOD UREA NITROGEN 20 MG/DL (7-18); CALCIUM LEVEL 9.5 MG/DL (8.8-10.2); CARBON DIOXIDE LEVEL 25 MEQ/L (21-32); CHLORIDE LEVEL 108 MEQ/L (98-107); GLOMERULAR FILTRATION RATE > 60.0 (>32); GLUCOSE, FASTING 141 MG/DL (70-100); POTASSIUM SERUM 4.8 MEQ/L (3.5-5.1); SODIUM LEVEL 140 MEQ/L (136-145); TOTAL PROTEIN 6.3 GM/DL (6.4-8.2)
== END ==
PROVIDERS: ATTEND Family Medicine
DX: I50.9 Heart failure, unspecified (principal)

== ENCOUNTER → 2019-12-11 | Outpatient (REF) | payer MEDICARE, MEDICAID ==
[2019-12-11 13:45] LABS: AMORPHOUS SEDIMENT SMALL (NEGATIVE); APPEARANCE, URINE TURBID (CLEAR); BACTERIA, URINE AUTO 3+ (NEGATIVE); BILIRUBIN, URINE AUTO NEGATIVE (NEGATIVE); BLOOD, URINE BLOOD 1+ (NEGATIVE); COLOR, URINE YELLOW (YELLOW); GLUCOSE, URINE (UA) AUTO NEGATIVE (NEGATIVE); KETONE, URINE AUTO NEGATIVE (NEGATIVE); LEUKOCYTE ESTERASE, URINE AUTO 3+ (NEGATIVE); NITRITE, URINE AUTO NEGATIVE (NEGATIVE); PROTEIN, URINE AUTO 1+ mg/dL (NEGATIVE); RBC, URINE AUTO 10 /HPF (0-3); SPECIFIC GRAVITY URINE AUTO 1.009 (1.002-1.035); SQUAMOUS EPITHELIAL CELL UR AU 2 /HPF (0-6); UROBILINOGEN, URINE AUTO 0.2 mg/dL (0.0-2.0); WBC, URINE AUTO TNTC /HPF (0-3)
== END ==
PROVIDERS: ATTEND Family Medicine
DX: R41.82 Altered mental status, unspecified (principal)

== ENCOUNTER → 2019-12-13 | Outpatient (REF) | payer MEDICARE, MEDICAID ==
--- NOTE | 2019-12-13 11:58 | REP ---
REASON FOR EXAM: Pain. COMPARISON: Portable exam of 07/30/2019. There is cardiomegaly status quo. There is uncoiling and ectasia of the aortic arch status quo. There are fibrotic changes seen throughout the lung ronqu[place] with chronic basilar changes status quo. No acute patchy parenchymal opacities or pleural effusions have developed. There is unchanged superior mediastinal widening. There is no change in the osseous structures. IMPRESSION: Stable chronic changes as described above. Electronically Signed by Chato Nj DO 12/13/2019 12:08 P
--- NOTE | 2019-12-13 11:59 | REP ---
REASON FOR EXAM: Pain. Four views were obtained. There is no acute fracture or destructive osseous lesion. Electronically Signed by Chato Nj DO 12/13/2019 12:08 P
== END ==
LOC: M RAD 10:30
PROVIDERS: ATTEND Family Medicine
DX: R07.82 Intercostal pain (principal)

== ENCOUNTER → 2019-12-14 | Outpatient (REF) | payer MEDICARE, MEDICAID ==
[2019-12-14 10:20] LABS: BASO # 0.1 10^3/uL (0.0-0.2); BASO % 0.7 % (0.0-1.0); EOS # 0.4 10^3/uL (0.0-0.5); HEMATOCRIT 41.6 % (36.0-47.0); HEMOGLOBIN 13.3 g/dl (12.0-15.5); LYMPH # 1.1 10^3/uL (1.5-5.0); LYMPH % 15.2 % (24.0-44.0); MEAN CORPUSCULAR HEMOGLOBIN 30.2 pg (27.0-33.0); MEAN CORPUSCULAR VOLUME 94.3 fl (80.0-96.0); MONO # 0.8 10^3/uL (0.0-0.8); NEUTROPHILS # 4.7 10^3/uL (1.5-8.5); NEUTROPHILS % 67.8 % (36.0-66.0); PLATELET COUNT, AUTOMATED 302 10^3/uL (150-450); RED BLOOD COUNT 4.41 10^6/uL (4.00-5.40)
[2019-12-14 10:59] LABS: ALBUMIN 3.1 GM/DL (3.2-5.2); ALT/SGPT 17 U/L (12-78); AMYLASE 43 U/L (25-115); BILIRUBIN,TOTAL 0.6 MG/DL (0.2-1.0); BLOOD UREA NITROGEN 17 MG/DL (7-18); CALCIUM LEVEL 9.9 MG/DL (8.8-10.2); CARBON DIOXIDE LEVEL 25 MEQ/L (21-32); CHLORIDE LEVEL 105 MEQ/L (98-107); CK-MB VALUE MASS < 1.0 NG/ML (<3.6); CPK CREATINE PHOSPHOKINASE 42 U/L (26-192); CREATININE FOR GFR 1.03 MG/DL (0.55-1.30); GLOMERULAR FILTRATION RATE 53.8 (>32); GLUCOSE, FASTING 188 MG/DL (70-100); MB/CK RELATIVE INDEX 2.38 (< OR =4); POTASSIUM SERUM 4.1 MEQ/L (3.5-5.1); SODIUM LEVEL 139 MEQ/L (136-145); TOTAL PROTEIN 6.2 GM/DL (6.4-8.2); TROPONIN I < 0.02 NG/ML (< 0.10)
== END ==
PROVIDERS: ATTEND Family Medicine
DX: R07.9 Chest pain, unspecified (principal)

== ENCOUNTER → 2020-01-07 | Outpatient (REF) | PROVIDERS: ATTEND Internal Medicine | DX: Z03.818 Encounter for observation for suspected exposure to other biological agents ruled out (principal) ==

== ENCOUNTER → 2020-01-24 | Outpatient (REF) | payer MEDICARE, MEDICAID ==
[2020-01-24 10:18] LABS: HEMATOCRIT 42.2 % (36.0-47.0); HEMOGLOBIN 13.2 g/dl (12.0-15.5); MEAN CORPUSCULAR HEMOGLOBIN 28.4 pg (27.0-33.0); MEAN CORPUSCULAR HGB CONC 31.3 g/dl (32.0-36.5); MEAN CORPUSCULAR VOLUME 90.9 fl (80.0-96.0); PLATELET COUNT, AUTOMATED 291 10^3/uL (150-450); RED BLOOD COUNT 4.64 10^6/uL (4.00-5.40); WHITE BLOOD COUNT 6.5 10^3/uL (4.0-10.0)
[2020-01-24 10:43] LABS: CALCIUM LEVEL 9.4 MG/DL (8.8-10.2); CREATININE FOR GFR 0.97 MG/DL (0.55-1.30); GLOMERULAR FILTRATION RATE 57.7 (>32); POTASSIUM SERUM 3.9 MEQ/L (3.5-5.1)
== END ==
PROVIDERS: ATTEND Family Medicine
DX: I50.9 Heart failure, unspecified (principal)

== ENCOUNTER → 2020-02-17 | Outpatient (REF) | payer MEDICARE, MEDICAID ==
[~2020-02-17] MED LIST changes: -CLOT1CRE EXT; +CLOT1CRE51 EXT; -COUM1TAB14 PO; +COUM4TAB8 PO; -COUM7.5T PO; +COUM7.5T6 PO
[2020-02-17 16:47] LABS: AMORPHOUS SEDIMENT SMALL (NEGATIVE); APPEARANCE, URINE CLOUDY (CLEAR); BACTERIA, URINE AUTO 1+ (NEGATIVE); BILIRUBIN, URINE AUTO NEGATIVE (NEGATIVE); BLOOD, URINE BLOOD 1+ (NEGATIVE); COLOR, URINE YELLOW (YELLOW); GLUCOSE, URINE (UA) AUTO NEGATIVE (NEGATIVE); KETONE, URINE AUTO NEGATIVE (NEGATIVE); LEUKOCYTE ESTERASE, URINE AUTO 3+ (NEGATIVE); MUCUS, URINE SMALL (NEGATIVE); NITRITE, URINE AUTO NEGATIVE (NEGATIVE); PROTEIN, URINE AUTO NEGATIVE (NEGATIVE); RBC, URINE AUTO 2 /HPF (0-3); SPECIFIC GRAVITY URINE AUTO 1.003 (1.002-1.035); SQUAMOUS EPITHELIAL CELL UR AU 1 /HPF (0-6); UROBILINOGEN, URINE AUTO 0.2 mg/dL (0.0-2.0); WBC, URINE AUTO 122 /HPF (0-3)
== END ==
PROVIDERS: ATTEND Family Medicine
DX: N39.0 Urinary tract infection, site not specified (principal)

== ENCOUNTER → 2020-03-07 | Outpatient (CLI) | payer MEDICARE, MEDICAID ==
[~2020-03-07] MED LIST changes: -ALL10TAB29 PO; +CETI-24 PO; +PANT40TA29 PO; -PANT40TA3 PO
--- NOTE | 2020-03-07 15:02 | REPVR ---
PROCEDURE INFORMATION: Exam: MR Head Without Contrast Exam date and time: 03/07/2020 11:56 AM Age: 89 years old Clinical indication: Altered mental status/memory loss and dizziness; Confusion or disorientation TECHNIQUE: Imaging protocol: MR of the head without contrast. COMPARISON: MRI-Brain without Contrast 07/27/2014 10:01 AM FINDINGS: Brain: Is there is no extra-axial collection or intra-axial mass. Moderate diffuse volume loss is within the range of normal for patient age. There are scattered foci of T2/FLAIR hyperintensity within the periventricular and subcortical white matter, nonspecific but typically small-vessel ischemia in this age group. There are chronic appearing lacunar infarcts within the tang radiata and basal ganglia as well as within the cerebellar hemispheres. There is no diffusion restriction. Ventricles: Normal. No ventriculomegaly. Bones/joints: Unremarkable. Sinuses: Normal as visualized. No acute sinusitis. Mastoid air cells: Normal as visualized. No mastoid effusion. Orbits: Unremarkable. Soft tissues: Unremarkable. IMPRESSION: No acute findings. Chronic changes. Electronically signed by: Tiffanie Rivas On 03/07/2020 15:02:16 PM
--- NOTE | 2020-03-07 15:07 | REPVR ---
PROCEDURE INFORMATION: Exam: MR Angiogram Head Without Contrast, Arteries Exam date and time: 03/07/2020 11:56 AM Age: 89 years old Clinical indication: Cognitive deficit and dizziness and giddiness; Other symptoms involving cognitive function TECHNIQUE: Imaging protocol: MR angiogram head without contrast. Exam focused on the arteries. 3D rendering: MIP and/or 3D reconstructed images were created by the technologist. COMPARISON: MRA BRAIN W/O CONTRAST 07/27/2014 9:50 AM FINDINGS: Anterior cerebral arteries: Intracranial segment is patent with no significant stenosis. No aneurysm. Right internal carotid artery: Intracranial segment is patent with no significant stenosis. No aneurysm. Right middle cerebral artery: No occlusion or significant stenosis. No aneurysm. Right posterior cerebral artery: There is a origin of the right posterior cerebral artery. Right vertebral artery: There is suspected flow limited stenosis/occlusion of the right intradural vertebral artery. Left internal carotid artery: Intracranial segment is patent with no significant stenosis. No aneurysm. Left middle cerebral artery: No occlusion or significant stenosis. No aneurysm. Left posterior cerebral artery: There is a origin of the left posterior cerebral artery. Left vertebral artery: No occlusion or significant stenosis. No aneurysm. 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 There is a suggestion of decreased flow signal obtained from the proximal basilar artery, but this may be artifactual. IMPRESSION: 1. 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 2. Loss of flow signal involving the proximal basilar artery, potentially artifact. CTA may be of benefit to exclude flow-limiting stenosis. 3. Suspected occlusion of the right vertebral artery. Electronically signed by: Tiffanie Rivas On 03/07/2020 15:07:19 PM
== END ==
LOC: M RAD 10:01
PROVIDERS: ATTEND Physician Assistant Medical
DX: I63.89 Other cerebral infarction (principal); G47.51 Confusional arousals; R44.1 Visual hallucinations; R42 Dizziness and giddiness; R26.9 Unspecified abnormalities of gait and mobility

== ENCOUNTER → 2020-05-01 | Outpatient (REF) | payer MEDICARE, MEDICAID ==
[2020-05-01 10:57] LABS: HEMATOCRIT 45.2 % (36.0-47.0); HEMOGLOBIN 14.2 g/dl (12.0-15.5); MEAN CORPUSCULAR HEMOGLOBIN 29.2 pg (27.0-33.0); MEAN CORPUSCULAR HGB CONC 31.4 g/dl (32.0-36.5); MEAN CORPUSCULAR VOLUME 92.8 fl (80.0-96.0); PLATELET COUNT, AUTOMATED 262 10^3/uL (150-450); RED BLOOD COUNT 4.87 10^6/uL (4.00-5.40); WHITE BLOOD COUNT 7.2 10^3/uL (4.0-10.0)
[2020-05-01 11:29] LABS: CALCIUM LEVEL 9.6 MG/DL (8.8-10.2); CREATININE FOR GFR 0.98 MG/DL (0.55-1.30); GLOMERULAR FILTRATION RATE 56.9 (>32); POTASSIUM SERUM 4.2 MEQ/L (3.5-5.1)
== END ==
PROVIDERS: ATTEND Internal Medicine
DX: I50.9 Heart failure, unspecified (principal)

== ENCOUNTER → 2020-05-06 | Outpatient (REF) | payer MEDICARE, MEDICAID | PROVIDERS: ATTEND Nurse Practitioner Adult Health | DX: Z51.81 Encounter for therapeutic drug level monitoring (principal); Z79.899 Other long term (current) drug therapy ==

== ENCOUNTER → 2020-05-29 | Outpatient (REF) | payer MEDICARE, MEDICAID ==
[2020-05-29 10:17] LABS: HEMATOCRIT 43.1 % (36.0-47.0); HEMOGLOBIN 13.6 g/dl (12.0-15.5); MEAN CORPUSCULAR HEMOGLOBIN 29.1 pg (27.0-33.0); MEAN CORPUSCULAR HGB CONC 31.6 g/dl (32.0-36.5); MEAN CORPUSCULAR VOLUME 92.3 fl (80.0-96.0); PLATELET COUNT, AUTOMATED 326 10^3/uL (150-450); RED BLOOD COUNT 4.67 10^6/uL (4.00-5.40)
[2020-05-29 10:34] LABS: HEMOGLOBIN A1c 6.7 %
[2020-05-29 11:02] LABS: ALBUMIN 3.2 GM/DL (3.2-5.2); BILIRUBIN,TOTAL 0.3 MG/DL (0.2-1.0); CALCIUM LEVEL 9.9 MG/DL (8.8-10.2); CHOLESTEROL RISK RATIO 2.887 (<5); CREATININE FOR GFR 0.97 MG/DL (0.55-1.30); GLOMERULAR FILTRATION RATE 57.6 (>32); POTASSIUM SERUM 4.1 MEQ/L (3.5-5.1); TOTAL PROTEIN 6.3 GM/DL (6.4-8.2); URIC ACID 3.1 MG/DL (2.6-6.0)
== END ==
PROVIDERS: ATTEND Nurse Practitioner Adult Health
DX: I50.9 Heart failure, unspecified (principal); Z79.899 Other long term (current) drug therapy

== ENCOUNTER → 2020-07-03 | Outpatient (REF) | PROVIDERS: ATTEND Internal Medicine | DX: Z20.828 Contact with and (suspected) exposure to other viral communicable diseases (principal) ==

== ENCOUNTER → 2020-07-10 | Outpatient (REF) | payer MEDICARE, MEDICAID ==
[~2020-07-10] MED LIST changes: -CLIN150C14 PO; +CLIN150C15 PO; +COLC0.6T47 PO; -COLC1TAB13 PO; -LISI-538 PO; -LISI-542 PO; +LISI-898 PO; +LISI20TA33 PO
== END ==
LOC: EDSTATUS 08-19 14:56
PROVIDERS: ATTEND Internal Medicine
DX: Z20.828 Contact with and (suspected) exposure to other viral communicable diseases (principal)

== ENCOUNTER → 2020-07-16 | Outpatient (REF) | payer MEDICARE, MEDICAID | PROVIDERS: ATTEND Internal Medicine | DX: Z20.828 Contact with and (suspected) exposure to other viral communicable diseases (principal) ==

== ENCOUNTER → 2020-07-28 | Outpatient (REF) | payer MEDICARE, MEDICAID ==
[~2020-07-28] MED LIST changes: +CLIN150C14 PO; -CLIN150C15 PO; +LISI-538 PO; +LISI-542 PO; -LISI-898 PO; -LISI20TA33 PO
== END ==
PROVIDERS: ATTEND Internal Medicine
DX: Z53.9 Procedure and treatment not carried out, unspecified reason (principal)

== ENCOUNTER → 2020-07-29 | Outpatient (REF) | payer MEDICARE, MEDICAID | PROVIDERS: ATTEND Internal Medicine | DX: G40.909 Epilepsy, unspecified, not intractable, without status epilepticus (principal); Z79.899 Other long term (current) drug therapy ==

== ENCOUNTER → 2020-08-03 | Outpatient (REF) | payer MEDICARE, MEDICAID | PROVIDERS: ATTEND Internal Medicine | DX: Z20.828 Contact with and (suspected) exposure to other viral communicable diseases (principal) ==

== ENCOUNTER → 2020-08-07 | Outpatient (REF) | payer MEDICARE, MEDICAID ==
[~2020-08-07] MED LIST changes: -CLIN150C14 PO; +CLIN150C15 PO
== END ==
PROVIDERS: ATTEND Internal Medicine
DX: Z20.828 Contact with and (suspected) exposure to other viral communicable diseases (principal)

== ENCOUNTER → 2020-08-11 | Outpatient (REF) | payer MEDICARE, MEDICAID ==
[~2020-08-11] MED LIST changes: +CLIN150C14 PO; -CLIN150C15 PO
[2020-08-11 12:39] LABS: RSV AMPLIFICATION NEGATIVE (NEGATIVE)
== END ==
PROVIDERS: ATTEND Internal Medicine
DX: Z20.828 Contact with and (suspected) exposure to other viral communicable diseases (principal)

== ENCOUNTER → 2020-08-13 | Outpatient (REF) | payer MEDICARE, MEDICAID ==
[2020-08-13 12:08] LABS: BASO # 0.1 10^3/uL (0.0-0.2); BASO % 1.2 % (0.0-1.0); EOS # 0.2 10^3/uL (0.0-0.5); EOS % 2.5 % (0.0-3.0); HEMATOCRIT 44.8 % (36.0-47.0); HEMOGLOBIN 14.2 g/dl (12.0-15.5); LYMPH % 28.8 % (24.0-44.0); MEAN CORPUSCULAR HEMOGLOBIN 29.2 pg (27.0-33.0); MEAN CORPUSCULAR HGB CONC 31.7 g/dl (32.0-36.5); MONO # 0.6 10^3/uL (0.0-0.8); MONO % 9.4 % (0.0-5.0); NEUTROPHILS # 3.9 10^3/uL (1.5-8.5); NEUTROPHILS % 57.8 % (36.0-66.0); PLATELET COUNT, AUTOMATED 328 10^3/uL (150-450); RED BLOOD COUNT 4.87 10^6/uL (4.00-5.40); WHITE BLOOD COUNT 6.8 10^3/uL (4.0-10.0)
[2020-08-13 12:33] LABS: CALCIUM LEVEL 10.2 MG/DL (8.8-10.2); CREATININE FOR GFR 1.01 MG/DL (0.55-1.30); GLOMERULAR FILTRATION RATE 54.9 (>32); POTASSIUM SERUM 4.2 MEQ/L (3.5-5.1)
== END ==
PROVIDERS: ATTEND Internal Medicine
DX: G40.909 Epilepsy, unspecified, not intractable, without status epilepticus (principal); Z20.828 Contact with and (suspected) exposure to other viral communicable diseases
CPT/HCPCS: 36415; 80048; 80180; 85025; U0003

== ENCOUNTER → 2020-08-17 | Outpatient (REF) | payer MEDICARE, MEDICAID | PROVIDERS: ATTEND Internal Medicine | DX: Z20.828 Contact with and (suspected) exposure to other viral communicable diseases (principal) ==

== ENCOUNTER → 2020-08-19 | Outpatient (REF) | payer MEDICARE, MEDICAID ==
[~2020-08-19] MED LIST changes: -CLIN150C14 PO; +CLIN150C15 PO
== END ==
PROVIDERS: ATTEND Internal Medicine
DX: Z20.828 Contact with and (suspected) exposure to other viral communicable diseases (principal)

== ENCOUNTER → 2020-08-25 | Outpatient (REF) | payer MEDICARE, MEDICAID | PROVIDERS: ATTEND Internal Medicine | DX: Z20.822 Contact with and (suspected) exposure to COVID-19 (principal) ==

== ENCOUNTER → 2020-08-29 | Outpatient (REF) | payer MEDICARE, MEDICAID | PROVIDERS: ATTEND Internal Medicine | DX: Z20.822 Contact with and (suspected) exposure to COVID-19 (principal) ==

== ENCOUNTER → 2020-09-03 | Outpatient (REF) | payer MEDICARE, MEDICAID | PROVIDERS: ATTEND Internal Medicine | DX: Z20.822 Contact with and (suspected) exposure to COVID-19 (principal) ==

== ENCOUNTER → 2020-09-10 | Outpatient (REF) | payer MEDICARE, MEDICAID | PROVIDERS: ATTEND Internal Medicine | DX: Z20.822 Contact with and (suspected) exposure to COVID-19 (principal) ==

== ENCOUNTER → 2020-09-15 | Outpatient (REF) | payer MEDICARE, MEDICAID ==
[~2020-09-15] MED LIST changes: -LISI-538 PO; -LISI-542 PO; +LISI-898 PO; +LISI20TA33 PO
== END ==
PROVIDERS: ATTEND Internal Medicine
DX: R50.9 Fever, unspecified (principal); Z20.822 Contact with and (suspected) exposure to COVID-19

== ENCOUNTER → 2020-09-17 | Outpatient (REF) | payer MEDICARE, MEDICAID ==
[~2020-09-17] MED LIST changes: +LISI-538 PO; +LISI-542 PO; -LISI-898 PO; -LISI20TA33 PO
== END ==
PROVIDERS: ATTEND Internal Medicine
DX: Z20.822 Contact with and (suspected) exposure to COVID-19 (principal)

== ENCOUNTER → 2020-09-19 | Outpatient (REF) | payer MEDICARE, MEDICAID ==
--- NOTE | 2020-09-19 15:47 | REPPI ---
INDICATION: PAIN 444-1. COMPARISON: Comparison radiograph is from February 28, 2016.. TECHNIQUE: AP and frogleg views of the left hip are obtained. FINDINGS: Image quality is affected adversely by patient body habitus. Some vascular calcification and diffuse osteopenia are noted. There is no evidence of fracture. Left hemipelvis appears to be intact. Femoral head is smooth and rounded. Joint space is preserved. There appears to be some chondrocalcinosis. IMPRESSION: Mild degenerative changes. Diffuse osteopenia. No acute bony abnormality. <Electronically signed by Handy Monson > 09/19/20 [id number]
== END ==
PROVIDERS: ATTEND Nurse Practitioner Adult Health
DX: M85.852 Other specified disorders of bone density and structure, left thigh (principal); M25.552 Pain in left hip

== ENCOUNTER → 2020-09-22 | Outpatient (REF) | payer MEDICARE, MEDICAID ==
[~2020-09-22] MED LIST changes: -LISI-538 PO; -LISI-542 PO; +LISI-898 PO; +LISI20TA33 PO
--- NOTE | 2020-09-23 07:21 | REP ---
INDICATION: LEFT ARM PAIN COMPARISON: None. TECHNIQUE: Three views left shoulder. FINDINGS: There is no evidence of acute fracture, dislocation, or intrinsic bone disease. IMPRESSION: No fracture or dislocation. <Electronically signed by Trace Tripathi > 09/22/20 [id number]
== END ==
LOC: M RAD 15:57
PROVIDERS: ATTEND Internal Medicine
DX: M79.602 Pain in left arm (principal)

== ENCOUNTER → 2020-09-24 | Outpatient (REF) | payer MEDICARE, MEDICAID ==
[~2020-09-24] MED LIST changes: +LISI-538 PO; +LISI-542 PO; -LISI-898 PO; -LISI20TA33 PO
== END ==
PROVIDERS: ATTEND Internal Medicine
DX: Z20.822 Contact with and (suspected) exposure to COVID-19 (principal)

== ENCOUNTER → 2020-10-01 | Outpatient (REF) | payer MEDICARE, MEDICAID ==
[~2020-10-01] MED LIST changes: -LISI-538 PO; -LISI-542 PO; +LISI-898 PO; +LISI20TA33 PO
== END ==
PROVIDERS: ATTEND Internal Medicine
DX: Z20.822 Contact with and (suspected) exposure to COVID-19 (principal)

== ENCOUNTER → 2020-10-08 | Outpatient (REF) | payer MEDICARE, MEDICAID | PROVIDERS: ATTEND Internal Medicine | DX: Z20.822 Contact with and (suspected) exposure to COVID-19 (principal) ==

== ENCOUNTER → 2020-10-15 | Outpatient (REF) | payer MEDICARE, MEDICAID | PROVIDERS: ATTEND Internal Medicine | DX: Z20.822 Contact with and (suspected) exposure to COVID-19 (principal) ==

== ENCOUNTER → 2020-10-22 | Outpatient (REF) | payer MEDICARE, MEDICAID | PROVIDERS: ATTEND Internal Medicine | DX: Z20.822 Contact with and (suspected) exposure to COVID-19 (principal) ==

== ENCOUNTER → 2020-10-29 | Outpatient (REF) | payer MEDICARE, MEDICAID | PROVIDERS: ATTEND Internal Medicine | DX: Z11.52 Encounter for screening for COVID-19 (principal) ==

== ENCOUNTER → 2020-11-28 | Outpatient (REF) | payer MEDICARE, MEDICAID ==
[2020-11-28 14:55] LABS: INFLUENZA A AMPLIFICATION NEGATIVE (NEGATIVE); INFLUENZA B AMPLIFICATION NEGATIVE (NEGATIVE)
--- NOTE | 2020-11-28 15:49 | REPPI ---
INDICATION: FALL WITH RT ELBOW AND FOREARM PAIN 444-1 COMPARISON: None. TECHNIQUE: Portable right elbow 2 nonstandard views: FINDINGS: There is demineralization and osteoarthritis. No gross evidence of fracture or dislocation is identified on the 2 nonstandard views provided. If there is ongoing clinical concern I would recommend routine standard four view study or CT for follow-up. IMPRESSION: No gross evidence of fracture or dislocation as described. If there is ongoing clinical concern consider CT or standard four view study. <Electronically signed by Trace Page > 11/28/20 [id number]
--- NOTE | 2020-11-28 15:53 | REPPI ---
INDICATION: FALL WITH RT ELBOW AND FOREARM PAIN 444-1 COMPARISON: None. TECHNIQUE: There are 2 nonstandard views performed portably. FINDINGS: There is demineralization. There is no gross evidence of fracture or dislocation. If there is continuing clinical concern I would recommend follow-up CT or follow-up standard views of the forearm. IMPRESSION: No gross evidence of fracture or dislocation. If there is continuing concern consider follow-up standard views or CT. <Electronically signed by Trace Page > 11/28/20 [id number]
== END ==
PROVIDERS: ATTEND Internal Medicine
DX: Z11.59 Encounter for screening for other viral diseases (principal); S50.11XA Contusion of right forearm, initial encounter; W01.0XXA Fall on same level from slipping, tripping and stumbling without subsequent striking against object, initial encounter; Y92.9 Unspecified place or not applicable

== ENCOUNTER → 2020-12-02 | Outpatient (REF) | payer MEDICARE, MEDICAID ==
[~2020-12-02] MED LIST changes: -ACET-908 PO; +ACET-910 PO
== END ==
PROVIDERS: ATTEND Internal Medicine
DX: Z20.822 Contact with and (suspected) exposure to COVID-19 (principal)

== ENCOUNTER → 2020-12-05 | Outpatient (REF) | payer MEDICARE, MEDICAID | PROVIDERS: ATTEND Nurse Practitioner Adult Health | DX: E11.9 Type 2 diabetes mellitus without complications (principal) ==

== ENCOUNTER → 2020-12-09 | Outpatient (REF) | payer MEDICARE, MEDICAID | PROVIDERS: ATTEND Internal Medicine | DX: Z20.822 Contact with and (suspected) exposure to COVID-19 (principal) ==

== ENCOUNTER → 2020-12-16 | Outpatient (REF) | payer MEDICARE, MEDICAID | PROVIDERS: ATTEND Internal Medicine | DX: Z11.52 Encounter for screening for COVID-19 (principal) ==

== ENCOUNTER → 2021-02-05 | Outpatient (REF) | payer MEDICARE, MEDICAID ==
[~2021-02-05] MED LIST changes: +GABA-283 PO; -GABA-845 PO
[2021-02-05 12:05] LABS: HEMOGLOBIN A1c 7.1 %
== END ==
LOC: EDBD
PROVIDERS: ATTEND Nurse Practitioner Adult Health
DX: E11.9 Type 2 diabetes mellitus without complications (principal)

== ENCOUNTER → 2021-03-19 | Outpatient (REF) | payer MEDICARE, MEDICAID | LOC: EDBD | PROVIDERS: ATTEND Internal Medicine | DX: Z51.81 Encounter for therapeutic drug level monitoring (principal); Z79.899 Other long term (current) drug therapy ==